=== PATIENT | male | born 1935 | race Caucasian/White ===

== ENCOUNTER 2018-04-03 09:07 | Inpatient (IN) | payer MEDICARE, BC ==
[2018-04-03] MEDS ORDERED: SODIUM CHLORIDE 0.9% 1,000 ML IV STA (09:53)
[2018-04-03] MEDS ORDERED: SODIUM CHLORIDE 0.9% 500 ML IV STA (09:53)
--- NOTE | 2018-04-03 09:57 | ED ---
General Adult HPI - General Chief complaint: Dizziness Stated complaint: Dizziness Time Seen by Provider: 04/03/18 09:26 Source: patient, RN notes reviewed Mode of arrival: wheelchair Limitations: no limitations - History of Present Illness Initial comments: Patient is a pleasant 82-year-old male presenting to the emergency department with lightheadedness. This morning patient had an episode with lightheadedness and dizziness and near syncopal sensation. Patient also had some mild sharp chest discomfort that did not radiate. Symptoms lasted around a minute and a half and near resolved. Patient only has minimal lightheadedness at this time. No history of similar symptoms previously. No confusion. No weakness. No speech problems. - Related Data Home Medications Medication Instructions Recorded Confirmed Aspirin [Children's Aspirin] 81 mg PO DAILY 04/03/18 04/03/18 Valsartan/Hydrochlorothiazide 1 tab PO DAILY 04/03/18 04/03/18 [Valsartan-Hctz 80-12.5 mg Tab] Allergies Allergy/AdvReac Type Severity Reaction Status Date / Time No Known Allergies Allergy Verified 04/03/18 09:35 Review of Systems ROS Statement: Those systems with pertinent positive or pertinent negative responses have been documented in the HPI. ROS Other: All systems not noted in ROS Statement are negative. Constitutional: Denies: fever Eyes: Denies: eye pain ENT: Denies: ear pain Respiratory: Denies: cough, dyspnea Cardiovascular: Reports: chest pain (Resolved) Endocrine: Denies: fatigue Gastrointestinal: Denies: abdominal pain Genitourinary: Denies: dysuria Musculoskeletal: Denies: back pain Skin: Denies: rash Neurological: Denies: headache Past Medical History Past Medical History: No Reported History History of Any Multi-Drug Resistant Organisms: None Reported Additional Past Surgical History / Comment(s): cyst on tailbone removed at age 20 Past Psychological History: No Psychological Hx Reported Smoking Status: Former smoker Past Alcohol Use History: None Reported Past Drug Use History: None Reported General Exam Limitations: no limitations General appearance: alert, in no apparent distress Head exam: Present: atraumatic Eye exam: Present: normal appearance, PERRL, EOMI. Absent: nystagmus ENT exam: Present: normal oropharynx Neck exam: Present: normal inspection Respiratory exam: Present: normal lung sounds bilaterally. Absent: chest wall tenderness Cardiovascular Exam: Present: regular rate, normal rhythm, normal heart sounds Expanded Peripheral pulses: 2+: Radial (R), Radial (L), Dorsalis Pedis (R), Dorsalis Pedis (L) GI/Abdominal exam: Present: soft. Absent: tenderness Extremities exam: Present: normal inspection. Absent: pedal edema, calf tenderness Neurological exam: Present: alert, oriented X3, CN II-XII intact. Absent: motor sensory deficit Expanded Neurological exam: Present: protecting the airway Patient oriented to: Present: person, place, time Speech: Present: fluid speech Cranial nerves: EOM's Intact: Normal, Facial Sensation: Normal Cerebellar function: Finger to Nose: Normal Sensory exam: Upper Extremity Light Touch: Normal, Lower Extremity Light Touch: Normal Motor strength exam: RUE: 5, LUE: 5, RLE: 5, LLE: 5 Eye Response: (4) open spontaneously Motor Response: (6) obeys commands Verbal Response: (5) oriented Psychiatric exam: Present: normal affect, normal mood Skin exam: Present: normal color Course Vital Signs 04/03/18 09:13 Temperature 98.4 F Pulse Rate 91 Respiratory 18 Rate Blood Pressure 164/97 O2 Sat by Pulse 99 Oximetry EKG Findings - EKG Comments: EKG Findings:: Normal sinus rhythm 92. SD 168. QRS 88. QT 384. QTC 474. Normal axis. Normal QRS. Nonspecific T waves. Medical Decision Making - Medical Decision Making Patient reevaluated and resting comfortably in bed. Patient and family updated on results and plan. Case was discussed in detail with Dr. Gleason, covering for Dr. Cuevas, who will admit. - Lab Data Result diagrams: 04/03/18 10:00 04/03/18 10:00 Lab Results 04/03/18 04/03/18 04/03/18 Range/Units 10:00 10:00 10:00 WBC 8.4 (3.8-10.6) k/uL RBC 4.77 (4.30-5.90) m/uL Hgb 13.8 (13.0-17.5) gm/dL Hct 41.9 (39.0-53.0) % MCV 87.8 (80.0-100.0) fL MCH 28.8 (25.0-35.0) pg MCHC 32.8 (31.0-37.0) g/dL RDW 13.3 (11.5-15.5) % Plt Count 314 (150-450) k/uL Neutrophils % 78 % Lymphocytes % 12 % Monocytes % 5 % Eosinophils % 2 % Basophils % 0 % Neutrophils # 6.6 (1.3-7.7) k/uL Lymphocytes # 1.0 (1.0-4.8) k/uL Monocytes # 0.5 (0-1.0) k/uL Eosinophils # 0.2 (0-0.7) k/uL Basophils # 0.0 (0-0.2) k/uL PT (9.0-12.0) sec INR (<1.2) APTT (22.0-30.0) sec D-Dimer (<0.60) mg/L FEU Sodium 133 L (137-145) mmol/L Potassium 4.4 (3.5-5.1) mmol/L Chloride 98 (98-107) mmol/L Carbon Dioxide 27 (22-30) mmol/L Anion Gap 8 mmol/L BUN 18 (9-20) mg/dL Creatinine 0.85 (0.66-1.25) mg/dL Est GFR (CKD-EPI)AfAm >90 (>60 ml/min/1.73 sqM) Est GFR (CKD-EPI)NonAf 81 (>60 ml/min/1.73 sqM) Glucose 107 H (74-99) mg/dL Calcium 9.0 (8.4-10.2) mg/dL Magnesium 1.9 (1.6-2.3) mg/dL Total Bilirubin 0.3 (0.2-1.3) mg/dL AST 36 (17-59) U/L ALT 32 (21-72) U/L Alkaline Phosphatase 71 (38-126) U/L Total Creatine Kinase 76 (55-170) U/L CK-MB (CK-2) 2.7 H* (0.0-2.4) ng/mL CK-MB (CK-2) Rel Index 3.6 Troponin I 0.032 (0.000-0.034) ng/mL Total Protein 6.4 (6.3-8.2) g/dL Albumin 4.0 (3.5-5.0) g/dL 07/26/18 Range/Units 10:00 WBC (3.8-10.6) k/uL RBC (4.30-5.90) m/uL Hgb (13.0-17.5) gm/dL Hct (39.0-53.0) % MCV (80.0-100.0) fL MCH (25.0-35.0) pg MCHC (31.0-37.0) g/dL RDW (11.5-15.5) % Plt Count (150-450) k/uL Neutrophils % % Lymphocytes % % Monocytes % % Eosinophils % % Basophils % % Neutrophils # (1.3-7.7) k/uL Lymphocytes # (1.0-4.8) k/uL Monocytes # (0-1.0) k/uL Eosinophils # (0-0.7) k/uL Basophils # (0-0.2) k/uL PT 9.7 (9.0-12.0) sec INR 1.0 (<1.2) APTT 23.1 (22.0-30.0) sec D-Dimer 0.46 (<0.60) mg/L FEU Sodium (137-145) mmol/L Potassium (3.5-5.1) mmol/L Chloride (98-107) mmol/L Carbon Dioxide (22-30) mmol/L Anion Gap mmol/L BUN (9-20) mg/dL Creatinine (0.66-1.25) mg/dL Est GFR (CKD-EPI)AfAm (>60 ml/min/1.73 sqM) Est GFR (CKD-EPI)NonAf (>60 ml/min/1.73 sqM) Glucose (74-99) mg/dL Calcium (8.4-10.2) mg/dL Magnesium (1.6-2.3) mg/dL Total Bilirubin (0.2-1.3) mg/dL AST (17-59) U/L ALT (21-72) U/L Alkaline Phosphatase (38-126) U/L Total Creatine Kinase (55-170) U/L CK-MB (CK-2) (0.0-2.4) ng/mL CK-MB (CK-2) Rel Index Troponin I (0.000-0.034) ng/mL Total Protein (6.3-8.2) g/dL Albumin (3.5-5.0) g/dL - Radiology Data Radiology results: report reviewed (Computed tomography scan of the brain shows no acute process.), image reviewed (Two-view chest x-ray shows no acute process. ) Disposition Clinical Impression: Chest pain, Near syncope Disposition: ADMITTED IP TO THIS HOSP Is patient prescribed a controlled substance at d/c from ED?: No Referrals: Joseph Cuevas MD [Primary Care Provider] - 1-2 days Decision Time: 11:29
[2018-04-03 10:18] LABS: Basophils % (A) 0 %; Eosinophils # (A) 0.2 k/uL (0-0.7); Eosinophils % (A) 2 %; HCT 41.9 % (39.0-53.0); HGB 13.8 gm/dL (13.0-17.5); Lymphocytes % (A) 12 %; MCH 28.8 pg (25.0-35.0); MCHC 32.8 g/dL (31.0-37.0); MCV 87.8 fL (80.0-100.0); Mean Platelet Volume 6.2; Monocytes # (A) 0.5 k/uL (0-1.0); Monocytes % (A) 5 %; Neutrophils # (A) 6.6 k/uL (1.3-7.7); Neutrophils % (A) 78 %; Platelet Count 314 k/uL (150-450); RBC 4.77 m/uL (4.30-5.90); RDW 13.3 % (11.5-15.5); WBC 8.4 k/uL (3.8-10.6)
[2018-04-03 10:30] LABS: ALT 32 U/L (21-72); AST 36 U/L (17-59); Alkaline Phosphatase 71 U/L (38-126); Anion Gap 8 mmol/L; Blood Urea Nitrogen 18 mg/dL (9-20); Carbon Dioxide 27 mmol/L (22-30); Chloride 98 mmol/L (98-107); Glucose 107 mg/dL (74-99); Magnesium 1.9 mg/dL (1.6-2.3); Potassium 4.4 mmol/L (3.5-5.1); Sodium 133 mmol/L (137-145); Total Bilirubin 0.3 mg/dL (0.2-1.3); Total Protein 6.4 g/dL (6.3-8.2)
[2018-04-03 10:33] LABS: D-Dimer 0.46 mg/L FEU (<0.60); Partial Thromboplastin Time 23.1 sec (22.0-30.0); Prothrombin Time 9.7 sec (9.0-12.0)
--- NOTE | 2018-04-03 10:38 | CT ---
EXAMINATION TYPE: CT brain wo con DATE OF EXAM: 04/03/2018 COMPARISON: None HISTORY: lightheaded and near syncope CT DLP: 746.4 mGycm Automated exposure control for dose reduction was used. TECHNIQUE: CT scan of the head is performed without contrast. FINDINGS: There is no acute intracranial hemorrhage or midline shift identified. There is diffuse v entricular and sulcal prominence consistent with diffuse age-related cerebral atrophy. There a few p atchy areas of low-attenuation in the periventricular white matter most commonly related to chronic s mall vessel ischemic change. The globes are intact and the visualized sinuses are clear. 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 Atherosclerosis is seen in the intracranial vasculature . No suspicious extra-axial fluid collection. IMPRESSION: No acute intracranial process. Age-related cerebral atrophy and mild nonspecific white m atter change, likely on the basis of chronic microangiopathy..
--- NOTE | 2018-04-03 10:40 | XR ---
EXAMINATION TYPE: XR chest 2V DATE OF EXAM: 04/03/2018 COMPARISON: NONE HISTORY: Shortness of breath TECHNIQUE: Frontal and lateral views of the chest are obtained. FINDINGS: Scattered senescent parenchymal changes noted. Hyperinflation compatible with COPD. No evidence for infiltrate. No evidence for atelectasis. Heart size is enlarged. Mediastinal structures are stable and grossly unremarkable. No evidence for hilar prominence. Degenerative changes dorsal spine. IMPRESSION: 1. No evidence for acute pulmonary disease.
[2018-04-03 10:56] LABS: Troponin I 0.032 ng/mL (0.000-0.034)
[2018-04-03 11:18] LABS: Creatine Kinase MB 2.7 ng/mL (0.0-2.4)
[2018-04-03] MEDS ORDERED: NITROGLYCERIN SL TABS 0.4 MG TAB SUBLINGUAL PRN (11:30)
[2018-04-03] MEDS ORDERED: ASPIRIN 81 MG PO STA (11:30)
[2018-04-03 13:04] VITALS: BMI 31.8
--- NOTE | 2018-04-03 13:15 | P.CRDCN ---
History of Present Illness History of present illness: Mr. Vo is a pleasant 82-year-old male past medical history significant for former tobacco use. He quit 30 years ago. He denies history of coronary artery disease, hypertension, dylipidemia or diabetes mellitus. He states his father and brother both suffered from premature coronary artery disease however he has never had any issues. We have been asked to see him in consultation for chest pain and dizziness. He states he was sitting up in the chair this morning when he became acutely lightheaded. Initially this was his only symptom then after a few minutes he felt a sharp pain across his chest that went from shoulder to shoulder, very brief. He denies radiation of the pain down the arms, into the neck, jaw or back. He denies associated shortness of breath, nausea, vomiting, diaphoresis or palpitations. His symptoms of chest pain subsided immediately and haven not returned. The light headedness lasted for about 3 hours and seemed to subside slowly on its own. Blood pressure on arrival 160's systolic and he states it typically runs 112-118. EKG reveals sinus mechanism with mild less than [address] depression laterally only noted in lead 1. Nonspecific T-wave abnormality noted in the inferior leads. Prolonged QTC 474 ms. There is no old EKG for comparison. Chest x-ray negative for acute cardiopulmonary process. CT brain negative for an acute process. Laboratory data reviewed, hemoglobin 13.8, platelets 314, d-dimer 0.46, sodium 133, potassium 4.4, magnesium 1.9, creatinine 0.85, troponin negative x1 with elevated CKMB 2.7. He takes no daily medications. Review of Systems At the time of my exam: CONSTITUTIONAL: Denies fever. Denies chills. EYES: Denies blurred vision. Denies vision changes. Denies eye pain. EARS, NOSE, MOUTH & THROAT: Denies headache. Denies sore throat. Denies ear pain. CARDIOVASCULAR: Denies chest pain. Denies shortness of breath. Denies orthopnea. Denies PND. Denies palpitations. RESPIRATORY: Denies cough. GASTROINTESTINAL: Denies abdominal pain. Denies diarrhea. Denies constipation. Denies nausea. Denies vomiting. MUSCULOSKELETAL: Denies myalgias. INTEGUMENTARY: Denies pruitis. Denies rash. NEUROLOGIC: Denies numbness. Denies tingling. Denies weakness. Complains of intermittent dizziness ongoing. PSYCHIATRIC: Denies anxiety. Denies depression. ENDOCRINE: Denies fatigue. Denies weight change. Denies polydipsia. Denies polyurina. GENITOURINARY: Denies burning, hematuria or urgency with micturation. HEMATOLOGIC: Denies history of anemia. Denies bleeding. Past Medical History Past Medical History: No Reported History History of Any Multi-Drug Resistant Organisms: None Reported Additional Past Surgical History / Comment(s): cyst on tailbone removed at age 20 Past Psychological History: No Psychological Hx Reported Smoking Status: Former smoker Past Alcohol Use History: None Reported Past Drug Use History: None Reported Medications and Allergies Home Medications Medication Instructions Recorded Confirmed Type Aspirin [Children's Aspirin] 81 mg PO DAILY 04/03/18 04/03/18 History Valsartan/Hydrochlorothiazide 1 tab PO DAILY 04/03/18 04/03/18 History [Valsartan-Hctz 80-12.5 mg Tab] Allergies Allergy/AdvReac Type Severity Reaction Status Date / Time No Known Allergies Allergy Verified 04/03/18 09:35 Physical Exam Vitals: Vital Signs Temp Pulse Resp BP Pulse Ox 04/03/18 12:25 98.0 F 75 18 156/86 99 04/03/18 11:00 98.0 F 88 18 160/89 99 04/03/18 09:13 98.4 F 91 18 164/97 99 Intake and Output 04/02/18 04/03/18 04/03/18 22:59 06:59 14:59 Other: Weight 95.254 kg Blood pressure 156/86 heart rate 75 afebrile maintaining oxygen saturation on room air GENERAL: This is a 82-year-old male in no apparent distress at the time of my examination. HEENT: Head is atraumatic, normocephalic. Pupils are equal, round. Sclerae anicteric. Conjunctivae are clear. Mucous membranes of the mouth are moist. Neck is supple. There is no jugular venous distention. No carotid bruit is heard. LUNGS: Clear to auscultation no wheezes, rales or rhonchi. No chest wall tenderness is noted on palpation or with deep breathing. HEART: Regular rate and rhythm without murmurs, rubs or gallops. S1 and S2 heard. ABDOMEN: Soft, nontender. Bowel sounds are heard. No organomegaly noted. EXTREMITIES: No evidence of peripheral edema and no calf tenderness noted. VASCULAR: Radial and dorsalis pedis pulses palpated, no evidence of clubbing. NEUROLOGIC: Patient is awake, alert and oriented x3. Results 04/03/18 10:00 04/03/18 10:00 Cardiac Enzymes 04/03/18 04/03/18 Range/Units 10:00 10:00 AST 36 (17-59) U/L CK-MB (CK-2) 2.7 H* (0.0-2.4) ng/mL Troponin I 0.032 (0.000-0.034) ng/mL Coagulation 04/03/18 Range/Units 10:00 PT 9.7 (9.0-12.0) sec APTT 23.1 (22.0-30.0) sec CBC 04/03/18 Range/Units 10:00 WBC 8.4 (3.8-10.6) k/uL RBC 4.77 (4.30-5.90) m/uL Hgb 13.8 (13.0-17.5) gm/dL Hct 41.9 (39.0-53.0) % Plt Count 314 (150-450) k/uL Comprehensive Metabolic Panel 04/03/18 Range/Units 10:00 Sodium 133 L (137-145) mmol/L Potassium 4.4 (3.5-5.1) mmol/L Chloride 98 (98-107) mmol/L Carbon Dioxide 27 (22-30) mmol/L BUN 18 (9-20) mg/dL Creatinine 0.85 (0.66-1.25) mg/dL Glucose 107 H (74-99) mg/dL Calcium 9.0 (8.4-10.2) mg/dL AST 36 (17-59) U/L ALT 32 (21-72) U/L Alkaline Phosphatase 71 (38-126) U/L Total Protein 6.4 (6.3-8.2) g/dL Albumin 4.0 (3.5-5.0) g/dL Current Medications Generic Name Dose Route Start Last Admin Trade Name Freq PRN Reason Stop Dose Admin Aspirin 325 mg 04/04/18 09:00 Aspirin PO DAILY FABIANA Sodium Chloride 1,000 mls @ 100 mls/hr 04/03/18 09:53 04/03/18 10:04 Saline 0.9% IV 04/03/18 19:52 100 mls/hr .Q10H STA Administration Nitroglycerin 1 inch 04/03/18 12:00 Nitro-Bid Oint TOPICAL Q6HR FABIANA Nitroglycerin 0.4 mg 04/03/18 11:30 Nitrostat SUBLINGUAL Q5M PRN Chest Pain Intake and Output 04/02/18 04/03/18 04/03/18 22:59 06:59 14:59 Other: Weight 95.254 kg Patient Weight 04/04/18 06:59 Weight 95.254 kg 04/03/18 10:00 04/03/18 10:00 Assessment and Plan Assessment: ASSESSMENT Precordial chest pain at rest with associated dizziness. Dizziness, unknown etiology Hypertension Elevated CK-MB, denies recent trauma or increased exertional activity PLAN Obtain 2D echocardiogram and doppler study to assess cardiac structure and function. Obtain bilateral carotid duplex. Check orthostatic vital signs, if negative will add lisinopril and norvasc for blood pressure. Continue to obtain serial cardiac enzymes and EKG. Obtain lipid panel. NPO after midnight for possible stress testing vs cardiac catheterization if cardiac enzymes are positive. Thank you kindly for this consultation, we will continue to follow. The above impression and plan of care have been discussed and directed by the signing physician. Adrianne Scott, nurse practitioner, acting as scribe for signing physician.
--- NOTE | 2018-04-03 15:10 | US ---
EXAMINATION TYPE: US carotid duplex BILAT DATE OF EXAM: 04/03/2018 COMPARISON: NONE CLINICAL HISTORY: pre-syncope. Dizziness, chest pain EXAM MEASUREMENTS: RIGHT: Peak Systolic Velocity (PSV) cm/sec ----- Right CCA: 70.4 ----- Right ICA: 66.9 ----- Right ECA: 77.3 ICA/CCA ratio: 1.0 RIGHT: End Diastole cm/sec ----- Right CCA: 21.0 ----- Right ICA: 15.1 ----- Right ECA: 12.0 LEFT: Peak Systolic Velocity (PSV) cm/sec ----- Left CCA: 58.5 ----- Left ICA: 59.5 ----- Left ECA: 64.6 ICA/CCA ratio: 1.0 LEFT: End Diastole cm/sec ----- Left CCA: 14.6 ----- Left ICA: 21.0 ----- Left ECA: 15.9 VERTEBRALS (direction of flow): Right Vertebral: Antegrade Left Vertebral: Antegrade Rhythm: Arrhythmia IMPRESSION: Bilateral intimal thickening, plaque bilateral bulb and proximal ICA, no elevated velocities, no sign ificant stenosis. Criteria for Assigning % of Stenosis / Diameter reduction (Estimation based on the indirect measurements of the internal carotid artery velocities (ICA PSV). 1. Normal (no stenosis)=ICA PSV < 125 cm/s: ratio < 2.0: ICA EDV<40 cm/s. 2. Less than 50% stenosis=ICA PSV < 125 cm/s: ratio < 2.0: ICA EDV<40 cm/s. 3. 50 to 69% stenosis=ICA PSV of 125 to 230 cm/s: ration 2.0 ? 4.0: ICA EDV 40-100 cm/s. 4. Greater than 70% stenosis to near occlusion= ICA PSV > 230 cm/s: ratio > 4.0: ICA EDV > 100 cm/s. 5. Near occlusion= ICA PSV velocities may be low or undetectable: variable ratio and ICA EDV. 6. Total occlusion=unable to detect flow.
[2018-04-03] MEDS ORDERED: hydrALAZINE HCL 20 MG/ML 1 ML VIAL IVP PRN (16:12)
[2018-04-03] MEDS ORDERED: ALPRAZolam 0.25 MG TAB PO PRN (16:12)
[2018-04-03] MEDS ORDERED: HYDROcodone/APAP 5-325MG 1 EACH TAB PO PRN (16:12)
[2018-04-03] MEDS ORDERED: ACETAMINOPHEN TAB 500 MG TAB PO PRN (16:12)
[2018-04-03] MEDS ORDERED: VALSARTAN 80 MG TAB PO SCH (16:15)
[2018-04-03] MEDS ORDERED: VALSARTAN 160 MG TAB PO SCH (16:21)
[2018-04-03] MEDS: NITROGLYCERIN OINT 1 INCH/GM PACKET TOPICAL SCH ×3 (17:08→23:30)
[2018-04-03 17:19] LABS: Creatine Kinase MB 2.4 ng/mL (0.0-2.4)
[2018-04-03] MEDS: LISINOPRIL 10 MG TAB PO SCH (17:44)
[2018-04-03] MEDS: amLODIPine 5 MG TAB PO SCH (17:44)
[2018-04-03] MEDS: HYDROCHLOROTHIAZIDE 12.5 MG CAP PO SCH (17:44)
[2018-04-03 17:58] LABS: Troponin I 0.048 ng/mL (0.000-0.034)
[2018-04-03] MEDS ORDERED: ATORVASTATIN 40 MG TAB PO SCH (21:00)
[2018-04-03] MEDS ORDERED: HEPARIN SOD,PORK IN 0.45% NACL 25,000 UNIT in 0.45% NACL 1 500ML.BAG IV SCH (21:15)
[2018-04-03] MEDS: METOPROLOL TARTRATE 50 MG TAB PO SCH (21:32)
--- NOTE | 2018-04-03 21:48 | HP ---
HISTORY AND PHYSICAL I am covering for Dr. Cuevas. CHIEF COMPLAINT: Dizziness and chest pain. HISTORY OF PRESENT ILLNESS: This 82-year-old gentleman with a past medical history of no significant medical issues being followed by Dr. Dr. Cuevas in the outpatient setting apparently sitting after breakfast in a chair. The patient felt dizzy. Patient almost blacked out, lightheaded. The patient had near syncope. The patient also had sharp chest pains bilaterally. Patient came to [facility] and admitted for further evaluation and treatment. Cardiology evaluation in progress and EKG showed nonspecific ST-T changes. Troponins have been trending upwards up to 0.048 at this time. The patient admitted to the hospital for further evaluation and treatment. There is no history of fever, rigors or chills. No history of headache, loss of consciousness, seizures. PAST MEDICAL HISTORY: Past medical history of hypertension. MEDICATIONS: Prior to admission are: 1. Valsartan. 2. Hydrochlorothiazide 1 tab p.o. daily. 3. Aspirin 81 mg p.o. daily. ALLERGIES: None. FAMILY HISTORY: No history of heart disease or strokes in the family. SOCIAL HISTORY: Previous history of smoking. No history of current smoking and no alcohol intake. REVIEW OF SYSTEMS: ENT: As mentioned earlier. Cardiovascular as mentioned earlier. Respiratory: No cough or hemoptysis. GI: No nausea and vomiting. : No dysuria or hematuria. Nervous system: No numbness or weakness. Allergy/Immunology: No asthma or hayfever. Musculoskeletal as mentioned earlier. Hematology/Oncology: No history of anemia. Endocrine: No history of diabetes or hypothyroidism. CONSTITUTIONAL: As mentioned earlier. Dermatology: Negative. Rheumatology: Negative. Psychiatry: negative. PHYSICAL EXAMINATION: Alert, oriented x3, pulse 83, blood pressure 140/59, respirations 20, temperature is 98.1, pulse ox is 96% on room air. HEENT: Conjunctivae normal. Oral mucosa moist. Neck is no jugular venous distention. No carotid bruit. No lymph node enlargement. Cardiovascular system: S1, S2 is normal. No murmur noted. No S3. No S4. Respiratory: Breath sounds diminished at the bases. No focal motor or sensory deficits. Lymphatics: No lymph nodes palpable in the neck, axillae or groin. SKIN: No ulcer, rash, bleeding. LABS: CBC within normal limits. Sodium 133. Troponin noted. ASSESSMENT: 1. Chest pain possible unstable angina rule out acute non ST-segment elevation myocardial infarction with troponin 0.048. 2. Presyncope for evaluation, rule out cardiac arrhythmia. 3. Hyponatremia. 4. Remote history of nicotine dependence. RECOMMENDATIONS AND DISCUSSION: This 82-year-old woman who presented with multiple complex medical issues. We will monitor the patient closely, continue the current meds, management and symptomatic treatment. Otherwise, cardiology consultation. The patient has been recommended stress test. If the troponins are positive, the patient will require a cardiac cath. Otherwise, will add beta blockers to current regimen, antiplatelet agents and also check lipid profiles and Lipitor as well. The overall prognosis is guarded because of multiple complex medical issues and further recommendations to follow. MMODL / IJN: [id number] /
[2018-04-03 22:57] VITALS: RESP 18
[2018-04-03 23:08] LABS: Creatine Kinase MB 2.8 ng/mL (0.0-2.4); Troponin I 0.059 ng/mL (0.000-0.034)
[2018-04-03] MEDS: MELATONIN 3 MG TABLET PO SCH (23:29)
[2018-04-04 03:10] LABS: Basophils # (A) 0.1 k/uL (0-0.2); Basophils % (A) 0 %; Eosinophils # (A) 0.5 k/uL (0-0.7); Eosinophils % (A) 5 %; HGB 13.9 gm/dL (13.0-17.5); Lymphocytes # (A) 1.7 k/uL (1.0-4.8); Lymphocytes % (A) 16 %; MCH 29.1 pg (25.0-35.0); MCHC 32.3 g/dL (31.0-37.0); MCV 90.3 fL (80.0-100.0); Mean Platelet Volume 6.3; Monocytes # (A) 0.5 k/uL (0-1.0); Monocytes % (A) 5 %; Neutrophils # (A) 7.8 k/uL (1.3-7.7); Neutrophils % (A) 73 %; Platelet Count 322 k/uL (150-450); RBC 4.76 m/uL (4.30-5.90); RDW 13.5 % (11.5-15.5); WBC 10.7 k/uL (3.8-10.6)
[2018-04-04 03:28] LABS: Anion Gap 5 mmol/L; Blood Urea Nitrogen 17 mg/dL (9-20); Calcium 8.9 mg/dL (8.4-10.2); Carbon Dioxide 26 mmol/L (22-30); Chloride 100 mmol/L (98-107); Cholesterol 181 mg/dL (<200); Glucose 102 mg/dL (74-99); HDL Cholesterol 58 mg/dL (40-60); LDL Cholesterol,Calculated 106 mg/dL (0-99); Sodium 131 mmol/L (137-145); Triglycerides 87 mg/dL (<150)
[2018-04-04] MEDS: NITROGLYCERIN OINT 1 INCH/GM PACKET TOPICAL SCH (06:39)
[2018-04-04] MEDS: PANTOPRAZOLE 40 MG TABLET PO SCH (06:40)
[2018-04-04] MEDS ORDERED: MIDAZOLAM 2 MG/2 ML VIAL IVP ONE (08:33)
[2018-04-04] MEDS ORDERED: NITROGLYCERIN SL TABS 0.4 MG TAB SUBLINGUAL PRN (08:37)
[2018-04-04] MEDS ORDERED: ATORVASTATIN 80 MG TAB PO STA (08:37)
[2018-04-04] MEDS ORDERED: SODIUM CHLORIDE 0.9% 1,000 ML in EMPTY BAG 1 BAG IV ONE (08:37)
[2018-04-04] MEDS ORDERED: ASPIRIN 325 MG TAB PO STA (08:37)
[2018-04-04] MEDS: amLODIPine 5 MG TAB PO SCH (08:56)
[2018-04-04] MEDS: METOPROLOL TARTRATE 50 MG TAB PO SCH (08:57)
[2018-04-04] MEDS: HYDROCHLOROTHIAZIDE 12.5 MG CAP PO SCH (08:57)
[2018-04-04] MEDS: LISINOPRIL 10 MG TAB PO SCH (08:57)
[2018-04-04] MEDS ORDERED: ASPIRIN 81 MG PO SCH (09:00)
[2018-04-04] MEDS ORDERED: ASPIRIN 325 MG TAB PO SCH (09:00)
[2018-04-04] MEDS ORDERED: LIDOCAINE 1% INJ 10MG/ML (20 ML MDV) ONE (09:23)
[2018-04-04] MEDS ORDERED: MIDAZOLAM 2 MG/2 ML VIAL ONE (09:28)
[2018-04-04] MEDS ORDERED: diphenhydrAMINE 50 MG/ML 1 ML VIAL ONE (09:29)
[2018-04-04] MEDS ORDERED: IV FLUID CONTINUATION 750 ML IV ONE (09:30)
[2018-04-04] MEDS ORDERED: diphenhydrAMINE 50 MG/ML 1 ML VIAL IVP ONE (09:33)
[2018-04-04] MEDS ORDERED: LIDOCAINE 2% INJ 20 MG/ML SQ ONE ×2 (09:37)
[2018-04-04] MEDS ORDERED: RX INFO: IV CONTRAST WAS GIVEN 1 EACH MISC MISCELLANE PRN (10:00)
[2018-04-04] MEDS ORDERED: IOPAMIDOL-370 125ML BTL INJ ONE (10:01)
--- NOTE | 2018-04-04 10:04 | CC ---
CARDIAC CATHETERIZATION REPORT INDICATION: Non ST-segment elevation SD. PROCEDURE NOTE: After obtaining informed consent, left heart catheterization, coronary angiogram are performed via the right femoral artery using standard Samreen catheters. Patient tolerated the procedure well without any obvious immediate complications. Patient received moderate conscious sedation. Total sedation time was 15 minutes. FINDINGS: 1. HEMODYNAMICS: Left ventricular end-diastolic pressure is 8 to 12 mm. There is no significant gradient across the aortic valve. 2. LEFT VENTRICULOGRAM: Left ventriculogram is not performed. 3. ANGIOGRAPHIC DATA: 4. LEFT MAIN CORONARY ARTERY: Left main coronary artery appears calcified but is free of significant stenosis. It divides into left anterior descending coronary artery and circumflex coronary artery. Circumflex coronary artery shows mild nonobstructive coronary artery disease, as does the LAD. Right coronary artery is a large dominant vessel and is free of significant stenosis. Patient had a femoral angiogram and Angio-Seal will be deployed for hemostasis. CONCLUSION: Patient's chest discomfort and [id number] elevation myocardial infarction could be due to plaque rupture. Will treat him with aspirin, lipid lowering agents and the risk factor modification. MMODL / IJN: [id number] /
--- NOTE | 2018-04-04 10:34 | ECHOF ---
Referral Reason:syncope MEASUREMENTS -------- HEIGHT: 172.7 cm WEIGHT: 95.3 kg BP: IVSd: 2.0 cm (0.6 - 1.1) LVIDd: 4.4 cm (3.9 - 5.3) LVPWd: 1.7 cm (0.6 - 1.1) IVSs: 2.1 cm LVIDs: 3.8 cm LVPWs: 2.0 cm LA Diam: 5.1 cm (2.7 - 3.8) LAESV Index (A-L): 49.07 ml/m Ao Diam: 3.1 cm (2.0 - 3.7) AV Cusp: 1.8 cm (1.5 - 2.6) LA Diam: 4.2 cm (2.7 - 3.8) MV EXCURSION: 20.305 mm (> 18.000) MV EF SLOPE: 85 mm/s (70 - 150) EPSS: 0.8 cm MV E Rusty: 0.80 m/s MV DecT: 96 ms MV A Rusty: 0.31 m/s MV E/A Ratio: 2.59 RAP: 5.00 mmHg RVSP: 20.10 mmHg FINDINGS -------- Sinus rhythm. This was a technically adequate study. The left ventricular size is normal. There is severe concentric left ventricular hypertrophy. Ove rall left ventricular systolic function is low-normal with, an EF between 50 - 55 %. The right ventricle is normal in size. The left atrium is mildly dilated. LA is severely dilated >40 ml/m2 The right atrial size is normal. There is mild aortic valve sclerosis. There is no evidence of aortic regurgitation. Mild mitral annular calcification present. Mild mitral regurgitation is present. Mild tricuspid regurgitation present. There is no evidence of pulmonary hypertension. The right v entricular systolic pressure, as measured by Doppler, is 20.10mmHg. There is no pulmonic regurgitation present. The aortic root size is normal. There is no pericardial effusion. CONCLUSIONS -------- 1. The left ventricular size is normal. 2. There is severe concentric left ventricular hypertrophy. 3. Overall left ventricular systolic function is low-normal with, an EF between 50 - 55 %. 4. The right ventricle is normal in size. 5. The left atrium is mildly dilated. 6. LA is severely dilated >40 ml/m2 7. There is mild aortic valve sclerosis. 8. Mild mitral annular calcification present. 9. Mild mitral regurgitation is present. 10. Mild tricuspid regurgitation present. 11. There is no evidence of pulmonary hypertension. 12. The right ventricular systolic pressure, as measured by Doppler, is 20.10mmHg. 13. There is no pulmonic regurgitation present. 14. The aortic root size is normal. 15. There is no pericardial effusion. BUDGET CLERK: Lavonne Galaviz RDCS
[2018-04-04] MEDS: ISOSORBIDE MONONITRATE ER 30 MG TAB.ER.24H PO SCH (10:53)
[2018-04-04 12:20] LABS: Glucose,Whole Blood 121 mg/dL (75-99)
--- NOTE | 2018-04-04 16:13 | PN ---
PROGRESS NOTE DATE OF SERVICE: 04/04/2018 I am covering for Dr. Cuevas. This 82-year-old gentleman admitted with dizziness and chest pain, had possible acute non-ST elevation myocardial infarction. The patient had a cardiac catheterization by Dr. Willis, which showed some calcification, free of significant stenosis. The plaque rupture is considered. No chest pain. No palpitations. No fever. EXAM: Alert and oriented x3. Pulse is 53, blood pressure 111/73, respiration normal, temperature normal, pulse ox 94% on room air. HEENT: Conjunctivae normal. NECK: No jugular venous distention. CARDIOVASCULAR: S1, S2 RESPIRATORY: Breath sounds diminished in the bases. No rhonchi, no crackles. ABDOMEN: Soft, nontender. LEGS: No edema, no swelling. NERVOUS SYSTEM: No focal deficits. LAB STUDIES: WBC 11.1, hemoglobin 13.9. Troponin is noted. ASSESSMENT: 1. Chest pain possible unstable angina with acute non ST-segment elevation myocardial infarction, troponin 0.04, status post cardiac catheterization, no significant stenosis. 2. Presyncope for evaluation, rule out cardiac arrhythmia. 3. Hyponatremia. 4. Remote history of nicotine dependence. RECOMMENDATIONS AND DISCUSSION: I recommend to continue current management and continue with antiplatelet agents. Monitor. Hold the beta julian because of bradycardia. Otherwise continue the rest of medications. Guarded prognosis because of multiple complex medical issues. Further recommendations to follow. MMODL / IJN: [id number] /
[2018-04-04 17:11] LABS: Glucose,Whole Blood 132 mg/dL (75-99)
[2018-04-04 21:04] LABS: Glucose,Whole Blood 113 mg/dL (75-99)
[2018-04-04] MEDS: MELATONIN 3 MG TABLET PO SCH (21:36)
[2018-04-05] MEDS: PANTOPRAZOLE 40 MG TABLET PO SCH (06:17)
[2018-04-05] MEDS ORDERED: ATORVASTATIN 10 MG TAB PO SCH (09:00)
[2018-04-05] MEDS ORDERED: ASPIRIN 81 MG PO SCH (09:00)
[2018-04-05 11:12] VITALS: TEMP 97
--- NOTE | 2018-04-05 12:59 | PN ---
PROGRESS NOTE Mr. Vo is an 82-year-old male known history of hypertension, hyperlipidemia, who underwent cardiac catheterization by Dr. Willis yesterday, was found to have no evidence of obstructive disease. He is doing well this morning. He denying any chest pain. No dizziness. No palpitation. He continues to be on aspirin once a day, amlodipine 5 mg daily, Lipitor 10 mg daily, lisinopril 10 mg daily, isosorbide mononitrate 30 mg daily. PHYSICAL EXAMINATION: Blood pressure 128/80 with a heart in the 70s. LUNGS: Clear. HEART: Regular rate and rhythm. S1, S2. No S3. No rub. ABDOMEN: Soft, nontender. EXTREMITIES: No edema. Right groin hematoma. IMPRESSION: 1. Chest discomfort with no evidence of significant obstructive disease. 2. Hypertension. 3. Hyperlipidemia. RECOMMENDATION: Patient is stable from the cardiac standpoint to be discharged home today and followed as an outpatient. MMODL / IJN: [id number] /
--- NOTE | 2018-04-05 13:50 | DS ---
DISCHARGE SUMMARY DATE OF SERVICE: 04/05/2018 FINAL DIAGNOSES: 1. Chest pain possible unstable angina or acute non ST-segment elevation myocardial infarction with troponin 0.04 status post cardiac catheterization with no significant stenosis. 2. Presyncope, improved, possibly vasovagal. 3. Hyponatremia. 4. Remote nicotine dependence. DISCHARGE DISPOSITION: The patient will be discharged in stable condition with guarded prognosis. HISTORY OF PRESENT ILLNESS: This 82-year-old gentleman with a past history of multiple medical problems being followed by Dr. Cuevas in the outpatient setting was admitted with chest pain. The patient underwent a cardiac catheterization that showed no significant disease. Medical treatment was recommended. Patient improved significantly and the patient also had a carotid Doppler as a part of the neurology workup which showed bilateral thickening and no any acute stenosis. Otherwise, a 2D echo showed ejection fraction about 50-55%. LA was severely dilated. No other significant valvular abnormalities. The patient improved significantly. Patient will be discharged in stable condition with guarded prognosis. On exam, vitals are stable. CARDIOVASCULAR: S1, S2. ABDOMEN: Soft. NERVOUS SYSTEM: No focal deficits. DISCHARGE ADVICE: 1. Diet is cardiac. 2. Activities limited until followup. 3. Follow with Dr. Cuevas in 2-3 days. 4. Follow with the allergist immunologist. MEDICATIONS: 1. Ecotrin 81 mg p.o. daily. 2. Norvasc 5 mg p.o. daily. 3. Lipitor 20 mg q.h.s. 4. HydroDIURIL 12.5 mg p.o. daily. 5. Imdur ER 30 mg p.o. daily. 6. Zestril 10 mg b.i.d. 7. Nitrostat 0.4 mg p.r.n. Please note that the patient is started on high-dose statin. MMODL / IJN: [id number] / MTDD
[2018-04-05] MEDS: HYDROCHLOROTHIAZIDE 12.5 MG CAP PO SCH (14:32)
[2018-04-05] MEDS: amLODIPine 5 MG TAB PO SCH (14:32)
[2018-04-05] MEDS: LISINOPRIL 10 MG TAB PO SCH (14:33)
[2018-04-05] MEDS: ISOSORBIDE MONONITRATE ER 30 MG TAB.ER.24H PO SCH (14:33)
[2018-04-05 15:01] VITALS: BP 137/90; PULSE 77
== END 2018-04-05 15:23 | disposition home or self-care (01) | DRG 281 ==
LOC: EC 09:07 → 3OBS 11:30 → 6SEL 19:07 → OBSVTOIN 04-04 11:45
PROVIDERS: ADMIT Internal Medicine; ATTEND Internal Medicine
PROC: B2111ZZ Fluoroscopy of Multiple Coronary Arteries using Low Osmolar Contrast (ICD-10-PCS; 2018-04-04)
PROC: 4A023N7 Measurement of Cardiac Sampling and Pressure, Left Heart, Percutaneous Approach (ICD-10-PCS; principal; 2018-04-04 09:15)
DX: I21.4 Non-ST elevation (NSTEMI) myocardial infarction (principal); I25.110 Atherosclerotic heart disease of native coronary artery with unstable angina pectoris; I25.84 Coronary atherosclerosis due to calcified coronary lesion; E87.1 Hypo-osmolality and hyponatremia; R55 Syncope and collapse; I10 Essential (primary) hypertension; E78.5 Hyperlipidemia, unspecified; R42 Dizziness and giddiness; Z87.891 Personal history of nicotine dependence; Z82.49 Family history of ischemic heart disease and other diseases of the circulatory system; Z79.82 Long term (current) use of aspirin; Z79.899 Other long term (current) drug therapy
CPT/HCPCS: 36415; 70450; 71046; 80048; 80053; 80061; 82550; 82553; 83735; 84484; 85025; 85379; 85610; 85730; 93005; 93306; 93458; 93880; 96360; 96361; 99285

== ENCOUNTER 2018-12-27 22:53 | Inpatient (IN) | payer MEDICARE, BC ==
--- NOTE | 2018-12-27 23:52 | ED ---
Headache HPI - General Chief Complaint: Headache Stated Complaint: Leg pain, shortness of breath Time Seen by Provider: 12/27/18 23:50 Mode of arrival: ambulatory Limitations: no limitations - History of Present Illness Initial Comments: Addy is a pleasant 83-year-old male presents the emergency department today for evaluation of pulsating headache Patient reports that for the past few days he's been experiencing a heat like pain in his bilateral lower extremities. Patient is able to get up and walk a couple of miles at the mall every morning but reports that he feels like his legs are hot with any activity. Patient also reports that this evening he laid down to go to bed and felt as though his head was pulsating. Patient reports he feels okay is always sitting up and not moving but when he lays down he feels pulsating throughout his head any sever expressing pain like this in the past. Patient does report some exertional dyspnea with activities including dressing which is aggressively worsening for him. He denies any chest pain. He does report feeling like his heart is racing upon arrival to the emergency department but states that he wasn't feeling that this morning with his walk. - Related Data Home Medications Medication Instructions Recorded Confirmed Aspirin [Children's Aspirin] 81 mg PO DAILY 04/03/18 12/27/18 Previous Rx's Medication Instructions Recorded Hydrochlorothiazide [Hydrodiuril] 12.5 mg PO DAILY #30 cap 04/04/18 Isosorbide Mononitrate ER [Imdur] 30 mg PO DAILY #30 tab.er.24h 04/04/18 Lisinopril [Zestril] 10 mg PO DAILY #30 tab 04/04/18 Nitroglycerin Sl Tabs [Nitrostat] 0.4 mg SUBLINGUAL Q5M PRN #1 bottle 04/04/18 amLODIPine [Norvasc] 5 mg PO DAILY #30 tab 04/04/18 Atorvastatin Calcium [Lipitor] 20 mg PO HS #30 tab 04/05/18 Allergies Allergy/AdvReac Type Severity Reaction Status Date / Time No Known Allergies Allergy Verified 04/03/18 09:35 Review of Systems ROS Statement: Those systems with pertinent positive or pertinent negative responses have been documented in the HPI. ROS Other: All systems not noted in ROS Statement are negative. Past Medical History Past Medical History: No Reported History History of Any Multi-Drug Resistant Organisms: None Reported Additional Past Surgical History / Comment(s): cyst on tailbone removed at age 20 Past Psychological History: No Psychological Hx Reported Smoking Status: Former smoker Past Alcohol Use History: None Reported Past Drug Use History: None Reported General Exam - General Exam Comments Initial Comments: Physical Exam GENERAL: Patient is well-developed and well-nourished. Patient is nontoxic and well- hydrated and is in no distress. HENT: Normocephalic, Atraumatic. EYES: PERRL, EOMI PULMONARY: Unlabored respirations. No audible rales rhonchi or wheezing was noted. CARDIOVASCULAR: Irregularly irregular ABDOMEN: Soft and nontender with normal bowel sounds. SKIN: Skin is clear with no lesions or rashes and otherwise unremarkable. : Deferred NEUROLOGIC: Patient is alert and oriented x3. Moving all extremities spontaneously MUSCULOSKELETAL: Normal extremities with adequate strength and full range of motion. No lower extremity swelling or edema. No calf tenderness. PSYCHIATRIC: Normal psychiatric evaluation. Limitations: no limitations Limitations: no limitations Course Vital Signs 12/27/18 12/28/18 12/28/18 23:11 00:13 02:25 Temperature 97.6 F Pulse Rate 129 H 128 H 85 Pulse Rate [ Bonsai Tender ] Respiratory 20 18 18 Rate Blood Pressure 138/101 147/94 135/82 Blood Pressure [Left Arm] O2 Sat by Pulse 98 98 99 Oximetry 12/28/18 03:13 Temperature 97.7 F Pulse Rate Pulse Rate [ 103 H Bonsai Tender ] Respiratory 14 Rate Blood Pressure Blood Pressure 148/103 [Left Arm] O2 Sat by Pulse 97 Oximetry Medical Decision Making - Medical Decision Making Patient was seen and evaluated history is obtained from the patient and at bedside [id number] gentleman with no significant past medical history presenting with pounding in his head and a few days of burning lower extremity discomfort On arrival noted the patient is tachycardic and on EKGs noted to have atrial flutter Full workup was obtained including troponin, TSH and a CT of the head Troponin was mildly elevated at 0.05, I suspect this is a type II in STEMI secondary to supply demand due to profound tachycardia. Patient is asymptomatic not having any chest pain. Patient will be admitted for serial troponins. Labs were unremarkable however given that the patient is on new onset atrial flu tter we will plan to admit him for further evaluation by cardiology. - Lab Data Result diagrams: 12/28/18 00:11 12/28/18 00:11 Lab Results 12/28/18 12/28/18 12/28/18 Range/Units 00:11 00:11 00:11 WBC 10.0 (3.8-10.6) k/uL RBC 4.51 (4.30-5.90) m/uL Hgb 12.9 L (13.0-17.5) gm/dL Hct 39.7 (39.0-53.0) % MCV 87.9 (80.0-100.0) fL MCH 28.5 (25.0-35.0) pg MCHC 32.5 (31.0-37.0) g/dL RDW 14.7 (11.5-15.5) % Plt Count 257 (150-450) k/uL Neutrophils % 77 % Lymphocytes % 11 % Monocytes % 6 % Eosinophils % 4 % Basophils % 1 % Neutrophils # 7.6 (1.3-7.7) k/uL Lymphocytes # 1.1 (1.0-4.8) k/uL Monocytes # 0.6 (0-1.0) k/uL Eosinophils # 0.4 (0-0.7) k/uL Basophils # 0.1 (0-0.2) k/uL PT (9.0-12.0) sec INR (<1.2) APTT (22.0-30.0) sec Sodium 134 L (137-145) mmol/L Potassium 4.4 (3.5-5.1) mmol/L Chloride 104 (98-107) mmol/L Carbon Dioxide 22 (22-30) mmol/L Anion Gap 8 mmol/L BUN 20 (9-20) mg/dL Creatinine 0.81 (0.66-1.25) mg/dL Est GFR (CKD-EPI)AfAm >90 (>60 ml/min/1.73 sqM) Est GFR (CKD-EPI)NonAf 82 (>60 ml/min/1.73 sqM) Glucose 105 H (74-99) mg/dL Calcium 9.3 (8.4-10.2) mg/dL Total Bilirubin 0.7 (0.2-1.3) mg/dL AST 46 (17-59) U/L ALT 53 (21-72) U/L Alkaline Phosphatase 100 (38-126) U/L Creatine Kinase 89 (55-170) U/L Troponin I 0.057 H* (0.000-0.034) ng/mL Total Protein 6.7 (6.3-8.2) g/dL Albumin 4.0 (3.5-5.0) g/dL TSH 5.940 H (0.465-4.680) mIU/L Free T4 1.19 (0.78-2.19) ng/dL 12/28/18 Range/Units 00:11 WBC (3.8-10.6) k/uL RBC (4.30-5.90) m/uL Hgb (13.0-17.5) gm/dL Hct (39.0-53.0) % MCV (80.0-100.0) fL MCH (25.0-35.0) pg MCHC (31.0-37.0) g/dL RDW (11.5-15.5) % Plt Count (150-450) k/uL Neutrophils % % Lymphocytes % % Monocytes % % Eosinophils % % Basophils % % Neutrophils # (1.3-7.7) k/uL Lymphocytes # (1.0-4.8) k/uL Monocytes # (0-1.0) k/uL Eosinophils # (0-0.7) k/uL Basophils # (0-0.2) k/uL PT 10.4 (9.0-12.0) sec INR 1.0 (<1.2) APTT 23.4 (22.0-30.0) sec Sodium (137-145) mmol/L Potassium (3.5-5.1) mmol/L Chloride (98-107) mmol/L Carbon Dioxide (22-30) mmol/L Anion Gap mmol/L BUN (9-20) mg/dL Creatinine (0.66-1.25) mg/dL Est GFR (CKD-EPI)AfAm (>60 ml/min/1.73 sqM) Est GFR (CKD-EPI)NonAf (>60 ml/min/1.73 sqM) Glucose (74-99) mg/dL Calcium (8.4-10.2) mg/dL Total Bilirubin (0.2-1.3) mg/dL AST (17-59) U/L ALT (21-72) U/L Alkaline Phosphatase (38-126) U/L Creatine Kinase (55-170) U/L Troponin I (0.000-0.034) ng/mL Total Protein (6.3-8.2) g/dL Albumin (3.5-5.0) g/dL TSH (0.465-4.680) mIU/L Free T4 (0.78-2.19) ng/dL - EKG Data -: EKG Interpreted by Me EKG Comments: EKG obtained at 12:03 AM, rate is 128 rhythm appears to be atrial flutter with a 2-1 conduction, there is a normal axis there are normal intervals, QRS 88, QT 356 QTC 519 there are no acute ST elevations or depressions no evidence of acute ischemia or infarction. Critical Care Time Critical Care Time: Yes Total Critical Care Time: 30 Disposition Clinical Impression: Atrial flutter with rapid ventricular response, Headache, Lower extremity pain, Elevated troponin Disposition: ADMITTED IP TO THIS HOSP Condition: Stable Is patient prescribed a controlled substance at d/c from ED?: No
[2018-12-27] MEDS ORDERED: SODIUM CHLORIDE 0.9% 1,000 ML IV ONE (23:53)
[2018-12-28 00:24] LABS: Basophils # (A) 0.1 k/uL (0-0.2); Basophils % (A) 1 %; Eosinophils # (A) 0.4 k/uL (0-0.7); Eosinophils % (A) 4 %; HCT 39.7 % (39.0-53.0); HGB 12.9 gm/dL (13.0-17.5); Lymphocytes # (A) 1.1 k/uL (1.0-4.8); Lymphocytes % (A) 11 %; MCH 28.5 pg (25.0-35.0); MCHC 32.5 g/dL (31.0-37.0); MCV 87.9 fL (80.0-100.0); Mean Platelet Volume 6.7; Monocytes # (A) 0.6 k/uL (0-1.0); Monocytes % (A) 6 %; Neutrophils # (A) 7.6 k/uL (1.3-7.7); Neutrophils % (A) 77 %; Platelet Count 257 k/uL (150-450); RBC 4.51 m/uL (4.30-5.90); RDW 14.7 % (11.5-15.5)
[2018-12-28 00:34] LABS: ALT 53 U/L (21-72); AST 46 U/L (17-59); Alkaline Phosphatase 100 U/L (38-126); Anion Gap 8 mmol/L; Blood Urea Nitrogen 20 mg/dL (9-20); Calcium 9.3 mg/dL (8.4-10.2); Carbon Dioxide 22 mmol/L (22-30); Chloride 104 mmol/L (98-107); Creatine Kinase 89 U/L (55-170); Glucose 105 mg/dL (74-99); Potassium 4.4 mmol/L (3.5-5.1); Sodium 134 mmol/L (137-145); Total Bilirubin 0.7 mg/dL (0.2-1.3); Total Protein 6.7 g/dL (6.3-8.2)
[2018-12-28 00:43] LABS: Partial Thromboplastin Time 23.4 sec (22.0-30.0); Prothrombin Time 10.4 sec (9.0-12.0)
--- NOTE | 2018-12-28 01:00 | CT ---
EXAM: CT Head Without Intravenous Contrast CLINICAL HISTORY: Headache TECHNIQUE: Axial computed tomography images of the head/brain without intravenous contrast. CTDI is 0.085, 0.085, 49.1 mGy and DLP is 1040.4 mGy-cm. This CT exam was performed using one or more of the following dose reduction techniques: automated exposure control, adjustment of the mA and/or kV according to patient size, and/or use of iterative reconstruction technique. COMPARISON: CT head dated 04/03/2018 FINDINGS: Brain: No acute infarct, hemorrhage, mass or edema. Small vessel ischemic disease and senescent changes. Ventricles: Unremarkable. No ventriculomegaly. Bones/joints: Unremarkable. No acute fracture. Soft tissues: Unremarkable. Sinuses: Unremarkable as visualized. No acute sinusitis. Mastoid air cells: Unremarkable as visualized. No mastoid effusion. IMPRESSION: No acute findings.
[2018-12-28] MEDS ORDERED: HEPARIN SODIUM,PORCINE 5,000 UNIT/ML 1 ML VIAL IV PRN (01:30)
[2018-12-28] MEDS ORDERED: HEPARIN SODIUM,PORCINE 5,000 UNIT/ML 1 ML VIAL IV ONE (01:30)
[2018-12-28] MEDS ORDERED: DILTIAZEM DRIP BOLUS FROM BAG 1 MG SOLN IV ONE (01:30)
[2018-12-28] MEDS ORDERED: DILTIAZEM 125 MG in SODIUM CHLORIDE 0.9% 100 ML IV SCH (01:30)
[2018-12-28] MEDS ORDERED: HEPARIN SOD,PORK IN 0.45% NACL 25,000 UNIT in 0.45% NACL 1 250ML.BAG IV SCH (01:30)
[2018-12-28] MEDS ORDERED: NALOXONE 0.4 MG/ML 1 ML VIAL IV PRN (01:31)
[2018-12-28 02:47] LABS: T4, Free (Free Thyroxine) 1.19 ng/dL (0.78-2.19)
[2018-12-28 03:14] LABS: Glucose,Whole Blood 108 mg/dL (75-99)
[2018-12-28 07:27] LABS: Basophils # (A) 0.1 k/uL (0-0.2); Basophils % (A) 1 %; Eosinophils # (A) 0.3 k/uL (0-0.7); Eosinophils % (A) 3 %; HGB 12.8 gm/dL (13.0-17.5); Lymphocytes % (A) 12 %; MCH 28.7 pg (25.0-35.0); MCHC 32.7 g/dL (31.0-37.0); MCV 87.7 fL (80.0-100.0); Mean Platelet Volume 6.9; Monocytes # (A) 0.5 k/uL (0-1.0); Monocytes % (A) 6 %; Neutrophils # (A) 6.6 k/uL (1.3-7.7); Neutrophils % (A) 77 %; Platelet Count 257 k/uL (150-450); RBC 4.45 m/uL (4.30-5.90); RDW 15.1 % (11.5-15.5); WBC 8.6 k/uL (3.8-10.6)
[2018-12-28 10:12] LABS: Appearance,Urine Clear (Clear); Bilirubin,Urine Negative (Negative); Blood,Urine Negative (Negative); Color,Urine Yellow; Glucose,Urine (UA) Negative (Negative); Ketones,Urine Negative (Negative); Leukocyte Esterase,Urine Negative (Negative); Nitrite,Urine Negative (Negative); Protein,Urine Negative (Negative); Specific Gravity,Urine 1.018 (1.001-1.035); Urobilinogen,Urine <2.0 mg/dL (<2.0)
[2018-12-28] MEDS ORDERED: METOPROLOL SUCCINATE (ER) 25 MG TAB.ER.24H PO SCH (11:15)
--- NOTE | 2018-12-28 13:26 | CONS ---
RONALD Daly is an 83-year-old gentleman who is admitted to hospital with sustained palpitations, was found to be in atrial flutter with poorly controlled ventricular rate. Heart rate is better controlled on intravenous Cardizem. The patient is also on IV heparin. I am going to stop the Cardizem, put him on Toprol-XL and start him on Xarelto 20 mg daily. The patient had a recent cardiac catheterization that did not reveal significant obstructive CAD. The plan at this stage is to do a JUSTIN cardioversion on him tomorrow if he does not convert on his own. PAST MEDICAL HISTORY: Significant for hypertension. MEDICATIONS: At home include Zestril, Lipitor, aspirin. ALLERGIES: There are no known drug allergies. FAMILY HISTORY: Negative for premature coronary artery disease. SOCIAL HISTORY: Negative for smoking, EtOH abuse or drug abuse. REVIEW OF SYSTEMS: HEENT is unremarkable. Cardiac: As described above. Respiratory: As described above. GI: Negative. GENITOURINARY: Negative. Negative. SKIN: Negative. MUSCULOSKELETAL: Negative. DERM: Negative. CONSTITUTIONAL: Negative. ONCOLOGICAL: Negative. The rest of the system review is not relevant. EXAM: Patient is comfortable at rest. Heart rate is 64 beats a minute, blood pressure is 120/80, respiratory rate is 18, O2 sat is 96% on room air. There is no jugular venous distention. Carotid upstroke is normal. There is no bruit. Chest exam reveals good air entry bilaterally. Heart exam reveals first and second heart sounds. No gallop. No murmur. No rub. Abdomen is soft, nontender. Exam of extremities did not reveal edema. Peripheral pulses are felt. EKG shows atrial flutter. Hemoglobin is 12.8. Tropes are mildly elevated. TSH is 5.9, but the T4 is normal. ASSESSMENT: Typical atrial flutter with poorly controlled ventricular rate, new onset. We will anticoagulate him, perform a JUSTIN cardioversion tomorrow. MMODL / IJN: [id number] /
[2018-12-28 13:51] LABS: Glucose,Whole Blood 140 mg/dL (75-99)
[2018-12-28] MEDS ORDERED: NITROGLYCERIN SL TABS 0.4 MG TAB SUBLINGUAL PRN (14:19)
--- NOTE | 2018-12-28 14:20 | P.HPIM ---
History of Present Illness H&P Date: 12/28/18 Chief Complaint: shortness of breath 83-year-old male presents the emergency department today for evaluation of pulsating headache Patient reports that for the past few days he's been experiencing a heat like pain in his bilateral lower extremities. Patient is able to get up and walk a couple of miles at the mall every morning but reports that he feels like his legs are hot with any activity. Patient also reports that this evening he laid down to go to bed and felt as though his head was pulsating. Patient reports he feels okay is always sitting up and not moving but when he lays down he feels pulsating throughout his head any sever expressing pain like this in the past. Patient does report some exertional dyspnea with activities including dressing which is aggressively worsening for him. He denies any chest pain. He does report feeling like his heart is racing upon arrival to the emergency department but states that he wasn't feeling that this morning with his walk. workup in ED with EKG showed atrial flutter; lab work with troponin was mildly elevated at 0.05; TSH was found to be elevated at 5.9 with a normal free T4 of 1.19 Review of Systems Constitutional: Denies chills, Denies fever Eyes: denies blurred vision, denies loss of vision Cardiovascular: Reports palpitations, Reports shortness of breath, Denies chest pain Respiratory: Denies cough with sputum Gastrointestinal: Denies abdominal pain, Denies nausea, Denies vomiting Musculoskeletal: Reports myalgias Neurological: Denies confusion, Denies weakness Psychiatric: Denies anxiety, Denies depression Endocrine: Denies cold intolerance, Denies heat intolerance Hematologic/Lymphatic: Denies lymphadenopathy Past Medical History Past Medical History: No Reported History Additional Past Medical History / Comment(s): Pt reports taking medications for his blood pressure, states "I also had a heart cath, I take something for my cholestrol and I take a baby aspirin every day." History of Any Multi-Drug Resistant Organisms: None Reported Past Surgical History: Heart Catheterization Additional Past Surgical History / Comment(s): cyst on tailbone removed at age 20 Past Psychological History: No Psychological Hx Reported Smoking Status: Former smoker Past Alcohol Use History: None Reported Past Drug Use History: None Reported Medications and Allergies Home Medications Medication Instructions Recorded Confirmed Type Aspirin [Children's Aspirin] 81 mg PO DAILY 04/03/18 12/27/18 History Lisinopril [Zestril] 10 mg PO DAILY #30 tab 04/04/18 12/28/18 Rx Nitroglycerin Sl Tabs [Nitrostat] 0.4 mg SUBLINGUAL Q5M PRN #1 bottle 04/04/18 12/28/18 Rx Atorvastatin Calcium [Lipitor] 20 mg PO HS #30 tab 04/05/18 12/28/18 Rx Allergies Allergy/AdvReac Type Severity Reaction Status Date / Time No Known Allergies Allergy Verified 12/28/18 10:13 Physical Exam Vitals: Vital Signs Temp Pulse Pulse Resp BP BP Pulse Ox 12/28/18 07:00 65 12 120/81 92 L 12/28/18 06:50 64 12 96 12/28/18 06:40 64 18 94 L 12/28/18 06:30 85 13 94 L 12/28/18 06:20 75 18 93 L 12/28/18 06:10 80 14 97 12/28/18 06:00 84 13 140/77 93 L 12/28/18 05:50 78 15 140/77 96 12/28/18 05:40 70 19 140/77 96 12/28/18 05:30 86 13 140/77 97 12/28/18 05:20 86 20 140/77 96 12/28/18 05:10 91 11 L 140/77 96 12/28/18 05:00 88 22 122/77 98 12/28/18 04:50 65 14 97 12/28/18 04:40 64 18 98 12/28/18 04:30 93 15 96 12/28/18 04:20 93 22 97 12/28/18 04:10 112 H 16 91 L 12/28/18 04:00 85 16 136/88 98 12/28/18 03:50 93 12 134/88 97 12/28/18 03:40 112 H 12 94 L 12/28/18 03:30 93 16 96 12/28/18 03:20 103 H 16 136/100 96 12/28/18 03:16 103 H 12 98 12/28/18 03:15 103 H 12 12/28/18 03:13 97.7 F 103 H 14 148/103 97 12/28/18 02:25 85 18 135/82 99 12/28/18 00:13 128 H 18 147/94 98 12/27/18 23:11 97.6 F 129 H 20 138/101 98 Intake and Output 12/27/18 12/28/18 12/28/18 22:59 06:59 14:59 Intake Total 80 292.667 Balance 80 292.667 Intake: IV 80 20 0.9 80 20 Intake, IV Titration 72.667 Amount Heparin Sod,Pork in 0.45% 72.667 NaCl 25,000 unit In 0.45 % NaCl 1 250ml.bag @ 10 mls/hr IV .Q24H [facility] Rx#: [id number] Oral 200 Other: Voiding Method Toilet # Voids 0 0 Weight 91.172 kg - Constitutional General appearance: Present: average body habitus, cooperative, no acute distre ss - EENT Eyes: Present: anicteric sclerae, EOMI, PERRLA, normal appearance ENT: Present: hearing grossly normal, normal oropharynx Ears: bilateral: normal - Neck Neck: Present: normal ROM. Absent: lymphadenopathy, rigidity, thyromegaly Carotids: negative: bruit present Thyroid: bilateral: normal size, negative: enlarged, nodule - Respiratory Respiratory: bilateral: CTA, negative: rales, rhonchi, wheezing - Cardiovascular Rhythm: regular Heart sounds: normal: S1, S2 Abnormal Heart Sounds: Absent: systolic murmur, diastolic murmur - Gastrointestinal General gastrointestinal: Present: normal bowel sounds, soft. Absent: distended, organomegaly, tenderness - Genitourinary Genitourinary Comment(s): deferred - Integumentary Integumentary: Present: normal turgor. Absent: jaundiced, rash, ulcer - Neurologic Neurologic: Present: CNII-XII intact. Absent: focal deficits - Musculoskeletal Musculoskeletal: Present: gait normal, strength equal bilaterally - Psychiatric Psychiatric: Present: A&O x's 3, appropriate affect, intact judgment & insight Results CBC & Chem 7: 12/28/18 07:03 12/28/18 00:11 Labs: Abnormal Lab Results - Last 24 Hours (Table) 12/28/18 12/28/18 12/28/18 Range/Units 00:11 00:11 00:11 Hgb 12.9 L (13.0-17.5) gm/dL APTT (22.0-30.0) sec Sodium 134 L (137-145) mmol/L Glucose 105 H (74-99) mg/dL POC Glucose (mg/dL) (75-99) mg/dL Troponin I 0.057 H* (0.000-0.034) ng/mL TSH 5.940 H (0.465-4.680) mIU/L 12/28/18 12/28/18 12/28/18 Range/Units 03:12 07:03 07:03 Hgb 12.8 L (13.0-17.5) gm/dL APTT 34.0 H (22.0-30.0) sec Sodium (137-145) mmol/L Glucose (74-99) mg/dL POC Glucose (mg/dL) 108 H (75-99) mg/dL Troponin I (0.000-0.034) ng/mL TSH (0.465-4.680) mIU/L 12/28/18 Range/Units 07:03 Hgb (13.0-17.5) gm/dL APTT (22.0-30.0) sec Sodium (137-145) mmol/L Glucose (74-99) mg/dL POC Glucose (mg/dL) (75-99) mg/dL Troponin I 0.066 H* (0.000-0.034) ng/mL TSH (0.465-4.680) mIU/L Thrombosis Risk Factor Assmnt - Choose All That Apply Any of the Below Risk Factors Present?: No Each Risk Factor Represents 3 Points: Age 75 years or older Thrombosis Risk Factor Assessment Total Risk Factor Score: 3 Thrombosis Risk Factor Assessment Level: Moderate Risk Assessment and Plan Assessment: 1. Atrial flutter with RVR - patient is started on IV Cardizem drip and heparin and is admitted to ICU for close monitoring - We will monitor EKG and trend troponin; 2-D echocardiogram - Consult cardiology for further recommendations 2. Elevated troponin; Possibly demand ischemia secondary to 1 3. Headache; resolved 4. Hypertension; patient is started on metoprolol 25 mg daily - We will monitor blood pressure closely and escalate antihypertensive therapy if blood pressure remains elevated 5. Hyperlipidemia; Restart home statin therapy and escalate according to eval uation 6. Coronary artery disease; Restart patient on aspirin and beta blockers; further recommendations per cardiology service 7. DVT prophylaxis; Systemic anticoagulation with IV heparin CODE STATUS; full code Time with Patient: Greater than 30
[2018-12-28] MEDS: RIVAROXABAN 20 MG TAB PO SCH (16:59)
[2018-12-28] MEDS: ATORVASTATIN 20 MG TAB PO SCH (20:07)
[2018-12-29] MEDS ORDERED: DILTIAZEM ORAL 30 MG TAB PO SCH (00:48)
[2018-12-29] MEDS: DILTIAZEM ORAL 30 MG TAB PO SCH ×2 (01:07→08:51)
[2018-12-29 05:07] LABS: Basophils # (A) 0.1 k/uL (0-0.2); Basophils % (A) 0 %; Eosinophils # (A) 0.1 k/uL (0-0.7); Eosinophils % (A) 1 %; HCT 41.8 % (39.0-53.0); HGB 13.7 gm/dL (13.0-17.5); Lymphocytes # (A) 1.1 k/uL (1.0-4.8); Lymphocytes % (A) 8 %; MCH 28.6 pg (25.0-35.0); MCHC 32.7 g/dL (31.0-37.0); MCV 87.4 fL (80.0-100.0); Mean Platelet Volume 7.8; Monocytes # (A) 0.8 k/uL (0-1.0); Monocytes % (A) 6 %; Neutrophils # (A) 10.9 k/uL (1.3-7.7); Neutrophils % (A) 83 %; Platelet Count 281 k/uL (150-450); RBC 4.78 m/uL (4.30-5.90); RDW 15.4 % (11.5-15.5); WBC 13.1 k/uL (3.8-10.6)
[2018-12-29 05:15] LABS: Anion Gap 11 mmol/L; Blood Urea Nitrogen 21 mg/dL (9-20); Calcium 9.1 mg/dL (8.4-10.2); Carbon Dioxide 17 mmol/L (22-30); Chloride 104 mmol/L (98-107); Glucose 109 mg/dL (74-99); Sodium 132 mmol/L (137-145)
[2018-12-29] MEDS: SODIUM CHLORIDE 0.9% 1,000 ML IV SCH (08:27)
[2018-12-29] MEDS: LISINOPRIL 10 MG TAB PO SCH (08:51)
[2018-12-29] MEDS ORDERED: SODIUM CHLORIDE 0.9% 1,000 ML IV ONE ×2 (10:30)
[2018-12-29] MEDS ORDERED: PROPOFOL 10 MG/ML 20 ML VIAL IV ONE (10:45)
[2018-12-29] MEDS ORDERED: ePHEDrine SULFATE/0.9% NACL/PF 50 MG/5 ML SYRINGE IV ONE (10:45)
[2018-12-29] MEDS ORDERED: BENZOCAINE SPRAY 1 CAN MUCOUS MEM ONE (11:00)
--- NOTE | 2018-12-29 11:49 | ECHOT ---
TRANSESOPHAGEAL ECHOCARDIOGRAM INDICATION: To rule out intracardiac thrombus prior to cardioversion. PROCEDURE NOTE: After obtaining informed consent, transesophageal echocardiogram was performed in left lateral position using an Omniplane probe. Local and IV sedation were obtained by the lath hand. The patient tolerated the procedure well without any obvious immediate complications. FINDINGS: 1. There is no intracardiac thrombus within the left atrial appendage, left atrium, right atrium, right ventricle or left ventricle. 2. Left ventricle has normal size and systolic function. 3. Mitral valve is anatomically normal. There is mild to moderate mitral regurgitation noted. 4. Tricuspid valve shows mild tricuspid regurgitation. 5. Aortic valve is free of stenosis or regurgitation. 6. Interatrial septum: There is no evidence of [id number] shunt by color-flow Doppler or [id number] shunt by agitated saline contrast study. PLAN: Patient will undergo cardioversion. MMODL / MALIKN: [id number] /
--- NOTE | 2018-12-29 11:52 | CE ---
CARDIAC ELECTROPHYSIOLOGY REPORT CARDIOVERSION NOTE INDICATION: Atrial fibrillation flutter. PROCEDURE: After making sure that the patient has received the anticoagulation with Xarelto and ruling out an intracardiac thrombus with the transesophageal echo, the patient underwent cardioversion using 300 joules of synchronized DC current. He converted to sinus rhythm following a single shock. Will obtain an EKG and patient will need to be on Xarelto. CHEMA / JIM: [id number] /
[2018-12-29] MEDS ORDERED: FUROSEMIDE 10 MG/ML 4 ML VIAL IV STA (14:34)
[2018-12-29] MEDS ORDERED: FUROSEMIDE 10 MG/ML 4 ML VIAL ONE (14:35)
[2018-12-29 17:40] LABS: Glucose,Whole Blood 107 mg/dL (75-99)
[2018-12-29] MEDS: RIVAROXABAN 20 MG TAB PO SCH (18:10)
--- NOTE | 2018-12-29 19:24 | P.PN ---
Subjective [place], from record 83-year-old male presents the emergency department today for evaluation of pulsating headache Patient reports that for the past few days he's been experiencing a heat like pain in his bilateral lower extremities. Patient is able to get up and walk a couple [place] miles at the mall [place] morning but reports that he feels like his le gs are hot with any activity. Patient also reports that this evening he laid down to go to bed and felt as though his head was pulsating. Patient reports he feels okay is always sitting up and not moving but when he lays down he feels pulsating throughout his head any sever expressing pain like this in the past. Patient does report some exertional dyspnea with activities including dressing which is aggressively worsening for him. He denies any chest pain. He does report feeling like his heart is racing upon arrival to the emergency department but states that he wasn't feeling that this morning with his walk. workup in ED with EKG showed atrial flutter; lab work with troponin was mildly elevated at 0.05 subjective 12/29/2018 pt presents with a flutter, he had successful cardioversion by cardiology team this morning pt is lying in bed ,in the icu, he denies chest pain ,no dyspnea ,no change in urine or bowel habits, no fever. Objective - Vital Signs Vital signs: Vital Signs Temp 98 F 12/29/18 16:00 Pulse 86 12/29/18 18:00 Resp 24 12/29/18 18:00 BP 117/87 12/29/18 18:00 Pulse Ox 97 12/29/18 16:00 Intake & Output 12/29/18 12/29/18 12/30/18 06:59 18:59 06:59 Intake Total 1450 Output Total 400 Balance -400 1450 Weight 102 kg Intake: IV 1400 0.9 1000 Oral 50 Output: Urine 400 Other: Voiding Method Urinal Toilet # Voids 1 1 # Bowel Movements 1 - Exam GENERAL: The patient is alert and oriented x3, not in any acute distress. Well developed, well nourished. HEENT: Pupils are round and equally reacting to light. EOMI. No scleral icterus. No conjunctival pallor. Normocephalic, atraumatic. No pharyngeal erythema. No thyromegaly. CARDIOVASCULAR: S1 and S2 present. No murmurs, rubs, or gallops. PULMONARY: Chest is clear to auscultation, no wheezing or crackles. ABDOMEN: Soft, nontender, nondistended, normoactive bowel sounds. No palpable organomegaly. MUSCULOSKELETAL: No joint swelling or deformity. EXTREMITIES: No cyanosis, clubbing, or pedal edema. NEUROLOGICAL: Gross neurological examination did not reveal any focal deficits. SKIN: No rashes. - Labs CBC & Chem 7: 12/29/18 04:19 12/29/18 04:19 Labs: Abnormal Lab Results - Last 24 Hours (Table) 12/29/18 12/29/18 12/29/18 Range/Units 04:19 04: 17:14 WBC 13.1 H (3.8-10.6) k/uL Neutrophils # 10.9 H (1.3-7.7) k/uL Sodium 132 L (137-145) mmol/L Carbon Dioxide 17 L (22-30) mmol/L BUN 21 H (9-20) mg/dL Glucose 109 H (74-99) mg/dL POC Glucose (mg/dL) 107 H (75-99) mg/dL Assessment and Plan Assessment: atrial flutter ,s/p cardioversion and JUSTIN Hypertension hyperlipidemia h/o coronary artery disease , has recent negative cardiac cath as per cardiology team Plan: this is a pleasant 83 yo M who presents with atrial flutter, s/p cardioversion by cardiology team . pt continue on xarelto and statin , cardiology team are following the pt Continue with the same treatment , continue with symptomatic treatment , resume home medication , monitor lytes and vitals, . GI and DVT prophylaxis , further recommendation based upon pt clinical course and progress DVT prophylaxis xarelto GI prophylaxis no need
[2018-12-29] MEDS: ATORVASTATIN 20 MG TAB PO SCH (20:25)
[2018-12-30 04:38] LABS: Basophils % (A) 0 %; Eosinophils # (A) 0.2 k/uL (0-0.7); Eosinophils % (A) 2 %; HCT 33.9 % (39.0-53.0); HGB 11.5 gm/dL (13.0-17.5); Lymphocytes # (A) 0.9 k/uL (1.0-4.8); Lymphocytes % (A) 10 %; MCH 29.8 pg (25.0-35.0); MCV 87.4 fL (80.0-100.0); Monocytes # (A) 0.6 k/uL (0-1.0); Monocytes % (A) 6 %; Neutrophils # (A) 7.3 k/uL (1.3-7.7); Neutrophils % (A) 80 %; Platelet Count 209 k/uL (150-450); RBC 3.87 m/uL (4.30-5.90); RDW 14.8 % (11.5-15.5); WBC 9.1 k/uL (3.8-10.6)
[2018-12-30] MEDS: SODIUM CHLORIDE 0.9% 1,000 ML IV SCH (08:01)
[2018-12-30 08:55] VITALS: BP 134/91; PULSE 77; RESP 16; TEMP 97.6
[2018-12-30] MEDS: LISINOPRIL 10 MG TAB PO SCH (09:03)
--- NOTE | 2018-12-30 11:28 | P.DS ---
Providers Date of admission: 12/28/18 01:32 Attending physician: Stefan Valdez Consults: 12/28/18 01:33 Consult Physician Urgent Consulting Provider: [facility] Consult Reason/Comments: new atrial flutter Do you want consulting provider notified?: Yes, Notify in am Primary care physician: Joseph Cuevas [facility] Course: this is a pleasant 83-year-old male who presents to the emergency department with palpitation, and other nonspecific symptoms. Patient was found to be in atrial flutter with poorly controlled ventricular rate. Patient was started on intravenous Cardizem. [facility] Worker evaluated the patient and start him on Toprol-XL the state of Cardizem as well as xarelto. Patient also underwent JUSTIN and cardioversion. His rhythm went back to normal sinus rhythm. And patient is recommended to continue on xarelto. However his heart rate is controlled without the need of any further calcium channel julian or beta julian anymore. Patient to continue on lisinopril, Lipitor as per cardiology recommendation. Patient today was chest pain-free, no palpitation. No dyspnea. No other symptoms, lack no change in urine or bowel habits, no abdominal pain, no nausea or vomiting. Patient himself feels he can go home. Cardiology team after the patient for discharge Problems and management plan was discussed with the patient and he verbalized understanding and acceptance Patient was found stable and can discharge home however he needs follow-up as an outpatient. pt agrees with cardiology appointment and states he will follow up Gen: patient is a AAOx3, no distress CVS: S1-S2, RRR, no murmur Lungs: B/L CTA, no wheezing Abdomen: soft, no distention, no tenderness, positive bowel sounds Extremity: no leg edema or induration Time spent more than 35 minutes Patient Condition at Discharge: Stable Plan - Discharge Summary Discharge Rx Participant: No New Discharge Prescriptions: New Rivaroxaban [Xarelto] 20 mg PO W/SUPPER #30 tab Continue Lisinopril [Zestril] 10 mg PO DAILY #30 tab Nitroglycerin Sl Tabs [Nitrostat] 0.4 mg SUBLINGUAL Q5M PRN #1 bottle PRN Reason: Chest Pain Atorvastatin Calcium [Lipitor] 20 mg PO HS #30 tab Discontinued Aspirin [Children's Aspirin] 81 mg PO DAILY Discharge Medication List Lisinopril [Zestril] 10 mg PO DAILY #30 tab 04/04/18 [Rx] Nitroglycerin Sl Tabs [Nitrostat] 0.4 mg SUBLINGUAL Q5M PRN #1 bottle 04/04/18 [Rx] Atorvastatin Calcium [Lipitor] 20 mg PO HS #30 tab 04/05/18 [Rx] Rivaroxaban [Xarelto] 20 mg PO W/SUPPER #30 tab 12/30/18 [Rx] Follow up Appointment(s)/Referral(s): Joseph Cuevas MD [Primary Care Provider] - 1-2 days Randolph Willis MD [STAFF PHYSICIAN] - 01/14/19 12:45 pm Patient Instructions/Handouts: Atrial Flutter (GEN), A-fib (Atrial Fibrillation) (GEN), Cardioversion (GEN)
--- NOTE | 2018-12-30 11:42 | PN ---
PROGRESS NOTE The patient is admitted to hospital with atrial flutter, underwent cardioversion. This morning he is doing well and remains in sinus rhythm. He is on Lipitor, Zestril, Xarelto. On exam, comfortable at rest. Vital signs are stable. There is no jugular venous distention. Chest exam reveals good air entry bilaterally. Heart exam reveals first and second heart sounds. No gallop. Has a systolic murmur at the left lower sternal border. Abdomen is soft. Examination of extremities did not reveal any edema. Peripheral pulses are felt. ASSESSMENT: Paroxysmal atrial flutter, currently in sinus rhythm, status post cardioversion. He will be discharged home on Xarelto. MMODL / IJN: [id number] /
== END 2018-12-30 12:21 | disposition home or self-care (01) | DRG 309 ==
LOC: EC 22:53 → 2SICU 12-28 01:32
PROVIDERS: ADMIT Hospitalist; ATTEND Hospitalist
PROC: 5A2204Z Restoration of Cardiac Rhythm, Single (ICD-10-PCS; 2018-12-29)
PROC: B24BZZ4 Ultrasonography of Heart with Aorta, Transesophageal (ICD-10-PCS; principal; 2018-12-29 10:00)
DX: I48.3 Typical atrial flutter (principal); I24.8 Other forms of acute ischemic heart disease; E78.5 Hyperlipidemia, unspecified; I10 Essential (primary) hypertension; I25.10 Atherosclerotic heart disease of native coronary artery without angina pectoris; Z79.82 Long term (current) use of aspirin; Z79.899 Other long term (current) drug therapy; Z87.891 Personal history of nicotine dependence
CPT/HCPCS: 36415; 70450; 80048; 80053; 81003; 82550; 84439; 84443; 84484; 85025; 85610; 85730; 92960; 93005; 93312; 93320; 93325; 96361; 96365; 96376; 99291

== ENCOUNTER 2019-01-01 23:55 | Observation (INO) | payer MEDICARE, BC ==
[2019-01-02 00:44] LABS: Basophils % (A) 0 %; Eosinophils # (A) 0.4 k/uL (0-0.7); Eosinophils % (A) 4 %; Lymphocytes # (A) 1.3 k/uL (1.0-4.8); Lymphocytes % (A) 13 %; MCH 29.5 pg (25.0-35.0); MCHC 33.3 g/dL (31.0-37.0); MCV 88.6 fL (80.0-100.0); Mean Platelet Volume 6.6; Monocytes # (A) 0.5 k/uL (0-1.0); Monocytes % (A) 5 %; Neutrophils # (A) 7.5 k/uL (1.3-7.7); Neutrophils % (A) 76 %; Platelet Count 269 k/uL (150-450); RDW 14.7 % (11.5-15.5); WBC 9.9 k/uL (3.8-10.6)
[2019-01-02 00:52] LABS: ALT 55 U/L (21-72); AST 47 U/L (17-59); Albumin 3.7 g/dL (3.5-5.0); Alkaline Phosphatase 110 U/L (38-126); Anion Gap 12 mmol/L; Blood Urea Nitrogen 19 mg/dL (9-20); Carbon Dioxide 20 mmol/L (22-30); Chloride 103 mmol/L (98-107); Glucose 106 mg/dL (74-99); Potassium 4.4 mmol/L (3.5-5.1); Sodium 135 mmol/L (137-145); Total Bilirubin 0.8 mg/dL (0.2-1.3); Total Protein 6.5 g/dL (6.3-8.2)
[2019-01-02 00:58] LABS: INR 1.2 (<1.2); Prothrombin Time 12.7 sec (9.0-12.0)
--- NOTE | 2019-01-02 01:09 | XR ---
EXAM: XR Chest, 1 View CLINICAL HISTORY: ITS.REASON XR Reason: dyspnea TECHNIQUE: Frontal view of the chest. COMPARISON: Chest radiograph on 04/03/2018 FINDINGS: Hardware: None. Lungs/pleura: Bibasilar opacities may represent atelectasis versus pneumonia. Possible pulmonary vasculature congestion. No pleural effusion or pneumothorax. Heart/mediastinum: Increased prominence of the cardiomediastinal silhouette. Soft tissues: Unremarkable. Bones: No acute fracture. Degenerative changes of the acromioclavicular joints and spine. Upper abdomen: Normal. IMPRESSION: 1. Increased prominence of the cardiomediastinal silhouette. Probable pulmonary vasculature congestion. 2. Bibasilar opacities may represent atelectasis versus pneumonia.
--- NOTE | 2019-01-02 01:17 | ED ---
SOB HPI - General Chief Complaint: Shortness of Breath Stated Complaint: Difficulty Breathing Time Seen by Provider: 01/02/19 00:15 Source: patient Mode of arrival: wheelchair Limitations: no limitations - History of Present Illness MD Complaint: shortness of breath -: hour(s) Consistency: now resolved Improves With: oxygen, upright position Worsens With: lying flat Associated Symptoms: denies other symptoms - Related Data Previous Rx's Medication Instructions Recorded Lisinopril [Zestril] 10 mg PO DAILY #30 tab 04/04/18 Nitroglycerin Sl Tabs [Nitrostat] 0.4 mg SUBLINGUAL Q5M PRN #1 bottle 04/04/18 Atorvastatin Calcium [Lipitor] 20 mg PO HS #30 tab 04/05/18 Rivaroxaban [Xarelto] 20 mg PO W/SUPPER #30 tab 12/30/18 Allergies Allergy/AdvReac Type Severity Reaction Status Date / Time isosorbide [From Imdur] Allergy Unknown Verified 01/02/19 00:01 latex Allergy Rash/Hives Verified 01/02/19 00:01 metoprolol [From Toprol XL] AdvReac Confusion Verified 01/02/19 00:01 Review of Systems ROS Statement: Those systems with pertinent positive or pertinent negative responses have been documented in the HPI. ROS Other: All systems not noted in ROS Statement are negative. Constitutional: Denies: fever, chills Respiratory: Reports: dyspnea. Denies: cough, wheezes Cardiovascular: Reports: orthopnea. Denies: chest pain, palpitations, edema, syncope Gastrointestinal: Denies: abdominal pain, nausea, vomiting, melena, hematochezia Genitourinary: Denies: dysuria, hematuria Musculoskeletal: Denies: back pain Skin: Denies: rash Neurological: Denies: headache, weakness, numbness Past Medical History Past Medical History: No Reported History Additional Past Medical History / Comment(s): Pt reports taking medications for his blood pressure, states "I also had a heart cath, I take something for my c holestrol and I take a baby aspirin every day." History of Any Multi-Drug Resistant Organisms: None Reported Past Surgical History: Heart Catheterization Additional Past Surgical History / Comment(s): cyst on tailbone removed at age 20 Past Psychological History: No Psychological Hx Reported Smoking Status: Former smoker Past Alcohol Use History: None Reported Past Drug Use History: None Reported General Exam Limitations: no limitations General appearance: alert, in no apparent distress Head exam: Present: atraumatic, normocephalic Eye exam: Present: normal appearance. Absent: scleral icterus, conjunctival injection ENT exam: Present: normal oropharynx Neck exam: Present: normal inspection Respiratory exam: Present: normal lung sounds bilaterally. Absent: respiratory distress, wheezes, rales, rhonchi, stridor Cardiovascular Exam: Present: regular rate, normal rhythm, normal heart sounds. Absent: systolic murmur, diastolic murmur, rubs, gallop GI/Abdominal exam: Present: soft. Absent: distended, tenderness, guarding, rebound, mass Extremities exam: Present: normal inspection, normal capillary refill. Absent: pedal edema, calf tenderness Back exam: Present: normal inspection Neurological exam: Present: alert Skin exam: Present: warm, dry, intact, normal color. Absent: rash Course Vital Signs 01/01/19 01/02/19 01/02/19 23:56 00:30 01:00 Temperature 97.8 F Pulse Rate 111 H 92 90 Respiratory 18 20 20 Rate Blood Pressure 160/92 152/100 154/101 O2 Sat by Pulse 98 98 98 Oximetry 01/02/19 01/02/19 01/02/19 01:30 02:00 02:30 Temperature Pulse Rate 92 90 89 Respiratory 19 22 16 Rate Blood Pressure 133/85 137/93 140/95 O2 Sat by Pulse 98 96 98 Oximetry Medical Decision Making - Lab Data Result diagrams: 01/02/19 00:30 01/02/19 00:30 Lab Results 01/02/19 01/02/19 01/02/19 Range/Units 00:30 00:30 00:30 WBC 9.9 (3.8-10.6) k/uL RBC 4.40 (4.30-5.90) m/uL Hgb 13.0 (13.0-17.5) gm/dL Hct 39.0 (39.0-53.0) % MCV 88.6 (80.0-100.0) fL MCH 29.5 (25.0-35.0) pg MCHC 33.3 (31.0-37.0) g/dL RDW 14.7 (11.5-15.5) % Plt Count 269 (150-450) k/uL Neutrophils % 76 % Lymphocytes % 13 % Monocytes % 5 % Eosinophils % 4 % Basophils % 0 % Neutrophils # 7.5 (1.3-7.7) k/uL Lymphocytes # 1.3 (1.0-4.8) k/uL Monocytes # 0.5 (0-1.0) k/uL Eosinophils # 0.4 (0-0.7) k/uL Basophils # 0.0 (0-0.2) k/uL PT (9.0-12.0) sec INR (<1.2) APTT (22.0-30.0) sec Sodium 135 L (137-145) mmol/L Potassium 4.4 (3.5-5.1) mmol/L Chloride 103 (98-107) mmol/L Carbon Dioxide 20 L (22-30) mmol/L Anion Gap 12 mmol/L BUN 19 (9-20) mg/dL Creatinine 0.84 (0.66-1.25) mg/dL Est GFR (CKD-EPI)AfAm >90 (>60 ml/min/1.73 sqM) Est GFR (CKD-EPI)NonAf 81 (>60 ml/min/1.73 sqM) Glucose 106 H (74-99) mg/dL Calcium 9.0 (8.4-10.2) mg/dL Total Bilirubin 0.8 (0.2-1.3) mg/dL AST 47 (17-59) U/L ALT 55 (21-72) U/L Alkaline Phosphatase 110 (38-126) U/L Troponin I (0.000-0.034) ng/mL NT-Pro-B Natriuret Pep 3670 pg/mL Total Protein 6.5 (6.3-8.2) g/dL Albumin 3.7 (3.5-5.0) g/dL 01/02/19 01/02/19 Range/Units 00:30 00:30 WBC (3.8-10.6) k/uL RBC (4.30-5.90) m/uL Hgb (13.0-17.5) gm/dL Hct (39.0-53.0) % MCV (80.0-100.0) fL MCH (25.0-35.0) pg MCHC (31.0-37.0) g/dL RDW (11.5-15.5) % Plt Count (150-450) k/uL Neutrophils % % Lymphocytes % % Monocytes % % Eosinophils % % Basophils % % Neutrophils # (1.3-7.7) k/uL Lymphocytes # (1.0-4.8) k/uL Monocytes # (0-1.0) k/uL Eosinophils # (0-0.7) k/uL Basophils # (0-0.2) k/uL PT 12.7 H (9.0-12.0) sec INR 1.2 H (<1.2) APTT 31.0 H (22.0-30.0) sec Sodium (137-145) mmol/L Potassium (3.5-5.1) mmol/L Chloride (98-107) mmol/L Carbon Dioxide (22-30) mmol/L Anion Gap mmol/L BUN (9-20) mg/dL Creatinine (0.66-1.25) mg/dL Est GFR (CKD-EPI)AfAm (>60 ml/min/1.73 sqM) Est GFR (CKD-EPI)NonAf (>60 ml/min/1.73 sqM) Glucose (74-99) mg/dL Calcium (8.4-10.2) mg/dL Total Bilirubin (0.2-1.3) mg/dL AST (17-59) U/L ALT (21-72) U/L Alkaline Phosphatase (38-126) U/L Troponin I 0.060 H* (0.000-0.034) ng/mL NT-Pro-B Natriuret Pep pg/mL Total Protein (6.3-8.2) g/dL Albumin (3.5-5.0) g/dL Disposition Clinical Impression: Congestive heart failure Disposition: ADMITTED IP TO THIS HOSP Condition: Fair Is patient prescribed a controlled substance at d/c from ED?: No Referrals: Joseph Cuevas MD [Primary Care Provider] - 1-2 days
[2019-01-02] MEDS ORDERED: NITROGLYCERIN OINT 1 INCH/GM PACKET TOPICAL STA (02:48)
[2019-01-02] MEDS ORDERED: FUROSEMIDE 10 MG/ML 4 ML VIAL IV STA (02:48)
[2019-01-02] MEDS: FUROSEMIDE 10 MG/ML 4 ML VIAL IV SCH ×2 (04:44→17:33)
[2019-01-02] MEDS ORDERED: HEPARIN SODIUM,PORCINE 5,000 UNIT/ML 1 ML VIAL SQ SCH (09:00)
--- NOTE | 2019-01-02 09:25 | CT ---
EXAMINATION TYPE: CT angio chest DATE OF EXAM: 01/02/2019 COMPARISON: None HISTORY: SOB CT DLP: 480.2 mGycm CONTRAST: CT chest with contrast and 3D reconstruction with MIP imaging is performed with IV Contrast, patient injected with 100 mL of Isovue 370. Contrast-enhanced CT of the chest was performed through the course of the pulmonary arteries with brittnee g and mediastinal window settings submitted. 3D reconstruction with MIP imaging was also performed. PULMONARY ARTERIES: The pulmonary arteries and their major tributaries are patent. I do not see bharathi dence for sizable filling defect to suggest pulmonary embolic process. LUNGS: Bilateral pleural effusions right greater than left basilar atelectasis and/or infiltrates. MEDIASTINUM: Thoracic aorta is of normal caliber,however, evaluation is limited given timing of the contrast bolus. If there is concern for thoracic aortic pathology consider JUSTIN. Correlate clinicall y . There is evidence of moderate cardiomegaly. Moderate fixed hiatal hernia. No evidence for mediast inal mass. No mediastinal lymph nodes greater than 1cm. HILAR STRUCTURES: No evidence for mass. No hilar lymph nodes greater than 1 cm. UPPER ABDOMEN: No significant abnormality is seen. IMPRESSION: 1. No evidence for Pulmonary embolism at this time.
[2019-01-02] MEDS ORDERED: NITROGLYCERIN SL TABS 0.4 MG TAB SUBLINGUAL PRN (10:00)
[2019-01-02] MEDS: LISINOPRIL 10 MG TAB PO SCH (10:00)
--- NOTE | 2019-01-02 10:00 | P.HPIM ---
History of Present Illness Chief Complaint: Shortness of breath This very pleasant 83-year-old gentleman with a past medical history significant for A. fib on xarelto comes in with above-mentioned complaints. The patient says that he's been having shortness of breath starting day before yesterday. Walking small distances was causing him to be short of breath. He wanted to see how it was doing. As the day progressed the shortness of breath still stated. Last night he was very short of breath not able to breathe. He does came into the ER for further admission and management. Patient otherwise was not complaining of any chest pain, he does not complain of any racing heart, he was not complaining of any cough, no abdominal pain, no nausea and vomiting, or diarrhea constipation, no tingling numbness on in the extremities, no itch no rash. She recently had a cardioversion done for A. fib on 12/28/2018.patient had a heart cath done in March 2018 and was treated with medical management. ER course-temperature 97.5 pulse 97 respiration 18 blood pressure 132/90. Labwork showed WBC 9.9 hemoglobin 13.0 platelets 269 sodium 134 potassium 4.4 B- 1 19 creatinine 0.84 troponins were 0.060 and 0.063. Patient was admitted to the hospitalist service a further admission and management and cardiology consult. Review of Systems All systems: negative Past Medical History Past Medical History: Atrial Flutter, Hyperlipidemia, Hypertension Additional Past Medical History / Comment(s): patient denies heart failure diagnosis. current admitting diagnosis is chf exacerbation History of Any Multi-Drug Resistant Organisms: None Reported Past Surgical History: Heart Catheterization Additional Past Surgical History / Comment(s): cyst on tailbone removed at age [age], cardioversion 12/2018 Past Anesthesia/Blood Transfusion Reactions: No Reported Reaction Past Psychological History: No Psychological Hx Reported Smoking Status: Former smoker Past Alcohol Use History: None Reported Past Drug Use History: None Reported - Past Family History Mother Family Medical History: No Reported History Father Family Medical History: No Reported History Brother(s) Family Medical History: Myocardial Infarction ([place]), Prostate Disorder Additional Family Medical History / Comment(s): prostate cancer Sister(s) Family Medical History: Cancer Son(s) Family Medical History: No Reported History Medications and Allergies Home Medications Medication Instructions Recorded Confirmed Type Lisinopril [Zestril] 10 mg PO DAILY #30 tab 04/04/18 01/02/19 Rx Nitroglycerin Sl Tabs [Nitrostat] 0.4 mg SUBLINGUAL Q5M PRN #1 bottle 04/04/18 01/02/19 Rx Atorvastatin Calcium [Lipitor] 20 mg PO HS #30 tab 04/05/18 01/02/19 Rx Rivaroxaban [Xarelto] 20 mg PO W/SUPPER #30 tab 12/30/18 01/02/19 Rx Hydrochlorothiazide 12.5 mg PO DAILY 01/02/19 01/02/19 History Allergies Allergy/AdvReac Type Severity Reaction Status Date / Time isosorbide [From Imdur] Allergy Unknown Verified 01/02/19 07:33 latex Allergy Rash/Hives Verified 01/02/19 07:33 metoprolol [From Toprol XL] AdvReac Confusion Verified 01/02/19 07:33 Physical Exam Vitals: Vital Signs Temp Pulse Pulse Resp BP BP Pulse Ox 01/02/19 07:00 97.5 F L 97 18 132/90 97 01/02/19 05:42 18 01/02/19 05:23 97.6 F 97 18 135/90 96 01/02/19 04:43 90 18 130/86 95 01/02/19 02:30 89 16 140/95 98 01/02/19 02:00 90 22 137/93 96 01/02/19 01:30 92 19 133/85 98 01/02/19 01:00 90 20 154/101 98 01/02/19 00:30 92 20 152/100 98 01/01/19 23:56 97.8 F 111 H 18 160/92 98 Intake and Output 01/01/19 01/02/19 01/02/19 22:59 06:59 14:59 Intake Total 0 Output Total 2450 Balance -2450 Intake: Oral 0 Output: Urine 2450 Other: Voiding Method Toilet Toilet Urinal Urinal Weight 99 kg On exam, alert and oriented x3. HEENT: Conjunctivae normal. eyes normal. NECK: No JVD. No thyroid enlargement. No LNs CARDIOVASCULAR: S1, S2 muffled. No murmur RESPIRATION: Breath sounds diminished in the bases. No rhonchi or crackles. No bronchial breathing. ABDOMEN: Soft, nontender . No guarding. no masses palpable. No ascites, No hepatosplenomegaly.Bowel sounds heard. LEGS: No edema. no swelling NERVOUS SYSTEM: Cranial N 2-12 grossly normal. Moves all 4 limbs. No focal def icits. No sensory deficit. No signs of cerebellar dysfucntion. Skin: no ulcer no rash. Results CBC & Chem 7: 01/02/19 00:30 01/02/19 00:30 Labs: Abnormal Lab Results - Last 24 Hours (Table) 01/02/19 01/02/19 01/02/19 Range/Units 00:30 00:30 00:30 PT 12.7 H (9.0-12.0) sec INR 1.2 H (<1.2) APTT 31.0 H (22.0-30.0) sec Sodium 135 L (137-145) mmol/L Carbon Dioxide 20 L (22-30) mmol/L Glucose 106 H (74-99) mg/dL Troponin I 0.060 H* (0.000-0.034) ng/mL 01/02/19 Range/Units 08:23 PT (9.0-12.0) sec INR (<1.2) APTT (22.0-30.0) sec Sodium (137-145) mmol/L Carbon Dioxide (22-30) mmol/L Glucose (74-99) mg/dL Troponin I 0.063 H* (0.000-0.034) ng/mL Thrombosis Risk Factor Assmnt - Choose All That Apply Any of the Below Risk Factors Present?: Yes Each Factor Represents 1 point: Heart failure (<1month), Obesity (BMI >25) Other Risk Factors: Yes Each Risk Factor Represents 3 Points: Age 75 years or older Other congenital or acquired thrombophilia - If yes, enter type in comment: No Thrombosis Risk Factor Assessment Total Risk Factor Score: 5 Thrombosis Risk Factor Assessment Level: High Risk Assessment and Plan Assessment: - Shortness of breath probably due to mild CHF exacerbation - A. fib on anticoagulation. Recent cardioversion - Hypertension - Hyperlipidemia - History of CAD Plan - Patient is admitted to observation under telemetry - Patient was started on Lasix. We'll continue Lasix for now - Cardiology on board. Order for a CTA of the chest which showed no PE. We'll wait for cardiology's further recommendations - We'll resume home medications - DVT and GI prophylaxis - We'll order for lab work in the morning - Patient is in observation - Patient is full code Time with Patient: Greater than 30
--- NOTE | 2019-01-02 10:50 | P.CRDCN ---
History of Present Illness History of present illness: This is a pleasant 83-year-old male past medical history significant for atrial flutter status post cardioversion on December 29, hypertension, dyslipidemia and former nicotine dependence. He sees Dr. Willis in the office. We have been asked to see him in consultation secondary to shortness of breath. He states he went to his primary care physician office yesterday morning for fo llow-up after his cardioversion. He states at that time he was feeling mildly short of breath which he has never experienced in the past. He was started on oral Lasix and asked to follow-up. Later that afternoon he attempted to go for a walk around his neighborhood which she does frequently and was unable to tolerate even a small walk without becoming very short of breath he had to turn back after approximately one block. Upon arrival to the emergency department he was given a dose of IV Lasix which did slightly improve his shortness of breath. He is seen and examined resting comfortably laying almost completely flat in bed in no acute distress. He states that shortness of breath is related to exertion and is not at rest. He denies associated chest discomfort, palpitations, nausea, vomiting or diaphoresis. He also describes a burning warm sensation in both of his lower extremities. He states it feels like he is sweating but when he looks there is no sweat, redness or warmth to touch. EKG reveals sinus mechanism with frequent PACs noted and nonspecific ST-T wave abnormalities. No acute findings and no evidence of atrial fibrillation. Telemetry tracings reveal sinus mechanism with PACs. Chest x-ray on admission reveals vascular pulmonary congestion versus possible pneumonia. Laboratory data reviewed, WBC 9.9, hemoglobin 13, late limits to 69, sodium 135, potassium 4.4, creatinine 0.84, troponin 0.06 and 0.063, NT proBNP 3670. Current home cardiac medications include atorvastatin 20 mg daily, hydrochlorothiazide 12.5 mg daily, lisinopril 10 mg daily and Xarelto 20 mg daily. Recent echocardiogram obtained March 2018 reveals preserved left ventricular systolic function with ejection fraction 50-55%, mild MR and mild TR noted. He underwent transesophageal echocardiogram prior to JUSTIN on December 29 revealing normal LV size and function, mild to moderate mitral regurgitation and mild tricuspid regurgitation. He underwent cardiac catheterization in March 2018 in the setting of what was believed to be non-ST elevated myocardial infarction secondary to chest discom fort and troponin abnormality. Cardiac catheterization revealed normal coronary arteries with no evidence of obstructive disease. At that time his symptoms and troponin elevation was thought to be related to possible plaque rupture. At the time of my exam: CONSTITUTIONAL: Denies fever. Denies chills. EYES: Denies blurred vision. Denies vision changes. Denies eye pain. EARS, NOSE, MOUTH & THROAT: Denies headache. Denies sore throat. Denies ear pain. CARDIOVASCULAR: Denies chest pain. Complains of shortness of breath. Denies orthopnea. Denies PND. Denies palpitations. RESPIRATORY: Denies cough. GASTROINTESTINAL: Denies abdominal pain. Denies diarrhea. Denies constipation. Denies nausea. Denies vomiting. MUSCULOSKELETAL: Denies myalgias. INTEGUMENTARY: Denies pruitis. Denies rash. NEUROLOGIC: Denies numbness. Denies tingling. Denies weakness. PSYCHIATRIC: Denies anxiety. Denies depression. ENDOCRINE: Denies fatigue. Denies weight change. Denies polydipsia. Denies polyurina. GENITOURINARY: Denies burning, hematuria or urgency with micturation. HEMATOLOGIC: Denies history of anemia. Denies bleeding. Blood pressure 132/90 heart rate 97 afebrile maintaining oxygen saturation on room air GENERAL: This is a 83-year-old male in no apparent distress at the time of my examination. HEENT: Head is atraumatic, normocephalic. Pupils are equal, round. Sclerae anicteric. Conjunctivae are clear. Mucous membranes of the mouth are moist. Neck is supple. There is no jugular venous distention. No carotid bruit is heard. LUNGS: Bibasilar rales, no wheezes or rhonchi. No chest wall tenderness is noted on palpation or with deep breathing. HEART: Irregular rate and rhythm with systolic ejection murmur at the left sternal border, no rubs or gallops. S1 and S2 heard. ABDOMEN: Soft, nontender. Bowel sounds are heard. No organomegaly noted. EXTREMITIES: Trace peripheral edema. No calf tenderness noted. VASCULAR: Radial and dorsalis pedis pulses palpated, no evidence of clubbing. NEUROLOGIC: Patient is awake, alert and oriented x3. ASSESSMENT Acute diastolic heart failure, no prior history. Mild abnormality in the troponin, appears chronic with no active symptoms of angina at this time. May be related to recent cardioversion. History of paroxysmal atrial flutter status post cardioversion on long-term anticoagulation Hypertension Dyslipidemia PLAN Obtain CT angio of the chest to rule out PE and further assess the lungs. Repeat echocardiogram to assess cardiac structure and function. Continue diuresis with IV Lasix. Document accurate intake and output along with daily weights. Follow-up electrolytes and kidney function daily. Further recommendations to follow based upon clinical course. Thank you kindly for this consultation. Nurse Practitioner note has been reviewed, I agree with a documented findings and plan of care. Patient was seen and examined. Past Medical History Past Medical History: Atrial Flutter, Hyperlipidemia, Hypertension Additional Past Medical History / Comment(s): patient denies heart failure diagnosis. current admitting diagnosis is chf exacerbation History of Any Multi-Drug Resistant Organisms: None Reported Past Surgical History: Heart Catheterization Additional Past Surgical History / Comment(s): cyst on tailbone removed at age 20, cardioversion 12/2018 Past Anesthesia/Blood Transfusion Reactions: No Reported Reaction Past Psychological History: No Psychological Hx Reported Smoking Status: Former smoker Past Alcohol Use History: None Reported Past Drug Use History: None Reported - Past Family History Mother Family Medical History: No Reported History Father Family Medical History: No Reported History Brother(s) Family Medical History: Myocardial Infarction (LA), Prostate Disorder Additional Family Medical History / Comment(s): prostate cancer Sister(s) Family Medical History: Cancer Son(s) Family Medical History: No Reported History Medications and Allergies Home Medications Medication Instructions Recorded Confirmed Type Lisinopril [Zestril] 10 mg PO DAILY #30 tab 04/04/18 01/02/19 Rx Nitroglycerin Sl Tabs [Nitrostat] 0.4 mg SUBLINGUAL Q5M PRN #1 bottle 04/04/18 01/02/19 Rx Atorvastatin Calcium [Lipitor] 20 mg PO HS #30 tab 04/05/18 01/02/19 Rx Rivaroxaban [Xarelto] 20 mg PO W/SUPPER #30 tab 12/30/18 01/02/19 Rx Hydrochlorothiazide 12.5 mg PO DAILY 01/02/19 01/02/19 History Allergies Allergy/AdvReac Type Severity Reaction Status Date / Time isosorbide [From Imdur] Allergy Unknown Verified 01/02/19 07:33 latex Allergy Rash/Hives Verified 01/02/19 07:33 metoprolol [From Toprol XL] AdvReac Confusion Verified 01/02/19 07:33 Physical Exam Vitals: Vital Signs Temp Pulse Pulse Resp BP BP Pulse Ox 01/02/19 07:00 97.5 F L 97 18 132/90 97 01/02/19 05:42 18 01/02/19 05:23 97.6 F 97 18 135/90 96 01/02/19 04:43 90 18 130/86 95 01/02/19 02:30 89 16 140/95 98 01/02/19 02:00 90 22 137/93 96 01/02/19 01:30 92 19 133/85 98 01/02/19 01:00 90 20 154/101 98 01/02/19 00:30 92 20 152/100 98 01/01/19 23:56 97.8 F 111 H 18 160/92 98 Intake and Output 01/01/19 01/02/19 01/02/19 22:59 06:59 14:59 Intake Total 0 120 Output Total 2450 Balance -2450 120 Intake: Oral 0 120 Output: Urine 2450 Other: Voiding Method Toilet Toilet Urinal Urinal Weight 99 kg Results 01/02/19 00:30 01/02/19 00:30 Cardiac Enzymes 01/02/19 01/02/19 01/02/19 Range/Units 00:30 00:30 08:23 AST 47 (17-59) U/L Troponin I 0.060 H* 0.063 H* (0.000-0.034) ng/mL Coagulation 01/02/19 Range/Units 00:30 PT 12.7 H (9.0-12.0) sec APTT 31.0 H (22.0-30.0) sec CBC 01/02/19 Range/Units 00:30 WBC 9.9 (3.8-10.6) k/uL RBC 4.40 (4.30-5.90) m/uL Hgb 13.0 (13.0-17.5) gm/dL Hct 39.0 (39.0-53.0) % Plt Count 269 (150-450) k/uL Comprehensive Metabolic Panel 01/02/19 Range/Units 00:30 Sodium 135 L (137-145) mmol/L Potassium 4.4 (3.5-5.1) mmol/L Chloride 103 (98-107) mmol/L Carbon Dioxide 20 L (22-30) mmol/L BUN 19 (9-20) mg/dL Creatinine 0.84 (0.66-1.25) mg/dL Glucose 106 H (74-99) mg/dL Calcium 9.0 (8.4-10.2) mg/dL AST 47 (17-59) U/L ALT 55 (21-72) U/L Alkaline Phosphatase 110 (38-126) U/L Total Protein 6.5 (6.3-8.2) g/dL Albumin 3.7 (3.5-5.0) g/dL Current Medications Generic Name Dose Route Start Last Admin Trade Name Freq PRN Reason Stop Dose Admin Atorvastatin Calcium 20 mg 01/02/19 21:00 Lipitor PO HS FABIANA Furosemide 40 mg 01/02/19 04:30 01/02/19 04:44 Lasix IV Not Given Q12H [facility] Heparin Sodium (Porcine) 5,000 unit 01/02/19 09:00 01/02/19 10:00 Heparin SQ 01/02/19 17:30 5,000 unit Q12HR FABIANA Administration Lisinopril 10 mg 01/02/19 09:00 01/02/19 10:00 Zestril PO 10 mg DAILY [facility] Administration Nitroglycerin 0.4 mg 01/02/19 10:00 Nitrostat SUBLINGUAL Q5M PRN Chest Pain Rivaroxaban 20 mg 01/02/19 17:30 Xarelto PO W/SUPPER [facility] Sodium Chloride 10 ml 01/02/19 09:00 01/02/19 10:00 Saline Flush IV 10 ml BID FABIANA Administration Intake and Output 01/01/19 01/02/19 01/02/19 22:59 06:59 14:59 Intake Total 0 120 Output Total 2450 Balance -2450 120 Intake: Oral 0 120 Output: Urine 2450 Other: Voiding Method Toilet Toilet Urinal Urinal Weight 99 kg 01/02/19 00:30 01/02/19 00:30
--- NOTE | 2019-01-02 12:14 | ECHOF ---
Referral Reason:sob MEASUREMENTS -------- HEIGHT: 172.7 cm WEIGHT: 98.9 kg BP: RVIDd: 3.0 cm (< 3.3) IVSd: 1.9 cm (0.6 - 1.1) LVIDd: 5.3 cm (3.9 - 5.3) LVPWd: 2.1 cm (0.6 - 1.1) IVSs: 2.2 cm LVIDs: 4.5 cm LVPWs: 1.9 cm LA Diam: 4.8 cm (2.7 - 3.8) LAESV Index (A-L): 75.85 ml/m Ao Diam: 3.3 cm (2.0 - 3.7) AV Cusp: 2.2 cm (1.5 - 2.6) MV E Rusty: 0.80 m/s MV DecT: 154 ms MV A Rusty: 0.31 m/s MV E/A Ratio: 2.59 RAP: 5.00 mmHg RVSP: 41.43 mmHg FINDINGS -------- Sinus rhythm. This was a technically adequate study. The left ventricular size is normal. There is severe concentric left ventricular hypertrophy. Ove rall left ventricular systolic function is low-normal with, an EF between 50 - 55 %. The right ventricle is normal in size. The left atrium is markedly dilated. LA is severely dilated >40 ml/m2 The right atrium is moderately enlarged. There is mild aortic valve sclerosis. There is no evidence of aortic regurgitation. Mild mitral annular calcification present. Mild mitral regurgitation is present. Mild tricuspid regurgitation present. There is mild pulmonary hypertension. The right ventricular systolic pressure, as measured by Doppler, is 41.43mmHg. Trace/mild (physiologic) pulmonic regurgitation. The aortic root size is normal. Normal inferior vena cava with normal inspiratory collapse consistent with estimated right atrial pre ssure of 5 mmHg. Echo free space represents a pericardial fat pad. CONCLUSIONS -------- 1. The left ventricular size is normal. 2. Overall left ventricular systolic function is low-normal with, an EF between 50 - 55 %. 3. The right ventricle is normal in size. 4. The left atrium is markedly dilated. 5. LA is severely dilated >40 ml/m2 6. The right atrium is moderately enlarged. 7. Interatrial Septum not well visulized. 8. There is mild aortic valve sclerosis. 9. Mild mitral annular calcification present. 10. Mild mitral regurgitation is present. 11. Mild tricuspid regurgitation present. 12. There is mild pulmonary hypertension. 13. The right ventricular systolic pressure, as measured by Doppler, is 41.43mmHg. 14. Trace/mild (physiologic) pulmonic regurgitation. 15. The aortic root size is normal. 16. Normal inferior vena cava with normal inspiratory collapse consistent with estimated right atrial pressure of 5 mmHg. 17. Echo free space represents a pericardial fat pad. MANAGER CONFIGURATION: Lavonne Galaviz RDCS
[2019-01-02 15:25] VITALS: BMI 33.2
[2019-01-02] MEDS: RIVAROXABAN 20 MG TAB PO SCH (17:33)
[2019-01-02] MEDS: ATORVASTATIN 20 MG TAB PO SCH (21:04)
[2019-01-02] MEDS: SENNOSIDES 8.6 MG TAB PO SCH (21:04)
[2019-01-03] MEDS ORDERED: ASPIRIN 325 MG TAB PO SCH (04:29)
[2019-01-03] MEDS: FUROSEMIDE 10 MG/ML 4 ML VIAL IV SCH (05:36)
[2019-01-03 06:16] LABS: HCT 46.6 % (39.0-53.0); HGB 15.3 gm/dL (13.0-17.5); MCH 28.7 pg (25.0-35.0); MCHC 32.9 g/dL (31.0-37.0); MCV 87.4 fL (80.0-100.0); Mean Platelet Volume 6.6; Platelet Count 391 k/uL (150-450); RBC 5.33 m/uL (4.30-5.90); RDW 15.7 % (11.5-15.5); WBC 9.6 k/uL (3.8-10.6)
[2019-01-03 06:27] LABS: Calcium 9.7 mg/dL (8.4-10.2); Potassium 4.1 mmol/L (3.5-5.1)
--- NOTE | 2019-01-03 08:31 | PN ---
PROGRESS NOTE Mr. Vo is an 83-year-old male who has been followed by Dr. Willis, has no evidence of obstructive disease, who recently underwent cardioversion for atrial flutter, was admitted yesterday with symptoms of progressive dyspnea and signs of heart failure. He had a repeat echocardiogram revealed a preserved systolic function. He is back in atrial fibrillation at this time. He is not aware of the arrhythmia. He denies any chest pain. His breathing has been stable and better. He has been ambulating without difficulty. He denies any dizziness or palpitation. He continues to be on Lasix 40 mg IV q.12 hours, lisinopril 10 mg daily, Xarelto 20 mg daily and Lipitor 20 mg daily. PHYSICAL EXAMINATION: Blood pressure 116/80 with a heart rate in the 120s. LUNGS: Clear. HEART: Irregularly irregular, S1, S2. No S3. No rub. ABDOMEN: Soft nontender. EXTREMITIES: No edema. LAB DATA: Revealed BUN and creatinine 21 and 1.02, potassium 4.1. Troponin 0.06 and 0.063. IMPRESSION: 1. Symptoms of heart failure following cardioversion could be related to stunt myocardium. His repeat echocardiogram revealed preserved systolic function. 2. Recurrent atrial fibrillation, status post recent cardioversion. 3. History of hypertension. 4. Mild elevation of troponin presented with an acute coronary syndrome. 5. Hyperlipidemia. RECOMMENDATION: From the cardiac standpoint, I will switch him to oral diuretics. I will start him on a beta julian to control ventricular response, increase his level activity. The patient may be a candidate for the addition of an antiarrhythmic or ablation depending on his symptoms with the atrial fibrillation. MMODL / IJN: [id number] / MTDD
[2019-01-03] MEDS: METOPROLOL TARTRATE 50 MG TAB PO SCH ×2 (08:54→19:40)
[2019-01-03] MEDS: SENNOSIDES 8.6 MG TAB PO SCH ×2 (08:54→19:41)
[2019-01-03] MEDS: POLYETHYLENE GLYCOL 3350 17 GM POWD.PACK PO SCH (08:54)
[2019-01-03] MEDS: LISINOPRIL 10 MG TAB PO SCH (08:54)
--- NOTE | 2019-01-03 16:55 | P.PN ---
Subjective Patient had a recent cardioversion came in with comments of shortness of breath normal systolic function patient was considered secondary to recent c ardioversion and stunned myocardium related heart failure and pulmonary edema. Patient's significant improved patient was switched to oral Lasix and the patient's heart rate medications were changed clinically doing well cardiology is recommending monitoring one more night. Patient has minimal crackles in bilateral lower lung bases predominantly in the left lower lung bases because of will obtain x-ray patient most probably has atelectasis. Constitutional: Denied any fatigue denied any fever. Cardio vascular: denied any chest pain, palpitations Gastrointestinal denied any nausea vomiting Pulmonary: Denied any shortness of breath cough Neurologic denied any new focal deficits All inpatient medications were reviewed and appropriate changes in these medications as dictated in the interval history and assessment and plan. Objective - Vital Signs Vital signs: Vital Signs Temp 97.5 F L 01/03/19 16:00 Pulse 71 01/03/19 16:00 Resp 16 01/03/19 16:00 BP 103/64 01/03/19 16:00 Pulse Ox 99 01/03/19 16:00 Intake & Output 01/02/19 01/03/19 01/03/19 18:59 06:59 18:59 Intake Total 678 300 Output Total 650 2900 625 Balance 28 -2600 -625 Weight 99 kg 95.5 kg Intake: Oral 678 300 Output: Urine 650 2900 625 Other: Voiding Method Toilet Toilet Urinal Urinal # Voids 650 - Exam PHYSICAL EXAMINATION: GENERAL: The patient is alert and oriented x3, not in any acute distress. Well developed, well nourished. HEENT: Pupils are round and equally reacting to light. EOMI. No scleral icterus. No conjunctival pallor. Normocephalic, atraumatic. No pharyngeal erythema. No thyromegaly. CARDIOVASCULAR: S1 and S2 present. No murmurs, rubs, or gallops. PULMONARY: Crackles as mentioned above ABDOMEN: Soft, nontender, nondistended, normoactive bowel sounds. No palpable organomegaly. MUSCULOSKELETAL: No joint swelling or deformity. EXTREMITIES: No cyanosis, clubbing, or pedal edema. NEUROLOGICAL: Gross neurological examination did not reveal any focal deficits. SKIN: No rashes. - Labs CBC & Chem 7: 01/03/19 06:00 01/03/19 06:00 Labs: Abnormal Lab Results - Last 24 Hours (Table) 01/03/19 01/03/19 Range/Units 06:00 06:00 RDW 15.7 H (11.5-15.5) % Sodium 135 L (137-145) mmol/L Chloride 94 L (98-107) mmol/L BUN 21 H (9-20) mg/dL Glucose 104 H (74-99) mg/dL Assessment and Plan Plan: Shortness of breath secondary to heart failure consulted as diastolic dysf unction with acute exacerbation, presently euvolemic. Next and-atrial fibrillation on anticoagulation can you with anticoagulation continue present rate control medications next and hypertension -hyperlipidemia -History of coronary artery disease. - possible atelectasis incentive spirometry repeat chest x-ray today
--- NOTE | 2019-01-03 17:10 | XR ---
EXAMINATION TYPE: XR chest 1V DATE OF EXAM: 01/03/2019 COMPARISON: 01/02/2019 yesterday HISTORY: Chest pain TECHNIQUE: Single frontal view of the chest is obtained. FINDINGS: Heart is moderately enlarged. There is no heart failure. There is slight blunting of right costophrenic angle. There are chest leads. There is hiatal hernia. IMPRESSION: Moderate cardiomegaly. There is clearing of the pulmonary congestion compared to last ex am. There is probably very small right pleural effusion.
[2019-01-03] MEDS ORDERED: FUROSEMIDE 20 MG TAB PO SCH (18:00)
[2019-01-03] MEDS: RIVAROXABAN 20 MG TAB PO SCH (18:35)
[2019-01-03] MEDS: ATORVASTATIN 20 MG TAB PO SCH (19:40)
[2019-01-04 06:51] LABS: Calcium 9.2 mg/dL (8.4-10.2); Potassium 4.4 mmol/L (3.5-5.1)
--- NOTE | 2019-01-04 07:49 | PN ---
PROGRESS NOTE Mr. Vo is an 83-year-old male who presented with symptoms of dyspnea and evidence of congestive heart failure. He is status post recent cardioversion, but he is back in atrial fibrillation. He is doing well this morning, ambulating without difficulty. Denying any chest pain. Denies any dizziness or palpitation. Denies any nausea. Ambulating without any difficulty. He continues to be on metoprolol tartrate 50 mg twice a day, lisinopril 10 mg daily, Lasix 20 mg twice a day, Lipitor 20 mg daily, and Xarelto 20 mg daily. PHYSICAL EXAMINATION: Blood pressure 113/60 with a heart rate in 70s. LUNGS: Clear. HEART: Irregular regular S1, S2. No S3. No rub. ABDOMEN: Soft nontender. EXTREMITIES: No edema. LAB DATA: BUN creatinine 27 and 0.93, potassium 4.4. IMPRESSION: 1. Episode of congestive heart failure, improved with preserved systolic function. 2. Hypertension. 3. Atrial fibrillation, recurrent. RECOMMENDATION: Patient should be able to be discharged home today. I will cut down the dose of Lasix to 20 mg once a day. He will follow up with Dr. Willis next week and depending on his progress, further recommendation will be made. MMODL / IJN: [id number] /
[2019-01-04] MEDS: LISINOPRIL 10 MG TAB PO SCH (08:11)
[2019-01-04] MEDS: POLYETHYLENE GLYCOL 3350 17 GM POWD.PACK PO SCH (08:12)
[2019-01-04] MEDS: METOPROLOL TARTRATE 50 MG TAB PO SCH (08:12)
[2019-01-04] MEDS: SENNOSIDES 8.6 MG TAB PO SCH (08:12)
[2019-01-04] MEDS ORDERED: FUROSEMIDE 20 MG TAB PO SCH (09:00)
[2019-01-04 09:31] VITALS: RESP 16; TEMP 97.5
[2019-01-04 12:05] VITALS: BP 89/68; PULSE 57
--- NOTE | 2019-01-04 14:07 | P.DS ---
Providers Date of admission: 01/02/19 04:30 Attending physician: Stefan Valdez Consults: 01/02/19 05:08 Consult Physician Routine Consulting Provider: Olimpia Garcia Consult Reason/Comments: heart failure Do you want consulting provider notified?: Yes, Notify in am Primary care physician: Joseph Cuevas [facility] Course: Patient had a recent cardioversion came in with comments of shortness of breath normal systolic function patient was considered secondary to recent cardioversion and stunned myocardium related heart failure and pulmonary edema. Patient's significant improved patient was switched to oral Lasix and the patient's heart rate medications were changed clinically doing well cardiology is recommending monitoring one more night. Patient has minimal crackles in bilateral lower lung bases predominantly in the left lower lung bases because of will obtain x-ray patient most probably has atelectasis. 01/04/2019 Patient bit hypotensive serum sodium is 130 Lasix dose was decreased and switch ed to oral 20 mg daily had a good thiazide will be completely discontinued upon discharge and the dose of lisinopril will be cut down to 5 mg, with these changes I'm expecting his serum sodium to get better and hypotension resolved and a basic metabolic profile will be ordered for an outpatient to be tested in 3 days and Pap results to be faxed to PCPs office patient is cleared by cardiology patient will be discharged in stable medical condition to home. PHYSICAL EXAMINATION: GENERAL: The patient is alert and oriented x3, not in any acute distress. Well developed, well nourished. HEENT: Pupils are round and equally reacting to light. EOMI. No scleral icterus. No conjunctival pallor. Normocephalic, atraumatic. No pharyngeal erythema. No thyromegaly. CARDIOVASCULAR: S1 and S2 present. No murmurs, rubs, or gallops. PULMONARY: Chest is clear to auscultation, no wheezing or crackles. ABDOMEN: Soft, nontender, nondistended, normoactive bowel sounds. No palpable organomegaly. MUSCULOSKELETAL: No joint swelling or deformity. EXTREMITIES: No cyanosis, clubbing, or pedal edema. NEUROLOGICAL: Gross neurological examination did not reveal any focal deficits. SKIN: No rashes. Assessment and Plan Plan: Shortness of breath secondary to heart failure secondary to diastolic dysfunction with acute exacerbation, presently euvolemic. -atrial fibrillation on anticoagulation can you with anticoagulation continue present rate control medications hypertension -hyperlipidemia -History of coronary artery disease. - Patient Condition at Discharge: Fair Plan - Discharge Summary Discharge Rx Participant: No New Discharge Prescriptions: New Furosemide [Lasix] 20 mg PO DAILY #30 tab Metoprolol Tartrate [Lopressor] 50 mg PO BID #60 tab Continue Nitroglycerin Sl Tabs [Nitrostat] 0.4 mg SUBLINGUAL Q5M PRN #1 bottle PRN Reason: Chest Pain Atorvastatin Calcium [Lipitor] 20 mg PO HS #30 tab Rivaroxaban [Xarelto] 20 mg PO W/SUPPER #30 tab Changed Lisinopril [Zestril] 5 mg PO DAILY #30 tab Discontinued Hydrochlorothiazide 12.5 mg PO DAILY Discharge Medication List Nitroglycerin Sl Tabs [Nitrostat] 0.4 mg SUBLINGUAL Q5M PRN #1 bottle 04/04/18 [Rx] Atorvastatin Calcium [Lipitor] 20 mg PO HS #30 tab 04/05/18 [Rx] Rivaroxaban [Xarelto] 20 mg PO W/SUPPER #30 tab 12/30/18 [Rx] Furosemide [Lasix] 20 mg PO DAILY #30 tab 01/04/19 [Rx] Lisinopril [Zestril] 5 mg PO DAILY #30 tab 01/04/19 [Rx] Metoprolol Tartrate [Lopressor] 50 mg PO BID #60 tab 01/04/19 [Rx] Follow up Appointment(s)/Referral(s): Joseph Cuevas MD [Primary Care Provider] - 3 Days Randolph Willis MD [STAFF PHYSICIAN] - 01/14/19 12:45 pm Ambulatory/Diagnostic Orders: Basic Metabolic Panel [LAB.AMB] Time Frame: 3 Days, Location: None Selected Patient Instructions/Handouts: Heart Failure (DC) Discharge Disposition: HOME SELF-CARE
== END 2019-01-04 14:11 | disposition home or self-care (01) ==
LOC: EC 23:55 → 1SOBS 01-02 04:30
PROVIDERS: ADMIT Hospitalist; ATTEND Hospitalist
DX: I11.0 Hypertensive heart disease with heart failure (principal); I50.33 Acute on chronic diastolic (congestive) heart failure; E78.5 Hyperlipidemia, unspecified; I25.10 Atherosclerotic heart disease of native coronary artery without angina pectoris; I48.91 Unspecified atrial fibrillation; I08.1 Rheumatic disorders of both mitral and tricuspid valves; Z79.01 Long term (current) use of anticoagulants; Z79.82 Long term (current) use of aspirin; Z79.899 Other long term (current) drug therapy; Z87.891 Personal history of nicotine dependence; Z88.8 Allergy status to other drugs, medicaments and biological substances; Z91.040 Latex allergy status
CPT/HCPCS: 96372; 96376 ×2; 96374; 99285; 36415; 93005; 93306; 83880; 80053; 80048 ×2; 84484; 85025; 85027; 85610; 85730; 71045 ×2; 71275; G0378 ×3; J1644; J1940 ×2; Q9967

== ENCOUNTER → 2019-01-06 | Outpatient (CLI) | payer MEDICARE, BC ==
[2019-01-07 01:33] LABS: Anion Gap 14.5 mmol/L (4.00-12.00); Calcium 9.1 mg/dL (8.7-10.3); Carbon Dioxide 21.5 mmol/L (21.6-31.8); Potassium 5.2 mmol/L (3.5-5.5)
== END ==
LOC: LABWHC1 15:10
PROVIDERS: ATTEND Internal Medicine
DX: Z51.81 Encounter for therapeutic drug level monitoring (principal); Z79.899 Other long term (current) drug therapy
CPT/HCPCS: 36415; 80048

== ENCOUNTER → 2019-01-12 | Outpatient (CLI) | payer MEDICARE, BC ==
--- NOTE | 2019-01-13 11:50 | XR ---
EXAMINATION TYPE: XR lumbosacral spine min 4V DATE OF EXAM: 01/12/2019 COMPARISON: None HISTORY: M 79.669 low back and leg pain TECHNIQUE: Lumbar spine is examined in 5 views FINDINGS: There is degenerative disc changes present L2-L3. Facet degenerative changes present throug hout the lumbar spine. No spondylolytic defects are evident. There 5 lumbar-type vertebral bodies. Pe dicles are intact. Scoliosis is present in the frontal projection. IMPRESSION: 1. Scoliosis. 2. Degenerative disc changes L2-L3
== END | disposition home or self-care (01) ==
LOC: RADXRMAIN 16:17
PROVIDERS: ATTEND Family Medicine
DX: M47.816 Spondylosis without myelopathy or radiculopathy, lumbar region (principal); M41.86 Other forms of scoliosis, lumbar region; M79.669 Pain in unspecified lower leg
CPT/HCPCS: 72110

== ENCOUNTER → 2019-09-10 | Outpatient (CLI) | payer MEDICARE, BC ==
--- NOTE | 2019-09-10 10:53 | XR ---
EXAMINATION TYPE: XR chest 2V DATE OF EXAM: 09/10/2019 COMPARISON: 01/03/[address] 01/02/2019 HISTORY: 84-year-old male shortness of breath TECHNIQUE: Frontal and lateral views FINDINGS: Heart remains moderately enlarged. Elongation/ectasia of the thoracic aorta is unchanged. Peribronchi al cuffing and mild interstitial densities. No leyla consolidation or pleural effusion. Moderate to l arge hiatal hernia was better seen on the patient's prior exam. IMPRESSION: 1. Moderate cardiomegaly. 2. Interstitial prominence. Findings could reflect bronchitis or asthma or mild pulmonary vascular co ngestion. Clinically correlate. 3. Moderate to large hiatal hernia better seen previously.
== END | disposition home or self-care (01) ==
LOC: RADXRMAIN 10:22
PROVIDERS: ATTEND Family Medicine
DX: I51.7 Cardiomegaly (principal)
CPT/HCPCS: 71046

== ENCOUNTER 2019-09-11 10:35 | Observation (INO) | payer MEDICARE, BC ==
[2019-09-11] MEDS ORDERED: IPRATROPIUM-ALBUTEROL 3 ML NEB INHALATION STA (11:42)
--- NOTE | 2019-09-11 11:46 | ED ---
General Adult HPI - General Chief complaint: Recheck/Abnormal Lab/Rx Stated complaint: chest congestion/weakness Time Seen by Provider: 09/11/19 11:12 Source: patient, family, RN notes reviewed Mode of arrival: ambulatory Limitations: no limitations - History of Present Illness Initial comments: Patient is a pleasant 84-year-old male presenting to the emergency Department with cough and respiratory symptoms. Onset of symptoms was a few days ago. Pat ient does have cough with rare clear sputum. Patient does have some nasal congestion. Patient does feel slightly fatigued. No chest pain. No leg pain or leg swelling. No history of similar symptoms previously. Patient did have recent blood work and chest x-ray. Patient was called and advised to follow-up at the hospital for repeat chest x-ray. - Related Data Home Medications Medication Instructions Recorded Confirmed Apixaban [Eliquis] 2.5 mg PO BID 09/11/19 09/11/19 Azithromycin [Zithromax Z-pack] See Taper PO DAILY 09/11/19 09/11/19 Metoprolol Tartrate [Lopressor] 50 mg PO DAILY 09/11/19 09/11/19 Previous Rx's Medication Instructions Recorded Nitroglycerin Sl Tabs [Nitrostat] 0.4 mg SUBLINGUAL Q5M PRN #1 bottle 04/04/18 Furosemide [Lasix] 20 mg PO DAILY #30 tab 01/04/19 Allergies Allergy/AdvReac Type Severity Reaction Status Date / Time isosorbide [From Imdur] Allergy Unknown Verified 09/11/19 14:24 latex Allergy Rash/Hives Verified 09/11/19 14:24 metoprolol [From Toprol XL] AdvReac Confusion Verified 09/11/19 14:24 Review of Systems ROS Statement: Those systems with pertinent positive or pertinent negative responses have been documented in the HPI. ROS Other: All systems not noted in ROS Statement are negative. Constitutional: Denies: fever Eyes: Denies: eye pain ENT: Reports: congestion. Denies: ear pain Respiratory: Reports: cough, dyspnea (Patient may feel slightly short of breath) Cardiovascular: Denies: chest pain Endocrine: Denies: fatigue Gastrointestinal: Denies: abdominal pain Genitourinary: Denies: dysuria Musculoskeletal: Denies: back pain Skin: Denies: rash Neurological: Denies: weakness Past Medical History Past Medical History: Atrial Flutter, Hyperlipidemia, Hypertension Additional Past Medical History / Comment(s): patient denies heart failure diagnosis. current admitting diagnosis is chf exacerbation History of Any Multi-Drug Resistant Organisms: None Reported Past Surgical History: Heart Catheterization Additional Past Surgical History / Comment(s): cyst on tailbone removed at age 20, cardioversion 12/2018 Past Anesthesia/Blood Transfusion Reactions: No Reported Reaction Past Psychological History: No Psychological Hx Reported Smoking Status: Former smoker Past Alcohol Use History: None Reported Past Drug Use History: None Reported - Past Family History Mother Family Medical History: No Reported History Father Family Medical History: No Reported History Brother(s) Family Medical History: Myocardial Infarction ([place]), Prostate Disorder Additional Family Medical History / Comment(s): prostate cancer Sister(s) Family Medical History: Cancer Son(s) Family Medical History: No Reported History General Exam Limitations: no limitations General appearance: alert Head exam: Present: normocephalic Eye exam: Present: normal appearance, PERRL ENT exam: Present: normal oropharynx Neck exam: Present: normal inspection Respiratory exam: Present: wheezes (Mild expiratory wheeze) Cardiovascular Exam: Present: regular rate, normal rhythm, normal heart sounds GI/Abdominal exam: Present: soft. Absent: tenderness Extremities exam: Present: normal inspection. Absent: pedal edema, calf tenderness Neurological exam: Present: alert Psychiatric exam: Present: normal affect, normal mood Skin exam: Present: normal color Course Vital Signs 09/11/19 09/11/19 09/11/19 11:01 12:37 12:44 Temperature 97.3 F L Pulse Rate 70 74 74 Respiratory 18 Rate Blood Pressure 134/89 O2 Sat by Pulse 99 Oximetry 09/11/19 13:27 Temperature 97.8 F Pulse Rate 68 Respiratory Rate Blood Pressure 130/65 O2 Sat by Pulse Oximetry EKG Findings - EKG Comments: EKG Findings:: Sinus rhythm at 71 with sinus arrhythmia. [place] 170. QRS 90. QT 458. QTC 497. Normal axis. Q wave in leads V1 and V2. No acute ST change. Medical Decision Making - Medical Decision Making Patient reevaluated and updated. Dr. Cuevas paged for admission. Patient states onset of upper respiration symptoms was 3-4 days ago Case was discussed with Dr. Cuevas. - Lab Data Result diagrams: 09/11/19 12:00 09/11/19 12:00 Lab Results 09/11/19 09/11/19 09/11/19 Range/Units 12:00 12:00 12:00 WBC 6.0 (3.8-10.6) k/uL RBC 4.69 (4.30-5.90) m/uL Hgb 13.8 (13.0-17.5) gm/dL Hct 41.5 (39.0-53.0) % MCV 88.5 (80.0-100.0) fL MCH 29.5 (25.0-35.0) pg MCHC 33.3 (31.0-37.0) g/dL RDW 12.7 (11.5-15.5) % Plt Count 209 (150-450) k/uL Neutrophils % 71 % Lymphocytes % 16 % Monocytes % 6 % Eosinophils % 3 % Basophils % 1 % Neutrophils # 4.3 (1.3-7.7) k/uL Lymphocytes # 1.0 (1.0-4.8) k/uL Monocytes # 0.4 (0-1.0) k/uL Eosinophils # 0.2 (0-0.7) k/uL Basophils # 0.0 (0-0.2) k/uL PT 10.3 (9.0-12.0) sec INR 1.0 (<1.2) APTT 25.4 (22.0-30.0) sec Sodium 135 L (137-145) mmol/L Potassium 4.1 (3.5-5.1) mmol/L Chloride 102 (98-107) mmol/L Carbon Dioxide 23 (22-30) mmol/L Anion Gap 10 mmol/L BUN 21 H (9-20) mg/dL Creatinine 0.90 (0.66-1.25) mg/dL Est GFR (CKD-EPI)AfAm >90 (>60 ml/min/1.73 sqM) Est GFR (CKD-EPI)NonAf 78 (>60 ml/min/1.73 sqM) Glucose 109 H (74-99) mg/dL Calcium 8.8 (8.4-10.2) mg/dL Total Bilirubin 0.7 (0.2-1.3) mg/dL AST 49 (17-59) U/L ALT 28 (4-49) U/L Alkaline Phosphatase 75 (38-126) U/L Troponin I (0.000-0.034) ng/mL NT-Pro-B Natriuret Pep pg/mL Total Protein 6.6 (6.3-8.2) g/dL Albumin 3.5 (3.5-5.0) g/dL Influenza Type A RNA (Not Detectd) Influenza Type B (PCR) (Not Detectd) 09/11/19 09/11/19 09/11/19 Range/Units 12:00 12:00 12:00 WBC (3.8-10.6) k/uL RBC (4.30-5.90) m/uL Hgb (13.0-17.5) gm/dL Hct (39.0-53.0) % MCV (80.0-100.0) fL MCH (25.0-35.0) pg MCHC (31.0-37.0) g/dL RDW (11.5-15.5) % Plt Count (150-450) k/uL Neutrophils % % Lymphocytes % % Monocytes % % Eosinophils % % Basophils % % Neutrophils # (1.3-7.7) k/uL Lymphocytes # (1.0-4.8) k/uL Monocytes # (0-1.0) k/uL Eosinophils # (0-0.7) k/uL Basophils # (0-0.2) k/uL PT (9.0-12.0) sec INR (<1.2) APTT (22.0-30.0) sec Sodium (137-145) mmol/L Potassium (3.5-5.1) mmol/L Chloride (98-107) mmol/L Carbon Dioxide (22-30) mmol/L Anion Gap mmol/L BUN (9-20) mg/dL Creatinine (0.66-1.25) mg/dL Est GFR (CKD-EPI)AfAm (>60 ml/min/1.73 sqM) Est GFR (CKD-EPI)NonAf (>60 ml/min/1.73 sqM) Glucose (74-99) mg/dL Calcium (8.4-10.2) mg/dL Total Bilirubin (0.2-1.3) mg/dL AST (17-59) U/L ALT (4-49) U/L Alkaline Phosphatase (38-126) U/L Troponin I 0.040 H* (0.000-0.034) ng/mL NT-Pro-B Natriuret Pep 4240 pg/mL Total Protein (6.3-8.2) g/dL Albumin (3.5-5.0) g/dL Influenza Type A RNA Detected H (Not Detectd) Influenza Type B (PCR) Not Detected (Not Detectd) - Radiology Data Radiology results: image reviewed (Chest x-ray shows cardiac megaly and interstitial prominence) Disposition Clinical Impression: Congestive heart failure, Influenza Disposition: ADMITTED IP TO THIS HOSP Is patient prescribed a controlled substance at d/c from ED?: No Decision Time: 14:07
--- NOTE | 2019-09-11 12:24 | XR ---
EXAMINATION TYPE: XR chest 2V DATE OF EXAM: 09/11/2019 COMPARISON: 09/10/2019 HISTORY: 84-year-old male shortness of breath, difficulty breathing TECHNIQUE: PA and lateral views FINDINGS: Heart moderately enlarged. Elongation/ectasia thoracic aorta. Mild to moderate interstitial prominenc e, slightly increased, without consolidation or pleural effusion. IMPRESSION: 1. Moderate cardiomegaly. 2. Slightly increased interstitial prominence. Findings could reflect bronchitis, asthma, or mild pul monary vascular congestion.
[2019-09-11 12:31] LABS: ALT 28 U/L (4-49); AST 49 U/L (17-59); African American GFR (CKD) >90 (>60 ml/min/1.73 sqM); Albumin 3.5 g/dL (3.5-5.0); Alkaline Phosphatase 75 U/L (38-126); Anion Gap 10 mmol/L; Blood Urea Nitrogen 21 mg/dL (9-20); Calcium 8.8 mg/dL (8.4-10.2); Carbon Dioxide 23 mmol/L (22-30); Chloride 102 mmol/L (98-107); Glucose 109 mg/dL (74-99); Non-African American GFR(CKD) 78 (>60 ml/min/1.73 sqM); Potassium 4.1 mmol/L (3.5-5.1); Sodium 135 mmol/L (137-145); Total Bilirubin 0.7 mg/dL (0.2-1.3); Total Protein 6.6 g/dL (6.3-8.2)
[2019-09-11 12:40] LABS: Partial Thromboplastin Time 25.4 sec (22.0-30.0); Prothrombin Time 10.3 sec (9.0-12.0)
[2019-09-11 12:47] LABS: Basophils % (A) 1 %; Eosinophils # (A) 0.2 k/uL (0-0.7); Eosinophils % (A) 3 %; HCT 41.5 % (39.0-53.0); HGB 13.8 gm/dL (13.0-17.5); Lymphocytes % (A) 16 %; MCH 29.5 pg (25.0-35.0); MCHC 33.3 g/dL (31.0-37.0); MCV 88.5 fL (80.0-100.0); Mean Platelet Volume 7.6; Monocytes # (A) 0.4 k/uL (0-1.0); Monocytes % (A) 6 %; Neutrophils # (A) 4.3 k/uL (1.3-7.7); Neutrophils % (A) 71 %; Platelet Count 209 k/uL (150-450); RBC 4.69 m/uL (4.30-5.90); RDW 12.7 % (11.5-15.5)
[2019-09-11] MEDS ORDERED: ASPIRIN 325 MG TAB PO STA (14:13)
[2019-09-11] MEDS: FUROSEMIDE 10 MG/ML 4 ML VIAL IV SCH ×2 (14:49→23:50)
[2019-09-11] MEDS ORDERED: NITROGLYCERIN SL TABS 0.4 MG TAB SUBLINGUAL PRN (18:42)
[2019-09-11] MEDS ORDERED: ZOLPIDEM 5 MG TAB PO PRN (19:47)
[2019-09-11] MEDS: APIXABAN 2.5 MG TABLET PO SCH (21:25)
[2019-09-11] MEDS: OSELTAMIVIR 75 MG CAP PO SCH (23:50)
[2019-09-12] MEDS: FUROSEMIDE 10 MG/ML 4 ML VIAL IV SCH (07:13)
[2019-09-12] MEDS: METOPROLOL TARTRATE 50 MG TAB PO SCH (08:09)
[2019-09-12] MEDS: AZITHROMYCIN 250 MG TAB PO SCH (08:10)
[2019-09-12] MEDS: OSELTAMIVIR 75 MG CAP PO SCH ×2 (08:10→21:39)
[2019-09-12] MEDS: APIXABAN 2.5 MG TABLET PO SCH ×2 (08:10→21:39)
[2019-09-12 11:13] VITALS: BMI 32.3
--- NOTE | 2019-09-12 14:00 | ECHOF ---
Referral Reason:chf MEASUREMENTS -------- HEIGHT: 172.7 cm WEIGHT: 96.2 kg BP: RVIDd: 3.1 cm (< 3.3) IVSd: 2.1 cm (0.6 - 1.1) LVIDd: 4.3 cm (3.9 - 5.3) LVPWd: 2.4 cm (0.6 - 1.1) IVSs: 2.7 cm LVIDs: 3.5 cm LVPWs: 3.1 cm LAESV Index (A-L): 67.51 ml/m Ao Diam: 2.9 cm (2.0 - 3.7) AV Cusp: 1.5 cm (1.5 - 2.6) MV EXCURSION: 12.973 mm (> 18.000) MV EF SLOPE: 117 mm/s (70 - 150) EPSS: 1.3 cm MV E Rusty: 0.64 m/s MV DecT: 362 ms MV A Rusty: 0.20 m/s MV E/A Ratio: 3.15 AR PHT: 743 ms RAP: 5.00 mmHg RVSP: 32.47 mmHg FINDINGS -------- Resting bradycardia (HR<60bpm). This was a technically good study. The left ventricular size is normal. There is severe concentric left ventricular hypertrophy. Ove rall left ventricular systolic function is low-normal with, an EF between 50 - 55 %. The right ventricle is normal in size. LA is severely dilated >40 ml/m2 The right atrial size is normal. Aortic valve is trileaflet and is mildly thickened. Trace amount of aortic regurgitation. The mitral valve is normal. Mild mitral regurgitation is present. The tricuspid valve appears structurally normal. Mild tricuspid regurgitation present. Right vent ricular systolic pressure is normal at < 35 mmHg. There is no pulmonic regurgitation present. The aortic root size is normal. Normal inferior vena cava with normal inspiratory collapse consistent with estimated right atrial pre ssure of 5 mmHg. There is no pericardial effusion. CONCLUSIONS -------- 1. Resting bradycardia (HR<60bpm). 2. This was a technically good study. 3. The left ventricular size is normal. 4. There is severe concentric left ventricular hypertrophy. 5. Overall left ventricular systolic function is low-normal with, an EF between 50 - 55 %. 6. The right ventricle is normal in size. 7. LA is severely dilated >40 ml/m2 8. The right atrial size is normal. 9. Aortic valve is trileaflet and is mildly thickened. 10. Trace amount of aortic regurgitation. 11. The mitral valve is normal. 12. Mild mitral regurgitation is present. 13. The tricuspid valve appears structurally normal. 14. Mild tricuspid regurgitation present. 15. Right ventricular systolic pressure is normal at < 35 mmHg. 16. There is no pulmonic regurgitation present. 17. The aortic root size is normal. 18. Normal inferior vena cava with normal inspiratory collapse consistent with estimated right atrial pressure of 5 mmHg. 19. There is no pericardial effusion. PALLIATIVE CARE NURSE PRACTITIONER: Carmelita Rothman RDCS
[2019-09-12] MEDS: ASPIRIN 325 MG TAB PO SCH (16:20)
[2019-09-12] MEDS: FUROSEMIDE 20 MG TAB PO SCH (16:20)
--- NOTE | 2019-09-12 18:00 | CONS ---
CONSULTATION CHIEF COMPLAINT: Elevated troponin and BNP. Addy is an 84-year-old gentleman with history of atrial flutter status post cardioversion, who presented to Dr. Cuevas, his primary care physician with flu-like illness that has been going on for the last 2 weeks. His predominant symptoms are in the form of cough with nasal congestion, feeling fatigued and tired. He tested positive for influenza A. A chest x-ray showed cardiomegaly. BNP is elevated. There is mild troponin elevation. Hence, he is admitted. He does not have shortness of breath and does not have leg edema. Does not have PND or orthopnea. EKG shows sinus rhythm with PACs. The BNP is elevated at 4240. Troponin is 0.04. Potassium is normal. Creatinine is normal. White cell count is 6. I believe the BNP and the troponin elevation are related to the acute viral illness. The patient is clinically not in overt heart failure. Chest x-ray did not reveal pulmonary congestion. He does not have leg edema. Shortness of breath was not even his primary presenting symptoms. Troponin elevation again is probably related to the viral illness. At the time of my evaluation, patient appears comfortable. I will obtain a 2D echo to assess his LV function. Stop the IV Lasix, put him on p.o. Lasix as he had been at home. PAST MEDICAL HISTORY: Significant for atrial flutter. MEDICATIONS: Medications at home include: Z-Matteo, Lasix 20 daily, Eliquis 2.5 b.i.d., Lopressor 50 mg daily. ALLERGIES: TO IMDUR, LATEX AND TOPROL-XL. FAMILY HISTORY: Negative for premature coronary artery disease. SOCIAL HISTORY: Negative for current smoking, EtOH abuse, or drug abuse. REVIEW OF SYSTEMS: HEENT is unremarkable. Cardiac as described above. Respiratory as described above. GI negative. GENITOURINARY negative. ALLERGY/IMMUNOLOGY: Negative. SKIN: Negative. MUSCULOSKELETAL: Significant for arthritis. PSYCHOSOCIAL negative. ENDOCRINE: Negative. DERM: Negative. ONCOLOGICAL negative. MAIL CENSOR negative. CONSTITUTIONAL significant for febrile illness secondary to flu influenza. Rest of the system review is not relevant. PHYSICAL EXAM: Heart rate is 87 beats per minute. Blood pressure is 120/76, respirations 18, O2 sat is 96% on room air. There is no jugular venous distention. Carotid upstroke is diminished. There is no bruit. Chest exam reveals good air entry bilaterally. Heart exam reveals first and second heart sounds. No gallop. Has a systolic murmur at the left lower sternal border. Abdomen is soft. Exam of extremities did not reveal any edema. MAIL CENSOR exam did not reveal focal neurological deficits. ASSESSMENT: 1. Influenza A. 2. History of atrial flutter. 3. Elevated D-dimer. 4. Elevated BNP. PLAN: Patient is stable cardiac-kimbrough. I will obtain a 2D echo. He is not in congestive heart failure and elevated troponin is of no clinical relevance. Could be related to the influenza. MMODL / IJN: [id number] /
--- NOTE | 2019-09-12 21:22 | P.HPIM ---
History of Present Illness H&P Date: 09/12/19 Chief Complaint: Abnormal chest x-ray Patient is a 84-year-old male with a known history of atrial flutter currently on anticoagulation with Eliquis, coronary artery disease, hypertension, hyperlipidemia who follows with Dr. Cuevas as an outpatient presents to ER with complaints of cough congestion for the past few days. Patient was seen by Dr. Cuevas in the clinic and had blood workup and chest x-ray. Patient was called and advised to follow-up in the hospital for repeat chest x-ray acute abnormality. Patient does have cough with clear to whitish sputum production. Does have nasal congestion and stuffiness. Otherwise no complaints of chest pain. No exertional short of breath. No leg swelling. No history of congestive heart failure in the past. EKG showed sinus rhythm with sinus arrhythmia Chest x-ray showed moderate cardiomegaly, slightly increased interstitial prominence. Findings could reflect bronchitis, asthma, or mild pulmonary congestion. Troponin level is 0.040) 0.055, BNP 4245 Influenza A+ Sodium 135 Review of Systems Constitutional: Patient denies any fever or chills . No generalized weakness or weight loss. Abdomen: Patient denied nausea vomiting and diarrhea and abdominal pain. Cardiovascular: Patient denies any chest pain or short of breath no palpitations. Respiratory: Cough congestion and shortness of breath Neurologic: Patient denied any numbness or tingling headache. Musculoskeletal: Patient denies any complaints of joint swelling or deformity. Skin: Negative Psychiatric: Negative Endocrine: No heat or cold intolerance. No recent weight gain. Genitourinary: No dysuria or hematuria. All other 14 point ROS negative except the above Past Medical History Past Medical History: Atrial Flutter, Hyperlipidemia, Hypertension Additional Past Medical History / Comment(s): Pt states, "I have not been diagnosed with heart failure." History of Any Multi-Drug Resistant Organisms: None Reported Past Surgical History: Heart Catheterization Additional Past Surgical History / Comment(s): cyst on tailbone removed at age 20, cardioversion 12/2018 Past Anesthesia/Blood Transfusion Reactions: No Reported Reaction Past Psychological History: No Psychological Hx Reported Smoking Status: Former smoker Past Alcohol Use History: None Reported Past Drug Use History: None Reported - Past Family History Mother Family Medical History: No Reported History Father Family Medical History: No Reported History Brother(s) Family Medical History: Myocardial Infarction ([place]), Prostate Disorder Additional Family Medical History / Comment(s): prostate cancer Sister(s) Family Medical History: Cancer Son(s) Family Medical History: No Reported History Medications and Allergies Home Medications Medication Instructions Recorded Confirmed Type Nitroglycerin Sl Tabs [Nitrostat] 0.4 mg SUBLINGUAL Q5M PRN #1 bottle 04/04/18 09/11/19 Rx Furosemide [Lasix] 20 mg PO DAILY #30 tab 01/04/19 09/11/19 Rx Apixaban [Eliquis] 2.5 mg PO BID 09/11/19 09/11/19 History Azithromycin [Zithromax Z-pack] See Taper PO DAILY 09/11/19 09/11/19 History Metoprolol Tartrate [Lopressor] 50 mg PO DAILY 09/11/19 09/11/19 History Allergies Allergy/AdvReac Type Severity Reaction Status Date / Time isosorbide [From Imdur] Allergy Unknown Verified 09/11/19 14:24 latex Allergy Rash/Hives Verified 09/11/19 14:24 metoprolol [From Toprol XL] AdvReac Confusion Verified 09/11/19 14:24 Physical Exam Vitals: Vital Signs Temp Pulse Pulse Resp BP BP Pulse Ox 09/12/19 08:05 97.4 F L 87 18 120/76 96 09/12/19 04:50 98.0 F 58 L 16 121/65 97 09/11/19 23:50 97.2 F L 82 18 113/74 97 09/11/19 20:00 97.7 F 85 18 133/96 98 09/11/19 17:45 98.0 F 75 18 133/75 97 09/11/19 16:00 97.9 F 92 16 121/77 95 09/11/19 14:56 77 18 133/92 97 09/11/19 13:27 97.8 F 68 130/65 09/11/19 12:44 74 09/11/19 12:37 74 Intake and Output 09/11/19 09/12/19 09/12/19 22:59 06:59 14:59 Intake Total 10 40 240 Output Total 2300 Balance -2290 40 240 Intake: IV 10 40 Invasive Line 1 10 40 Oral 240 Output: Urine 2300 Other: Voiding Method Toilet Toilet # Voids 3 5 Weight 101.36 kg 96.3 kg 96.3 kg PHYSICAL EXAMINATION: Patient is lying in the bed comfortably, no acute distress, awake alert and oriented.. HEENT: Normocephalic. Neck is supple. Pupils reactive. Nostrils clear. Oral cavity is moist. Ears reveal no drainage. Neck reveals no JVD, carotid bruits, or thyromegaly. CHEST EXAMINATION: Trachea is central. Symmetrical expansion. Minimal basilar crackles. Lung linn clear to auscultation and percussion. CARDIAC: Normal S1, S2 with no gallops. No murmurs ABDOMEN: Soft. Bowel sounds normal. No organomegaly. No abdominal bruits. Extremities: reveal no edema. No clubbing or cyanosis Neurologically awake, alert, oriented x3 with well-coordinated movements. No focal deficits noted Skin: No rash or skin lesions. Psychiatric: Coperative. Nonsuicidal Musculoskeletal: No joint swelling or deformity. Normal range of motion. Results CBC & Chem 7: 09/11/19 12:00 09/11/19 12:00 Labs: Abnormal Lab Results - Last 24 Hours (Table) 09/11/19 09/11/19 09/11/19 Range/Units 12:00 12:00 12:00 Sodium 135 L (137-145) mmol/L BUN 21 H (9-20) mg/dL Glucose 109 H (74-99) mg/dL Troponin I 0.040 H* (0.000-0.034) ng/mL Influenza Type A RNA Detected H (Not Detectd) Thrombosis Risk Factor Assmnt - DVT/VTE Prophylaxis DVT/VTE Prophylaxis: Pharmacologic Prophylaxis ordered - Choose All That Apply Each Risk Factor Represents 3 Points: Age 75 years or older Thrombosis Risk Factor Assessment Total Risk Factor Score: 3 Thrombosis Risk Factor Assessment Level: Moderate Risk Assessment and Plan Assessment: Acute influenza A infection Acute tracheobronchitis Slightly elevated troponin level likely due to demand mismatch. Possible acute CHF. Ejection fraction unknown. Patient does have vascular congestion and elevated BNP. Coronary artery disease Atrial flutter. With history of cardioversion in December 2018 Previous history of smoking Hypertension Hyperlipidemia Plan: Patient will be continued on Tamiflu and also on azithromycin. Cardiology was consulted due to elevated troponin level. 2-D echocardiogram was ordered. Continue with home medications including Lasix and metoprolol. Continue with supportive care. Further recommendations based on the clinical course. Time with Patient: Greater than 30
[2019-09-13 05:44] LABS: Basophils % (A) 1 %; Eosinophils # (A) 0.4 k/uL (0-0.7); Eosinophils % (A) 5 %; HCT 43.2 % (39.0-53.0); HGB 14.2 gm/dL (13.0-17.5); Lymphocytes # (A) 1.7 k/uL (1.0-4.8); Lymphocytes % (A) 22 %; MCHC 32.8 g/dL (31.0-37.0); MCV 88.3 fL (80.0-100.0); Mean Platelet Volume 7.5; Monocytes # (A) 0.6 k/uL (0-1.0); Monocytes % (A) 7 %; Neutrophils # (A) 4.8 k/uL (1.3-7.7); Neutrophils % (A) 62 %; Platelet Count 231 k/uL (150-450); RBC 4.89 m/uL (4.30-5.90); RDW 12.7 % (11.5-15.5); WBC 7.7 k/uL (3.8-10.6)
[2019-09-13 05:52] LABS: Calcium 8.9 mg/dL (8.4-10.2); Magnesium 1.9 mg/dL (1.6-2.3)
[2019-09-13 05:56] LABS: Potassium 4.3 mmol/L (3.5-5.1)
[2019-09-13 06:00] VITALS: RESP 18
[2019-09-13] MEDS: ASPIRIN 325 MG TAB PO SCH (09:43)
[2019-09-13] MEDS: FUROSEMIDE 20 MG TAB PO SCH (09:44)
[2019-09-13] MEDS: OSELTAMIVIR 75 MG CAP PO SCH (09:44)
[2019-09-13] MEDS: METOPROLOL TARTRATE 50 MG TAB PO SCH (09:44)
[2019-09-13] MEDS: APIXABAN 2.5 MG TABLET PO SCH (09:45)
[2019-09-13] MEDS: AZITHROMYCIN 250 MG TAB PO SCH (09:46)
--- NOTE | 2019-09-13 13:10 | P.PN ---
Subjective Progress Note Date: 09/13/19 This is an 84-year-old gentleman with history of atrial flutter and prior cardioversion who presented to his primary care doctor's office with flulike symptoms which have been going on for approximately 2 weeks. His chest x-ray showed cardiomegaly and his BNP was elevated, he also was noted to have some mild elevation in troponin. Patient did test positive for influenza A. He had been seen in consultation yesterday by Dr. Ryder. His echocardiogram with Doppler study revealed an ejection fraction of 50-55%. Let pressure 118/70 with a heart rate in the 60s, 97% on room air. Blood cell count 7.7, hemolytic lobe and 14.2, plate count 231. Sodium 135, potassium 4.3, BUN 25 and creatinine 1.0 Objective - Vital Signs Vital signs: Vital Signs Temp 97.3 F L 09/13/19 08:00 Pulse 62 09/13/19 08:00 Resp 18 09/13/19 08:00 BP 118/78 09/13/19 08:00 Pulse Ox 97 09/13/19 08:00 Intake & Output 09/12/19 09/13/19 09/13/19 18:59 06:59 18:59 Intake Total 1440 600 Balance 1440 600 Weight 96.3 kg 96.5 kg Intake: Oral 1440 600 Other: Voiding Method Toilet # Voids 2 2 2 - Exam PHYSICAL EXAMINATION: GENERAL: 84-year-old gentleman in no acute distress at the time of my examination HEENT: Head is atraumatic, normocephalic. Pupils equal, round. Sclera anicteric. Conjunctiva are clear. Mucous membranes of the mouth are moist. Neck is supple. There is no elevated jugular venous pressure. No carotid bruit is heard. HEART EXAMINATION: Heart S1, S2 systolic murmur is heard . No murmur or gallop heard. CHEST EXAMINATION: Lungs are clear to auscultation and precussion. No chest wall tenderness is noted on palpation or with deep breathing. ABDOMEN: Soft, nontender. Bowel sounds are heard. No organomegaly noted. EXTREMITIES: 2+ peripheral pulses with no evidence of peripheral edema and no calf tenderness noted. NEUROLOGIC patient is awake, alert and oriented 3 . . - Labs CBC & Chem 7: 09/13/19 05:31 09/13/19 05:31 Labs: Abnormal Lab Results - Last 24 Hours (Table) 09/13/19 Range/Units 05:31 Sodium 135 L (137-145) mmol/L BUN 25 H (9-20) mg/dL Assessment and Plan Plan: Assessment and plan #1 influenza A #2 history of typical atrial flutter #3 elevated BNP with no evidence of congestive cardiac failure Plan Echocardiogram with Doppler study revealed a normal left ventricular systolic function from cardiology's perspective, we'll follow this patient along with you now on an as-needed basis only, please don't hesitate to call if you have any questions. DNP note has been reviewed, I agree with a documented findings and plan of care. Patient was seen and examined.
[2019-09-13 14:34] VITALS: BP 128/87; PULSE 56; TEMP 97.4
--- NOTE | 2019-09-27 22:02 | P.DS ---
Providers Date of admission: 09/11/19 14:13 Expected date of discharge: 09/13/19 Attending physician: Joseph Cuevas Consults: 09/11/19 14:13 Consult Physician Routine Consulting Provider: Cameron Morin Consult Reason/Comments: chf Do you want consulting provider notified?: Yes Primary care physician: Joseph Cuevas Hospital Course: Discharge diagnosis Acute influenza A infection Acute tracheobronchitis Slightly elevated troponin level likely due to demand mismatch. Possible acute CHF. Ejection fraction unknown. Patient does have vascular congestion and elevated BNP. Coronary artery disease Atrial flutter. With history of cardioversion in December 2018 Previous history of smoking Hypertension Hyperlipidemia Hospital course Patient is a 84-year-old male with a known history of atrial flutter currently on anticoagulation with Eliquis, coronary artery disease, hypertension, hyperlipidemia who follows with Dr. Cuevas as an outpatient presents to ER with complaints of cough congestion for the past few days. Patient was seen by Dr. Cuevas in the clinic and had blood workup and chest x-ray. Patient was called and advised to follow-up in the hospital for repeat chest x-ray acute abnormality. Patient does have cough with clear to whitish sputum production. Does have nasal congestion and stuffiness. Otherwise no complaints of chest pain. No exertional short of breath. No leg swelling. No history of congestive heart failure in the past. EKG showed sinus rhythm with sinus arrhythmia Chest x-ray showed moderate cardiomegaly, slightly increased interstitial p rominence. Findings could reflect bronchitis, asthma, or mild pulmonary congestion. Troponin level is 0.040) 0.055, BNP 4245 Influenza A+ Sodium 135 09/13/2019 Patient denied any complaints of chest pain or shortness of breath. No nausea vomiting or abdominal pain. Patient was seen by cardiology. 2-D echocardiogram showed normal ejection fraction. Renal function is stable. Patient is being discharged home today. Continue with Tamiflu total tendinosis. Otherwise patient denied any nausea vomiting or abdominal pain. No headache or dizziness or lightheadedness. PHYSICAL EXAMINATION: Patient is lying in the bed comfortably, no acute distress, awake alert and oriented.. HEENT: Normocephalic. Neck is supple. Pupils reactive. Nostrils clear. Oral cavity is moist. Ears reveal no drainage. Neck reveals no JVD, carotid bruits, or thyromegaly. CHEST EXAMINATION: Trachea is central. Symmetrical expansion. Lung linn clear to auscultation and percussion. CARDIAC: Normal S1, S2 with no gallops. No murmurs ABDOMEN: Soft. Bowel sounds normal. No organomegaly. No abdominal bruits. Extremities: reveal no edema. No clubbing or cyanosis Neurologically awake, alert, oriented x3 with well-coordinated movements. No focal deficits noted Skin: No rash or skin lesions. Psychiatric: Coperative. Nonsuicidal Musculoskeletal: No joint swelling or deformity. Normal range of motion. Vital Signs Temp 97.3 F L 09/13/19 08:00 Pulse 62 09/13/19 08:00 Resp 18 09/13/19 08:00 BP 118/78 09/13/19 08:00 Pulse Ox 97 09/13/19 08:00 Intake & Output 09/12/19 09/13/19 09/13/19 18:59 06:59 18:59 Intake Total 1440 600 Balance 1440 600 Weight 96.3 kg 96.5 kg Intake: Oral 1440 600 Other: Voiding Method Toilet # Voids 2 2 2 Patient Condition at Discharge: Stable Plan - Discharge Summary Discharge Rx Participant: No New Discharge Prescriptions: New Oseltamivir [Tamiflu] 75 mg PO Q12HR 3 Days #6 cap Continue Nitroglycerin Sl Tabs [Nitrostat] 0.4 mg SUBLINGUAL Q5M PRN #1 bottle PRN Reason: Chest Pain Furosemide [Lasix] 20 mg PO DAILY #30 tab Apixaban [Eliquis] 2.5 mg PO BID Metoprolol Tartrate [Lopressor] 50 mg PO DAILY Azithromycin [Zithromax Z-pack] See Taper PO DAILY Discharge Medication List Nitroglycerin Sl Tabs [Nitrostat] 0.4 mg SUBLINGUAL Q5M PRN #1 bottle 04/04/18 [Rx] Furosemide [Lasix] 20 mg PO DAILY #30 tab 01/04/19 [Rx] Apixaban [Eliquis] 2.5 mg PO BID 09/11/19 [History] Azithromycin [Zithromax Z-pack] See Taper PO DAILY 09/11/19 [History] Metoprolol Tartrate [Lopressor] 50 mg PO DAILY 09/11/19 [History] Oseltamivir [Tamiflu] 75 mg PO Q12HR 3 Days #6 cap 09/13/19 [Rx] Follow up Appointment(s)/Referral(s): Joseph Cuevas MD [Primary Care Provider] - 1-2 days (Call Saturday for an appointment) Patient Instructions/Handouts: Heart Failure (DC), Influenza (DC) Discharge Disposition: HOME SELF-CARE
== END 2019-09-13 16:22 | disposition home or self-care (01) ==
LOC: EC 10:35 → 3SCARD 14:13
PROVIDERS: ADMIT Family Medicine; ATTEND Family Medicine
DX: J10.1 Influenza due to other identified influenza virus with other respiratory manifestations (principal); I48.92 Unspecified atrial flutter; I11.0 Hypertensive heart disease with heart failure; I50.9 Heart failure, unspecified; E78.5 Hyperlipidemia, unspecified; Z87.891 Personal history of nicotine dependence; I08.1 Rheumatic disorders of both mitral and tricuspid valves; I25.10 Atherosclerotic heart disease of native coronary artery without angina pectoris; R79.89 Other specified abnormal findings of blood chemistry; Z88.8 Allergy status to other drugs, medicaments and biological substances; Z91.040 Latex allergy status; Z79.01 Long term (current) use of anticoagulants; Z79.899 Other long term (current) drug therapy; Z80.42 Family history of malignant neoplasm of prostate; Z80.8 Family history of malignant neoplasm of other organs or systems; Z82.49 Family history of ischemic heart disease and other diseases of the circulatory system
CPT/HCPCS: 96376 ×2; 96374; 99285; 36415; 94640; 93005; 93306; 83880; 80053; 80048; 83735; 84484 ×2; 85025 ×2; 85610; 85730; 87502; 71046; G0378 ×3; J1940 ×2

== ENCOUNTER → 2021-02-07 | Outpatient (CLI) | payer MEDICARE, BC ==
[2021-02-07 16:59] LABS: HGB 14.6 g/dL (13.0-17.0); MCH 29.9 pg (27.0-32.0); MCHC 32.4 g/dL (32.0-37.0); MCV 92.2 fL (80.0-97.0); Mean Platelet Volume 10.9 fL (9.5-12.2); Platelet Count 249 X 10*3/uL (140-440); RBC 4.88 X 10*6/uL (4.40-5.60); RDW 14.4 % (11.5-14.5); WBC 7.95 X 10*3/uL (4.50-10.00)
[2021-02-07 17:07] LABS: African American GFR (CKD) 63.5 (60.0-200.0); Anion Gap 9.2 mmol/L (4.00-12.00); BUN/Creat Ratio 24.17 Ratio (12.00-20.00); Carbon Dioxide 25.8 mmol/L (21.6-31.8); Non-African American GFR(CKD) 54.8 (60.0-200.0); Potassium 4.8 mmol/L (3.5-5.5)
== END | disposition home or self-care (01) ==
LOC: LABWHC1 10:11
PROVIDERS: ATTEND Internal Medicine Cardiovascular Disease
DX: R06.02 Shortness of breath (principal)
CPT/HCPCS: 36415; 80048; 84443; 85027

== ENCOUNTER 2021-10-12 08:33 | Day surgery (SDC) | payer MEDICARE, BC ==
[2021-09-28 18:03] VITALS: BMI 31.8
[~2021-10-12 08:33] MED LIST: ALPRAZolam 0.25 MG TAB PO PRN; ALPRAZolam 0.5 MG TAB PO PRN; ASPIRIN 325 MG TAB PO STA; ATORVASTATIN 80 MG TAB PO STA; NITROGLYCERIN SL TABS 0.4 MG TAB SUBLINGUAL PRN; SODIUM CHLORIDE 0.9% 1,000 ML in EMPTY BAG 1 BAG IV SCH
[2021-10-12 09:18] VITALS: TEMP 97.6
[2021-10-12] MEDS ORDERED: fentaNYL (PF) 50 MCG/ML 2 ML AMP ONE (09:38)
[2021-10-12] MEDS ORDERED: LIDOCAINE 1% INJ 10MG/ML (20 ML MDV) ONE (09:38)
[2021-10-12] MEDS ORDERED: HEPARIN SODIUM 1,000 UN/ML (10ML VL) ONE (09:38)
[2021-10-12] MEDS ORDERED: VERAPAMIL 2.5 MG/ML 2 ML AMP ONE (09:38)
[2021-10-12 10:01] LABS: Basophils % (A) 1 %; Eosinophils # (A) 0.3 k/uL (0-0.7); Eosinophils % (A) 3 %; HCT 45.9 % (39.0-53.0); HGB 14.7 gm/dL (13.0-17.5); Lymphocytes # (A) 1.6 k/uL (1.0-4.8); Lymphocytes % (A) 20 %; MCH 30.4 pg (25.0-35.0); Mean Platelet Volume 7.8; Monocytes # (A) 0.4 k/uL (0-1.0); Monocytes % (A) 5 %; Neutrophils # (A) 5.5 k/uL (1.3-7.7); Neutrophils % (A) 69 %; Platelet Count 229 k/uL (150-450); RBC 4.83 m/uL (4.30-5.90); RDW 13.9 % (11.5-15.5); WBC 7.9 k/uL (3.8-10.6)
[2021-10-12] MEDS ORDERED: fentaNYL (PF) 50 MCG/ML 2 ML AMP IV ONE (10:08)
[2021-10-12] MEDS ORDERED: MIDAZOLAM 2 MG/2 ML VIAL IV ONE (10:08)
[2021-10-12] MEDS ORDERED: LIDOCAINE 1% INJ 10MG/ML (20 ML MDV) SQ ONE (10:09)
[2021-10-12] MEDS ORDERED: VERAPAMIL SYRINGE (5 MG/10 ML) INTRAARTER ONE (10:14)
[2021-10-12] MEDS ORDERED: HEPARIN SODIUM 1,000 UN/ML (10ML VL) IV ONE (10:20)
[2021-10-12] MEDS ORDERED: IOPAMIDOL-370 125ML BTL INJ ONE (10:31)
[2021-10-12] MEDS ORDERED: RX INFO: IV CONTRAST WAS GIVEN 1 EACH MISC MISCELLANE PRN (11:47)
--- NOTE | 2021-10-12 11:57 | P.CARDCATH ---
Date of Procedure: 10/12/21 Condition: stable Disposition: same day Description of Procedure: Indication: Cardiomyopathy with congestive heart failure Procedure note: After obtaining informed consent left heart catheterization and coronary angiogram were performed via the right radial artery using a size 3 and half Samreen catheters for the right and left coronaries and pigtail catheter to obtain pressures patient tolerated the procedure well without any observed it complications Patient received moderate conscious sedation total sedation time was 26 minutes Using a micropuncture needle right radial artery access was obtained uneventfully. In the fluoroscopic guidance catheters and wires were floated into the ascending aorta and catheters were exchanged there. Patient received 5 mg of Versed and 4000 units of intravenous heparin per protocol At the end of the procedure hemostasis was obtained by using a TR band Adequate hemostasis and oxygen saturation were confirmed Findings: #1 hemodynamics: Left ventricular end-diastolic pressure is 16 mm there is no significant gradient across aortic valve #2 left ventriculogram: Not performed #3 angiographic data: Left main coronary artery is a normal-size vessel and is free of stenosis divides into left anterior descending coronary artery and circumflex coronary artery LAD and its branches circumflex coronary artery and its branches are free of significant stenosis Right coronary artery is a large dominant vessel and is free of significant disease Conclusions: Normal coronary arteries 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
[2021-10-12] MEDS ORDERED: SODIUM CHLORIDE 0.9% 1,000 ML IV SCH (12:00)
[2021-10-12 13:19] VITALS: BP 109/62; PULSE 56; RESP 18
== END 2021-10-12 14:12 | disposition home or self-care (01) ==
LOC: CATHCVL 08:33
PROVIDERS: ATTEND Internal Medicine Cardiovascular Disease
DX: I42.9 Cardiomyopathy, unspecified (principal); Z20.822 Contact with and (suspected) exposure to COVID-19
CPT/HCPCS: 93458; 85025; 87635; C1894; J2250; J2001; J3010; J1644; Q9967

== ENCOUNTER 2022-02-14 10:47 | Observation (INO) | payer MEDICARE, BC ==
[2022-02-14 12:08] LABS: Basophils % (A) 0 %; Eosinophils # (A) 0.1 k/uL (0-0.7); Eosinophils % (A) 1 %; HGB 14.5 gm/dL (13.0-17.5); Lymphocytes # (A) 0.7 k/uL (1.0-4.8); Lymphocytes % (A) 8 %; MCH 31.3 pg (25.0-35.0); MCHC 32.3 g/dL (31.0-37.0); MCV 97.1 fL (80.0-100.0); Mean Platelet Volume 7.9; Monocytes # (A) 0.4 k/uL (0-1.0); Monocytes % (A) 5 %; Neutrophils # (A) 7.6 k/uL (1.3-7.7); Neutrophils % (A) 84 %; Platelet Count 221 k/uL (150-450); RBC 4.64 m/uL (4.30-5.90); RDW 14.7 % (11.5-15.5)
--- NOTE | 2022-02-14 12:10 | CT ---
EXAMINATION TYPE: CT brain josuha adan DATE OF EXAM: 02/14/2022 COMPARISON: 12/28/2018 HISTORY: Fall. Injury of Eliquis CT DLP: 1395.[address] of the brain was performed. The ventricles, basal cisterns and sulci overlying the cerebral convexities demonstrate mild enlargem ent. There is no evidence for intracranial hemorrhage or sulcal effacement. There is decreased attenuatio n about the periventricular white matter and deep white matter of both cerebral hemispheres, compatib le with chronic small vessel ischemia. No mass effects are seen. If symptoms persist consider MRI. Osseous calvarium is intact. IMPRESSION: 1. Age related atrophic and chronic small vessel ischemic change without acute intracranial process seen at this time. CT Cervical Spine: Unenhanced CT of the cervical spine was performed with bone and soft tissue window settings submitted . Coronal and sagittal reconstruction is obtained. There is normal alignment and prevertebral soft tissues. No evidence for acute cervical fracture . Scattered degenerative disc disease and spondylosis. Biapical scarring. IMPRESSION: 1. No evidence for acute fracture or subluxation of the cervical spine.
[2022-02-14 12:23] LABS: Albumin 3.9 g/dL (3.5-5.0); Calcium 8.7 mg/dL (8.4-10.2); Potassium 4.3 mmol/L (3.5-5.1); Total Bilirubin 1.4 mg/dL (0.2-1.3); Total Protein 6.9 g/dL (6.3-8.2)
--- NOTE | 2022-02-14 12:56 | ED ---
General Adult HPI - General Chief complaint: Dizziness Stated complaint: AFib Time Seen by Provider: 02/14/22 11:12 Source: patient, RN notes reviewed Mode of arrival: ambulatory Limitations: no limitations - History of Present Illness Initial comments: This a 86-year-old male presents emergency Department chief complaint of dizziness, multiple falls. Patient states every since been having severe bouts of dizziness. Patient states she was over cardiology for an echocardiogram and which she sent him over here for further evaluation. Patient states that he fell last week and which she had a right periorbital injury he states felt today and noted to have small posterior scalp laceration. He states tetanus is up-to-date. He denies any chest pain does feel that he has palpitations he does have a history of A. fib on [place]. Patient denies any neck pain no extremity injury at this time. - Related Data Home Medications Medication Instructions Recorded Confirmed Apixaban [Eliquis] 2.5 mg PO BID 09/11/19 02/14/22 Metoprolol Tartrate [Lopressor] 25 mg PO DAILY 09/11/19 02/14/22 Losartan Potassium [Cozaar] 25 mg PO DAILY 10/02/21 02/14/22 Nitroglycerin Sl Tabs [Nitrostat] 0.4 mg SUBLINGUAL Q5M PRN 02/14/22 02/14/22 Previous Rx's Medication Instructions Recorded Furosemide [Lasix] 20 mg PO DAILY #30 tab 01/04/19 Allergies Allergy/AdvReac Type Severity Reaction Status Date / Time isosorbide [From Imdur] Allergy Unknown Verified 02/14/22 12:46 latex Allergy Rash/Hives Verified 02/14/22 12:46 Review of Systems ROS Statement: Those systems with pertinent positive or pertinent negative responses have been documented in the HPI. ROS Other: All systems not noted in ROS Statement are negative. Past Medical History Past Medical History: Atrial Flutter, Hyperlipidemia, Hypertension Additional Past Medical History / Comment(s): Pt states, "I have not been diagnosed with heart failure." History of Any Multi-Drug Resistant Organisms: None Reported Past Surgical History: Heart Catheterization Additional Past Surgical History / Comment(s): cyst on tailbone removed at age 20, cardioversion 12/2018, COLONOSCOPY, BILAT CATARACTS REMOVED WITH LENS IMPLANTS Past Anesthesia/Blood Transfusion Reactions: No Reported Reaction Past Psychological History: No Psychological Hx Reported Smoking Status: Former smoker Past Alcohol Use History: None Reported Past Drug Use History: None Reported - Past Family History Mother Family Medical History: No Reported History Father Family Medical History: No Reported History Brother(s) Family Medical History: Cancer, Myocardial Infarction (DC), Prostate Disorder Additional Family Medical History / Comment(s): prostate cancer Sister(s) Family Medical History: Cancer Son(s) Family Medical History: No Reported History General Exam Limitations: no limitations General appearance: alert, in no apparent distress Head exam: Present: atraumatic, normocephalic, normal inspection Eye exam: Present: PERRL, EOMI, periorbital swelling (Right ecchymosis), periorbital tenderness. Absent: normal appearance, scleral icterus, conjunctival injection ENT exam: Present: normal exam, normal oropharynx, mucous membranes moist Neck exam: Present: normal inspection, full ROM. Absent: tenderness, meningismus, lymphadenopathy Respiratory exam: Present: normal lung sounds bilaterally. Absent: respiratory distress, wheezes, rales, rhonchi, stridor Cardiovascular Exam: Present: tachycardia, irregular rhythm, normal heart sounds. Absent: regular rate, normal rhythm, systolic murmur, diastolic murmur, rubs, gallop, clicks GI/Abdominal exam: Present: soft, normal bowel sounds. Absent: distended, tenderness, guarding, rebound, rigid Neurological exam: Present: alert Skin exam: Present: warm, dry, intact, normal color. Absent: rash Course Vital Signs 02/14/22 02/14/22 10:50 11:11 Temperature 97.5 F L Pulse Rate 106 H 88 Respiratory 20 18 Rate Blood Pressure 115/89 118/98 O2 Sat by Pulse 96 99 Oximetry Medical Decision Making - Medical Decision Making Patient presented for multiple falls, dizziness, atrial flutter. Patient CT of the brain, C-spine are negative patient has no intracranial hemorrhage. I did discuss case with Dr. Cuevas patient be admitted for evaluation of his atrial flutter - Lab Data Result diagrams: 02/14/22 11:24 02/14/22 11:24 Lab Results 02/14/22 02/14/22 02/14/22 Range/Units 11:24 11:24 11:24 WBC 9.0 (3.8-10.6) k/uL RBC 4.64 (4.30-5.90) m/uL Hgb 14.5 (13.0-17.5) gm/dL Hct 45.0 (39.0-53.0) % MCV 97.1 (80.0-100.0) fL MCH 31.3 (25.0-35.0) pg MCHC 32.3 (31.0-37.0) g/dL RDW 14.7 (11.5-15.5) % Plt Count 221 (150-450) k/uL MPV 7.9 Neutrophils % 84 % Lymphocytes % 8 % Monocytes % 5 % Eosinophils % 1 % Basophils % 0 % Neutrophils # 7.6 (1.3-7.7) k/uL Lymphocytes # 0.7 L (1.0-4.8) k/uL Monocytes # 0.4 (0-1.0) k/uL Eosinophils # 0.1 (0-0.7) k/uL Basophils # 0.0 (0-0.2) k/uL Sodium 133 L (137-145) mmol/L Potassium 4.3 (3.5-5.1) mmol/L Chloride 101 (98-107) mmol/L Carbon Dioxide 24 (22-30) mmol/L Anion Gap 8 mmol/L BUN 30 H (9-20) mg/dL Creatinine 1.15 (0.66-1.25) mg/dL Est GFR (CKD-EPI)AfAm 67 (>60 ml/min/1.73 sqM) Est GFR (CKD-EPI)NonAf 58 (>60 ml/min/1.73 sqM) Glucose 92 (74-99) mg/dL Plasma Lactic Acid Dorian 1.5 (0.7-2.0) mmol/L Calcium 8.7 (8.4-10.2) mg/dL Total Bilirubin 1.4 H (0.2-1.3) mg/dL AST 55 (17-59) U/L ALT 33 (4-49) U/L Alkaline Phosphatase 118 (38-126) U/L Troponin I (0.000-0.034) ng/mL Total Protein 6.9 (6.3-8.2) g/dL Albumin 3.9 (3.5-5.0) g/dL 06/08/22 Range/Units 11:24 WBC (3.8-10.6) k/uL RBC (4.30-5.90) m/uL Hgb (13.0-17.5) gm/dL Hct (39.0-53.0) % MCV (80.0-100.0) fL MCH (25.0-35.0) pg MCHC (31.0-37.0) g/dL RDW (11.5-15.5) % Plt Count (150-450) k/uL MPV Neutrophils % % Lymphocytes % % Monocytes % % Eosinophils % % Basophils % % Neutrophils # (1.3-7.7) k/uL Lymphocytes # (1.0-4.8) k/uL Monocytes # (0-1.0) k/uL Eosinophils # (0-0.7) k/uL Basophils # (0-0.2) k/uL Sodium (137-145) mmol/L Potassium (3.5-5.1) mmol/L Chloride (98-107) mmol/L Carbon Dioxide (22-30) mmol/L Anion Gap mmol/L BUN (9-20) mg/dL Creatinine (0.66-1.25) mg/dL Est GFR (CKD-EPI)AfAm (>60 ml/min/1.73 sqM) Est GFR (CKD-EPI)NonAf (>60 ml/min/1.73 sqM) Glucose (74-99) mg/dL Plasma Lactic Acid Dorian (0.7-2.0) mmol/L Calcium (8.4-10.2) mg/dL Total Bilirubin (0.2-1.3) mg/dL AST (17-59) U/L ALT (4-49) U/L Alkaline Phosphatase (38-126) U/L Troponin I 0.065 H* (0.000-0.034) ng/mL Total Protein (6.3-8.2) g/dL Albumin (3.5-5.0) g/dL Disposition Clinical Impression: Atrial flutter, Dizziness, Multiple falls Disposition: ADMITTED IP TO THIS [facility] Condition: Fair Referrals: Joseph Cuevas MD [Primary Care Provider] - 1-2 days Time of Disposition: 13:48
[2022-02-14] MEDS ORDERED: NALOXONE 0.4 MG/ML 1 ML VIAL IV PRN (13:49)
[2022-02-14] MEDS: APIXABAN 2.5 MG TABLET PO SCH (20:35)
--- NOTE | 2022-02-15 08:08 | P.HPIM ---
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 He was having dizziness and H fibrillation with rapid ventricular response. The patient is now admitted for this. No significant new onset chest pain since admission. No nausea or vomiting he's been fairly sedentary and not having significant chest pain dizziness and no diaphoresis is stated. No significant nausea, vomiting or diarrhea. Review of Systems Constitutional: Denies chills, Denies fever Eyes: denies blurred vision, denies pain Ears, nose, mouth and throat: Denies headache, Denies sore throat Cardiovascular: Reports as per HPI Respiratory: Denies cough Gastrointestinal: Denies abdominal pain, Denies diarrhea, Denies nausea, Denies vomiting Musculoskeletal: Denies myalgias Past Medical History Past Medical History: Atrial Flutter, Hyperlipidemia, Hypertension Additional Past Medical History / Comment(s): Pt states, "I have not been diagnosed with heart failure." History of Any Multi-Drug Resistant Organisms: None Reported Past Surgical History: Heart Catheterization Additional Past Surgical History / Comment(s): cyst on tailbone removed at age 20, cardioversion 12/2018, COLONOSCOPY, BILAT CATARACTS REMOVED WITH LENS IMPLANTS Past Anesthesia/Blood Transfusion Reactions: No Reported Reaction Past Psychological History: No Psychological Hx Reported Smoking Status: Former smoker Past Alcohol Use History: None Reported Additional Past Alcohol Use History / Comment(s): QUIT SMOKING 30 YEARS AGO Past Drug Use History: None Reported - Past Family History Mother Family Medical History: No Reported History Father Family Medical History: No Reported History Brother(s) Family Medical History: Cancer, Myocardial Infarction (DC), Prostate Disorder Additional Family Medical History / Comment(s): prostate cancer Sister(s) Family Medical History: Cancer Son(s) Family Medical History: No Reported History Medications and Allergies Home Medications Medication Instructions Recorded Confirmed Type Furosemide [Lasix] 20 mg PO DAILY #30 tab 01/04/19 02/14/22 Rx Apixaban [Eliquis] 2.5 mg PO BID 09/11/19 02/14/22 History Metoprolol Tartrate [Lopressor] 25 mg PO DAILY 09/11/19 02/14/22 History Losartan Potassium [Cozaar] 25 mg PO DAILY 10/02/21 02/14/22 History Nitroglycerin Sl Tabs [Nitrostat] 0.4 mg SUBLINGUAL Q5M PRN 02/14/22 02/14/22 History Allergies Allergy/AdvReac Type Severity Reaction Status Date / Time isosorbide [From Imdur] Allergy Unknown Verified 02/14/22 12:46 latex Allergy Rash/Hives Verified 02/14/22 12:46 Physical Exam Vitals: Vital Signs Temp Pulse Pulse Resp BP BP Pulse Ox 02/15/22 07:12 98.3 F 93 18 110/80 96 02/15/22 03:08 97.5 F L 76 17 108/69 95 02/14/22 19:44 97.6 F 108 H 16 107/75 99 02/14/22 16:54 98.0 F 107 H 18 128/92 98 02/14/22 16:05 105 H 20 132/107 100 02/14/22 11:11 88 18 118/98 99 02/14/22 10:50 97.5 F L 106 H 20 115/89 96 Intake and Output 02/14/22 02/15/22 02/15/22 22:59 06:59 14:59 Other: # Voids 0 1 Weight 100.244 kg - Constitutional General appearance: no acute distress - EENT Eyes: EOMI - Neck Neck: no lymphadenopathy - Respiratory Respiratory: bilateral: CTA - Cardiovascular Rhythm: irregularly irregular Heart sounds: normal: S1, S2 Abnormal Heart Sounds: no S3 Gallop - Gastrointestinal General gastrointestinal: no tenderness - Neurologic Neurologic: CNII-XII intact Results CBC & Chem 7: 02/14/22 11:24 02/14/22 11:24 Labs: Abnormal Lab Results - Last 24 Hours (Table) 02/14/22 02/14/22 02/14/22 Range/Units 11:24 11:24 11:24 Lymphocytes # 0.7 L (1.0-4.8) k/uL Sodium 133 L (137-145) mmol/L BUN 30 H (9-20) mg/dL Total Bilirubin 1.4 H (0.2-1.3) mg/dL Troponin I 0.065 H* (0.000-0.034) ng/mL Assessment and Plan (1) Dizziness Current Visit: Yes Status: Acute Code(s): R42 - DIZZINESS AND GIDDINESS SNOMED Code(s): 968537541 (2) Atrial flutter with rapid ventricular response Current Visit: No Status: Acute Code(s): I48.92 - UNSPECIFIED ATRIAL FLUTTER SNOMED Code(s): 2312394 (3) Near syncope Current Visit: No Status: Acute Code(s): R55 - SYNCOPE AND COLLAPSE SNOMED Code(s): 671627799 Plan: Medication adjustment. Reconcile home medications. Await echocardiogram and cardiology input. We'll continue to follow.
[2022-02-15] MEDS ORDERED: LOSARTAN 25 MG TAB PO SCH (09:00)
[2022-02-15] MEDS: AMIODARONE 200 MG TAB PO SCH ×2 (09:17→20:02)
[2022-02-15] MEDS: LOSARTAN 25 MG TAB PO SCH (09:17)
[2022-02-15] MEDS: METOPROLOL TARTRATE 25 MG TAB PO SCH (09:18)
[2022-02-15] MEDS: APIXABAN 2.5 MG TABLET PO SCH ×2 (09:18→20:02)
[2022-02-15] MEDS: FUROSEMIDE 20 MG TAB PO SCH (09:18)
[2022-02-15] MEDS ORDERED: SODIUM CHLORIDE 0.9% 1,000 ML IV SCH (09:30)
[2022-02-15] MEDS: SODIUM CHLORIDE 0.9% 1,000 ML IV SCH (10:26)
--- NOTE | 2022-02-15 10:59 | P.CRDCN ---
History of Present Illness History of present illness: HISTORY OF PRESENT ILLNESS: This is a 86-year-old male with a past medical history significant for nonischemic cardiomyopathy, congestive heart failure, hypertension, and atrial fibrillation/atrial flutter. Patient follows in the office with Dr. Willis. We have been asked to see the patient in consultation for atrial flutter. Patient examined at the bedside. Patient states yesterday he was at the cardiology office having an echocardiogram performed when he mentioned to the office staff that he has been feeling dizzy and lightheaded. He was referred to come to the emergency room for further evaluation. The patient states about a month ago he started feeling weak and dizzy. He states his blood pressures have been running on the lower side with a systolic in the 90s. He reports that Dr. Ryder lowered his Lasix to 20 mg daily recently secondary to his low blood pressures. He does report having 2 or 3 falls over the past month as well. He does not think he lost consciousness with these falls. The patient was noted to be in atrial flutter with heart rate of 104 on admission. The patient states he had a cardioversion about a year and a half ago and his symptoms right now feels similar to when he required a cardioversion in the past. * EKG reveals atrial flutter with no signs of acute ischemia * Laboratory data: W BC 9.0. Hemoglobin 14.5. Platelet count 221. Sodium 133. Potassium 4.3. BUN 30. Creatinine 1.15. Troponin 0.065. * Current home cardiac medications include Eliquis 2.50 times twice a day, Lasix 20 mg daily, losartan 25 mg daily, and metoprolol titrate 25 mg daily * Most recent echocardiogram obtained in March 2021 revealed ejection fraction 30%, severe LVH, mild aortic regurgitation, [id number] mitral regurgitation, moderate tricuspid regurgitation * Patient underwent Lexiscan stress test in September 2021 which was negative for ischemia * Cardiac catheterization history: unknown, but according to office records patient has had a previous cardiac catheterization which did not reveal significant obstructive CAD. REVIEW OF SYSTEMS: At the time of my exam: CONSTITUTIONAL: Denies fever or chills. HEENT: Denies blurred vision, vision changes, or eye pain. Denies hemoptysis CARDIOVASCULAR: Denies chest pain. Denies orthopnea. Denies PND. Denies palpitations RESPIRATORY: Denies shortness of breath. GASTROINTESTINAL: Denies abdominal pain. Denies nausea or vomiting. HEMATOLOGIC: Denies bleeding disorders. GENITOURINARY: Denies any blood in urine. SKIN: Denies pruitis. Denies rash. PHYSICAL EXAM: VITAL SIGNS: Reviewed. GENERAL: Well-developed in no acute distress. HEENT: Head is normocephalic. Pupils are equal, round. Sclerae anicteric. Mucous membranes of the mouth are moist. Neck supple. No JVD or thyromegaly LUNGS: Respirations even and unlabored. Lungs diminished to auscultation bilaterally. HEART: Irregular rate and rhythm. S1 and S2 heard. ABDOMEN: Soft. Nondistended. Nontender. EXTREMITIES: Normal range of motion. No clubbing or cyanosis. Peripheral pulses intact. Trace lower extremity edema NEUROLOGIC: Awake and alert. Oriented x 3. ASSESSMENT: Dizziness and weakness Paroxysmal atrial fibrillation/typical atrial flutter Nonischemic cardiomyopathy Chronic congestive heart failure with reduced ejection fraction Hypertension PLAN: Patient had echo completed in the office yesterday. Results are not available at this time. Obtain orthostatic blood pressures Resume home cardiac medications Decrease Losartan to 12.5mg daily secondary to soft blood pressures Patient was scheduled for cardioversion today. However the patient ate breakfast and this is unable to be performed today. Cardioversion unable to be performed tomorrow due to staffing issues with anesthesia Will begin oral amio 200mg BID If patient is feeling well tomorrow, will discharge him home and plan for outpatient cardioversion. Otherwise, patient may be monitored over the weekend and CV may be completed Saturday Further recommendations pending patient course Nurse practitioner note has been reviewed by physician. Signing provider agrees with the documented findings, assessment, and plan of care. Past Medical History Past Medical History: Atrial Flutter, Hyperlipidemia, Hypertension Additional Past Medical History / Comment(s): Pt states, "I have not been diagnosed with heart failure." History of Any Multi-Drug Resistant Organisms: None Reported Past Surgical History: Heart Catheterization Additional Past Surgical History / Comment(s): cyst on tailbone removed at age 20, cardioversion 12/2018, COLONOSCOPY, BILAT CATARACTS REMOVED WITH LENS IMPLANTS Past Anesthesia/Blood Transfusion Reactions: No Reported Reaction Past Psychological History: No Psychological Hx Reported Smoking Status: Former smoker Past Alcohol Use History: None Reported Additional Past Alcohol Use History / Comment(s): QUIT SMOKING 30 YEARS AGO Past Drug Use History: None Reported - Past Family History Mother Family Medical History: No Reported History Father Family Medical History: No Reported History Brother(s) Family Medical History: Cancer, Myocardial Infarction ([place]), Prostate Disorder Additional Family Medical History / Comment(s): prostate cancer Sister(s) Family Medical History: Cancer Son(s) Family Medical History: No Reported History Medications and Allergies Home Medications Medication Instructions Recorded Confirmed Type Furosemide [Lasix] 20 mg PO DAILY #30 tab 01/04/19 02/14/22 Rx Apixaban [Eliquis] 2.5 mg PO BID 09/11/19 02/14/22 History Metoprolol Tartrate [Lopressor] 25 mg PO DAILY 09/11/19 02/14/22 History Losartan Potassium [Cozaar] 25 mg PO DAILY 10/02/21 02/14/22 History Nitroglycerin Sl Tabs [Nitrostat] 0.4 mg SUBLINGUAL Q5M PRN 02/14/22 02/14/22 History Allergies Allergy/AdvReac Type Severity Reaction Status Date / Time isosorbide [From Imdur] Allergy Unknown Verified 02/14/22 12:46 latex Allergy Rash/Hives Verified 02/14/22 12:46 Physical Exam Vitals: Vital Signs Temp Pulse Pulse Resp BP BP Pulse Ox 02/15/22 07:12 98.3 F 93 18 110/80 96 02/15/22 03:08 97.5 F L 76 17 108/69 95 02/14/22 19:44 97.6 F 108 H 16 107/75 99 02/14/22 16:54 98.0 F 107 H 18 128/92 98 02/14/22 16:05 105 H 20 132/107 100 02/14/22 11:11 88 18 118/98 99 02/14/22 10:50 97.5 F L 106 H 20 115/89 96 Intake and Output 02/14/22 02/15/22 02/15/22 22:59 06:59 14:59 Other: # Voids 0 1 Weight 100.244 kg Results 02/14/22 11:24 02/14/22 11:24 Cardiac Enzymes 02/14/22 02/14/22 Range/Units 11:24 11:24 AST 55 (17-59) U/L Troponin I 0.065 H* (0.000-0.034) ng/mL CBC 02/14/22 Range/Units 11:24 WBC 9.0 (3.8-10.6) k/uL RBC 4.64 (4.30-5.90) m/uL Hgb 14.5 (13.0-17.5) gm/dL Hct 45.0 (39.0-53.0) % Plt Count 221 (150-450) k/uL Comprehensive Metabolic Panel 02/14/22 Range/Units 11:24 Sodium 133 L (137-145) mmol/L Potassium 4.3 (3.5-5.1) mmol/L Chloride 101 (98-107) mmol/L Carbon Dioxide 24 (22-30) mmol/L BUN 30 H (9-20) mg/dL Creatinine 1.15 (0.66-1.25) mg/dL Glucose 92 (74-99) mg/dL Calcium 8.7 (8.4-10.2) mg/dL AST 55 (17-59) U/L ALT 33 (4-49) U/L Alkaline Phosphatase 118 (38-126) U/L Total Protein 6.9 (6.3-8.2) g/dL Albumin 3.9 (3.5-5.0) g/dL Current Medications Generic Name Dose Route Start Last Admin Trade Name Freq PRN Reason Stop Dose Admin Apixaban 2.5 mg 02/14/22 21:00 02/14/22 20:35 Apixaban 2.5 Mg Tablet PO 2.5 mg BID [facility] Administration Protocol Furosemide 20 mg 02/15/22 09:00 Furosemide 20 Mg Tab PO DAILY [facility] Losartan Potassium 25 mg 02/15/22 09:00 Losartan 25 Mg Tab PO DAILY [facility] Metoprolol Tartrate 25 mg 02/15/22 09:00 Metoprolol Tartrate 25 Mg Tab PO DAILY [facility] Naloxone HCl 0.2 mg 02/14/22 13:49 Naloxone 0.4 Mg/Ml 1 Ml Vial IV Q2M PRN Opioid Reversal Intake and Output 02/14/22 02/15/22 02/15/22 22:59 06:59 14:59 Other: # Voids 0 1 Weight 100.244 kg 02/14/22 11:24 02/14/22 11:24
[2022-02-15 15:15] LABS: Appearance,Urine Clear (Clear); Bilirubin,Urine Negative (Negative); Blood,Urine Negative (Negative); Color,Urine Yellow; Glucose,Urine (UA) Negative (Negative); Ketones,Urine Negative (Negative); Leukocyte Esterase,Urine Negative (Negative); Nitrite,Urine Negative (Negative); PH, Urine 5.5 (5.0-8.0); Protein,Urine Trace (Negative); Specific Gravity,Urine 1.021 (1.001-1.035)
[2022-02-16] MEDS: SODIUM CHLORIDE 0.9% 1,000 ML IV SCH (05:29)
[2022-02-16] MEDS: METOPROLOL TARTRATE 25 MG TAB PO SCH (07:06)
[2022-02-16] MEDS: LOSARTAN 25 MG TAB PO SCH (07:06)
[2022-02-16] MEDS: AMIODARONE 200 MG TAB PO SCH (07:06)
[2022-02-16] MEDS: APIXABAN 2.5 MG TABLET PO SCH (07:06)
[2022-02-16] MEDS ORDERED: PROPOFOL 10 MG/ML 20 ML VIAL IV ONE (08:10)
[2022-02-16] MEDS ORDERED: LACTATED RINGERS 1,000 ML IV ONE (08:23)
[2022-02-16] MEDS ORDERED: SODIUM CHLORIDE 0.9% 1,000 ML IV SCH (09:15)
[2022-02-16] MEDS: FUROSEMIDE 20 MG TAB PO SCH (09:52)
--- NOTE | 2022-02-16 11:23 | PCN ---
PROCEDURE NOTE CARDIOVERSION NOTE: INDICATION: Addy is an 86-year-old gentleman with history of atrial fibrillation, who presented to hospital with recurrent episodes of near syncope and was evaluated by my associate, Dr. Morin and patient was advised cardioversion. I was asked to perform cardioversion this morning. The patient is adequately anticoagulated with Eliquis. I proceeded to perform a cardioversion directly without a transesophageal echo. He has severe LV systolic dysfunction based on recent echocardiogram. PROCEDURE NOTE: After obtaining informed consent, the patient was sedated by the para educator and I performed electrical cardioversion using 120 joules of synchronized DC current. The patient converted to sinus rhythm following a single shock and stayed in sinus rhythm. MMODL / IJN: [id number] /
[2022-02-16 14:03] VITALS: BP 95/61; PULSE 58; RESP 20; TEMP 97.4
--- NOTE | 2022-02-16 15:53 | P.DS ---
Providers Date of admission: 02/14/22 13:26 Expected date of discharge: 02/16/22 Attending physician: Joseph Cuevas Consults: 02/14/22 13:50 Consult Physician Urgent Consulting Provider: Cedric Florentino Consult Reason/Comments: Atrial flutter Do you want consulting provider notified?: Yes Primary care physician: Joseph Cuevas - Discharge Diagnosis(es) (1) Dizziness Current Visit: Yes Status: Acute (2) Atrial flutter with rapid ventricular response Current Visit: No Status: Acute (3) Near syncope Current Visit: No Status: Acute Hospital Course: This discharge summary a 86-year-old white male essentially admitted for atrial flutter and atrial fibrillation with rapid ventricular response he had dizziness and headache. We ended up doing cardioversion which the patient tolerated quite well. No dizziness or headache is noted. He is already on anticoagulation. No voiding difficulties. No further dizziness after the cardioversion. We will discharge once cleared by cardiology. Patient is follow-up with me in a window about 5-7 days. Patient Condition at Discharge: Fair Plan - Discharge Summary New Discharge Prescriptions: New Amiodarone [Cordarone] 200 mg PO BID #60 tab Metoprolol Tartrate [Lopressor] 25 mg PO DAILY #30 tab Continue Furosemide [Lasix] 20 mg PO DAILY #30 tab Apixaban [Eliquis] 2.5 mg PO BID Losartan Potassium [Cozaar] 25 mg PO DAILY Nitroglycerin Sl Tabs [Nitrostat] 0.4 mg SUBLINGUAL Q5M PRN PRN Reason: Chest Pain Discontinued Metoprolol Tartrate [Lopressor] 25 mg PO DAILY Discharge Medication List Furosemide [Lasix] 20 mg PO DAILY #30 tab 01/04/19 [Rx] Apixaban [Eliquis] 2.5 mg PO BID 09/11/19 [History] Losartan Potassium [Cozaar] 25 mg PO DAILY 10/02/21 [History] Nitroglycerin Sl Tabs [Nitrostat] 0.4 mg SUBLINGUAL Q5M PRN 02/14/22 [History] Amiodarone [Cordarone] 200 mg PO BID #60 tab 02/16/22 [Rx] Metoprolol Tartrate [Lopressor] 25 mg PO DAILY #30 tab 02/16/22 [Rx] Follow up Appointment(s)/Referral(s): Joseph Cuevas MD [Primary Care Provider] - 1 Week Discharge Disposition: HOME SELF-CARE
== END 2022-02-16 18:15 | disposition home or self-care (01) ==
LOC: EC 10:47 → 6NMEDSUR 13:26
PROVIDERS: ADMIT Family Medicine; ATTEND Family Medicine
DX: I48.3 Typical atrial flutter (principal); I11.0 Hypertensive heart disease with heart failure; I50.22 Chronic systolic (congestive) heart failure; I42.8 Other cardiomyopathies; S01.01XA Laceration without foreign body of scalp, initial encounter; I48.0 Paroxysmal atrial fibrillation; E78.5 Hyperlipidemia, unspecified; R29.6 Repeated falls; Y99.9 Unspecified external cause status; Z79.01 Long term (current) use of anticoagulants; Z79.899 Other long term (current) drug therapy; Z91.040 Latex allergy status; Z88.6 Allergy status to analgesic agent; Z96.1 Presence of intraocular lens; Z87.891 Personal history of nicotine dependence; Z98.41 Cataract extraction status, right eye; Z98.42 Cataract extraction status, left eye; Z80.42 Family history of malignant neoplasm of prostate; Z82.49 Family history of ischemic heart disease and other diseases of the circulatory system
CPT/HCPCS: 92960; 99285; 36415; 93005; 97162; 97166; 80053; 83605; 84484; 85025; 81003; 72125; 70450; G0378 ×3

== ENCOUNTER → 2022-02-26 | Outpatient (CLI) | payer MEDICARE, BC ==
[2022-02-26 10:53] LABS: African American GFR (CKD) 52.4 (60.0-200.0); Anion Gap 11.1 mmol/L (10.00-18.00); BUN/Creat Ratio 17.5 Ratio (12.00-20.00); Blood Urea Nitrogen 24.5 mg/dL (9.0-27.0); Calcium 9.2 mg/dL (8.7-10.3); Carbon Dioxide 27.9 mmol/L (20.0-27.5); Non-African American GFR(CKD) 45.2 (60.0-200.0); Potassium 3.6 mmol/L (3.5-5.5)
== END | disposition home or self-care (01) ==
LOC: LABWHC1 08:12
PROVIDERS: ATTEND Nurse Practitioner Family
DX: I50.23 Acute on chronic systolic (congestive) heart failure (principal)
CPT/HCPCS: 36415; 80048; 83880

== ENCOUNTER → 2022-03-19 | Outpatient (CLI) | payer MEDICARE, BC ==
[2022-03-19 10:51] LABS: African American GFR (CKD) 64.4 (60.0-200.0); Anion Gap 11.8 mmol/L (10.00-18.00); BUN/Creat Ratio 22.71 Ratio (12.00-20.00); Blood Urea Nitrogen 26.8 mg/dL (9.0-27.0); Calcium 9.3 mg/dL (8.7-10.3); Carbon Dioxide 29.5 mmol/L (20.0-27.5); Non-African American GFR(CKD) 55.5 (60.0-200.0); Potassium 4.1 mmol/L (3.5-5.5)
== END | disposition home or self-care (01) ==
LOC: LABWHC1 07:51
PROVIDERS: ATTEND Internal Medicine Interventional Cardiology
DX: I50.22 Chronic systolic (congestive) heart failure (principal)
CPT/HCPCS: 36415; 80048; 83880

== ENCOUNTER → 2022-04-19 | Outpatient (CLI) | payer MEDICARE, BC ==
[2022-04-19 11:01] LABS: African American GFR (CKD) 48.2 (60.0-200.0); Anion Gap 10.4 mmol/L (10.00-18.00); BUN/Creat Ratio 30.73 Ratio (12.00-20.00); Blood Urea Nitrogen 46.1 mg/dL (9.0-27.0); Calcium 9.2 mg/dL (8.7-10.3); Carbon Dioxide 33.6 mmol/L (20.0-27.5); Non-African American GFR(CKD) 41.6 (60.0-200.0); Potassium 3.4 mmol/L (3.5-5.5)
== END | disposition home or self-care (01) ==
LOC: LABWHC1 07:51
PROVIDERS: ATTEND Internal Medicine Cardiovascular Disease
DX: I50.22 Chronic systolic (congestive) heart failure (principal)
CPT/HCPCS: 36415; 80048; 84443; 84450; 84460

== ENCOUNTER → 2022-05-22 | Outpatient (CLI) | payer MEDICARE, BC ==
[2022-05-22 13:09] LABS: African American GFR (CKD) 52.4 (60.0-200.0); Anion Gap 10.4 mmol/L (10.00-18.00); BUN/Creat Ratio 27.5 Ratio (12.00-20.00); Blood Urea Nitrogen 38.5 mg/dL (9.0-27.0); Carbon Dioxide 32.6 mmol/L (20.0-27.5); Non-African American GFR(CKD) 45.2 (60.0-200.0); Potassium 3.1 mmol/L (3.5-5.5)
== END | disposition home or self-care (01) ==
LOC: LABWHC1 07:55
PROVIDERS: ATTEND Internal Medicine Interventional Cardiology
DX: I48.11 Longstanding persistent atrial fibrillation (principal); I50.22 Chronic systolic (congestive) heart failure
CPT/HCPCS: 36415; 80048; 84443; 84450; 84460

== ENCOUNTER → 2022-08-23 | Outpatient (CLI) | payer MEDICARE, BC ==
[2022-08-23 17:28] LABS: African American GFR (CKD) 47.4 (60.0-200.0); Anion Gap 11.9 mmol/L (10.00-18.00); BUN/Creat Ratio 27.28 Ratio (12.00-20.00); Blood Urea Nitrogen 41.2 mg/dL (9.0-27.0); Calcium 9.4 mg/dL (8.7-10.3); Non-African American GFR(CKD) 40.9 (60.0-200.0); Potassium 3.6 mmol/L (3.5-5.5)
== END | disposition home or self-care (01) ==
LOC: LABWHC1 08:13
PROVIDERS: ATTEND Internal Medicine Cardiovascular Disease
DX: I50.22 Chronic systolic (congestive) heart failure (principal)
CPT/HCPCS: 36415; 80048

== ENCOUNTER → 2022-09-05 | Outpatient (CLI) | payer MEDICARE, BC ==
[2022-09-05 15:06] LABS: African American GFR (CKD) 47.4 (60.0-200.0); Anion Gap 10.8 mmol/L (10.00-18.00); BUN/Creat Ratio 31.85 Ratio (12.00-20.00); Blood Urea Nitrogen 48.1 mg/dL (9.0-27.0); Calcium 9.4 mg/dL (8.7-10.3); Carbon Dioxide 30.5 mmol/L (20.0-27.5); Non-African American GFR(CKD) 40.9 (60.0-200.0); Potassium 3.3 mmol/L (3.5-5.5)
== END | disposition home or self-care (01) ==
LOC: LABWHC1 09:58
PROVIDERS: ATTEND Internal Medicine Cardiovascular Disease
DX: I50.22 Chronic systolic (congestive) heart failure (principal)
CPT/HCPCS: 36415; 80048; 84443

== ENCOUNTER 2023-01-11 04:33 | Inpatient (IN) | payer MEDICARE, BC ==
[2023-01-11 04:55] LABS: Basophils % (A) 0 %; Eosinophils # (A) 0.1 k/uL (0-0.7); Eosinophils % (A) 1 %; HCT 42.9 % (39.0-53.0); HGB 13.7 gm/dL (13.0-17.5); Lymphocytes # (A) 1.5 k/uL (1.0-4.8); Lymphocytes % (A) 13 %; MCH 29.9 pg (25.0-35.0); MCV 93.3 fL (80.0-100.0); Mean Platelet Volume 7.6; Monocytes # (A) 0.5 k/uL (0-1.0); Monocytes % (A) 4 %; Neutrophils # (A) 9.9 k/uL (1.3-7.7); Neutrophils % (A) 81 %; Platelet Count 236 k/uL (150-450); RDW 13.4 % (11.5-15.5); WBC 12.2 k/uL (3.8-10.6)
[2023-01-11 05:12] LABS: Partial Thromboplastin Time 22.1 sec (22.0-30.0); Prothrombin Time 10.8 sec (9.0-12.0)
[2023-01-11 05:15] LABS: Albumin 4.1 g/dL (3.5-5.0); Calcium 8.9 mg/dL (8.4-10.2); Magnesium 1.7 mg/dL (1.6-2.3); Potassium 3.4 mmol/L (3.5-5.1); Total Bilirubin 1.3 mg/dL (0.2-1.3); Total Protein 7.3 g/dL (6.3-8.2)
--- NOTE | 2023-01-11 05:32 | ED ---
General Adult HPI - General Chief complaint: Syncope Stated complaint: Syncope Time Seen by Provider: 01/11/23 04:40 Source: patient, EMS Mode of arrival: EMS - History of Present Illness Initial comments: Dictation was produced using [employer] dictation software. please excuse any grammatical, word or spelling errors. Chief Complaint: 87-year-old male presents emergency Department with syncope History of Present Illness: Is 87-year-old male he was seen here in the emergency department late last night. Patient seen and evaluated. Ultimately he ended up being discharged. Patient states that he was at home had dinner and all of a sudden had another syncopal event. Patient denies any head injury. Sitting when the event happened. Patient has no pain complaints. Since being in the emergency department states that he feels back to baseline. The ROS documented in this emergency department record has been reviewed and confirmed by me. Those systems with pertinent positive or negative responses have been documented in the HPI. All other systems are other negative and/or noncontributory. - Related Data Home Medications Medication Instructions Recorded Confirmed Apixaban [Eliquis] 2.5 mg PO BID 09/11/19 02/14/22 Losartan Potassium [Cozaar] 25 mg PO DAILY 10/02/21 02/14/22 Nitroglycerin Sl Tabs [Nitrostat] 0.4 mg SUBLINGUAL Q5M PRN 02/14/22 02/14/22 Previous Rx's Medication Instructions Recorded Furosemide [Lasix] 20 mg PO DAILY #30 tab 01/04/19 Amiodarone [Cordarone] 200 mg PO BID #60 tab 02/16/22 Metoprolol Tartrate [Lopressor] 25 mg PO DAILY #30 tab 02/16/22 Allergies Allergy/AdvReac Type Severity Reaction Status Date / Time isosorbide [From Imdur] Allergy Unknown Verified 02/14/22 12:46 latex Allergy Rash/Hives Verified 02/14/22 12:46 Review of Systems ROS Statement: Those systems with pertinent positive or pertinent negative responses have been documented in the HPI. ROS Other: All systems not noted in ROS Statement are negative. Past Medical History Past Medical History: Atrial Flutter, Hyperlipidemia, Hypertension Additional Past Medical History / Comment(s): Pt states, "I have not been diagnosed with heart failure." History of Any Multi-Drug Resistant Organisms: None Reported Past Surgical History: Heart Catheterization Additional Past Surgical History / Comment(s): cyst on tailbone removed at age 20, cardioversion 12/2018, COLONOSCOPY, BILAT CATARACTS REMOVED WITH LENS IMPLANTS Past Anesthesia/Blood Transfusion Reactions: No Reported Reaction Past Psychological History: No Psychological Hx Reported Smoking Status: Former smoker Past Alcohol Use History: None Reported Past Drug Use History: None Reported - Past Family History Mother Family Medical History: No Reported History Father Family Medical History: No Reported History Brother(s) Family Medical History: Cancer, Myocardial Infarction ([place]), Prostate Disorder Additional Family Medical History / Comment(s): prostate cancer Sister(s) Family Medical History: Cancer Son(s) Family Medical History: No Reported History General Exam - General Exam Comments Initial Comments: PHYSICAL EXAM: General Impression: Alert and oriented x3, not in acute distress HEENT: Normocephalic atraumatic, extra-ocular movements intact, pupils equal and reactive to light bilaterally, mucous membranes moist. Cardiovascular: Heart regular rate and rhythm Chest: Able to complete full sentences, no retractions, no tachypnea Abdomen: abdomen soft, non-tender, non-distended, no organomegaly Musculoskeletal: Pulses present and equal in all extremities, no peripheral edema Motor: no focal deficits noted Neurological: CN II-XII grossly intact, no focal motor or sensory deficits noted Skin: Intact with no visualized rashes Psych: Normal affect and mood Course Vital Signs 01/11/23 04:49 Pulse Rate 118 H Respiratory 17 Rate Blood Pressure 109/81 O2 Sat by Pulse 100 Oximetry EKG Findings - EKG Comments: EKG Findings:: My EKG interpretation: Ventricular rate 114, A. fib, QRS 121, QTc 449. no QTC prolongation, no ST or T-wave changes noted. EKG compared to 02/16/2022 showing no changes. Overall, this EKG is unremarkable Medical Decision Making - Medical Decision Making Was pt. sent in by a medical professional or institution (, PA, MOLDER SWEEP, urgent care, hospital, or long term...) When possible be specific @ -No Did you speak to anyone other than the patient for history (EMS, parent, family, police, friend...)? What history was obtained from this source @ -No Did you review nursing and triage notes (agree or disagree)? Why? @ -I reviewed and agree with nursing and triage notes Were old charts reviewed (outside hosp., previous admission, EMS record, old EKG, old radiological studies, urgent care reports/EKG's, long term records)? Report findings @ -Prior chart was reviewed. Patient had been admitted to the hospital in February 2022. Discharge summary states that she was admitted for atrial tachydysrhythmia syncopal episode. Differential Diagnosis (chest pain, altered mental status, abdominal pain women, abdominal pain men, vaginal bleeding, musculoskeletal, weakness, fever, dyspnea, syncope, headache, dizziness, GI bleed, back pain, seizure, CVA, palpatations, mental health)? @ -Differential Syncope: Valvular disease, hypertrophic cardiomyopathy, pulmonary embolism, tamponade, tachycardia, bradycardia, CT, hypovolemia, hemorrhage, dissection, anemia, intracranial hemorrhage, seizure, hypoglycemia, carbon monoxide poisoning, this is not meant to be an all-inclusive list. EKG interpreted by me (3pts min.). @ -As above X-rays interpreted by me (1pt min.). @ -No change in compared to film from yesterday CT interpreted by me (1pt min.). @ -None done U/S interpreted by me (1pt. min.). @ -None done What testing was considered but not performed or refused? (CT, X-rays, U/S, labs)? Why? @ -None What meds were considered but not given or refused? Why? @ -None Did you discuss the management of the patient with other professionals (professionals i.e. , PA, MOLDER SWEEP, lab, RT, psych nurse, social media developer, trial lawyer, teacher, employee service officer, pillowcase maker)? Give summary @ -No Was smoking cessation discussed for >3mins.? @ -No Was critical care preformed (if so, how long)? @ -No Were there social determinants of health that impacted care today? How? (Home lessness, low income, unemployed, alcoholism, drug addiction, transportation, low edu. Level, literacy, decrease access to med. care, long term, rehab)? @ -No Was there de-escalation of care discussed even if they declined (Discuss DNR or withdrawal of care, Hospice)? DNR status @ -No What co-morbidities impacted this encounter? (DM, HTN, Smoking, COPD, CAD, Cancer, CVA, ARF, Chemo, Hep., AIDS, mental health diagnosis, sleep apnea, morbid obesity)? @ -None Was patient admitted / discharged? Hospital course, mention meds given and route, prescriptions, significant lab abnormalities, going to OR and other pertinent info. @ -10-year-old male returns back to the emergency department after visit yesterday for recurrent syncope. Patient's history of syncope A. fib. Patient has stable vital signs. Slightly tachycardic and mild RVR. He is well- appearing at the bedside. Physical examination is benign. Patient has elevated troponin of 0.151. He has history of elevated troponin though not usually this elevated. Lactic acidosis 3.6. Patient reevaluated at the bedside at 6:10 AM states that he feels at baseline currently. Denies chest pain. Undiagnosed new problem with uncertain prognosis? @ -No Drug Therapy requiring intensive monitoring for toxicity (Heparin, Nitro, Insulin, Cardizem)? @ -No Were any procedures done? @ -No Diagnosis/symptom? Acute, or Chronic, or Acute on Chronic? Uncomplicated (without systemic symptoms) or Complicated (systemic symptoms)? @ -1. acute complicated syncope Side effects of treatment? @ -No Exacerbation, Progression, or Severe Exacerbation? @ -No Poses a threat to life or bodily function? How? (Chest pain, USA, CT, pneumonia, PE, COPD, DKA, ARF, appy, cholecystitis, CVA, Diverticulitis, Homicidal, Suicidal, threat to staff... and all critical care pts) @ -yes - Lab Data Result diagrams: 01/11/23 04:44 01/11/23 04:44 Lab Results 01/11/23 01/11/23 01/11/23 Range/Units 04:44 04:44 04:44 WBC 12.2 H (3.8-10.6) k/uL RBC 4.60 (4.30-5.90) m/uL Hgb 13.7 (13.0-17.5) gm/dL Hct 42.9 (39.0-53.0) % MCV 93.3 (80.0-100.0) fL MCH 29.9 (25.0-35.0) pg MCHC 32.0 (31.0-37.0) g/dL RDW 13.4 (11.5-15.5) % Plt Count 236 (150-450) k/uL MPV 7.6 Neutrophils % 81 % Lymphocytes % 13 % Monocytes % 4 % Eosinophils % 1 % Basophils % 0 % Neutrophils # 9.9 H (1.3-7.7) k/uL Lymphocytes # 1.5 (1.0-4.8) k/uL Monocytes # 0.5 (0-1.0) k/uL Eosinophils # 0.1 (0-0.7) k/uL Basophils # 0.0 (0-0.2) k/uL PT 10.8 (9.0-12.0) sec INR 1.0 (<1.2) APTT 22.1 (22.0-30.0) sec Sodium 133 L (137-145) mmol/L Potassium 3.4 L (3.5-5.1) mmol/L Chloride 92 L (98-107) mmol/L Carbon Dioxide 25 (22-30) mmol/L Anion Gap 16 mmol/L BUN 39 H (9-20) mg/dL Creatinine 1.24 (0.66-1.25) mg/dL Est GFR (CKD-EPI)AfAm 60 (>60 ml/min/1.73 sqM) Est GFR (CKD-EPI)NonAf 52 (>60 ml/min/1.73 sqM) Glucose 155 H (74-99) mg/dL Plasma Lactic Acid Dorian (0.7-2.0) mmol/L Calcium 8.9 (8.4-10.2) mg/dL Magnesium 1.7 (1.6-2.3) mg/dL Total Bilirubin 1.3 (0.2-1.3) mg/dL AST 53 (17-59) U/L ALT 28 (4-49) U/L Alkaline Phosphatase 113 (38-126) U/L Troponin I (0.000-0.034) ng/mL Total Protein 7.3 (6.3-8.2) g/dL Albumin 4.1 (3.5-5.0) g/dL 01/11/23 01/11/23 Range/Units 04:44 04:44 WBC (3.8-10.6) k/uL RBC (4.30-5.90) m/uL Hgb (13.0-17.5) gm/dL Hct (39.0-53.0) % MCV (80.0-100.0) fL MCH (25.0-35.0) pg MCHC (31.0-37.0) g/dL RDW (11.5-15.5) % Plt Count (150-450) k/uL MPV Neutrophils % % Lymphocytes % % Monocytes % % Eosinophils % % Basophils % % Neutrophils # (1.3-7.7) k/uL Lymphocytes # (1.0-4.8) k/uL Monocytes # (0-1.0) k/uL Eosinophils # (0-0.7) k/uL Basophils # (0-0.2) k/uL PT (9.0-12.0) sec INR (<1.2) APTT (22.0-30.0) sec Sodium (137-145) mmol/L Potassium (3.5-5.1) mmol/L Chloride (98-107) mmol/L Carbon Dioxide (22-30) mmol/L Anion Gap mmol/L BUN (9-20) mg/dL Creatinine (0.66-1.25) mg/dL Est GFR (CKD-EPI)AfAm (>60 ml/min/1.73 sqM) Est GFR (CKD-EPI)NonAf (>60 ml/min/1.73 sqM) Glucose (74-99) mg/dL Plasma Lactic Acid Dorian 3.6 H* (0.7-2.0) mmol/L Calcium (8.4-10.2) mg/dL Magnesium (1.6-2.3) mg/dL Total Bilirubin (0.2-1.3) mg/dL AST (17-59) U/L ALT (4-49) U/L Alkaline Phosphatase (38-126) U/L Troponin I 0.151 H* (0.000-0.034) ng/mL Total Protein (6.3-8.2) g/dL Albumin (3.5-5.0) g/dL Disposition Clinical Impression: Syncope, Lactic acidosis Disposition: ADMITTED IP TO THIS [facility] Condition: Fair Referrals: Joseph Cuevas MD [Primary Care Provider] - 1-2 days Decision Time: 06:10
[2023-01-11] MEDS ORDERED: ASPIRIN 81 MG PO STA (05:55)
[2023-01-11] MEDS ORDERED: SODIUM CHLORIDE 0.9% 1,000 ML IV STA (05:58)
[2023-01-11] MEDS ORDERED: NALOXONE 0.4 MG/ML 1 ML VIAL IV PRN (05:58)
--- NOTE | 2023-01-11 06:56 | XR ---
EXAMINATION TYPE: XR chest 1V portable DATE OF EXAM: 01/11/2023 4:57 AM COMPARISON: Chest radiographs from 01/10/2023 TECHNIQUE: XR chest 1V portable Portable AP radiograph of the chest. CLINICAL INDICATION:Male, 87 years old with history of syncope; FINDINGS: Limited examination due to patient rotation. Lungs/Pleura: There is no evidence of pleural effusion, focal consolidation, or pneumothorax. Pulmonary vascularity: Unremarkable. Heart/mediastinum: Cardiomediastinal silhouette is enlarged and stable. Moderate-sized hernia redemo nstrated. Musculoskeletal: No acute osseous pathology. IMPRESSION: 1. No acute cardiopulmonary disease/process. 2. Persistent moderate cardiomegaly. 3. Moderate sized hiatal hernia.
[2023-01-11] MEDS ORDERED: HEPARIN SODIUM 1,000 UN/ML (10ML VL) IV ONE (08:14)
[2023-01-11] MEDS ORDERED: HEPARIN SOD,PORK IN 0.45% NACL 25,000 UNIT in 0.45% NACL 1 250ML.BAG IV SCH (08:30)
[2023-01-11 08:43] LABS: Basophils % (A) 0 %; Eosinophils % (A) 0 %; HCT 42.1 % (39.0-53.0); HGB 13.6 gm/dL (13.0-17.5); Lymphocytes # (A) 0.7 k/uL (1.0-4.8); Lymphocytes % (A) 6 %; MCH 30.4 pg (25.0-35.0); MCHC 32.4 g/dL (31.0-37.0); MCV 93.8 fL (80.0-100.0); Mean Platelet Volume 7.4; Monocytes # (A) 0.5 k/uL (0-1.0); Monocytes % (A) 4 %; Neutrophils # (A) 10.5 k/uL (1.3-7.7); Neutrophils % (A) 89 %; Platelet Count 220 k/uL (150-450); RBC 4.48 m/uL (4.30-5.90); RDW 13.3 % (11.5-15.5); WBC 11.7 k/uL (3.8-10.6)
[2023-01-11 08:47] LABS: Partial Thromboplastin Time 23.5 sec (22.0-30.0); Prothrombin Time 10.8 sec (9.0-12.0)
[2023-01-11] MEDS: HEPARIN SOD,PORK IN 0.45% NACL 25,000 UNIT in 0.45% NACL 1 250ML.BAG IV SCH (09:10)
[2023-01-11] MEDS: METOPROLOL TARTRATE 25 MG TAB PO SCH (09:12)
--- NOTE | 2023-01-11 11:33 | P.CRDCN ---
History of Present Illness History of present illness: HISTORY OF PRESENT ILLNESS: This is a 87-year-old male with a past medical history significant for hypertension, hyperlipidemia, and paroxysmal atrial fibrillation. Patient follows in the office with Dr. Willis. We have been asked to see the patient in consultation for syncope. Patient examined at the bedside. Patient states yesterday he was out to dinner. He was standing in line at the buffet to get some food when he had a syncopal episode. Apparently there was a nurse that was there as well having dinner and helped the patient. Apparently, the nurse that w itnessed this did not feel a pulse and started CPR. EMS was called. The patient was brought to the ER for further evaluation. The patient was discharged home per the ER physician. The patient states that he return home and was trying to get out of his car and had an additional syncopal episode. He then went inside to use the bathroom and had a third syncopal episode. The patient denies having any chest pain or pressure. He denies any shortness of breath. He denies any dizziness or lightheadedness. He denies any warning signs prior to his syncopal episodes. The patient states he has not been drinking much water the past 2 days as he normally does. Patient's blood pressures are found to be on the lower side with a systolic around 100. Telemetry reveals atrial fibrillation with controlled ventricular rates. It is noted that the patient was seen in the cardiology office in November 2022 and was noted to be in sinus mechanism at that time. * EKG reveals atrial fibrillation with RVR * Chest xray negative for acute process. Persistent cardiomegaly. Moderate sized hiatal hernia. * Laboratory data: W BC 11.7. Hemoglobin 13.6. Platelet count 220. Sodium 133. Potassium 3.4. BUN 39. Creatinine 1.24. Lactic acid 3.6. Repeat 2.5. Troponin 0.151. * Current home cardiac medications include Eliquis 2.5mg BID, losartan 25 mg with dinner, Lasix 40 mg in the morning and 20 mg in the afternoon, metoprolol tartrate 25 mg daily, metolazone 2.5mg daily * Most recent echocardiogram obtained in the office in February 2022 revealed ejection fraction 15-20%, mild aortic regurgitation, [id number] mitral regurgitation, moderate tricuspid regurgitation * Cardiac catheterization history: October 2021 revealing normal coronary arteries REVIEW OF SYSTEMS: At the time of my exam: CONSTITUTIONAL: Denies fever or chills. HEENT: Denies blurred vision, vision changes, or eye pain. Denies hemoptysis CARDIOVASCULAR: Denies chest pain. Denies orthopnea. Denies PND. Denies palpitations RESPIRATORY: Denies shortness of breath. GASTROINTESTINAL: Denies abdominal pain. Denies nausea or vomiting. HEMATOLOGIC: Denies bleeding disorders. GENITOURINARY: Denies any blood in urine. SKIN: Denies pruitis. Denies rash. PHYSICAL EXAM: VITAL SIGNS: Reviewed. GENERAL: Well-developed in no acute distress. HEENT: Head is normocephalic. Pupils are equal, round. Sclerae anicteric. Mucous membranes of the mouth are moist. Neck supple. No JVD or thyromegaly LUNGS: Respirations even and unlabored. Lungs essentially clear to auscultation bilaterally. HEART: Irregular rate and rhythm. S1 and S2 heard. ABDOMEN: Soft. Nondistended. Nontender. EXTREMITIES: Normal range of motion. No clubbing or cyanosis. Peripheral pulses intact. No lower extremity edema NEUROLOGIC: Awake and alert. Oriented x 3. ASSESSMENT: Recurrent syncope, 3 episodes in 24 hours, one requiring CPR by a nurse at the restaurant Suspected orthostatic hypotension Soft blood pressures Elevated lactic acid Abnormal troponin, 0.151 Paroxysmal atrial fibrillation with controlled ventricular rate Nonischemic cardiomyopathy, ejection fraction 15-20% Normal coronary arteries, per cardiac catheterization in 2021 Valvular heart disease Hypertension Hyperlipidemia PLAN: Obtain 2D echo to assess cardiac structure and function Trend troponins Hold Eliquis. Begin IV heparin. Obtain orthostatic blood pressures Continue metoprolol Hold Lasix, losartan, and metolazone secondary to soft blood pressures Further recommendations pending patient course Nurse practitioner note has been reviewed by physician. Signing provider agrees with the documented findings, assessment, and plan of care. Past Medical History Past Medical History: Atrial Flutter, Hyperlipidemia, Hypertension Additional Past Medical History / Comment(s): Pt states, "I have not been diagnosed with heart failure." History of Any Multi-Drug Resistant Organisms: None Reported Past Surgical History: Heart Catheterization Additional Past Surgical History / Comment(s): cyst on tailbone removed at age 20, cardioversion 12/2018, COLONOSCOPY, BILAT CATARACTS REMOVED WITH LENS IMPLANTS Past Anesthesia/Blood Transfusion Reactions: No Reported Reaction Past Psychological History: No Psychological Hx Reported Smoking Status: Former smoker Past Alcohol Use History: None Reported Past Drug Use History: None Reported - Past Family History Mother Family Medical History: No Reported History Father Family Medical History: No Reported History Brother(s) Family Medical History: Cancer, Myocardial Infarction (PR), Prostate Disorder Additional Family Medical History / Comment(s): prostate cancer Sister(s) Family Medical History: Cancer Son(s) Family Medical History: No Reported History Medications and Allergies Home Medications Medication Instructions Recorded Confirmed Type Apixaban [Eliquis] 2.5 mg PO BID-W/MEALS 09/11/19 01/11/23 History Losartan Potassium [Cozaar] 25 mg PO W/SUPPER 10/02/21 01/11/23 History Nitroglycerin Sl Tabs [Nitrostat] 0.4 mg SUBLINGUAL Q5M PRN 02/14/22 01/11/23 History Metoprolol Tartrate [Lopressor] 25 mg PO DAILY #30 tab 02/16/22 01/11/23 Rx Furosemide [Lasix] 20 mg PO W/SUPPER 01/11/23 01/11/23 History Furosemide [Lasix] 20 mg PO W/SUPPER 01/11/23 01/11/23 History Furosemide [Lasix] 40 mg PO W/BRKFST 01/11/23 01/11/23 History Potassium Chloride [Klor-Con M20] 20 meq PO W/SUPPER 01/11/23 01/11/23 History Potassium Chloride [Klor-Con M20] 40 meq PO W/BRKFST 01/11/23 01/11/23 History metOLazone 2.5 mg PO AC-BRKFST 01/11/23 01/11/23 History Allergies Allergy/AdvReac Type Severity Reaction Status Date / Time isosorbide [From Imdur] Allergy Unknown Verified 01/11/23 06:14 latex Allergy Rash/Hives Verified 01/11/23 06:14 Physical Exam Vitals: Vital Signs Pulse Resp BP Pulse Ox 01/11/23 06:13 100 15 101/67 96 01/11/23 04:49 118 H 17 109/81 100 Intake and Output 01/10/23 01/11/23 01/11/23 22:59 06:59 14:59 Other: Weight 90.718 kg Results 01/11/23 08:22 01/11/23 04:44 Cardiac Enzymes 01/11/23 01/11/23 Range/Units 04:44 04:44 AST 53 (17-59) U/L Troponin I 0.151 H* (0.000-0.034) ng/mL Coagulation 01/11/23 01/11/23 Range/Units 04:44 08:22 PT 10.8 10.8 (9.0-12.0) sec APTT 22.1 23.5 (22.0-30.0) sec CBC 01/11/23 01/11/23 Range/Units 04:44 08:22 WBC 12.2 H 11.7 H (3.8-10.6) k/uL RBC 4.60 4.48 (4.30-5.90) m/uL Hgb 13.7 13.6 (13.0-17.5) gm/dL Hct 42.9 42.1 (39.0-53.0) % Plt Count 236 220 (150-450) k/uL Comprehensive Metabolic Panel 01/11/23 Range/Units 04:44 Sodium 133 L (137-145) mmol/L Potassium 3.4 L (3.5-5.1) mmol/L Chloride 92 L (98-107) mmol/L Carbon Dioxide 25 (22-30) mmol/L BUN 39 H (9-20) mg/dL Creatinine 1.24 (0.66-1.25) mg/dL Glucose 155 H (74-99) mg/dL Calcium 8.9 (8.4-10.2) mg/dL AST 53 (17-59) U/L ALT 28 (4-49) U/L Alkaline Phosphatase 113 (38-126) U/L Total Protein 7.3 (6.3-8.2) g/dL Albumin 4.1 (3.5-5.0) g/dL Current Medications Generic Name Dose Route Start Last Admin Trade Name Freq PRN Reason Stop Dose Admin Furosemide 40 mg 01/12/23 07:30 Furosemide 40 Mg Tab PO W/BRKFST FABIANA Furosemide 20 mg 01/11/23 17:30 Furosemide 20 Mg Tab PO W/SUPPER FABIANA Heparin Sodium (Porcine) 0 unit 01/11/23 08:14 Heparin Sodium 1,000 Un/Ml (10ml Vl) IV PER PROTOCOL PRN Low PTT Protocol Sodium Chloride 1,000 mls @ 20 mls/hr 01/11/23 06:00 Saline 0.9% IV .Q24H [facility] Heparin Sodium/Sodium Chloride 250 mls @ 10 mls/hr 01/11/23 08:30 25,000 unit/ Sodium Chloride IV .Q24H [facility] Protocol 11.023 UNITS/KG/HR Metoprolol Tartrate 25 mg 01/11/23 09:00 Metoprolol Tartrate 25 Mg Tab PO DAILY [facility] Naloxone HCl 0.2 mg 01/11/23 05:58 Naloxone 0.4 Mg/Ml 1 Ml Vial IV Q2M PRN Opioid Reversal Intake and Output 01/10/23 01/11/23 01/11/23 22:59 06:59 14:59 Other: Weight 90.718 kg 01/11/23 08:22 01/11/23 04:44
[2023-01-11] MEDS ORDERED: POTASSIUM CHLORIDE ER 20 MEQ TAB.ER PO STA (11:57)
--- NOTE | 2023-01-11 11:57 | P.HPIM ---
History of Present Illness Patient is a pleasant pleasant 87-year-old male with congestive heart failure EF of around 15-20%, nonischemic cardiomyopathy and paroxysmal atrial fibrillation, came in after a syncopal episode. Patient is not in heart failure repeatedly hypovolemic and hyponatremic intermittent is syncopal spell patient usually takes 40 mg of Lasix in the morning 20 mg of Lasix in the evening along with metolazone. Orthostatic vitals are positive. Patient heart rate is controlled at this time. Patient has minimally elevated troponins of around 0.15 and 0.16 respectively. Previous echo also showed moderate tricuspid regurgitation patien t had cardiac catheterization in October 2019 which showed normal coronaries. Chest x-ray did not show any pulmonary edema patient the creatinine is 1.4 baseline appears to be around 1.1. REVIEW OF SYSTEMS: CONSTITUTIONAL: No fever, no malaise, no fatigue. HEENT: No recent visual problems or hearing problems. Denied any sore throat. CARDIOVASCULAR: No chest pain, orthopnea, PND, no palpitations. PULMONARY: No shortness of breath, no cough, no hemoptysis. GASTROINTESTINAL: No diarrhea, no nausea, no vomiting, no abdominal pain. NEUROLOGICAL: No headaches, no weakness, no numbness. HEMATOLOGICAL: Denies any bleeding or petechiae. GENITOURINARY: Denies any burning micturition, frequency, or urgency. MUSCULOSKELETAL/RHEUMATOLOGICAL: Denies any joint pain, swelling, or any muscle pain. ENDOCRINE: Denies any polyuria or polydipsia. The rest of the 14-point review of systems is negative. PHYSICAL EXAMINATION: GENERAL: The patient is alert and oriented x3, not in any acute distress. Well developed, well nourished. HEENT: Pupils are round and equally reacting to light. EOMI. No scleral icterus. No conjunctival pallor. Normocephalic, atraumatic. No pharyngeal erythema. No thyromegaly. CARDIOVASCULAR: S1 and S2 present. No murmurs, rubs, or gallops. PULMONARY: Chest is clear to auscultation, no wheezing or crackles. ABDOMEN: Soft, nontender, nondistended, normoactive bowel sounds. No palpable organomegaly. MUSCULOSKELETAL: No joint swelling or deformity. EXTREMITIES: No cyanosis, clubbing, or pedal edema. NEUROLOGICAL: Gross neurological examination did not reveal any focal deficits. SKIN: No rashes. Assessment and plan -Syncope: Most probably secondary to excessive diuresis, diuretics around temporary hold. -Congestive heart failure chronic systolic dysfunction, nonischemic myopathy of around 15-20% not in acute exacerbation patient is actually hypovolemic holding off on diuretics at this time diuretic doses need to be cut down upon discharge -Hypokalemia potassium will be replaced and magnesium will be replaced per hypomagnesemia -elevated troponin secondary to congestive heart failure and atrial fibrillation -Proximal A. fib presently rate controlled but still in atrial fibrillation, oral anti-correlation is on hold and patient is on IV heparin -Hyperlipidemia next hypertension: Patient is presently hypotensive, FANTA inhibitor and diuretics are being held -Leukocytosis secondary to syncope is, reactive. DVT prophylaxis: Anticoagulation as mentioned above Past Medical History Past Medical History: Atrial Flutter, Hyperlipidemia, Hypertension Additional Past Medical History / Comment(s): Pt states, "I have not been diagnosed with heart failure." History of Any Multi-Drug Resistant Organisms: None Reported Past Surgical History: Heart Catheterization Additional Past Surgical History / Comment(s): cyst on tailbone removed at age 20, cardioversion 12/2018, COLONOSCOPY, BILAT CATARACTS REMOVED WITH LENS IMPLANTS Past Anesthesia/Blood Transfusion Reactions: No Reported Reaction Past Psychological History: No Psychological Hx Reported Smoking Status: Former smoker Past Alcohol Use History: None Reported Past Drug Use History: None Reported - Past Family History Mother Family Medical History: No Reported History Father Family Medical History: No Reported History Brother(s) Family Medical History: Cancer, Myocardial Infarction (PR), Prostate Disorder Additional Family Medical History / Comment(s): prostate cancer Sister(s) Family Medical History: Cancer Son(s) Family Medical History: No Reported History Medications and Allergies Home Medications Medication Instructions Recorded Confirmed Type Apixaban [Eliquis] 2.5 mg PO BID-W/MEALS 09/11/19 01/11/23 History Losartan Potassium [Cozaar] 25 mg PO W/SUPPER 10/02/21 01/11/23 History Nitroglycerin Sl Tabs [Nitrostat] 0.4 mg SUBLINGUAL Q5M PRN 02/14/22 01/11/23 History Metoprolol Tartrate [Lopressor] 25 mg PO DAILY #30 tab 02/16/22 01/11/23 Rx Furosemide [Lasix] 20 mg PO W/SUPPER 01/11/23 01/11/23 History Furosemide [Lasix] 20 mg PO W/SUPPER 01/11/23 01/11/23 History Furosemide [Lasix] 40 mg PO W/BRKFST 01/11/23 01/11/23 History Potassium Chloride [Klor-Con M20] 20 meq PO W/SUPPER 01/11/23 01/11/23 History Potassium Chloride [Klor-Con M20] 40 meq PO W/BRKFST 01/11/23 01/11/23 History metOLazone 2.5 mg PO AC-BRKFST 01/11/23 01/11/23 History Allergies Allergy/AdvReac Type Severity Reaction Status Date / Time isosorbide [From Imdur] Allergy Unknown Verified 01/11/23 06:14 latex Allergy Rash/Hives Verified 01/11/23 06:14 Physical Exam Vitals: Vital Signs Temp Pulse Pulse Resp BP BP BP 01/11/23 11:25 73 17 90/61 01/11/23 09:00 117/71 01/11/23 08:50 98 F 103 H 18 106/70 108/70 01/11/23 06:13 100 15 101/67 01/11/23 04:49 118 H 17 109/81 BP BP Pulse Ox 01/11/23 11:25 94 L 01/11/23 09:00 100/73 01/11/23 08:50 106/66 110/72 97 01/11/23 06:13 96 01/11/23 04:49 100 Intake and Output 01/10/23 01/11/23 01/11/23 22:59 06:59 14:59 Other: Weight 90.718 kg 90.718 kg Results CBC & Chem 7: 01/11/23 08:22 01/11/23 04:44 Labs: Abnormal Lab Results - Last 24 Hours (Table) 01/11/23 01/11/23 01/11/23 Range/Units 04:44 04:44 04:44 WBC 12.2 H (3.8-10.6) k/uL Neutrophils # 9.9 H (1.3-7.7) k/uL Lymphocytes # (1.0-4.8) k/uL Sodium 133 L (137-145) mmol/L Potassium 3.4 L (3.5-5.1) mmol/L Chloride 92 L (98-107) mmol/L BUN 39 H (9-20) mg/dL Glucose 155 H (74-99) mg/dL Plasma Lactic Acid Dorian 3.6 H* (0.7-2.0) mmol/L Troponin I (0.000-0.034) ng/mL 01/11/23 01/11/23 01/11/23 Range/Units 04:44 08:06 08:22 WBC (3.8-10.6) k/uL Neutrophils # (1.3-7.7) k/uL Lymphocytes # (1.0-4.8) k/uL Sodium (137-145) mmol/L Potassium (3.5-5.1) mmol/L Chloride (98-107) mmol/L BUN (9-20) mg/dL Glucose (74-99) mg/dL Plasma Lactic Acid Dorian 2.5 H* (0.7-2.0) mmol/L Troponin I 0.151 H* 0.150 H* (0.000-0.034) ng/mL 01/11/23 01/11/23 Range/Units 08:22 10:50 WBC 11.7 H (3.8-10.6) k/uL Neutrophils # 10.5 H (1.3-7.7) k/uL Lymphocytes # 0.7 L (1.0-4.8) k/uL Sodium (137-145) mmol/L Potassium (3.5-5.1) mmol/L Chloride (98-107) mmol/L BUN (9-20) mg/dL Glucose (74-99) mg/dL Plasma Lactic Acid Dorian (0.7-2.0) mmol/L Troponin I 0.169 H* (0.000-0.034) ng/mL Thrombosis Risk Factor Assmnt - Choose All That Apply Any of the Below Risk Factors Present?: Yes Each Factor Represents 1 point: Obesity (BMI >25) Other Risk Factors: Yes Each Risk Factor Represents 3 Points: Age 75 years or older Other congenital or acquired thrombophilia - If yes, enter type in comment: No Thrombosis Risk Factor Assessment Total Risk Factor Score: 4 Thrombosis Risk Factor Assessment Level: Moderate Risk
[2023-01-11] MEDS ORDERED: MAGNESIUM SULFATE-D5W PMX 1 GM in DEXTROSE/WATER 1 100ML.BAG IVPB ONE (11:58)
[2023-01-11] MEDS: SODIUM CHLORIDE 0.9% 1,000 ML IV SCH (17:25)
[2023-01-11] MEDS ORDERED: FUROSEMIDE 20 MG TAB PO SCH (17:30)
[2023-01-11] MEDS ORDERED: LOSARTAN 25 MG TAB PO SCH (17:30)
--- NOTE | 2023-01-11 18:06 | CA ---
Transthoracic Echo Report Name: Addy Vo Age: 87 Gender: M : 1935 Exam Date: 01/11/2023 13:41 Exam Location: [facility] Ht (in): 68 Wt (lb): 200 Ordering Physician: Lisbet Mccabe Attending/Referring Phys: [id number], Estelle [employer] Manager Angelique Alfonso RDCS Procedure CPT: Indications: elevated troponin, syncope Cardiac Hx: Technical Quality: Fair Contrast 1: Total Dose (mL): Contrast 2: Total Dose (mL): MEASUREMENTS (Male / Female) Normal Values 2D ECHO LV Diastolic Diameter PLAX 4.6 cm 4.2 - 5.9 / 3.9 - 5.3 cm LV Systolic Diameter PLAX 3.9 cm IVS Diastolic Thickness 2.7 cm 0.6 - 1.0 / 0.6 - 0.9 cm LVPW Diastolic Thickness 2.3 cm 0.6 - 1.0 / 0.6 - 0.9 cm LV Relative Wall Thickness 1.1 LVOT Diameter 2.3 cm LA Volume 158.7 cm??? 18 - 58 / 22 - 52 cm??? M-MODE Aortic Root Diameter MM 3.7 cm LA Systolic Diameter MM 5.7 cm LA Ao Ratio MM 1.5 AV Cusp Separation MM 1.5 cm DOPPLER AV Peak Velocity 148.9 cm/s AV Peak Gradient 8.9 mmHg AV Mean Velocity 103.5 cm/s AV Mean Gradient 4.8 mmHg AV Velocity Time Integral 25.2 cm AI Peak Velocity 263.5 cm/s AI Peak Gradient 27.8 mmHg AI Pressure Half Time 545.6 ms LVOT Peak Velocity 70.6 cm/s LVOT Peak Gradient 2.0 mmHg LVOT Velocity Time Integral 11.4 cm LVOT Stroke Volume 46.2 cm??? LVOT Stroke Volume Index 22.6 ml/m??? AV Area Cont Eq vti 1.8 cm??? AV Area Cont Eq pk 1.9 cm??? MV Area PHT 3.5 cm??? Mitral E Point Velocity 71.3 cm/s Mitral A Point Velocity 22.3 cm/s Mitral E to A Ratio 3.2 MV Deceleration Time 217.0 ms MV E' Velocity 3.7 cm/s Mitral E to MV E' Ratio 19.3 TR Peak Velocity 241.3 cm/s TR Peak Gradient 23.3 mmHg Right Ventricular Systolic Press 30.5 mmHg FINDINGS Left Ventricle Severely increased left ventricular wall thickness. Severely reduced global left ventricular systolic function. Left ventricular ejection fraction is estimated at 30-35 %.left ventricular cavity size normal. Right Ventricle Right ventricular dilatation. Right ventricular systolic pressure within normal limits. Right Atrium Severe right atrial dilatation. 2 D measurment 7 cm. Left Atrium Severely increased left atrial volume. Moderately increased left atrial area. Mitral Valve No evidence for mitral valve prolapse. Mitral valve thickened. Mild mitral annular calcification. Moderate mitral regurgitation. Aortic Valve No aortic stenosis. Mild aortic regurgitation. Thickened aortic valve without stenosis. Tricuspid Valve Structurally normal tricuspid valve. Mild tricuspid regurgitation. Pulmonic Valve Structurally normal pulmonic valve. Pericardium No pericardial effusion. Aorta Normal size aortic root and proximal ascending aorta. CONCLUSIONS 1. Severely impaired ventricle systolic function with global hypokinesis 2. Moderate mitral with mild aortic and tricuspid regurgitation Previewed by: Dr. Olimpia Garcia MD (Electronically Signed) Final Date: 11 Jan 2023 18:05
[2023-01-12] MEDS ORDERED: FUROSEMIDE 40 MG TAB PO SCH (07:30)
[2023-01-12] MEDS: METOPROLOL TARTRATE 25 MG TAB PO SCH (07:33)
[2023-01-12] MEDS: SODIUM CHLORIDE 0.9% 1,000 ML IV SCH (07:43)
[2023-01-12] MEDS: HEPARIN SOD,PORK IN 0.45% NACL 25,000 UNIT in 0.45% NACL 1 250ML.BAG IV SCH (07:43)
[2023-01-12 08:51] LABS: Basophils # (A) 0.1 k/uL (0-0.2); Basophils % (A) 1 %; Eosinophils # (A) 0.3 k/uL (0-0.7); Eosinophils % (A) 3 %; HGB 13.2 gm/dL (13.0-17.5); Lymphocytes # (A) 1.2 k/uL (1.0-4.8); Lymphocytes % (A) 17 %; MCH 30.4 pg (25.0-35.0); MCHC 32.2 g/dL (31.0-37.0); MCV 94.3 fL (80.0-100.0); Mean Platelet Volume 7.8; Monocytes # (A) 0.5 k/uL (0-1.0); Monocytes % (A) 6 %; Neutrophils # (A) 5.1 k/uL (1.3-7.7); Neutrophils % (A) 71 %; Platelet Count 199 k/uL (150-450); RBC 4.34 m/uL (4.30-5.90); RDW 13.4 % (11.5-15.5); WBC 7.2 k/uL (3.8-10.6)
[2023-01-12 09:01] LABS: Partial Thromboplastin Time 25.3 sec (22.0-30.0); Prothrombin Time 10.8 sec (9.0-12.0)
[2023-01-12 09:06] LABS: Calcium 8.7 mg/dL (8.4-10.2); Magnesium 1.9 mg/dL (1.6-2.3); Potassium 3.5 mmol/L (3.5-5.1)
[2023-01-12] MEDS: HEPARIN SODIUM 1,000 UN/ML (10ML VL) IV PRN (09:12)
--- NOTE | 2023-01-12 11:28 | P.PN ---
Subjective Progress Note Date: 01/12/23 HISTORY OF PRESENT ILLNESS: This is a 87-year-old male with a past medical history significant for hypertension, hyperlipidemia, and paroxysmal atrial fibrillation. Patient follows in the office with Dr. Willis. We have been asked to see the patient in consultation for syncope. Patient examined at the bedside. Patient states yesterday he was out to dinner. He was standing in line at the buffet to get some food when he had a syncopal episode. Apparently there was a nurse that was there as well having dinner and helped the patient. Apparently, the nurse that witnessed this did not feel a pulse and started CPR. EMS was called. The patient was brought to the ER for further evaluation. The patient was discharged home per the ER physician. The patient states that he return home and was trying to get out of his car and had an additional syncopal episode. He then went inside to use the bathroom and had a third syncopal episode. The patient denies having any chest pain or pressure. He denies any shortness of breath. He denies any dizziness or lightheadedness. He denies any warning signs prior to his syncopal episodes. The patient states he has not been drinking much water the past 2 days as he normally does. Patient's blood pressures are found to be on the lower side with a systolic around 100. Telemetry reveals atrial fibrillation with controlled ventricular rates. It is noted that the patient was seen in the cardiology office in November 2022 and was noted to be in sinus mechanism at that time. * EKG reveals atrial fibrillation with RVR * Chest xray negative for acute process. Persistent cardiomegaly. Moderate sized hiatal hernia. * Laboratory data: W BC 11.7. Hemoglobin 13.6. Platelet count 220. Sodium 133. Potassium 3.4. BUN 39. Creatinine 1.24. Lactic acid 3.6. Repeat 2.5. Troponin 0.151. * Current home cardiac medications include Eliquis 2.5mg BID, losartan 25 mg with dinner, Lasix 40 mg in the morning and 20 mg in the afternoon, metoprolol tartrate 25 mg daily, metolazone 2.5mg daily * Most recent echocardiogram obtained in the office in February 2022 revealed ejection fraction 15-20%, mild aortic regurgitation, [id number] mitral regurgitation, moderate tricuspid regurgitation * Cardiac catheterization history: October 2021 revealing normal coronary arteries 01/12/2023 Patient examined this morning at the bedside. Patient denies chest pain or pressure. He denies shortness of breath. Blood pressures remain on the lower side with a SBP in the 90s. Telemetry reveals atrial fibrillation with a heart rate around 100. Echocardiogram completed revealing ejection fraction 30-35%. PHYSICAL EXAM: VITAL SIGNS: Reviewed. GENERAL: Well-developed in no acute distress. HEENT: Head is normocephalic. Pupils are equal, round. Sclerae anicteric. Mucous membranes of the mouth are moist. Neck supple. No JVD or thyromegaly LUNGS: Respirations even and unlabored. Lungs essentially clear to auscultation bilaterally. HEART: Irregular rate and rhythm. S1 and S2 heard. ABDOMEN: Soft. Nondistended. Nontender. EXTREMITIES: Normal range of motion. No clubbing or cyanosis. Peripheral pu lses intact. No lower extremity edema NEUROLOGIC: Awake and alert. Oriented x 3. ASSESSMENT: Recurrent syncope, 3 episodes in 24 hours, one requiring CPR by a nurse at the restaurant Suspected orthostatic hypotension Soft blood pressures Elevated lactic acid Abnormal troponins, type II PR Paroxysmal atrial fibrillation with controlled ventricular rate Nonischemic cardiomyopathy, ejection fraction 15-20%, now 30-35% Normal coronary arteries, per cardiac catheterization in 2021 Valvular heart disease Hypertension Hyperlipidemia PLAN: Continue to hold Eliquis. Continue IV heparin. Continue metoprolol Continue to hold Lasix, losartan, and metolazone secondary to soft blood pressures Continue telemetry monitoring Dr. Garcia recommending ICD implantation and will discuss further with patient. Timing to be determined. Further recommendations pending patient course Nurse practitioner note has been reviewed by physician. Signing provider agrees with the documented findings, assessment, and plan of care. Objective - Vital Signs Vital signs: Vital Signs Temp 97.3 F L 01/12/23 08:00 Pulse 105 H 01/12/23 08:00 Resp 18 01/12/23 08:00 BP 116/80 01/12/23 08:00 Pulse Ox 97 01/12/23 08:00 FiO2 Intake & Output 01/11/23 01/12/23 01/12/23 18:59 06:59 18:59 Intake Total 118 598.167 Output Total 400 300 Balance 118 -400 298.167 Weight 90.718 kg Intake: Intake, IV Titration 240.167 Amount Heparin Sod,Pork in 0.45% 240.167 NaCl 25,000 unit In 0.45 % NaCl 1 250ml.bag @ 11. 023 UNITS/KG/HR 10 mls/hr IV .Q24H [facility] Rx#: [id number] Oral 118 358 Output: Urine 400 300 Other: Voiding Method Toilet Urinal # Voids 1 1 # Bowel Movements 1 - Labs CBC & Chem 7: 01/12/23 07:58 01/12/23 07:58 Labs: Abnormal Lab Results - Last 24 Hours (Table) 01/11/23 01/11/23 01/12/23 Range/Units 10:50 14:30 07:58 APTT 59.4 H (22.0-30.0) sec Sodium 134 L (137-145) mmol/L BUN 37 H (9-20) mg/dL Glucose 144 H (74-99) mg/dL Troponin I 0.169 H* (0.000-0.034) ng/mL
--- NOTE | 2023-01-12 14:02 | P.PN ---
Subjective Progress Note Date: 01/12/23 Patient is a pleasant pleasant 87-year-old male with congestive heart failure EF of around 15-20%, nonischemic cardiomyopathy and paroxysmal atrial fibrillation, came in after a syncopal episode. . Orthostatic vitals are positive. Patient heart rate is controlled at this time. Patient has minimally elevated troponins of around 0.15 and 0.16 respectively. Previous echo also showed moderate tricuspid regurgitation patient had cardiac catheterization in October 2019 which showed normal coronaries. Chest x-ray did not show any pulmonary edema patient the creatinine is 1.4 baseline appears to be around 1.1. 01/12. Patient seen and examined. Patient sitting upright in the bed, states no further episodes of lightheadedness or dizziness. Denies any feeling of passing out. Vital signs stable REVIEW OF SYSTEMS: CONSTITUTIONAL: No fever, no malaise,. CARDIOVASCULAR: No chest pain, no palpitations, no syncope. PULMONARY: No shortness of breath, no cough, GASTROINTESTINAL: No diarrhea, no nausea, no vomiting, no abdominal pain. NEUROLOGICAL: No headaches, no weakness, PHYSICAL EXAMINATION: GENERAL: The patient is alert and oriented x3, not in any acute distress. Well developed, well nourished. HEENT: Pupils are round and equally reacting to light. EOMI. No scleral icterus. No conjunctival pallor. Normocephalic, atraumatic. No pharyngeal erythema. No thyromegaly. CARDIOVASCULAR: S1 and S2 present. No murmurs, rubs, or gallops. PULMONARY: Chest is clear to auscultation, no wheezing or crackles. ABDOMEN: Soft, nontender, nondistended, normoactive bowel sounds. No palpable organomegaly. MUSCULOSKELETAL: No joint swelling or deformity. EXTREMITIES: No cyanosis, clubbing, or pedal edema. NEUROLOGICAL: Gross neurological examination did not reveal any focal deficits. SKIN: No rashes. Assessment and plan -Syncope: -Congestive heart failure chronic systolic dysfunction, nonischemic myopathy of around 15-20% -Hypokalemia -elevated troponin -Proximal A. fib -Hyperlipidemia hypertension: Patient is presently hypotensive, FANTA inhibitor and diuretics are being held -Leukocytosis secondary to syncope is, reactive. Plan Monitor vital signs Monitor CBC Monitor CMP Continue telemetry monitoring Trend troponins Continue pharmacy dose heparin, hold Eliquis Follow-up on 2-D echo Hold Lasix, losartan, and metolazone secondary to soft blood pressures follow-up on cardiology recommendations Objective - Vital Signs Vital signs: Vital Signs Temp 97.3 F L 01/12/23 08:00 Pulse 105 H 01/12/23 08:00 Resp 18 01/12/23 08:00 BP 116/80 01/12/23 08:00 Pulse Ox 97 01/12/23 08:00 FiO2 Intake & Output 01/11/23 01/12/23 01/12/23 18:59 06:59 18:59 Intake Total 118 480.167 Output Total 400 300 Balance 118 -400 180.167 Weight 90.718 kg Intake: Intake, IV Titration 240.167 Amount Heparin Sod,Pork in 0.45% 240.167 NaCl 25,000 unit In 0.45 % NaCl 1 250ml.bag @ 11. 023 UNITS/KG/HR 10 mls/hr IV .Q24H [facility] Rx#: [id number] Oral 118 240 Output: Urine 400 300 Other: Voiding Method Toilet Urinal # Voids 1 1 # Bowel Movements 1 - Labs CBC & Chem 7: 01/12/23 07:58 01/12/23 07:58 Labs: Abnormal Lab Results - Last 24 Hours (Table) 01/11/23 01/11/23 01/12/23 Range/Units 10:50 14:30 07:58 APTT 59.4 H (22.0-30.0) sec Sodium 134 L (137-145) mmol/L BUN 37 H (9-20) mg/dL Glucose 144 H (74-99) mg/dL Troponin I 0.169 H* (0.000-0.034) ng/mL
[2023-01-13 06:07] LABS: Basophils % (A) 0 %; Eosinophils # (A) 0.5 k/uL (0-0.7); Eosinophils % (A) 7 %; HCT 36.8 % (39.0-53.0); HGB 12.4 gm/dL (13.0-17.5); Lymphocytes # (A) 1.5 k/uL (1.0-4.8); Lymphocytes % (A) 19 %; MCH 30.4 pg (25.0-35.0); MCHC 33.6 g/dL (31.0-37.0); MCV 90.5 fL (80.0-100.0); Monocytes # (A) 0.4 k/uL (0-1.0); Monocytes % (A) 5 %; Neutrophils % (A) 67 %; Platelet Count 161 k/uL (150-450); RBC 4.07 m/uL (4.30-5.90); RDW 13.7 % (11.5-15.5); WBC 7.5 k/uL (3.8-10.6)
[2023-01-13 06:16] LABS: Albumin 3.1 g/dL (3.5-5.0); Calcium 8.2 mg/dL (8.4-10.2); Total Bilirubin 1.4 mg/dL (0.2-1.3)
[2023-01-13 06:23] LABS: Magnesium 1.9 mg/dL (1.6-2.3); Potassium 3.4 mmol/L (3.5-5.1)
[2023-01-13] MEDS: SODIUM CHLORIDE 0.9% 1,000 ML IV SCH (08:17)
[2023-01-13] MEDS: HEPARIN SOD,PORK IN 0.45% NACL 25,000 UNIT in 0.45% NACL 1 250ML.BAG IV SCH (08:22)
[2023-01-13] MEDS: METOPROLOL TARTRATE 25 MG TAB PO SCH (08:22)
[2023-01-13] MEDS: ASPIRIN 81 MG PO SCH (08:22)
[2023-01-13] MEDS ORDERED: Potassium Replacement Protocol 1 EACH MISC MISCELLANE PRN (10:37)
[2023-01-13] MEDS ORDERED: POTASSIUM CHLORIDE ER 20 MEQ TAB.ER PO ONE (11:00)
--- NOTE | 2023-01-13 12:59 | P.PN ---
Subjective Progress Note Date: 01/13/23 Patient is a pleasant pleasant 87-year-old male with congestive heart failure EF of around 15-20%, nonischemic cardiomyopathy and paroxysmal atrial fibrillation, came in after a syncopal episode. . Orthostatic vitals are positive. Patient heart rate is controlled at this time. Patient has minimally elevated troponins of around 0.15 and 0.16 respectively. Previous echo also showed moderate tricuspid regurgitation patient had cardiac catheterization in October 2019 which showed normal coronaries. Chest x-ray did not show any pulmonary edema patient the creatinine is 1.4 baseline appears to be around 1.1. 01/12. Patient seen and examined. Patient sitting upright in the bed, states no further episodes of lightheadedness or dizziness. Denies any feeling of passing out. Vital signs stable 01/13. Patient seen and examined. WBC 7.5, hemoglobin 12.4, sodium 139, potassium 3.4, BUN 36, creatinine 1.19. Sitting upright in the chair. Denies lightheadedness or dizziness. REVIEW OF SYSTEMS: CONSTITUTIONAL: No fever, no malaise,. CARDIOVASCULAR: No chest pain, no palpitations, no syncope. PULMONARY: No shortness of breath, no cough, GASTROINTESTINAL: No diarrhea, no nausea, no vomiting, no abdominal pain. NEUROLOGICAL: No headaches, no weakness, PHYSICAL EXAMINATION: GENERAL: The patient is alert and oriented x3, not in any acute distress. Well developed, well nourished. HEENT: Pupils are round and equally reacting to light. EOMI. No scleral icterus. No conjunctival pallor. Normocephalic, atraumatic. No pharyngeal erythema. No thyromegaly. CARDIOVASCULAR: S1 and S2 present. No murmurs, rubs, or gallops. PULMONARY: Chest is clear to auscultation, no wheezing or crackles. ABDOMEN: Soft, nontender, nondistended, normoactive bowel sounds. No palpable organomegaly. MUSCULOSKELETAL: No joint swelling or deformity. EXTREMITIES: No cyanosis, clubbing, or pedal edema. NEUROLOGICAL: Gross neurological examination did not reveal any focal deficits. SKIN: No rashes. Assessment and plan -Syncope -Congestive heart failure chronic systolic dysfunction, nonischemic myopathy of around 15-20% -Hypokalemia -elevated troponin -Proximal A. fib -Hyperlipidemia hypertension: Patient is presently hypotensive, FANTA inhibitor and diuretics are being held -Leukocytosis secondary to syncope is, reactive. Plan Monitor vital signs Monitor CBC Monitor CMP Continue telemetry monitoring Trend troponins Potassium replacement ordered Continue pharmacy dose heparin, hold Eliquis 2-D echo showed severely impaired systolic function with EF of 30- 35%, moderate mitral and mild aortic and tricuspid regurg Hold Lasix, losartan, and metolazone secondary to soft blood pressures Follow-up on cardiology recommendations Objective - Vital Signs Vital signs: Vital Signs Temp 97.5 F L 01/13/23 08:00 Pulse 71 01/13/23 08:00 Resp 18 01/13/23 08:00 BP 107/67 01/13/23 08:00 Pulse Ox 99 01/13/23 08:00 FiO2 Intake & Output 01/12/23 01/13/23 01/13/23 18:59 06:59 18:59 Intake Total 1161.066 152.434 360 Output Total 300 300 0 Balance 861.066 -147.566 360 Intake: Intake, IV Titration 323.066 152.434 Amount Heparin Sod,Pork in 0.45% 323.066 152.434 NaCl 25,000 unit In 0.45 % NaCl 1 250ml.bag @ 11. 023 UNITS/KG/HR 10 mls/hr IV .Q24H [facility] Rx#: [id number] Oral 838 360 Output: Gastric Drainage 0 Urine 300 300 0 Stool 0 Urine/Stool Mix 0 Emesis 0 Oral Regurgitation 0 Other 0 Other: Voiding Method Toilet Toilet Urinal Urinal # Voids 2 0 # Bowel Movements 0 - Labs CBC & Chem 7: 01/13/23 05:33 01/13/23 05:33 Labs: Abnormal Lab Results - Last 24 Hours (Table) 01/12/23 01/12/23 01/13/23 Range/Units 15:06 21:19 05:33 RBC (4.30-5.90) m/uL Hgb (13.0-17.5) gm/dL Hct (39.0-53.0) % APTT 95.0 H 70.7 H (22.0-30.0) sec Sodium 131 L (137-145) mmol/L Potassium 3.4 L (3.5-5.1) mmol/L Chloride 97 L (98-107) mmol/L BUN 36 H (9-20) mg/dL Calcium 8.2 L (8.4-10.2) mg/dL Total Bilirubin 1.4 H (0.2-1.3) mg/dL Total Protein 6.0 L (6.3-8.2) g/dL Albumin 3.1 L (3.5-5.0) g/dL 01/13/23 Range/Units 05:33 RBC 4.07 L (4.30-5.90) m/uL Hgb 12.4 L (13.0-17.5) gm/dL Hct 36.8 L (39.0-53.0) % APTT (22.0-30.0) sec Sodium (137-145) mmol/L Potassium (3.5-5.1) mmol/L Chloride (98-107) mmol/L BUN (9-20) mg/dL Calcium (8.4-10.2) mg/dL Total Bilirubin (0.2-1.3) mg/dL Total Protein (6.3-8.2) g/dL Albumin (3.5-5.0) g/dL
--- NOTE | 2023-01-13 13:06 | P.PN ---
Subjective Progress Note Date: 01/13/23 This is a 87-year-old male with a past medical history significant for hypertension, hyperlipidemia, and paroxysmal atrial fibrillation. Patient follows in the office with Dr. Willis. We have been asked to see the patient in consultation for syncope. Patient examined at the bedside. Patient states yesterday he was out to dinner. He was standing in line at the buffet to get some food when he had a syncopal episode. Apparently there was a nurse that was there as well having dinner and helped the patient. Apparently, the nurse that witnessed this did not feel a pulse and started CPR. EMS was called. The patient was brought to the ER for further evaluation. The patient was discharged home per the ER physician. The patient states that he return home and was trying to get out of his car and had an additional syncopal episode. He then went inside to use the bathroom and had a third syncopal episode. The patient denies having any chest pain or pressure. He denies any shortness of br eath. He denies any dizziness or lightheadedness. He denies any warning signs prior to his syncopal episodes. The patient states he has not been drinking much water the past 2 days as he normally does. Patient's blood pressures are found to be on the lower side with a systolic around 100. Telemetry reveals atrial fibrillation with controlled ventricular rates. It is noted that the patient was seen in the cardiology office in November 2022 and was noted to be in sinus mechanism at that time. * EKG reveals atrial fibrillation with RVR * Chest xray negative for acute process. Persistent cardiomegaly. Moderate sized hiatal hernia. * Laboratory data: W BC 11.7. Hemoglobin 13.6. Platelet count 220. Sodium 133. Potassium 3.4. BUN 39. Creatinine 1.24. Lactic acid 3.6. Repeat 2.5. Troponin 0.151. * Current home cardiac medications include Eliquis 2.5mg BID, losartan 25 mg with dinner, Lasix 40 mg in the morning and 20 mg in the afternoon, metoprolol tartrate 25 mg daily, metolazone 2.5mg daily * Most recent echocardiogram obtained in the office in February 2022 revealed ejection fraction 15-20%, mild aortic regurgitation, [id number] mitral regurgitation, moderate tricuspid regurgitation * Cardiac catheterization history: October 2021 revealing normal coronary arteries 01/13/2023 Echocardiogram completed 01/12/2023 showed an ejection fraction of 30-35%. Patient has had no further syncopal episodes since admission. Currently in sinus mechanism. There's been no significant sustained ventricular tachycardia noted on telemetry just brief nonsustained ventricular tachycardia. Objective - Vital Signs Vital signs: Vital Signs Temp 97.7 F 01/13/23 12:00 Pulse 70 01/13/23 12:00 Resp 16 01/13/23 12:00 BP 100/65 01/13/23 12:00 Pulse Ox 100 01/13/23 12:00 FiO2 Intake & Output 01/12/23 01/13/23 01/13/23 18:59 06:59 18:59 Intake Total 1161.066 152.434 360 Output Total 300 300 0 Balance 861.066 -147.566 360 Intake: Intake, IV Titration 323.066 152.434 Amount Heparin Sod,Pork in 0.45% 323.066 152.434 NaCl 25,000 unit In 0.45 % NaCl 1 250ml.bag @ 11. 023 UNITS/KG/HR 10 mls/hr IV .Q24H [facility] Rx#: [id number] Oral 838 360 Output: Gastric Drainage 0 Urine 300 300 0 Stool 0 Urine/Stool Mix 0 Emesis 0 Oral Regurgitation 0 Other 0 Other: Voiding Method Toilet Toilet Urinal Urinal # Voids 2 0 # Bowel Movements 0 - Exam GENERAL: Well-developed in no acute distress. HEENT: Head is normocephalic. Pupils are equal, round. Sclerae anicteric. Mucous membranes of the mouth are moist. Neck supple. No JVD or thyromegaly LUNGS: Respirations even and unlabored. Lungs essentially clear to auscultation bilaterally. HEART: Regular rate and rhythm. S1 and S2 heard. ABDOMEN: Soft. Nondistended. Nontender. EXTREMITIES: Normal range of motion. No clubbing or cyanosis. Peripheral pulses intact. No lower extremity edema NEUROLOGIC: Awake and alert. Oriented x 3. - Labs CBC & Chem 7: 01/13/23 05:33 01/13/23 05:33 Labs: Abnormal Lab Results - Last 24 Hours (Table) 01/12/23 01/12/23 01/13/23 Range/Units 15:06 21:19 05:33 RBC (4.30-5.90) m/uL Hgb (13.0-17.5) gm/dL Hct (39.0-53.0) % APTT 95.0 H 70.7 H (22.0-30.0) sec Sodium 131 L (137-145) mmol/L Potassium 3.4 L (3.5-5.1) mmol/L Chloride 97 L (98-107) mmol/L BUN 36 H (9-20) mg/dL Calcium 8.2 L (8.4-10.2) mg/dL Total Bilirubin 1.4 H (0.2-1.3) mg/dL Total Protein 6.0 L (6.3-8.2) g/dL Albumin 3.1 L (3.5-5.0) g/dL 01/13/23 Range/Units 05:33 RBC 4.07 L (4.30-5.90) m/uL Hgb 12.4 L (13.0-17.5) gm/dL Hct 36.8 L (39.0-53.0) % APTT (22.0-30.0) sec Sodium (137-145) mmol/L Potassium (3.5-5.1) mmol/L Chloride (98-107) mmol/L BUN (9-20) mg/dL Calcium (8.4-10.2) mg/dL Total Bilirubin (0.2-1.3) mg/dL Total Protein (6.3-8.2) g/dL Albumin (3.5-5.0) g/dL Assessment and Plan Assessment: Recurrent syncope, 3 episodes in 24 hours, one requiring CPR by a nurse at the restaurant Suspected orthostatic hypotension Soft blood pressures Elevated lactic acid Abnormal troponins, type II ID Paroxysmal atrial fibrillation with controlled ventricular rate Nonischemic cardiomyopathy, ejection fraction 15-20%, now 30-35% Normal coronary arteries, per cardiac catheterization in 2021 Valvular heart disease Hypertension Hyperlipidemia Plan: From cardiology's perspective continue IV heparin. Continue to hold oral anticoagulation. Continue beta julian. Continue to monitor on telemetry. Patient to be evaluated tomorrow by Dr. Jiménez for further recommendations regarding possible ICD/pacemaker implantation. [employer] AIDE note has been reviewed, I agree with a documented findings and plan of care. Patient was seen and examined.
[2023-01-13] MEDS ORDERED: POTASSIUM CHLORIDE ER 20 MEQ TAB.ER PO SCH (17:30)
[2023-01-14] MEDS: HEPARIN SOD,PORK IN 0.45% NACL 25,000 UNIT in 0.45% NACL 1 250ML.BAG IV SCH ×2 (01:53→21:40)
[2023-01-14] MEDS: SODIUM CHLORIDE 0.9% 1,000 ML IV SCH (06:09)
[2023-01-14 07:47] LABS: Basophils % (A) 0 %; Eosinophils # (A) 0.3 k/uL (0-0.7); Eosinophils % (A) 2 %; HCT 40.6 % (39.0-53.0); HGB 13.3 gm/dL (13.0-17.5); Lymphocytes # (A) 1.1 k/uL (1.0-4.8); Lymphocytes % (A) 7 %; MCHC 32.8 g/dL (31.0-37.0); MCV 91.5 fL (80.0-100.0); Monocytes # (A) 0.3 k/uL (0-1.0); Monocytes % (A) 2 %; Neutrophils # (A) 13.4 k/uL (1.3-7.7); Neutrophils % (A) 88 %; Platelet Count 203 k/uL (150-450); RBC 4.44 m/uL (4.30-5.90); RDW 13.6 % (11.5-15.5); WBC 15.3 k/uL (3.8-10.6)
[2023-01-14 08:40] LABS: Albumin 3.7 g/dL (3.5-5.0); Calcium 8.6 mg/dL (8.4-10.2); Potassium 3.6 mmol/L (3.5-5.1); Total Bilirubin 1.7 mg/dL (0.2-1.3); Total Protein 6.8 g/dL (6.3-8.2)
[2023-01-14] MEDS: ASPIRIN 81 MG PO SCH (08:40)
[2023-01-14] MEDS: METOPROLOL TARTRATE 25 MG TAB PO SCH (08:40)
[2023-01-14] MEDS ORDERED: ATROPINE SULFATE 0.1 MG/ML 10ML SYRINGE ONE (10:43)
[2023-01-14] MEDS ORDERED: SODIUM BICARB 8.4% 50 ML SYR (1 MEQ/ML) ONE (10:43)
[2023-01-14] MEDS ORDERED: EPINEPHrine 10 ML SYRINGE (0.1 MG/ML) ONE (10:43)
[2023-01-14 10:58] LABS: Glucose,Whole Blood 126 mg/dL (70-110)
[2023-01-14 11:12] LABS: Glucose,Whole Blood 132 mg/dL (70-110)
[2023-01-14] MEDS ORDERED: IPRATROPIUM-ALBUTEROL 3 ML NEB INHALATION PRN (11:15)
[2023-01-14] MEDS ORDERED: DEXTROSE 50% SYRINGE 50 ML IVP PRN ×2 (11:20)
[2023-01-14] MEDS: IPRATROPIUM-ALBUTEROL 3 ML NEB INHALATION SCH ×3 (11:44→20:05)
[2023-01-14] MEDS ORDERED: ADENOSINE 3 MG/ML 2 ML VIAL IVP ONE (11:44)
--- NOTE | 2023-01-14 11:46 | XR ---
EXAMINATION TYPE: XR chest 1V portable DATE OF EXAM: 01/14/2023 COMPARISON: 01/11/2023 HISTORY: Shortness of breath TECHNIQUE: Single frontal view of the chest is obtained. FINDINGS: ET tube is within the right mainstem bronchus. NG tube is seen only to level of GE junctio n. The heart is enlarged and there is hypertrophic and degenerative change of the spine. No sizable p leural effusion or pneumothorax. Bilateral subsegmental areas of consolidation. IMPRESSION: 1. The ET tube within the proximal right mainstem bronchus. Report was immediately called the patient 's nurse 11:42 AM 01/14/2023. 2. Cardiomegaly with basilar atelectasis or infiltrate. Correlate clinically.
[2023-01-14 11:51] LABS: ABG Base Excess -11.5 mmol/L; ABG HCO3 17 mmol/L (21-25); ABG PCO2 43 mmHg (35-45); ABG PO2 356 mmHg (83-108); ABG TCO2 18 mmol/L (19-24); Allen Test Performed? Yes
[2023-01-14 11:59] LABS: Basophils % (A) 0 %; Eosinophils # (A) 0.2 k/uL (0-0.7); Eosinophils % (A) 1 %; HGB 12.5 gm/dL (13.0-17.5); Lymphocytes # (A) 1.5 k/uL (1.0-4.8); Lymphocytes % (A) 9 %; MCH 30.3 pg (25.0-35.0); MCV 94.9 fL (80.0-100.0); Mean Platelet Volume 8.3; Monocytes # (A) 0.4 k/uL (0-1.0); Monocytes % (A) 2 %; Neutrophils # (A) 14.8 k/uL (1.3-7.7); Neutrophils % (A) 87 %; Platelet Count 208 k/uL (150-450); RBC 4.12 m/uL (4.30-5.90); RDW 13.6 % (11.5-15.5)
[2023-01-14 12:12] LABS: Calcium 7.8 mg/dL (8.4-10.2); Phosphorus 6.9 mg/dL (2.5-4.5); Potassium 4.1 mmol/L (3.5-5.1)
[2023-01-14] MEDS ORDERED: ceFAZolin 1 GM in SODIUM CHLORIDE 0.9% 100 ML IVPB ONE (12:21)
[2023-01-14] MEDS ORDERED: LIDOCAINE 1% INJ 10MG/ML (20 ML MDV) ONE (12:51)
--- NOTE | 2023-01-14 12:55 | P.CNPUL ---
History of Present Illness Consult date: 01/14/23 Chief complaint: Cardiac arrest History of present illness: 87-year-old male patient, who developed an acute cardiac arrest while getting ready to go to the EP lab to undergo a pacemaker insertion. The patient was supposed underwent a pacemaker insertion today. Noted the patient has been having several episodes of syncope. First episode he came into the emergency and he was discharged home. The first episode, he was hospitalized and this morning this was the third episode. As far the second episode, the patient was standing and the buffet and he developed a sudden onset syncopal episode. Bystanders performed CPR on the patient. The patient was brought into the hospital. The patient was discharged home by the emergency physician. The patient then returned for additional episodes of syncope. He denied having any chest pain. He denies having any shortness of breath. He denied having any dizziness did no focal neurological deficit that he was fully recovered from those episodes. The patient had some abnormal EKG showing atrial fibrillation with RVR. He is known to have cardiomyopathy. Based on the recent echocardiogr am that was done in February 2022, his EF was down to 50s 20% and this is a new finding compared to the earlier echo cardiac and the door essentially within normal limits. Patient also had a normal cardiac catheterization October 2021. This morning, the patient had another episode of syncope. He was found in the bathroom unresponsive. He had no pulse. I believe he was in a PEA condition. CPR was applied and the patient was intubated and brought to the intensive care unit. Cardiology is been involved. I believe EKG showing A. fib RVR. I saw the patient in the ICU. The patient was still in atrial fibrillation with a controlled rate. The patient was running a soft blood pressure with a systolic blood pressure in the 90s. He was unresponsive. He was maintained on propofol at 30 microvascular kilogram per minute to maintain secondary mechanical ventilator. He was on assist-control mode of mechanical ventilation at the rate of 14, tidal volume of 450, FiO2 of 100% with a PEEP of 5. The blood gases showed a pH of 7.2 with a pCO2 of 43 and pO2 of 356. FiO2 was dropped onto 50%. I also think is a rate up to 20 and changed tidal volume to 500. Chest x-ray showed cardiomegaly, ET tube was repositioned at the patient's ET tube was quite far down the trachea. No other acute abnormalities noted. The RBC count from this morning is at 17 with a hemoglobin of 12.5. BUN is at 28 with a creatinine of 1.1. Sodium is at 130, potassium is at 4.1, serum bicarb is at 15. The yadira ent is going to be taken for a temporary pacemaker insertion. He is currently on IV heparin. Family is at the bedside. Review of Systems ROS unobtainable: due to endotracheal tube Past Medical History Past Medical History: Atrial Fibrillation, Atrial Flutter, Heart Failure, Hyperlipidemia, Hypertension Additional Past Medical History / Comment(s): Pt states, "I have not been diagnosed with heart failure." History of Any Multi-Drug Resistant Organisms: None Reported Past Surgical History: Heart Catheterization Additional Past Surgical History / Comment(s): cyst on tailbone removed at age 20, cardioversion 12/2018, COLONOSCOPY, BILAT CATARACTS REMOVED WITH LENS IMPLANTS Past Anesthesia/Blood Transfusion Reactions: No Reported Reaction Past Psychological History: No Psychological Hx Reported Smoking Status: Former smoker Past Alcohol Use History: None Reported Past Drug Use History: None Reported - Past Family History Mother Family Medical History: No Reported History Father Family Medical History: No Reported History Brother(s) Family Medical History: Cancer, Myocardial Infarction ([place]), Prostate Disorder Additional Family Medical History / Comment(s): prostate cancer Sister(s) Family Medical History: Cancer Son(s) Family Medical History: No Reported History Medications and Allergies Home Medications Medication Instructions Recorded Confirmed Type Apixaban [Eliquis] 2.5 mg PO BID-W/MEALS 09/11/19 01/11/23 History Losartan Potassium [Cozaar] 25 mg PO W/SUPPER 10/02/21 01/11/23 History Nitroglycerin Sl Tabs [Nitrostat] 0.4 mg SUBLINGUAL Q5M PRN 02/14/22 01/11/23 History Metoprolol Tartrate [Lopressor] 25 mg PO DAILY #30 tab 02/16/22 01/11/23 Rx Furosemide [Lasix] 20 mg PO W/SUPPER 01/11/23 01/11/23 History Furosemide [Lasix] 20 mg PO W/SUPPER 01/11/23 01/11/23 History Furosemide [Lasix] 40 mg PO W/BRKFST 01/11/23 01/11/23 History Potassium Chloride [Klor-Con M20] 20 meq PO W/SUPPER 01/11/23 01/11/23 History Potassium Chloride [Klor-Con M20] 40 meq PO W/BRKFST 01/11/23 01/11/23 History metOLazone 2.5 mg PO AC-BRKFST 01/11/23 01/11/23 History Allergies Allergy/AdvReac Type Severity Reaction Status Date / Time isosorbide [From Imdur] Allergy Unknown Verified 01/11/23 06:14 latex Allergy Rash/Hives Verified 01/11/23 06:14 Physical Exam Vitals: Vital Signs Temp Pulse Resp BP BP Pulse Ox FiO2 01/14/23 12:15 50 01/14/23 11:56 60 01/14/23 11:19 100 01/14/23 11:16 100 01/14/23 08:35 97.7 F 70 20 117/72 95 01/14/23 04:00 97.5 F L 67 18 96/62 99 01/14/23 01:31 68 18 01/13/23 23:17 97.6 F 68 18 119/82 99 01/13/23 20:00 97.4 F L 68 18 111/75 99 01/13/23 16:00 97.9 F 66 16 113/74 98 Intake and Output 01/13/23 01/14/23 01/14/23 22:59 06:59 14:59 Intake Total 280 191.054 468.888 Balance 280 191.054 468.888 Intake: Intake, IV Titration 160 191.054 108.888 Amount Heparin Sod,Pork in 0.45% 191.054 108.888 NaCl 25,000 unit In 0.45 % NaCl 1 250ml.bag @ 11. 023 UNITS/KG/HR 10 mls/hr IV .Q24H [facility] Rx#: [id number] Sodium Chloride 0.9% 1, 160 000 ml @ 20 mls/hr IV . Q24H [facility] Rx#:[id number] Oral 120 360 Other: Voiding Method Toilet Toilet Toilet Urinal Urinal Urinal # Voids 1 1 # Bowel Movements 1 Patient is currently intubated on a mechanical ventilator, sedated with propofol. He is unresponsive. Head exam was generally normal. There was no scleral icterus or corneal arcus. Mucous membranes were moist. Neck was supple and without jugular venous distension, thyromegaly, or carotid bruits. Carotids were easily palpable bilaterally. There was no adenopathy. Lungs were clear to auscultation and percussion, and with normal diaphragmatic excursion. No wheezes or rales were noted. Cardiac exam revealed the PMI to be normally situated and sized. The rhythm was irregular and no extrasystoles were noted during several minutes of auscultation. The first and second heart sounds irregular consistent with atrial fibrillation physiologic splitting of the second heart sound was noted. There were no murmurs, rubs, clicks, or gallops. Abdominal exam revealed normal bowel sounds. The abdomen was soft, non-tender, and without masses, organomegaly, or appreciable enlargement of the abdominal aorta. Extremities are cold, diminished pulses in the right lower extremity, left foot is colder than the right. Pulses are very weak obtained by Doppler. No cyanosis or clubbing. Examination of the skin revealed no evidence of significant rashes, suspicious appearing nevi or other concerning lesions. Neurologic the pupils are equal and reactive to light. Positive cough and a gag. Unresponsive at this point in time. Note that the patient's postoperative status and the patient is currently on propofol. One episode of a myoclonic jerk was noted. Reflexes are diminished at the present and symmetrical. No Babinski. No clonus. Results - Laboratory Findings CBC and BMP: 01/14/23 11:38 01/14/23 11:30 ABG ABG pH 7.20 (7.35-7.45) L 01/14/23 11:49 ABG pCO2 43 mmHg (35-45) 01/14/23 11:49 ABG pO2 356 mmHg (83-108) H 01/14/23 11:49 ABG O2 Saturation 100.0 % (94-97) H 01/14/23 11:49 PT/INR, D-dimer PT 10.8 sec (9.0-12.0) 01/12/23 07:58 INR 1.0 (<1.2) 01/12/23 07:58 Abnormal lab findings: Abnormal Labs 01/11/23 01/11/23 01/11/23 04:44 04:44 04:44 WBC 12.2 H RBC Hgb Hct Neutrophils # 9.9 H Lymphocytes # APTT ABG pH ABG pO2 ABG HCO3 ABG Total CO2 ABG O2 Saturation Sodium 133 L Potassium 3.4 L Chloride 92 L Carbon Dioxide BUN 39 H Glucose 155 H POC Glucose (mg/dL) Plasma Lactic Acid Dorian 3.6 H* Calcium Phosphorus Total Bilirubin Troponin I Total Protein Albumin 01/11/23 01/11/23 01/11/23 04:44 08:06 08:22 WBC RBC Hgb Hct Neutrophils # Lymphocytes # APTT ABG pH ABG pO2 ABG HCO3 ABG Total CO2 ABG O2 Saturation Sodium Potassium Chloride Carbon Dioxide BUN Glucose POC Glucose (mg/dL) Plasma Lactic Acid Dorian 2.5 H* Calcium Phosphorus Total Bilirubin Troponin I 0.151 H* 0.150 H* Total Protein Albumin 01/11/23 01/11/23 01/11/23 08:22 10:50 14:30 WBC 11.7 H RBC Hgb Hct Neutrophils # 10.5 H Lymphocytes # 0.7 L APTT 59.4 H ABG pH ABG pO2 ABG HCO3 ABG Total CO2 ABG O2 Saturation Sodium Potassium Chloride Carbon Dioxide BUN Glucose POC Glucose (mg/dL) Plasma Lactic Acid Dorian Calcium Phosphorus Total Bilirubin Troponin I 0.169 H* Total Protein Albumin 01/12/23 01/12/23 01/12/23 07:58 15:06 21:19 WBC RBC Hgb Hct Neutrophils # Lymphocytes # APTT 95.0 H 70.7 H ABG pH ABG pO2 ABG HCO3 ABG Total CO2 ABG O2 Saturation Sodium 134 L Potassium Chloride Carbon Dioxide BUN 37 H Glucose 144 H POC Glucose (mg/dL) Plasma Lactic Acid Dorian Calcium Phosphorus Total Bilirubin Troponin I Total Protein Albumin 01/13/23 01/13/23 01/13/23 05:33 05:33 21:09 WBC RBC 4.07 L Hgb 12.4 L Hct 36.8 L Neutrophils # Lymphocytes # APTT 54.2 H ABG pH ABG pO2 ABG HCO3 ABG Total CO2 ABG O2 Saturation Sodium 131 L Potassium 3.4 L Chloride 97 L Carbon Dioxide BUN 36 H Glucose POC Glucose (mg/dL) Plasma Lactic Acid Dorian Calcium 8.2 L Phosphorus Total Bilirubin 1.4 H Troponin I Total Protein 6.0 L Albumin 3.1 L 01/14/23 01/14/23 01/14/23 07:26 07:26 07:26 WBC 15.3 H RBC Hgb Hct Neutrophils # 13.4 H Lymphocytes # APTT 53.4 H ABG pH ABG pO2 ABG HCO3 ABG Total CO2 ABG O2 Saturation Sodium 131 L Potassium Chloride 96 L Carbon Dioxide BUN 29 H Glucose 130 H POC Glucose (mg/dL) Plasma Lactic Acid Dorian Calcium Phosphorus Total Bilirubin 1.7 H Troponin I Total Protein Albumin 01/14/23 01/14/23 01/14/23 10:57 11:11 11:30 WBC RBC Hgb Hct Neutrophils # Lymphocytes # APTT ABG pH ABG pO2 ABG HCO3 ABG Total CO2 ABG O2 Saturation Sodium 130 L Potassium Chloride 96 L Carbon Dioxide 15 L BUN 28 H Glucose 252 H POC Glucose (mg/dL) 126 H 132 H Plasma Lactic Acid Dorian Calcium 7.8 L Phosphorus 6.9 H Total Bilirubin Troponin I Total Protein Albumin 01/14/23 01/14/23 11:38 11:49 WBC 17.0 H RBC 4.12 L Hgb 12.5 L Hct Neutrophils # 14.8 H Lymphocytes # APTT ABG pH 7.20 L ABG pO2 356 H ABG HCO3 17 L ABG Total CO2 18 L ABG O2 Saturation 100.0 H Sodium Potassium Chloride Carbon Dioxide BUN Glucose POC Glucose (mg/dL) Plasma Lactic Acid Dorian Calcium Phosphorus Total Bilirubin Troponin I Total Protein Albumin - Diagnostic Findings Chest x-ray: image reviewed Assessment and Plan Plan: PEA cardiac arrest, under investigation. Consider possibility of bradycardia/bradycardia arrhythmia versus A. fib RVR. Ventricular arrhythmias were not noted. Down time is estimated to be around 10 minutes. Consider possibility of hypoxic encephalopathy. Patient is currently sedated on propofol. Acute hypoxic respiratory failure post cardiac arrest, currently intubated on mechanical ventilator Nonischemic cardiomyopathy with an ejection fraction of 15-20%. Repeat echocardiogram during this current admission showed markedly impaired LV fu nction with an EF of around 30-35% and there was moderate MR, mild aortic stenosis. RV was also exhibited dilated within normal pulmonary artery pressure. Paroxysmal A. fib, current rhythm is still A. fib with a controlled rate and the patient is on IV heparin abnormal troponins, type to myocardial ischemia Recurrent syncope, at least 3 episodes over the past 24 hours with subsequent cardiac arrest Normal coronaries based on the cardiac catheterization from 2021 Hypertension Hyperlipidemia Plan Continue ventilator support He is patient sedated for now with propofol Cardiology consultation for possible TVP Norepinephrine infusion if needed depending on the blood pressure control Continue IV heparin Consult neurology We'll need EEG over the next 24 hours CAT scan of the brain once the patient's condition is more stable History ventilator changes were done We'll continue to follow. Condition is critical and the patient will be kept in ICU for now. Time with Patient: Greater than 30
[2023-01-14] MEDS ORDERED: LIDOCAINE 1% INJ 10MG/ML (30 ML VIAL-PF) SQ ONE (13:38)
--- NOTE | 2023-01-14 13:52 | P.PN ---
Subjective Progress Note Date: 01/14/23 This is a 87-year-old male with a past medical history significant for hypertension, hyperlipidemia, and paroxysmal atrial fibrillation. Patient follows in the office with Dr. Willis. We have been asked to see the patient in consultation for syncope. Patient examined at the bedside. Patient states yesterday he was out to dinner. He was standing in line at the buffet to get some food when he had a syncopal episode. Apparently there was a nurse that was there as well having dinner and helped the patient. Apparently, the nurse that witnessed this did not feel a pulse and started CPR. EMS was called. The patient was brought to the ER for further evaluation. The patient was discharged home per the ER physician. The patient states that he return home and was trying to get out of his car and had an additional syncopal episode. He then went inside to use the bathroom and had a third syncopal episode. The patient denies having any chest pain or pressure. He denies any shortness of b reath. He denies any dizziness or lightheadedness. He denies any warning signs prior to his syncopal episodes. The patient states he has not been drinking much water the past 2 days as he normally does. Patient's blood pressures are found to be on the lower side with a systolic around 100. Telemetry reveals atrial fibrillation with controlled ventricular rates. It is noted that the patient was seen in the cardiology office in November 2022 and was noted to be in sinus mechanism at that time. * EKG reveals atrial fibrillation with RVR * Chest xray negative for acute process. Persistent cardiomegaly. Moderate sized hiatal hernia. * Laboratory data: W BC 11.7. Hemoglobin 13.6. Platelet count 220. Sodium 133. Potassium 3.4. BUN 39. Creatinine 1.24. Lactic acid 3.6. Repeat 2.5. Troponin 0.151. * Current home cardiac medications include Eliquis 2.5mg BID, losartan 25 mg with dinner, Lasix 40 mg in the morning and 20 mg in the afternoon, metoprolol tartrate 25 mg daily, metolazone 2.5mg daily * Most recent echocardiogram obtained in the office in February 2022 revealed ejection fraction 15-20%, mild aortic regurgitation, [id number] mitral regurgitation, moderate tricuspid regurgitation * Cardiac catheterization history: October 2021 revealing normal coronary arteries 01/12/2023 Patient examined this morning at the bedside. Patient denies chest pain or p ressure. He denies shortness of breath. Blood pressures remain on the lower side with a SBP in the 90s. Telemetry reveals atrial fibrillation with a heart rate around 100. Echocardiogram completed revealing ejection fraction 30-35%. 01/13/2023 Echocardiogram completed 01/12/2023 showed an ejection fraction of 30-35%. Patient has had no further syncopal episodes since admission. Currently in si nus mechanism. There's been no significant sustained ventricular tachycardia noted on telemetry just brief nonsustained ventricular tachycardia. 01/14 Patient's history and recent syncopal episodes was thoroughly discussed with Dr. Jiménez. Patient, his and son as well as a son from [place] was available on the phone. All information was reviewed and recommendations were to proceed with AICD however underlying cause of syncopal episodes thought to be related to blood pressure dropping. Patient was agreeable to move forward with AICD and was to be scheduled today or tomorrow. However, patient was up in the bathroom had another syncopal episode, was found to be pulseless and CPR was initiated. Pulse was obtained and patient transferred to the intensive care unit, consult with pulmonary medicine added. Please see code documentation. PHYSICAL EXAM: VITAL SIGNS: Reviewed. GENERAL: Well-developed in no acute distress. HEENT: Head is normocephalic. Pupils are equal, round. Sclerae anicteric. Mucous membranes of the mouth are moist. Neck supple. No JVD or thyromegaly LUNGS: Respirations even and unlabored. Lungs essentially clear to auscultation bilaterally. HEART: Irregular rate and rhythm. S1 and S2 heard. ABDOMEN: Soft. Nondistended. Nontender. EXTREMITIES: Normal range of motion. No clubbing or cyanosis. Peripheral pulses intact. No lower extremity edema NEUROLOGIC: Awake and alert. Oriented x 3. ASSESSMENT: Recurrent syncope, 3 episodes in 24 hours, one requiring CPR by a nurse at the restaurant Cardiopulmonary arrest in hospital requiring intubation Suspected orthostatic hypotension Soft blood pressures Elevated lactic acid Abnormal troponins, type II [place] Paroxysmal atrial fibrillation with controlled ventricular rate Nonischemic cardiomyopathy, ejection fraction 15-20%, now 30-35% Normal coronary arteries, per cardiac catheterization in 2021 Valvular heart disease Hypertension Hyperlipidemia PLAN: Transfer to ICUContinue to hold Eliquis. Continue IV heparin. Patient started on IV Abx Continue metoprolol Continue to hold Lasix, losartan, and metolazone secondary to soft blood pressures Continue telemetry monitoring Recommending ICD implantation and timing to be determined. Further recommendations pending patient course Nurse practitioner note has been reviewed by physician. Signing provider agrees with the documented findings, assessment, and plan of care. Objective - Vital Signs Vital signs: Vital Signs Temp 97.7 F 01/14/23 08:35 Pulse 70 01/14/23 08:35 Resp 20 01/14/23 08:35 BP 117/72 01/14/23 08:35 Pulse Ox 95 01/14/23 08:35 FiO2 Intake & Output 01/13/23 01/14/23 01/14/23 18:59 06:59 18:59 Intake Total 570 351.054 360 Output Total 0 Balance 570 351.054 360 Intake: Intake, IV Titration 351.054 Amount Heparin Sod,Pork in 0.45% 191.054 NaCl 25,000 unit In 0.45 % NaCl 1 250ml.bag @ 11. 023 UNITS/KG/HR 10 mls/hr IV .Q24H [facility] Rx#: [id number] Sodium Chloride 0.9% 1, 160 000 ml @ 20 mls/hr IV . Q24H [facility] Rx#:[id number] Oral 570 360 Output: Gastric Drainage 0 Urine 0 Stool 0 Urine/Stool Mix 0 Emesis 0 Oral Regurgitation 0 Other 0 Other: Voiding Method Toilet Urinal # Voids 2 1 # Bowel Movements 0 1 - Labs CBC & Chem 7: 01/14/23 11:38 01/14/23 11:30 Labs: Abnormal Lab Results - Last 24 Hours (Table) 01/13/23 01/14/23 01/14/23 Range/Units 21:09 07:26 07:26 WBC 15.3 H (3.8-10.6) k/uL Neutrophils # 13.4 H (1.3-7.7) k/uL APTT 54.2 H (22.0-30.0) sec Sodium 131 L (137-145) mmol/L Chloride 96 L (98-107) mmol/L BUN 29 H (9-20) mg/dL Glucose 130 H (74-99) mg/dL Total Bilirubin 1.7 H (0.2-1.3) mg/dL 01/14/23 Range/Units 07:26 WBC (3.8-10.6) k/uL Neutrophils # (1.3-7.7) k/uL APTT 53.4 H (22.0-30.0) sec Sodium (137-145) mmol/L Chloride (98-107) mmol/L BUN (9-20) mg/dL Glucose (74-99) mg/dL Total Bilirubin (0.2-1.3) mg/dL
[2023-01-14] MEDS: NOREPINEPHRINE 4 MG in SODIUM CHLORIDE 0.9% 250 ML IV SCH ×2 (13:54→17:40)
[2023-01-14] MEDS: INSULIN ASPART (NovoLOG) 100 UNIT/ML VIAL SQ SCH ×3 (13:56→23:40)
[2023-01-14 14:35] LABS: Glucose,Whole Blood 214 mg/dL (70-110)
--- NOTE | 2023-01-14 14:42 | P.EPPROC ---
- EP Procedure Note Electrophysiology Procedure Note: Transvenous temporary pacing procedure Indication for the procedure: Severe underlying bradycardia/intermittent AV block with bradycardia resulting in collapse and bradycardic arrest/tachybradycardia syndrome Patient was brought to the EP lab in a fasting state. Written informed consent was obtained prior to the procedure. The right groin was prepped and draped as a protocol. A 6-Emirati sheath was placed in the right femoral vein. Via this, a temporary pacing catheter was placed in the right ventricle. Thresholds were interrogated. Temporary pacing was performed through the rest of the procedure. At the end of the entire procedure, the TVP was removed. The sheath was removed and hemostasis was assured. Patient tolerated the procedure well without any acute complications. Procedure performed Transvenous temporary pacing Plan Start IV amiodarone
[2023-01-14] MEDS ORDERED: levETIRAcetam IV 500 MG/5 ML VIAL IVP STA (14:56)
[2023-01-14] MEDS ORDERED: DEXTROSE 5% IN WATER 100 ML with AMIODARONE 150 MG IV ONE (15:00)
[2023-01-14] MEDS ORDERED: LORazepam 2 MG/ML INJ IV ONE (15:30)
--- NOTE | 2023-01-14 15:37 | P.CNNES ---
History of Present Illness Consult date: 01/14/23 (a) Requesting physician: Cody Pepe Reason for Consult: cardio/pulm arrest, hypoxic concern History of Present Illness: This is an 87-year-old gentleman with history of several syncopal episode atrial fibrillation/flutter, heart failure who developed cardiopulmonary arrest. History is obtained from medical record as well as the patient's nurse. It seems that the patient has been having multiple syncopal episodes recently. One of the episodes the patient was standing and he developed sudden onset sequela episode. The bystanders perform CPR the patient was brought to the hospital the patient was discharged home by emergency physician according to the area the ICU team's note. Then he had the an additional episode syncopal episode. With these episodes there is no shortness of breath or chest pain or no focal neurological deficit and he told her recovered with these episodes. He had abnormal EKG of atrial fibrillation with RVR. Seems that this morning he had another syncopal episode where he was found down in the bathroom unresponsive. So pulse was undetectable and that was believed that the patient and patient was in PEA. Unknown exact downtime but possibly 5-10 minutes and so CPR was started for 10 minutes. Seems that the EKG showing A. fib RVR. And the patient was still in A. fib with controlled rate. Patient was intubated on event as a result was taken down to ICU. Prior to today's syncopal episode he was scheduled to undergo pacemaker insertion. Currently as a result of all these episodes he eventually went for pacemaker placement temporary irides on IV heparin. It seems that the patient had witnessed a brief myoclonic jerk of entire body and was felt his pupils were nonreactive per the notes. Per the nurse she felt he had some, I twitching. Some other workup during his hospital visit consisted of: Respiratory rate has been in the range of mostly 16-18 but most recent respiratory rate is 28. Pain is a systolic blood pressure has been in the range of 80s to 90s prior to that the Most recent sodium is 130, glucose is 252, calcium 7.8 earlier today was 8.6. M agnesium is 2.0. Most recent 2-D echo was reported as severe. Ventricular systolic function with global hypokinesis. Moderate mitral with mild aortic and tricuspid regurgitation. Ejection fraction of 30-35%. Review of Systems Review of system is limited with apparent positive and negative as per HPI. Past Medical History Past Medical History: Atrial Fibrillation, Atrial Flutter, Heart Failure, Hyperlipidemia, Hypertension Additional Past Medical History / Comment(s): Pt states, "I have not been di agnosed with heart failure." History of Any Multi-Drug Resistant Organisms: None Reported Past Surgical History: Heart Catheterization Additional Past Surgical History / Comment(s): cyst on tailbone removed at age 20, cardioversion 12/2018, COLONOSCOPY, BILAT CATARACTS REMOVED WITH LENS IMPLANTS Past Anesthesia/Blood Transfusion Reactions: No Reported Reaction Past Psychological History: No Psychological Hx Reported Smoking Status: Former smoker Past Alcohol Use History: None Reported Past Drug Use History: None Reported - Past Family History Mother Family Medical History: No Reported History Father Family Medical History: No Reported History Brother(s) Family Medical History: Cancer, Myocardial Infarction ([place]), Prostate Disorder Additional Family Medical History / Comment(s): prostate cancer Sister(s) Family Medical History: Cancer Son(s) Family Medical History: No Reported History Medications and Allergies Home Medications Medication Instructions Recorded Confirmed Type Apixaban [Eliquis] 2.5 mg PO BID-W/MEALS 09/11/19 01/11/23 History Losartan Potassium [Cozaar] 25 mg PO W/SUPPER 10/02/21 01/11/23 History Nitroglycerin Sl Tabs [Nitrostat] 0.4 mg SUBLINGUAL Q5M PRN 02/14/22 01/11/23 History Metoprolol Tartrate [Lopressor] 25 mg PO DAILY #30 tab 02/16/22 01/11/23 Rx Furosemide [Lasix] 20 mg PO W/SUPPER 01/11/23 01/11/23 History Furosemide [Lasix] 20 mg PO W/SUPPER 01/11/23 01/11/23 History Furosemide [Lasix] 40 mg PO W/BRKFST 01/11/23 01/11/23 History Potassium Chloride [Klor-Con M20] 20 meq PO W/SUPPER 01/11/23 01/11/23 History Potassium Chloride [Klor-Con M20] 40 meq PO W/BRKFST 01/11/23 01/11/23 History metOLazone 2.5 mg PO AC-BRKFST 01/11/23 01/11/23 History Allergies Allergy/AdvReac Type Severity Reaction Status Date / Time isosorbide [From Imdur] Allergy Unknown Verified 01/11/23 06:14 latex Allergy Rash/Hives Verified 01/11/23 06:14 Physical Examination - Vital Signs Vital Signs: Vital Signs Temp Pulse Pulse Resp BP BP Pulse Ox 01/14/23 12:50 94 100 01/14/23 12:45 96 100 01/14/23 12:40 96 100 01/14/23 12:35 96 100 01/14/23 12:30 95 100 01/14/23 12:25 96 100 01/14/23 12:20 106 H 100 01/14/23 12:15 125 H 100 01/14/23 12:10 130 H 100 01/14/23 12:05 131 H 100 01/14/23 12:00 156 H 100 01/14/23 11:56 01/14/23 11:55 147 H 100 01/14/23 11:50 158 H 100 01/14/23 11:45 184 H 97 01/14/23 11:43 176 H 98 01/14/23 11:19 01/14/23 11:16 01/14/23 08:35 97.7 F 70 20 117/72 95 01/14/23 04:00 97.5 F L 67 18 96/62 99 01/14/23 01:31 68 18 01/13/23 23:17 97.6 F 68 18 119/82 99 01/13/23 20:00 97.4 F L 68 18 111/75 99 01/13/23 16:00 97.9 F 66 16 113/74 98 FiO2 01/14/23 12:50 01/14/23 12:45 01/14/23 12:40 01/14/23 12:35 01/14/23 12:30 01/14/23 12:25 01/14/23 12:20 01/14/23 12:15 50 01/14/23 12:10 01/14/23 12:05 01/14/23 12:00 01/14/23 11:56 60 01/14/23 11:55 01/14/23 11:50 01/14/23 11:45 01/14/23 11:43 01/14/23 11:19 100 01/14/23 11:16 100 01/14/23 08:35 01/14/23 04:00 01/14/23 01:31 01/13/23 23:17 01/13/23 20:00 01/13/23 16:00 Intake and Output 01/13/23 01/14/23 01/14/23 22:59 06:59 14:59 Intake Total 280 191.054 468.888 Balance 280 191.054 468.888 Intake: Intake, IV Titration 160 191.054 108.888 Amount Heparin Sod,Pork in 0.45% 191.054 108.888 NaCl 25,000 unit In 0.45 % NaCl 1 250ml.bag @ 11. 023 UNITS/KG/HR 10 mls/hr IV .Q24H [facility] Rx#: [id number] Sodium Chloride 0.9% 1, 160 000 ml @ 20 mls/hr IV . Q24H [facility] Rx#:[id number] Oral 120 360 Other: Voiding Method Toilet Toilet Indwelling Catheter Urinal Urinal # Voids 1 1 # Bowel Movements 1 Weight 90.718 kg ABP, PAP, CO, CI - Last 8 Hours Arterial Blood Pressure 84/49 Arterial Blood Pressure 90/53 Arterial Blood Pressure 96/56 Arterial Blood Pressure 94/55 Arterial Blood Pressure 93/53 Arterial Blood Pressure 86/49 Arterial Blood Pressure 85/49 Arterial Blood Pressure 99/48 Arterial Blood Pressure 83/44 Arterial Blood Pressure 81/46 Arterial Blood Pressure 84/52 Arterial Blood Pressure 102/60 Arterial Blood Pressure 126/67 Arterial Blood Pressure 94/64 Arterial Blood Pressure 97/71 GENERAL: The patient is lying in bed and is not in acute distress. CHEST: The heart rate is regular rate rhythm. No murmurs to auscultation. LUNG: Clear to auscultation bilaterally no wheezing noted throughout. Not labored breathing. Intubated on ventilator. ABDOMEN/GI: Bowel sounds present in all 4 quadrants. No tenderness to palpation throughout. NEUROLOGICAL: Limited. Was on IV Propofol 15mcg/kg/min and prior to that was on 30mcg/kg/min upon arrival to ICU. Higher mental function: Is comatose. GCS 3 (E1, VT1, M1). Cranial nerves: I had to manually open eyes. The pupils are round, about 2-3mm and no reactive was appreciated. No corneal reflex or occulocephalic reflex. No facial weakness. Is breathing over the vent. With suctioning has ?very weak gag. No mouth twitching. T Motor: The strength is no movement noted. No spontaneous movement noted. But to suctioning, or opening his eyes would have episode of brief myoclonic jerks. Normal bulk. Slight decrease tone throughout. Cerebellum: Unable to assess. Sensation: Unable to assess. Reflexes (right/left): 1+ throughout. Plantars are mute bilaterally. Results - Laboratory Findings CBC and BMP: 01/14/23 11:38 01/14/23 11:30 Abnormal Lab Findings: Abnormal Labs 01/11/23 01/11/23 01/11/23 04:44 04:44 04:44 WBC 12.2 H RBC Hgb Hct Neutrophils # 9.9 H Lymphocytes # APTT ABG pH ABG pO2 ABG HCO3 ABG Total CO2 ABG O2 Saturation Sodium 133 L Potassium 3.4 L Chloride 92 L Carbon Dioxide BUN 39 H Glucose 155 H POC Glucose (mg/dL) Plasma Lactic Acid Dorian 3.6 H* Calcium Phosphorus Total Bilirubin Troponin I Total Protein Albumin 01/11/23 01/11/23 01/11/23 04:44 08:06 08:22 WBC RBC Hgb Hct Neutrophils # Lymphocytes # APTT ABG pH ABG pO2 ABG HCO3 ABG Total CO2 ABG O2 Saturation Sodium Potassium Chloride Carbon Dioxide BUN Glucose POC Glucose (mg/dL) Plasma Lactic Acid Dorian 2.5 H* Calcium Phosphorus Total Bilirubin Troponin I 0.151 H* 0.150 H* Total Protein Albumin 01/11/23 01/11/23 01/11/23 08:22 10:50 14:30 WBC 11.7 H RBC Hgb Hct Neutrophils # 10.5 H Lymphocytes # 0.7 L APTT 59.4 H ABG pH ABG pO2 ABG HCO3 ABG Total CO2 ABG O2 Saturation Sodium Potassium Chloride Carbon Dioxide BUN Glucose POC Glucose (mg/dL) Plasma Lactic Acid Dorian Calcium Phosphorus Total Bilirubin Troponin I 0.169 H* Total Protein Albumin 01/12/23 01/12/23 01/12/23 07:58 15:06 21:19 WBC RBC Hgb Hct Neutrophils # Lymphocytes # APTT 95.0 H 70.7 H ABG pH ABG pO2 ABG HCO3 ABG Total CO2 ABG O2 Saturation Sodium 134 L Potassium Chloride Carbon Dioxide BUN 37 H Glucose 144 H POC Glucose (mg/dL) Plasma Lactic Acid Dorian Calcium Phosphorus Total Bilirubin Troponin I Total Protein Albumin 01/13/23 01/13/23 01/13/23 05:33 05:33 21:09 WBC RBC 4.07 L Hgb 12.4 L Hct 36.8 L Neutrophils # Lymphocytes # APTT 54.2 H ABG pH ABG pO2 ABG HCO3 ABG Total CO2 ABG O2 Saturation Sodium 131 L Potassium 3.4 L Chloride 97 L Carbon Dioxide BUN 36 H Glucose POC Glucose (mg/dL) Plasma Lactic Acid Dorian Calcium 8.2 L Phosphorus Total Bilirubin 1.4 H Troponin I Total Protein 6.0 L Albumin 3.1 L 01/14/23 01/14/23 01/14/23 07:26 07:26 07:26 WBC 15.3 H RBC Hgb Hct Neutrophils # 13.4 H Lymphocytes # APTT 53.4 H ABG pH ABG pO2 ABG HCO3 ABG Total CO2 ABG O2 Saturation Sodium 131 L Potassium Chloride 96 L Carbon Dioxide BUN 29 H Glucose 130 H POC Glucose (mg/dL) Plasma Lactic Acid Dorian Calcium Phosphorus Total Bilirubin 1.7 H Troponin I Total Protein Albumin 01/14/23 01/14/23 01/14/23 10:57 11:11 11:30 WBC RBC Hgb Hct Neutrophils # Lymphocytes # APTT ABG pH ABG pO2 ABG HCO3 ABG Total CO2 ABG O2 Saturation Sodium 130 L Potassium Chloride 96 L Carbon Dioxide 15 L BUN 28 H Glucose 252 H POC Glucose (mg/dL) 126 H 132 H Plasma Lactic Acid Dorian Calcium 7.8 L Phosphorus 6.9 H Total Bilirubin Troponin I Total Protein Albumin 01/14/23 01/14/23 11:38 11:49 WBC 17.0 H RBC 4.12 L Hgb 12.5 L Hct Neutrophils # 14.8 H Lymphocytes # APTT ABG pH 7.20 L ABG pO2 356 H ABG HCO3 17 L ABG Total CO2 18 L ABG O2 Saturation 100.0 H Sodium Potassium Chloride Carbon Dioxide BUN Glucose POC Glucose (mg/dL) Plasma Lactic Acid Dorian Calcium Phosphorus Total Bilirubin Troponin I Total Protein Albumin Assessment and Plan Assessment: Cardiac arrest. PEA is rhythm. Seems cardiac in etiology:Cardiac Arrhythmia (Bradycardia vs A-fib). He had CPR for 10 minutes and the patient was found down possibly for 5-10 minutes to maybe a total of 15-20 minutes in total. Anoxic encephalopathy. Rule out anoxic brain injury due to cardiac arrest. Stimulus induced myoclonic jerks: Rule out seizure Multiple episodes of syncopal episode in the last day that led to cardiac arrest: Likely cardiac in etiology Paroxysmal atrial fibrillation currently on IV Reglan Nonischemic cardiomyopathy with ejection fraction 15-20%. Most recent echo is EF 30-35% Plan: I ordered a CT head and an EEG. I started the patient on Keppra 750mg IV every 12 hours with loading of 1500mg for ?seizure-like episode. Also ordered one time 2mg Ativan. After EEG and depending on his clinical condition will modify medication. Patient went down for a temporary pacemaker Cardiology on board Avoid any hypotensive episode We'll defer the rest of medical measure the primary and IC team Plan discussed with the patient's nurse. Thank you consultation Jamey Escalona M.D. Time with Patient: Greater than 30
[2023-01-14] MEDS ORDERED: AMIODARONE 360 MG in DEXTROSE 5% IN WATER 200 ML IV ONE ×2 (17:00)
--- NOTE | 2023-01-14 17:45 | P.PN ---
Subjective Progress Note Date: 01/14/23 Tachybradycardia syndrome with arrest. The patient is a 87-year-old white male with nonischemic cardiomyopathy who was going to the bathroom and was found slumped. The patient was then coded and transferred to the ICU. The patient has now had temporary pacemaker and has started appropriate medications after appropriate ACLS protocol. I had a short discussion with the family. Objective - Vital Signs Vital signs: Vital Signs Temp 97.6 F 01/14/23 16:00 Pulse 61 01/14/23 17:15 Resp 29 H 01/14/23 17:00 BP 82/59 01/14/23 17:15 Pulse Ox 100 01/14/23 17:15 FiO2 50 01/14/23 17:00 Intake & Output 01/13/23 01/14/23 01/14/23 18:59 06:59 18:59 Intake Total 570 351.054 766.285 Output Total 0 177 Balance 570 351.054 589.285 Weight 90.718 kg Intake: IV 250 Sodium Chloride 0.9% 1, 150 000 ml @ 50 mls/hr IV . Q20H [facility] Rx#:[id number] Intake, IV Titration 351.054 136.285 Amount Heparin Sod,Pork in 0.45% 191.054 108.888 NaCl 25,000 unit In 0.45 % NaCl 1 250ml.bag @ 11. 023 UNITS/KG/HR 10 mls/hr IV .Q24H [facility] Rx#: [id number] Sodium Chloride 0.9% 1, 160 000 ml @ 50 mls/hr IV . Q20H [facility] Rx#:[id number] propofoL 1,000 mg In 27.397 Empty Bag 1 bag @ 15 MCG/ KG/MIN 8.165 mls/hr IV . [id number] [facility] Rx#:[id number] Oral 570 360 Tube Feeding 20 Output: Gastric Drainage 0 Urine 0 177 Stool 0 Urine/Stool Mix 0 Emesis 0 Oral Regurgitation 0 Other 0 Other: Voiding Method Toilet Indwelling Catheter Urinal # Voids 2 1 # Bowel Movements 0 1 ABP, PAP, CO, CI - Last Documented Arterial Blood Pressure 88/51 - Constitutional General appearance: Present: average body habitus - Neck Neck: Present: lymphadenopathy - Respiratory Respiratory: bilateral: diminished - Cardiovascular Rhythm: irregularly irregular Heart sounds: normal: S1, S2 Abnormal Heart Sounds: Absent: S3 Gallop - Gastrointestinal General gastrointestinal: Present: soft. Absent: tenderness - Labs CBC & Chem 7: 01/14/23 11:38 01/14/23 11:30 Labs: Abnormal Lab Results - Last 24 Hours (Table) 01/13/23 01/14/23 01/14/23 Range/Units 21:09 07:26 07:26 WBC 15.3 H (3.8-10.6) k/uL RBC (4.30-5.90) m/uL Hgb (13.0-17.5) gm/dL Neutrophils # 13.4 H (1.3-7.7) k/uL APTT 54.2 H (22.0-30.0) sec ABG pH (7.35-7.45) ABG pO2 (83-108) mmHg ABG HCO3 (21-25) mmol/L ABG Total CO2 (19-24) mmol/L ABG O2 Saturation (94-97) % Sodium 131 L (137-145) mmol/L Chloride 96 L (98-107) mmol/L Carbon Dioxide (22-30) mmol/L BUN 29 H (9-20) mg/dL Glucose 130 H (74-99) mg/dL POC Glucose (mg/dL) (70-110) mg/dL Calcium (8.4-10.2) mg/dL Phosphorus (2.5-4.5) mg/dL Total Bilirubin 1.7 H (0.2-1.3) mg/dL 01/14/23 01/14/23 01/14/23 Range/Units 07:26 10:57 11:11 WBC (3.8-10.6) k/uL RBC (4.30-5.90) m/uL Hgb (13.0-17.5) gm/dL Neutrophils # (1.3-7.7) k/uL APTT 53.4 H (22.0-30.0) sec ABG pH (7.35-7.45) ABG pO2 (83-108) mmHg ABG HCO3 (21-25) mmol/L ABG Total CO2 (19-24) mmol/L ABG O2 Saturation (94-97) % Sodium (137-145) mmol/L Chloride (98-107) mmol/L Carbon Dioxide (22-30) mmol/L BUN (9-20) mg/dL Glucose (74-99) mg/dL POC Glucose (mg/dL) 126 H 132 H (70-110) mg/dL Calcium (8.4-10.2) mg/dL Phosphorus (2.5-4.5) mg/dL Total Bilirubin (0.2-1.3) mg/dL 01/14/23 01/14/23 01/14/23 Range/Units 11:30 11:38 11:49 WBC 17.0 H (3.8-10.6) k/uL RBC 4.12 L (4.30-5.90) m/uL Hgb 12.5 L (13.0-17.5) gm/dL Neutrophils # 14.8 H (1.3-7.7) k/uL APTT (22.0-30.0) sec ABG pH 7.20 L (7.35-7.45) ABG pO2 356 H (83-108) mmHg ABG HCO3 17 L (21-25) mmol/L ABG Total CO2 18 L (19-24) mmol/L ABG O2 Saturation 100.0 H (94-97) % Sodium 130 L (137-145) mmol/L Chloride 96 L (98-107) mmol/L Carbon Dioxide 15 L (22-30) mmol/L BUN 28 H (9-20) mg/dL Glucose 252 H (74-99) mg/dL POC Glucose (mg/dL) (70-110) mg/dL Calcium 7.8 L (8.4-10.2) mg/dL Phosphorus 6.9 H (2.5-4.5) mg/dL Total Bilirubin (0.2-1.3) mg/dL 01/14/23 Range/Units 14:33 WBC (3.8-10.6) k/uL RBC (4.30-5.90) m/uL Hgb (13.0-17.5) gm/dL Neutrophils # (1.3-7.7) k/uL APTT (22.0-30.0) sec ABG pH (7.35-7.45) ABG pO2 (83-108) mmHg ABG HCO3 (21-25) mmol/L ABG Total CO2 (19-24) mmol/L ABG O2 Saturation (94-97) % Sodium (137-145) mmol/L Chloride (98-107) mmol/L Carbon Dioxide (22-30) mmol/L BUN (9-20) mg/dL Glucose (74-99) mg/dL POC Glucose (mg/dL) 214 H (70-110) mg/dL Calcium (8.4-10.2) mg/dL Phosphorus (2.5-4.5) mg/dL Total Bilirubin (0.2-1.3) mg/dL Assessment and Plan (1) Cardiac arrest Current Visit: Yes Status: Acute Code(s): I46.9 - CARDIAC ARREST, CAUSE UNSPECIFIED SNOMED Code(s): 054870459 (2) Syncope Current Visit: Yes Status: Acute Code(s): R55 - SYNCOPE AND COLLAPSE SNOMED Code(s): 783087415 (3) Atrial flutter with rapid ventricular response Current Visit: No Status: Acute Code(s): I48.92 - UNSPECIFIED ATRIAL FLUTTER SNOMED Code(s): 9208705 (4) Congestive heart failure Current Visit: No Status: Acute Code(s): I50.9 - HEART FAILURE, UNSPECIFIED SNOMED Code(s): 51650744 Plan: We will continue to follow patient during ICU management. Prognosis is guarded secondary to multiple comorbidities. Check CBC and CMP in a.m. Appreciate multiple consultants input. Prognosis is guarded
[2023-01-14 18:01] LABS: Glucose,Whole Blood 228 mg/dL (70-110)
--- NOTE | 2023-01-14 19:19 | CT ---
EXAMINATION TYPE: CT brain wo con DATE OF EXAM: 01/14/2023 COMPARISON: 01/10/2023 HISTORY: 87-year-old male confusion, AMS TECHNIQUE: Examination was done in axial plane without intravenous contrast. Coronal and sagittal r econstructions performed. CT DLP: 1165.4 mGycm Automated exposure control for dose reduction was used. FINDINGS: There is no evidence of acute intracranial hemorrhage, acute ischemic changes, mass, mass-effect, or extra-axial fluid collection. There is no effacement of cerebral sulci or basal subarachnoid cister ns. There is no hydrocephalus. There is no midline shift. Caldera-white matter distinction is preserv ed. Moderate generalized supratentorial volume loss. 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 Scattered mild mucosal thickening right maxillary sinus and ethmoid air cells. Mastoid air cells are well pneumatized. Leftward nasal septal deviation. Orbits and globes are intact. The patient is intub ated. IMPRESSION: Moderate generalized atrophy. Stable exam without acute intracranial abnormality seen.
[2023-01-14] MEDS: levETIRAcetam IV 500 MG/5 ML VIAL IVP SCH (20:26)
[2023-01-14] MEDS: CHLORHEXIDINE GLUCONATE 15 ML CUP MUCOUS MEM SCH (21:16)
[2023-01-14 23:29] LABS: Glucose,Whole Blood 193 mg/dL (70-110)
[2023-01-14] MEDS: AMIODARONE 450 MG in DEXTROSE 5% IN WATER 250 ML IV SCH ×2 (23:40)
--- NOTE | 2023-01-14 23:41 | EEG ---
ELECTROENCEPHALOGRAM REPORT CLINICAL HISTORY: This is an 87-year-old gentleman, who had a cardiac arrest and has altered mental status and body jerks. The video EEG is obtained to evaluate for seizure epileptiform activity. RELEVANT MEDICATION: IV propofol. EEG TYPE: A routine 21-channel EEG is performed with video using the 10/20 electrode placement system. DESCRIPTION: The patient is intubated on a ventilator. Background, is hard to ascertain but it seems very low voltage of 6-7 hertz activity. There is no physiological sleep architecture. There is no focal slowing. There is moderate to significant diffuse myogenic artifact. Interictal and ictal: Multiple episodes of stimulus-induced myoclonus and these occurred with stimulation of opening his eyes, suctioning or vent. These episodes, he had significant diffuse artifact, but modifying the sensitivity, it appears has spike/polyspike slow waves and it seems 1-3 hertz activity. Otherwise, no seizure is noted during the study. ACTIVATION PROCEDURES: Photic stimulation and hyperventilation are not performed. CLINICAL INTERPRETATION: This is an abnormal routine EEG. The background slowing is suggestive of mild encephalopathy. The patient had multiple myoclonus and is stimulus-induced. Myoclonus appears epileptic in nature. No seizure noted during this study. Clinical correlation is recommended. MMODL / IJN: [id number] / MTDD
[2023-01-15] MEDS: IPRATROPIUM-ALBUTEROL 3 ML NEB INHALATION SCH ×6 (00:18→20:37)
[2023-01-15] MEDS: NOREPINEPHRINE 4 MG in SODIUM CHLORIDE 0.9% 250 ML IV SCH (01:50)
[2023-01-15] MEDS: SODIUM CHLORIDE 0.9% 1,000 ML IV SCH (04:34)
[2023-01-15 04:38] LABS: Basophils % (A) 0 %; Eosinophils % (A) 0 %; HCT 37.5 % (39.0-53.0); HGB 12.2 gm/dL (13.0-17.5); Lymphocytes # (A) 0.5 k/uL (1.0-4.8); Lymphocytes % (A) 3 %; MCH 30.3 pg (25.0-35.0); MCHC 32.4 g/dL (31.0-37.0); MCV 93.5 fL (80.0-100.0); Mean Platelet Volume 9.1; Monocytes # (A) 0.5 k/uL (0-1.0); Monocytes % (A) 3 %; Neutrophils # (A) 14.7 k/uL (1.3-7.7); Neutrophils % (A) 93 %; Platelet Count 229 k/uL (150-450); RBC 4.01 m/uL (4.30-5.90); RDW 13.4 % (11.5-15.5); WBC 15.7 k/uL (3.8-10.6)
[2023-01-15 05:10] LABS: Calcium 7.9 mg/dL (8.4-10.2); Potassium 3.2 mmol/L (3.5-5.1)
[2023-01-15] MEDS: INSULIN ASPART (NovoLOG) 100 UNIT/ML VIAL SQ SCH ×3 (05:23→17:56)
[2023-01-15] MEDS: POTASSIUM BICARBONATE/CIT AC 20 MEQ TABLET.EFF NG-TUBE SCH ×2 (05:23→06:28)
[2023-01-15 06:16] LABS: ABG Base Excess -7.2 mmol/L; ABG HCO3 17 mmol/L (21-25); ABG PCO2 25 mmHg (35-45); ABG PH 7.45 (7.35-7.45); ABG PO2 181 mmHg (83-108); ABG TCO2 18 mmol/L (19-24); Allen Test Performed? Yes
[2023-01-15] MEDS: levETIRAcetam IV 500 MG/5 ML VIAL IVP SCH ×2 (08:43→20:30)
[2023-01-15] MEDS: CHLORHEXIDINE GLUCONATE 15 ML CUP MUCOUS MEM SCH ×2 (08:43→20:30)
[2023-01-15] MEDS: ASPIRIN 81 MG PO SCH (08:43)
--- NOTE | 2023-01-15 08:57 | P.PN ---
Subjective Progress Note Date: 01/15/23 This is an 87-year-old male who was originally admitted for syncope. Yesterday he had another episode of syncope while in the bathroom and was found slumped over, a code was called and patient was transferred to ICU. Patient had a temporary pacemaker inserted yesterday. This morning he is seen laying in bed on assist-control mode mechanical ventilation. Objective - Vital Signs Vital signs: Vital Signs Temp 98.0 F 01/15/23 04:00 Pulse 72 01/15/23 08:12 Resp 41 H 01/15/23 07:00 BP 104/63 01/15/23 07:00 Pulse Ox 100 01/15/23 07:00 FiO2 30 01/15/23 08:11 Intake & Output 01/14/23 01/15/23 01/15/23 18:59 06:59 18:59 Intake Total 476.543 8798.951 115.809 Output Total 192 137 20 Balance 954.254 9905.951 95.809 Weight 90.718 kg 92.8 kg Intake: IV 333.33 766.53 50 Amiodarone 360 mg In 33.33 166.53 Dextrose 5% in Water 200 ml @ 1 MG/MIN 33.333 mls/ hr IV .Q6H ONE Rx#: [id number] Sodium Chloride 0.9% 1, 200 600 50 000 ml @ 50 mls/hr IV . Q20H [facility] Rx#:[id number] Intake, IV Titration 150.658 480.421 35.809 Amount Heparin Sod,Pork in 0.45% 108.888 0 NaCl 25,000 unit In 0.45 % NaCl 1 250ml.bag @ 11. 023 UNITS/KG/HR 10 mls/hr IV .Q24H [facility] Rx#: [id number] Norepinephrine 4 mg In 6.797 415.920 30.819 Sodium Chloride 0.9% 250 ml @ 0.03 MCG/KG/MIN 10. 369 mls/hr IV .Q24H [facility] Rx#:[id number] propofoL 1,000 mg In 34.973 64.501 4.99 Empty Bag 1 bag @ 15 MCG/ KG/MIN 8.165 mls/hr IV . [id number] [facility] Rx#:[id number] Oral 360 Tube Feeding 40 290 30 Other 90 Output: Urine 192 137 20 Stool 0 Other: Voiding Method Indwelling Catheter Indwelling Catheter ABP, PAP, CO, CI - Last Documented Arterial Blood Pressure 78/51 - Constitutional General appearance: Present: no acute distress - Neck Neck: Absent: lymphadenopathy, rigidity - Respiratory Respiratory: bilateral: diminished - Cardiovascular Rhythm: irregularly irregular - Gastrointestinal General gastrointestinal: Present: soft - Integumentary Integumentary: Present: normal - Labs CBC & Chem 7: 01/15/23 04:30 01/15/23 04:30 Labs: Abnormal Lab Results - Last 24 Hours (Table) 01/14/23 01/14/23 01/14/23 Range/Units 10:57 11:11 11:30 WBC (3.8-10.6) k/uL RBC (4.30-5.90) m/uL Hgb (13.0-17.5) gm/dL Hct (39.0-53.0) % Neutrophils # (1.3-7.7) k/uL Lymphocytes # (1.0-4.8) k/uL APTT (22.0-30.0) sec ABG pH (7.35-7.45) ABG pCO2 (35-45) mmHg ABG pO2 (83-108) mmHg ABG HCO3 (21-25) mmol/L ABG Total CO2 (19-24) mmol/L ABG O2 Saturation (94-97) % Sodium 130 L (137-145) mmol/L Potassium (3.5-5.1) mmol/L Chloride 96 L (98-107) mmol/L Carbon Dioxide 15 L (22-30) mmol/L BUN 28 H (9-20) mg/dL Creatinine (0.66-1.25) mg/dL Glucose 252 H (74-99) mg/dL POC Glucose (mg/dL) 126 H 132 H (70-110) mg/dL Calcium 7.8 L (8.4-10.2) mg/dL Phosphorus 6.9 H (2.5-4.5) mg/dL 01/14/23 01/14/23 01/14/23 Range/Units 11:38 11:49 14:33 WBC 17.0 H (3.8-10.6) k/uL RBC 4.12 L (4.30-5.90) m/uL Hgb 12.5 L (13.0-17.5) gm/dL Hct (39.0-53.0) % Neutrophils # 14.8 H (1.3-7.7) k/uL Lymphocytes # (1.0-4.8) k/uL APTT (22.0-30.0) sec ABG pH 7.20 L (7.35-7.45) ABG pCO2 (35-45) mmHg ABG pO2 356 H (83-108) mmHg ABG HCO3 17 L (21-25) mmol/L ABG Total CO2 18 L (19-24) mmol/L ABG O2 Saturation 100.0 H (94-97) % Sodium (137-145) mmol/L Potassium (3.5-5.1) mmol/L Chloride (98-107) mmol/L Carbon Dioxide (22-30) mmol/L BUN (9-20) mg/dL Creatinine (0.66-1.25) mg/dL Glucose (74-99) mg/dL POC Glucose (mg/dL) 214 H (70-110) mg/dL Calcium (8.4-10.2) mg/dL Phosphorus (2.5-4.5) mg/dL 01/14/23 01/14/23 01/15/23 Range/Units 17:59 23:27 04:30 WBC (3.8-10.6) k/uL RBC (4.30-5.90) m/uL Hgb (13.0-17.5) gm/dL Hct (39.0-53.0) % Neutrophils # (1.3-7.7) k/uL Lymphocytes # (1.0-4.8) k/uL APTT 47.8 H (22.0-30.0) sec ABG pH (7.35-7.45) ABG pCO2 (35-45) mmHg ABG pO2 (83-108) mmHg ABG HCO3 (21-25) mmol/L ABG Total CO2 (19-24) mmol/L ABG O2 Saturation (94-97) % Sodium (137-145) mmol/L Potassium (3.5-5.1) mmol/L Chloride (98-107) mmol/L Carbon Dioxide (22-30) mmol/L BUN (9-20) mg/dL Creatinine (0.66-1.25) mg/dL Glucose (74-99) mg/dL POC Glucose (mg/dL) 228 H 193 H (70-110) mg/dL Calcium (8.4-10.2) mg/dL Phosphorus (2.5-4.5) mg/dL 01/15/23 01/15/23 01/15/23 Range/Units 04:30 04:30 06:12 WBC 15.7 H (3.8-10.6) k/uL RBC 4.01 L (4.30-5.90) m/uL Hgb 12.2 L (13.0-17.5) gm/dL Hct 37.5 L (39.0-53.0) % Neutrophils # 14.7 H (1.3-7.7) k/uL Lymphocytes # 0.5 L (1.0-4.8) k/uL APTT (22.0-30.0) sec ABG pH (7.35-7.45) ABG pCO2 25 L (35-45) mmHg ABG pO2 181 H (83-108) mmHg ABG HCO3 17 L (21-25) mmol/L ABG Total CO2 18 L (19-24) mmol/L ABG O2 Saturation 100.0 H (94-97) % Sodium 130 L (137-145) mmol/L Potassium 3.2 L (3.5-5.1) mmol/L Chloride (98-107) mmol/L Carbon Dioxide 14 L (22-30) mmol/L BUN 35 H (9-20) mg/dL Creatinine 1.50 H (0.66-1.25) mg/dL Glucose 184 H (74-99) mg/dL POC Glucose (mg/dL) (70-110) mg/dL Calcium 7.9 L (8.4-10.2) mg/dL Phosphorus (2.5-4.5) mg/dL Microbiology - Last 24 Hours (Table) 01/14/23 23:00 Sputum Culture - Preliminary Sputum Assessment and Plan (1) Cardiac arrest Current Visit: Yes Status: Acute Code(s): I46.9 - CARDIAC ARREST, CAUSE UNSPECIFIED SNOMED Code(s): 256329770 (2) Syncope Current Visit: Yes Status: Acute Code(s): R55 - SYNCOPE AND COLLAPSE SNOMED Code(s): 020322826 (3) Atrial flutter with rapid ventricular response Current Visit: No Status: Acute Code(s): I48.92 - UNSPECIFIED ATRIAL FLUTTER SNOMED Code(s): 8329864 (4) Congestive heart failure Current Visit: No Status: Acute Code(s): I50.9 - HEART FAILURE, UNSPECIFIED SNOMED Code(s): 52825675 Plan: Appreciate multiple consults. Check labs in the a.m. Replace potassium per protocol. Patient seen and evaluated by nurse practitioner, physician in agreement with plan
[2023-01-15] MEDS: METOPROLOL TARTRATE 25 MG TAB PO SCH (09:16)
--- NOTE | 2023-01-15 09:50 | P.PN ---
Subjective Progress Note Date: 01/15/23 87-year-old male patient, who developed an acute cardiac arrest while getting ready to go to the EP lab to undergo a pacemaker insertion. The patient was supposed underwent a pacemaker insertion today. Noted the patient has been having several episodes of syncope. First episode he came into the emergency and he was discharged home. The first episode, he was hospitalized and this morning this was the third episode. As far the second episode, the patient was standing and the buffet and he developed a sudden onset syncopal episode. Bystanders performed CPR on the patient. The patient was brought into the hospital. The patient was discharged home by the emergency physician. The patient then returned for additional episodes of syncope. He denied having any chest pain. He denies having any shortness of breath. He denied having any dizziness did no focal neurological deficit that he was fully recovered from those episodes. The patient had some abnormal EKG showing atrial fibrillation with RVR. He is known to have cardiomyopathy. Based on the recent echocardiogram that was done in February 2022, his EF was down to 50s 20% and this is a new finding compared to the earlier echo cardiac and the door essentially within normal limits. Patient also had a normal cardiac catheterization [facility]2021. This morning, the patient had another episode of syncope. He was found in the bathroom unresponsive. He had no pulse. I believe he was in a PEA condition. CPR was applied and the patient was intubated and brought to the intensive care unit. Cardiology is been involved. I believe EKG showing A. fib RVR. I saw the patient in the ICU. The patient was still in atrial fibrillation with a controlled rate. The patient was running a soft blood pressure with a systolic blood pressure in the 90s. He was unresponsive. He was maintained on propofol at 30 microvascular kilogram per minute to maintain secondary mechanical ventilator. He was on assist-control mode of mechanical ventilation at the rate of 14, tidal volume of 450, FiO2 of 100% with a PEEP of 5. The blood gases s howed a pH of 7.2 with a pCO2 of 43 and pO2 of 356. FiO2 was dropped onto 50%. I also think is a rate up to 20 and changed tidal volume to 500. Chest x-ray showed cardiomegaly, ET tube was repositioned at the patient's ET tube was quite far down the trachea. No other acute abnormalities noted. The RBC count from this morning is at 17 with a hemoglobin of 12.5. BUN is at 28 with a creatinine of 1.1. Sodium is at 130, potassium is at 4.1, serum bicarb is at 15. The patient is going to be taken for a temporary pacemaker insertion. He is currently on IV heparin. Family is at the bedside. On today's evaluation of 01/15/2023, the patient remains intubated on a mechanical ventilator. 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 The patient is currently on propofol which is running at 60 mcg/kg/m. His admitted to While being on a mechanical ventilator. Neurologically, he is not grimacing and is not withdrawing to deep painful stimulation. He is having occasional myoclonic jerks upon stimulation. EEG was done and it showed diffuse slowing and there is no evidence of any active seizures other than some myoclonic jerks or activity with stimulation. The patient was started on Keppra. CAT scan of the brain was negative. At the same time, the patient was given a temporary transvenous pacemaker which is set at the rate of 60. His current cardiac rhythm is atrial fibrillation and is rate is above 60. Note that he was pacing yesterday and he was riding the pacemaker. As such, our thinking processes that the patient went into a high degree AV block which contributed to his cardiac arrest. The patient remains on amiodarone regarding his ongoing atrial fibrillation. Amiodarone is running at 0.5 mg/m and the patient is also on IV heparin. The patient is currently hemodynamically stable on no pressors. He remains on a mechanical ventilator on assist control mode at the rate of 20, tidal volume of 500, FiO2 of 30% and a PEEP of 5. The chest x-ray shows cardiomegaly without any acute abnormalities. Blood gas shows a pH of 7.45 with a pCO2 of 25 and a pO2 of 181. The patient has no significant orotracheal secretions. The patient is still hypotensive. The patient remains on norepinephrine at 0.25 mcg/kg/m. He has sustained an acute kidney injury. BUN is up to 35 the creatinine is up to 1.5. Sodiums of 1 :30, potassium 3.2. The white cell count is at 15.7 with a hemoglobin of 12.2 and a platelet count of 229. The patient is afebrile. No antibiotic coverage was given to this patient this point in time. He was started on enteral feeding and is currently on vital high-protein at the rate of 30 mL an hour. Objective - Vital Signs Vital signs: Vital Signs Temp 97.7 F 01/15/23 08:00 Pulse 85 01/15/23 09:00 Resp 18 01/15/23 09:00 BP 104/63 01/15/23 07:00 Pulse Ox 99 01/15/23 09:00 FiO2 30 01/15/23 08:11 Intake & Output 01/14/23 01/15/23 01/15/23 18:59 06:59 18:59 Intake Total 201.899 4288.951 122.250 Output Total 192 137 20 Balance 608.407 0373.951 102.250 Weight 90.718 kg 92.8 kg Intake: IV 333.33 766.53 50 Amiodarone 360 mg In 33.33 166.53 Dextrose 5% in Water 200 ml @ 1 MG/MIN 33.333 mls/ hr IV .Q6H ONE Rx#: [id number] Sodium Chloride 0.9% 1, 200 600 50 000 ml @ 50 mls/hr IV . Q20H [facility] Rx#:[id number] Intake, IV Titration 150.658 480.421 42.250 Amount Heparin Sod,Pork in 0.45% 108.888 0 NaCl 25,000 unit In 0.45 % NaCl 1 250ml.bag @ 11. 023 UNITS/KG/HR 10 mls/hr IV .Q24H [facility] Rx#: [id number] Norepinephrine 4 mg In 6.797 415.920 30.819 Sodium Chloride 0.9% 250 ml @ 0.03 MCG/KG/MIN 10. 369 mls/hr IV .Q24H [facility] Rx#:[id number] propofoL 1,000 mg In 34.973 64.501 11.431 Empty Bag 1 bag @ 15 MCG/ KG/MIN 8.165 mls/hr IV . [id number] [facility] Rx#:[id number] Oral 360 Tube Feeding 40 290 30 Other 90 Output: Urine 192 137 20 Stool 0 Other: Voiding Method Indwelling Catheter Indwelling Catheter ABP, PAP, CO, CI - Last Documented Arterial Blood Pressure 102/52 - Exam Patient is currently intubated on a mechanical ventilator, sedated with propofol. He is unresponsive. Head exam was generally normal. There was no scleral icterus or corneal arcus. Mucous membranes were moist. Neck was supple and without jugular venous distension, thyromegaly, or carotid bruits. Carotids were easily palpable bilaterally. There was no adenopathy. Lungs were clear to auscultation and percussion, and with normal diaphragmatic excursion. No wheezes or rales were noted. Cardiac exam revealed the PMI to be normally situated and sized. The rhythm was irregular and no extrasystoles were noted during several minutes of auscultation. The first and second heart sounds irregular consistent with atrial fibrillation physiologic splitting of the second heart sound was noted. There were no murmurs, rubs, clicks, or gallops. Abdominal exam revealed normal bowel sounds. The abdomen was soft, non-tender, and without masses, organomegaly, or appreciable enlargement of the abdominal aorta. The patient has a transvenous pacemaker insertion site is the right femoral vein. Extremities are cold, diminished pulses in the right lower extremity, left foot is colder than the right. Pulses are very weak obtained by Doppler. No cyanosis or clubbing. Examination of the skin revealed no evidence of significant rashes, suspicious appearing nevi or other concerning lesions. Neurologic the pupils are equal and reactive to light. Positive cough and a gag. Unresponsive at this point in time. Note that the patient's postoperative status and the patient is currently on propofol. . Reflexes are diminished at the present and symmetrical. No Babinski. No clonus. No significant change in his neurologic exam compared to yesterday. - Labs CBC & Chem 7: 01/15/23 04:30 01/15/23 04:30 Labs: Abnormal Lab Results - Last 24 Hours (Table) 01/14/23 01/14/23 01/14/23 Range/Units 10:57 11:11 11:30 WBC (3.8-10.6) k/uL RBC (4.30-5.90) m/uL Hgb (13.0-17.5) gm/dL Hct (39.0-53.0) % Neutrophils # (1.3-7.7) k/uL Lymphocytes # (1.0-4.8) k/uL APTT (22.0-30.0) sec ABG pH (7.35-7.45) ABG pCO2 (35-45) mmHg ABG pO2 (83-108) mmHg ABG HCO3 (21-25) mmol/L ABG Total CO2 (19-24) mmol/L ABG O2 Saturation (94-97) % Sodium 130 L (137-145) mmol/L Potassium (3.5-5.1) mmol/L Chloride 96 L (98-107) mmol/L Carbon Dioxide 15 L (22-30) mmol/L BUN 28 H (9-20) mg/dL Creatinine (0.66-1.25) mg/dL Glucose 252 H (74-99) mg/dL POC Glucose (mg/dL) 126 H 132 H (70-110) mg/dL Calcium 7.8 L (8.4-10.2) mg/dL Phosphorus 6.9 H (2.5-4.5) mg/dL 01/14/23 01/14/23 01/14/23 Range/Units 11:38 11:49 14:33 WBC 17.0 H (3.8-10.6) k/uL RBC 4.12 L (4.30-5.90) m/uL Hgb 12.5 L (13.0-17.5) gm/dL Hct (39.0-53.0) % Neutrophils # 14.8 H (1.3-7.7) k/uL Lymphocytes # (1.0-4.8) k/uL APTT (22.0-30.0) sec ABG pH 7.20 L (7.35-7.45) ABG pCO2 (35-45) mmHg ABG pO2 356 H (83-108) mmHg ABG HCO3 17 L (21-25) mmol/L ABG Total CO2 18 L (19-24) mmol/L ABG O2 Saturation 100.0 H (94-97) % Sodium (137-145) mmol/L Potassium (3.5-5.1) mmol/L Chloride (98-107) mmol/L Carbon Dioxide (22-30) mmol/L BUN (9-20) mg/dL Creatinine (0.66-1.25) mg/dL Glucose (74-99) mg/dL POC Glucose (mg/dL) 214 H (70-110) mg/dL Calcium (8.4-10.2) mg/dL Phosphorus (2.5-4.5) mg/dL 01/14/23 01/14/23 01/15/23 Range/Units 17:59 23:27 04:30 WBC (3.8-10.6) k/uL RBC (4.30-5.90) m/uL Hgb (13.0-17.5) gm/dL Hct (39.0-53.0) % Neutrophils # (1.3-7.7) k/uL Lymphocytes # (1.0-4.8) k/uL APTT 47.8 H (22.0-30.0) sec ABG pH (7.35-7.45) ABG pCO2 (35-45) mmHg ABG pO2 (83-108) mmHg ABG HCO3 (21-25) mmol/L ABG Total CO2 (19-24) mmol/L ABG O2 Saturation (94-97) % Sodium (137-145) mmol/L Potassium (3.5-5.1) mmol/L Chloride (98-107) mmol/L Carbon Dioxide (22-30) mmol/L BUN (9-20) mg/dL Creatinine (0.66-1.25) mg/dL Glucose (74-99) mg/dL POC Glucose (mg/dL) 228 H 193 H (70-110) mg/dL Calcium (8.4-10.2) mg/dL Phosphorus (2.5-4.5) mg/dL 01/15/23 01/15/23 01/15/23 Range/Units 04:30 04:30 06:12 WBC 15.7 H (3.8-10.6) k/uL RBC 4.01 L (4.30-5.90) m/uL Hgb 12.2 L (13.0-17.5) gm/dL Hct 37.5 L (39.0-53.0) % Neutrophils # 14.7 H (1.3-7.7) k/uL Lymphocytes # 0.5 L (1.0-4.8) k/uL APTT (22.0-30.0) sec ABG pH (7.35-7.45) ABG pCO2 25 L (35-45) mmHg ABG pO2 181 H (83-108) mmHg ABG HCO3 17 L (21-25) mmol/L ABG Total CO2 18 L (19-24) mmol/L ABG O2 Saturation 100.0 H (94-97) % Sodium 130 L (137-145) mmol/L Potassium 3.2 L (3.5-5.1) mmol/L Chloride (98-107) mmol/L Carbon Dioxide 14 L (22-30) mmol/L BUN 35 H (9-20) mg/dL Creatinine 1.50 H (0.66-1.25) mg/dL Glucose 184 H (74-99) mg/dL POC Glucose (mg/dL) (70-110) mg/dL Calcium 7.9 L (8.4-10.2) mg/dL Phosphorus (2.5-4.5) mg/dL Microbiology - Last 24 Hours (Table) 01/14/23 23:00 Sputum Culture - Preliminary Sputum Assessment and Plan Plan: PEA cardiac arrest, under investigation. Consider possibility of bradycardia/bradycardia arrhythmia versus A. fib RVR. Ventricular arrhythmias were not noted. Down time is estimated to be around 10 minutes. Consider possibility of hypoxic encephalopathy. Patient is currently sedated on propofol. The patient is currently in atrial fibrillation. He is on amiodarone drip. Is on IV heparin. A backup transvenous pacemaker was inserted at the rate of 60. No significant ventricular arrhythmias noted overnight. Acute hypoxic respiratory failure post cardiac arrest, currently intubated on mechanical ventilator Anoxic encephalopathy. The patient remains unresponsive. The patient is sedated for now. EEG from yesterday was noted and it showed diffuse slowing. The patient was having episodic myoclonic jerks and the patient was placed on Keppra. CAT scan of the brain was negative. Neurology is on the case. Nonischemic cardiomyopathy with an ejection fraction of 15-20%. Repeat echocardiogram during this current admission showed markedly impaired LV function with an EF of around 30-35% and there was moderate MR, mild aortic stenosis. RV was also exhibited dilated within normal pulmonary artery pressure. Paroxysmal A. fib, current rhythm is still A. fib with a controlled rate and the patient is on IV heparin and the patient is also on amiodarone abnormal troponins, type to myocardial ischemia Recurrent syncope, at least 3 episodes over the past 24 hours with subsequent cardiac arrest Normal coronaries based on the cardiac catheterization from 2022 Hypertension Hyperlipidemia Plan Continue ventilator support He is patient sedated for now with propofol. We'll give the patient has sedation holiday and assess his underlying mentation. This will be coordinated also with neurology to evaluate his mental status. Keep pressors for now Norepinephrine infusion if needed depending on the blood pressure control Transvenous pacemaking at the rate of 60 Continue IV heparin Consult neurology is appreciated CAT scan of the brain and EEG are both appreciated Enteral feeding has been started IV fluids are running in the form of normal saline at rate of 50 mL an hour Condition is critical and the patient will be kept in ICU for now. Critical care evaluation, more than 30 minutes. Had a lengthy discussion with the family and his children at the bedside. Explained to them the condition. Time with Patient: Greater than 30
--- NOTE | 2023-01-15 10:05 | XR ---
EXAMINATION TYPE: XR chest 1V portable DATE OF EXAM: 01/15/2023 COMPARISON: 01/14/2023 INDICATION: Tube placement TECHNIQUE: Single frontal view of the chest is obtained. FINDINGS: The heart size is enlarged. The pulmonary vasculature is normal. No suspicious focal consolidation is evident. Endotracheal tube tip is 2.8 cm polyp. Nasogastric tuber extends to the distal esophagus. This could be advanced 10 cm for better placement. IMPRESSION: 1. Cardiac mainly. 2. No acute pulmonary process. 3. Nasogastric tube could be advanced 10 cm for more typical positioning. 4. Endotracheal tube tip 2.8 cm above the vasu.
[2023-01-15] MEDS: NOREPINEPHRINE 32 MG in SODIUM CHLORIDE 0.9% 218 ML IV SCH (10:16)
[2023-01-15] MEDS: AMIODARONE 450 MG in DEXTROSE 5% IN WATER 250 ML IV SCH ×4 (10:18→22:58)
--- NOTE | 2023-01-15 10:43 | P.PN ---
Subjective Progress Note Date: 01/15/23 The patient is an 87-year-old male who is currently admitted to the hospital with recurrent syncope. The patient had bradycardic arrest while admitted to the third floor. CPR was started and he was recovered after approximately 30 minutes. Post resuscitation the patient developed A. fib with RVR and was subsequently transferred to the ICU. TVP was placed and he converted back to third-degree heart block. 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 The patient has a gag reflex and myoclonic jerks, however no purposeful movement or withdrawal from painful stimulation. Dr. Jiménez discussed plan of care with both the patient's sons. We are awaiting sedation holiday and neurological evaluation. Should the patient recovered, Dr. Jiménez will proceed with biventricular ICD implantation. GENERAL: Ill-appearing, well-nourished and in no acute distress. Sedated and ventilated NECK: Supple without JVD or thyromegaly. LUNGS: Breath sounds clear to auscultation bilaterally. Respiration equal and unlabored. No wheezes, rales or rhonchi. HEART: Irregular rate and rhythm. Soft systolic murmur. No rubs or gallops. S1 and S2 heard. EXTREMITIES: Normal range of motion, no edema. No clubbing or cyanosis. Peripheral pulses intact and strong. TELEMETRY: Complete heart block overnight. Minimal pacing via TVP IMPRESSION: Recurrent syncope, secondary to complete heart block Status post cardiopulmonary arrest in hospital requiring intubation Abnormal troponins, type II myocardial infarction Paroxysmal atrial fibrillation Nonischemic cardiomyopathy, EF 30-35% PLAN: Continue supportive treatment Awaiting neuro consultation Proceed with biventricular AICD if neurological status improves Further recommendations based on clinical course I am dictating on behalf of Dr Aren Jiménez's history/physical and assessment/plan. Objective - Vital Signs Vital signs: Vital Signs Temp 97.7 F 01/15/23 08:00 Pulse 85 01/15/23 09:00 Resp 18 01/15/23 09:00 BP 104/63 01/15/23 07:00 Pulse Ox 99 01/15/23 09:00 FiO2 30 01/15/23 08:11 Intake & Output 01/14/23 01/15/23 01/15/23 18:59 06:59 18:59 Intake Total 879.802 9861.951 299.476 Output Total 192 137 20 Balance 876.099 9252.951 279.476 Weight 90.718 kg 92.8 kg Intake: IV 333.33 766.53 50 Amiodarone 360 mg In 33.33 166.53 Dextrose 5% in Water 200 ml @ 1 MG/MIN 33.333 mls/ hr IV .Q6H [facility] Rx#: [id number] Sodium Chloride 0.9% 1, 200 600 50 000 ml @ 50 mls/hr IV . Q20H [facility] Rx#:[id number] Intake, IV Titration 150.658 480.421 219.476 Amount Amiodarone 450 mg In 177.226 Dextrose 5% in Water 250 ml @ 0.5 MG/MIN 16.667 mls/hr IV .Q15H [facility] Rx#: [id number] Heparin Sod,Pork in 0.45% 108.888 0 NaCl 25,000 unit In 0.45 % NaCl 1 250ml.bag @ 11. 023 UNITS/KG/HR 10 mls/hr IV .Q24H [facility] Rx#: [id number] Norepinephrine 4 mg In 6.797 415.920 30.819 Sodium Chloride 0.9% 250 ml @ 0.03 MCG/KG/MIN 10. 369 mls/hr IV .Q24H [facility] Rx#:[id number] propofoL 1,000 mg In 34.973 64.501 11.431 Empty Bag 1 bag @ 15 MCG/ KG/MIN 8.165 mls/hr IV . [id number] [facility] Rx#:[id number] Oral 360 Tube Feeding 40 290 30 Other 90 Output: Urine 192 137 20 Stool 0 Other: Voiding Method Indwelling Catheter Indwelling Catheter ABP, PAP, CO, CI - Last Documented Arterial Blood Pressure 102/52 - Labs CBC & Chem 7: 01/15/23 04:30 01/15/23 04:30 Labs: Abnormal Lab Results - Last 24 Hours (Table) 01/14/23 01/14/23 01/14/23 Range/Units 10:57 11:11 11:30 WBC (3.8-10.6) k/uL RBC (4.30-5.90) m/uL Hgb (13.0-17.5) gm/dL Hct (39.0-53.0) % Neutrophils # (1.3-7.7) k/uL Lymphocytes # (1.0-4.8) k/uL APTT (22.0-30.0) sec ABG pH (7.35-7.45) ABG pCO2 (35-45) mmHg ABG pO2 (83-108) mmHg ABG HCO3 (21-25) mmol/L ABG Total CO2 (19-24) mmol/L ABG O2 Saturation (94-97) % Sodium 130 L (137-145) mmol/L Potassium (3.5-5.1) mmol/L Chloride 96 L (98-107) mmol/L Carbon Dioxide 15 L (22-30) mmol/L BUN 28 H (9-20) mg/dL Creatinine (0.66-1.25) mg/dL Glucose 252 H (74-99) mg/dL POC Glucose (mg/dL) 126 H 132 H (70-110) mg/dL Calcium 7.8 L (8.4-10.2) mg/dL Phosphorus 6.9 H (2.5-4.5) mg/dL 01/14/23 01/14/23 01/14/23 Range/Units 11:38 11:49 14:33 WBC 17.0 H (3.8-10.6) k/uL RBC 4.12 L (4.30-5.90) m/uL Hgb 12.5 L (13.0-17.5) gm/dL Hct (39.0-53.0) % Neutrophils # 14.8 H (1.3-7.7) k/uL Lymphocytes # (1.0-4.8) k/uL APTT (22.0-30.0) sec ABG pH 7.20 L (7.35-7.45) ABG pCO2 (35-45) mmHg ABG pO2 356 H (83-108) mmHg ABG HCO3 17 L (21-25) mmol/L ABG Total CO2 18 L (19-24) mmol/L ABG O2 Saturation 100.0 H (94-97) % Sodium (137-145) mmol/L Potassium (3.5-5.1) mmol/L Chloride (98-107) mmol/L Carbon Dioxide (22-30) mmol/L BUN (9-20) mg/dL Creatinine (0.66-1.25) mg/dL Glucose (74-99) mg/dL POC Glucose (mg/dL) 214 H (70-110) mg/dL Calcium (8.4-10.2) mg/dL Phosphorus (2.5-4.5) mg/dL 01/14/23 01/14/23 01/15/23 Range/Units 17:59 23:27 04:30 WBC (3.8-10.6) k/uL RBC (4.30-5.90) m/uL Hgb (13.0-17.5) gm/dL Hct (39.0-53.0) % Neutrophils # (1.3-7.7) k/uL Lymphocytes # (1.0-4.8) k/uL APTT 47.8 H (22.0-30.0) sec ABG pH (7.35-7.45) ABG pCO2 (35-45) mmHg ABG pO2 (83-108) mmHg ABG HCO3 (21-25) mmol/L ABG Total CO2 (19-24) mmol/L ABG O2 Saturation (94-97) % Sodium (137-145) mmol/L Potassium (3.5-5.1) mmol/L Chloride (98-107) mmol/L Carbon Dioxide (22-30) mmol/L BUN (9-20) mg/dL Creatinine (0.66-1.25) mg/dL Glucose (74-99) mg/dL POC Glucose (mg/dL) 228 H 193 H (70-110) mg/dL Calcium (8.4-10.2) mg/dL Phosphorus (2.5-4.5) mg/dL 01/15/23 01/15/23 01/15/23 Range/Units 04:30 04:30 06:12 WBC 15.7 H (3.8-10.6) k/uL RBC 4.01 L (4.30-5.90) m/uL Hgb 12.2 L (13.0-17.5) gm/dL Hct 37.5 L (39.0-53.0) % Neutrophils # 14.7 H (1.3-7.7) k/uL Lymphocytes # 0.5 L (1.0-4.8) k/uL APTT (22.0-30.0) sec ABG pH (7.35-7.45) ABG pCO2 25 L (35-45) mmHg ABG pO2 181 H (83-108) mmHg ABG HCO3 17 L (21-25) mmol/L ABG Total CO2 18 L (19-24) mmol/L ABG O2 Saturation 100.0 H (94-97) % Sodium 130 L (137-145) mmol/L Potassium 3.2 L (3.5-5.1) mmol/L Chloride (98-107) mmol/L Carbon Dioxide 14 L (22-30) mmol/L BUN 35 H (9-20) mg/dL Creatinine 1.50 H (0.66-1.25) mg/dL Glucose 184 H (74-99) mg/dL POC Glucose (mg/dL) (70-110) mg/dL Calcium 7.9 L (8.4-10.2) mg/dL Phosphorus (2.5-4.5) mg/dL Microbiology - Last 24 Hours (Table) 01/14/23 23:00 Sputum Culture - Preliminary Sputum
--- NOTE | 2023-01-15 12:21 | P.PN ---
Subjective Progress Note Date: 01/15/23 She seen at bedside and he continues to be intubated on a ventilator and is on IV propofol 50mcg/kg/min. Court the patient nurse no further myoclonus episodes. Patient was having yesterday distress as a result is IV propofol was increased up. Patient is also on the norepinephrine as well as IV heparin drip. I spoke with the patient's family members and is seems the patient was down possibly for about 5 minutes before CPR was started. Objective - Vital Signs Vital signs: Vital Signs Temp 97.7 F 01/15/23 08:00 Pulse 75 01/15/23 11:34 Resp 18 01/15/23 09:00 BP 104/63 01/15/23 07:00 Pulse Ox 99 01/15/23 09:00 FiO2 30 01/15/23 11:30 Intake & Output 01/14/23 01/15/23 01/15/23 18:59 06:59 18:59 Intake Total 784.427 4780.951 299.476 Output Total 192 137 95 Balance 447.081 6057.951 204.476 Weight 90.718 kg 92.8 kg Intake: IV 333.33 766.53 50 Amiodarone 360 mg In 33.33 166.53 Dextrose 5% in Water 200 ml @ 1 MG/MIN 33.333 mls/ hr IV .Q6H [facility] Rx#: [id number] Sodium Chloride 0.9% 1, 200 600 50 000 ml @ 50 mls/hr IV . Q20H [facility] Rx#:[id number] Intake, IV Titration 150.658 480.421 219.476 Amount Amiodarone 450 mg In 177.226 Dextrose 5% in Water 250 ml @ 0.5 MG/MIN 16.667 mls/hr IV .Q15H [facility] Rx#: [id number] Heparin Sod,Pork in 0.45% 108.888 0 NaCl 25,000 unit In 0.45 % NaCl 1 250ml.bag @ 11. 023 UNITS/KG/HR 10 mls/hr IV .Q24H [facility] Rx#: [id number] Norepinephrine 4 mg In 6.797 415.920 30.819 Sodium Chloride 0.9% 250 ml @ 0.03 MCG/KG/MIN 10. 369 mls/hr IV .Q24H [facility] Rx#:[id number] propofoL 1,000 mg In 34.973 64.501 11.431 Empty Bag 1 bag @ 15 MCG/ KG/MIN 8.165 mls/hr IV . [id number] [facility] Rx#:[id number] Oral 360 Tube Feeding 40 290 30 Other 90 Output: Urine 192 137 95 Stool 0 0 Other: Voiding Method Indwelling Catheter Indwelling Catheter Indwelling Catheter ABP, PAP, CO, CI - Last Documented Arterial Blood Pressure 102/52 - Exam GENERAL: The patient is lying in bed and does not appear in acute distress. LUNG: Intubated on ventilator. ABDOMEN/GI: Bowel sounds present in all 4 quadrants. No tenderness to palpation throughout. NEUROLOGICAL: Limited. Was on IV Propofol 50mcg/kg/min. Higher mental function: Is comatose. GCS 3 (E1, VT1, M1). Cranial nerves: I had to manually open eyes. The pupils are round, about 2-3mm and no reactive to light. No corneal reflex or occulocephalic reflex. No facial weakness. Is breathing over the vent. No gag or cough reflex. Motor: The strength is no movement noted. No spontaneous movement noted. Normal bulk. Slight decrease tone throughout. Cerebellum: Unable to assess. Sensation: Unable to assess light touch. Plantars are mute bilaterally. SOME OF THE WORK-UP DURING THIS HOSPITAL VISIT CONSISTED OF: CT of the brain is reported as moderate generalized atrophy. Stable exam without acute intracranial abnormality seen. I personally reviewed the CT and there is no acute subacute ischemia. There is no bleed. The patient's atrophy is appropriate for the patient's age. Routine EEG is abnormal. The background slowing suggestive of mild encephalopathy. The patient had multiple mild clonus and is stimulus induced. Mild clonus appear epileptic in nature. No seizures noted during the study. Most recent 2-D echo was reported as severe. Ventricular systolic function with global hypokinesis. Moderate mitral with mild aortic and tricuspid regurgitation. Ejection fraction of 30-35%. - Labs CBC & Chem 7: 01/15/23 04:30 01/15/23 04:30 Labs: Abnormal Lab Results - Last 24 Hours (Table) 01/14/23 01/14/23 01/14/23 Range/Units 11:30 14:33 17:59 WBC (3.8-10.6) k/uL RBC (4.30-5.90) m/uL Hgb (13.0-17.5) gm/dL Hct (39.0-53.0) % Neutrophils # (1.3-7.7) k/uL Lymphocytes # (1.0-4.8) k/uL APTT (22.0-30.0) sec ABG pCO2 (35-45) mmHg ABG pO2 (83-108) mmHg ABG HCO3 (21-25) mmol/L ABG Total CO2 (19-24) mmol/L ABG O2 Saturation (94-97) % Sodium 130 L (137-145) mmol/L Potassium (3.5-5.1) mmol/L Chloride 96 L (98-107) mmol/L Carbon Dioxide 15 L (22-30) mmol/L BUN 28 H (9-20) mg/dL Creatinine (0.66-1.25) mg/dL Glucose 252 H (74-99) mg/dL POC Glucose (mg/dL) 214 H 228 H (70-110) mg/dL Calcium 7.8 L (8.4-10.2) mg/dL Phosphorus 6.9 H (2.5-4.5) mg/dL 01/14/23 01/15/23 01/15/23 Range/Units 23:27 04:30 04:30 WBC 15.7 H (3.8-10.6) k/uL RBC 4.01 L (4.30-5.90) m/uL Hgb 12.2 L (13.0-17.5) gm/dL Hct 37.5 L (39.0-53.0) % Neutrophils # 14.7 H (1.3-7.7) k/uL Lymphocytes # 0.5 L (1.0-4.8) k/uL APTT 47.8 H (22.0-30.0) sec ABG pCO2 (35-45) mmHg ABG pO2 (83-108) mmHg ABG HCO3 (21-25) mmol/L ABG Total CO2 (19-24) mmol/L ABG O2 Saturation (94-97) % Sodium (137-145) mmol/L Potassium (3.5-5.1) mmol/L Chloride (98-107) mmol/L Carbon Dioxide (22-30) mmol/L BUN (9-20) mg/dL Creatinine (0.66-1.25) mg/dL Glucose (74-99) mg/dL POC Glucose (mg/dL) 193 H (70-110) mg/dL Calcium (8.4-10.2) mg/dL Phosphorus (2.5-4.5) mg/dL 01/15/23 01/15/23 Range/Units 04:30 06:12 WBC (3.8-10.6) k/uL RBC (4.30-5.90) m/uL Hgb (13.0-17.5) gm/dL Hct (39.0-53.0) % Neutrophils # (1.3-7.7) k/uL Lymphocytes # (1.0-4.8) k/uL APTT (22.0-30.0) sec ABG pCO2 25 L (35-45) mmHg ABG pO2 181 H (83-108) mmHg ABG HCO3 17 L (21-25) mmol/L ABG Total CO2 18 L (19-24) mmol/L ABG O2 Saturation 100.0 H (94-97) % Sodium 130 L (137-145) mmol/L Potassium 3.2 L (3.5-5.1) mmol/L Chloride (98-107) mmol/L Carbon Dioxide 14 L (22-30) mmol/L BUN 35 H (9-20) mg/dL Creatinine 1.50 H (0.66-1.25) mg/dL Glucose 184 H (74-99) mg/dL POC Glucose (mg/dL) (70-110) mg/dL Calcium 7.9 L (8.4-10.2) mg/dL Phosphorus (2.5-4.5) mg/dL Microbiology - Last 24 Hours (Table) 01/14/23 23:00 Sputum Culture - Preliminary Sputum Assessment and Plan Assessment: Cardiac arrest. PEA is rhythm. Seems cardiac in etiology:Cardiac Arrhythmia (Bradycardia vs A-fib). He had CPR for 10 minutes and the patient was found down possibly for 5 minutes to maybe a total of 15 minutes in total. Anoxic encephalopathy. Rule out anoxic brain injury due to cardiac arrest. Encephalopathy due to cardiac arrest and component due to sedation (IV Propofol) Myoclonus and appears epileptic in nature but no seizure on EEG. And it myoclonus were stimulus induced---resolved. Multiple episodes of syncopal episode in the last day that led to cardiac arrest: Likely cardiac in etiology Paroxysmal atrial fibrillation currently on IV Reglan Nonischemic cardiomyopathy with ejection fraction 15-20%. Most recent echo is EF 30-35% Plan: Continue Keppra 750mg IV every 12 hours. Ordered repeat EEG. Cardiology on board Avoid any hypotensive episode. Is on Norepinephrine. We'll defer the rest of medical measure the primary and IC team Condition is critical. He only has one brainstem reflex (breathing over the vent). Will reassess the patient again tomorrow and hopefully sedation will be turned off for better neurological examination. Plan discussed with the patient's family members and nurse. Jamey Escalona M.D. Time with Patient: Less than 30
[2023-01-15 12:27] LABS: Glucose,Whole Blood 179 mg/dL (70-110)
--- NOTE | 2023-01-15 12:43 | CDI ---
Documentation Clarification Form Date: 01/15/2023 12:39:51 PM From: Diandra Crawford RN, CCDS Email: [email or web address] Admit Date: 01/11/2023 5:58:00 AM Patient Name: Addy Vo Visit Number: [id number] Discharge Date: ATTENTION: The Clinical Documentation Specialists (CDI) and [facility] Coding Staff appreciate your assistance in clarifying documentation. Please respond to the clarification below the line at the bottom and electronically sign. The CDI & [facility] Coding staff will review the response and follow-up if needed. Please note: Queries are made part of the Legal Health Record. If you have any questions, please contact the author of this message via ITS. Dr. Joseph Cuevas The patient went into cardiac arrest from AV block, was intubated and ventilated and transferred to ICU. Additional clarification is requested. Patient history/risk factors: Patient came in after having syncopal episodes. Went into cardiac arrest this admission. Recurrent syncope 2/2 complete heart block per Cardiology. S/P trans venous temporary pacing. 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 The patient has a gag reflex and myoclonic jerks, however no purposeful movement or withdrawal from painful stimulation." 01/15 Pulmonary: "Keep pressors for now." Treatment: Mechanical ventilator Norepinephrine infusion Transvenous pacing IV Heparin IVF's 0.9 NS Please clarify if there is an additional diagnosis: [ x] Cardiogenic Shock [ ] Other, please specify [ ] Unable to determine MTDD
[2023-01-15 13:09] VITALS: BP 113/67
[2023-01-15 13:16] LABS: Calcium 7.9 mg/dL (8.4-10.2); Potassium 3.9 mmol/L (3.5-5.1)
[2023-01-15] MEDS ORDERED: POTASSIUM BICARBONATE/CIT AC 20 MEQ TABLET.EFF PO ONE (13:31)
[2023-01-15] MEDS ORDERED: DEXTROSE 5% IN WATER 250 ML with AMIODARONE 300 MG IV ONE (17:05)
[2023-01-15 17:29] LABS: Glucose,Whole Blood 164 mg/dL (70-110)
[2023-01-15] MEDS: HEPARIN SOD,PORK IN 0.45% NACL 25,000 UNIT in 0.45% NACL 1 250ML.BAG IV SCH (20:31)
--- NOTE | 2023-01-15 22:05 | EEG ---
ELECTROENCEPHALOGRAM REPORT CLINICAL HISTORY: This is an 87-year-old gentleman who had a cardiac arrest and has myoconic jerks and continues to have altered mental status. The video EEG is obtained to evaluate for seizure epileptiform activity. RELEVANT MEDICATIONS: Keppra and IV propofol. EEG TYPE: Routine 21 channel EEG is performed with video using the 10/20 electrode placement system. DESCRIPTION: The patient is intubated on a ventilator. The background is diffusely suppressed. It appears very low voltage of 0.5 to 1 hertz nonrhythmic delta activity. There is no physiological stage 2 sleep architecture. There is no focal slowing. Interictal and ictal is none. ACTIVATION PROCEDURE: Photic stimulation did not evoke a posterior driving response. There is no abnormality during the photic stimulation. Hyperventilation is not performed. CLINICAL INTERPRETATION: This is an abnormal routine EEG. The background slowing is suggestive of severe encephalopathy and seems worse than prior EEG (01/14/23) likely due to multifactorial: Sedation use (IV propofol) as well as diffuse cerebral dysfunction. Otherwise, there is no focal slowing, epileptiform discharge or seizure on the EEG. Clinical correlation is recommended. MMODL / IJN: [id number] / JOHNNY
[2023-01-16 00:18] LABS: Glucose,Whole Blood 123 mg/dL (70-110)
[2023-01-16] MEDS: INSULIN ASPART (NovoLOG) 100 UNIT/ML VIAL SQ SCH ×4 (00:25→18:46)
[2023-01-16] MEDS: IPRATROPIUM-ALBUTEROL 3 ML NEB INHALATION SCH ×7 (00:45→23:51)
[2023-01-16] MEDS: SODIUM CHLORIDE 0.9% 1,000 ML IV SCH (03:17)
[2023-01-16 05:07] LABS: Basophils % (A) 0 %; Eosinophils % (A) 0 %; HCT 34.9 % (39.0-53.0); HGB 11.9 gm/dL (13.0-17.5); Lymphocytes # (A) 0.7 k/uL (1.0-4.8); Lymphocytes % (A) 5 %; MCH 30.4 pg (25.0-35.0); MCHC 34.1 g/dL (31.0-37.0); MCV 88.9 fL (80.0-100.0); Mean Platelet Volume 8.1; Monocytes # (A) 0.5 k/uL (0-1.0); Monocytes % (A) 4 %; Neutrophils # (A) 12.9 k/uL (1.3-7.7); Neutrophils % (A) 90 %; Platelet Count 210 k/uL (150-450); RBC 3.92 m/uL (4.30-5.90); RDW 14.1 % (11.5-15.5); WBC 14.4 k/uL (3.8-10.6)
[2023-01-16 05:22] LABS: Calcium 7.8 mg/dL (8.4-10.2); Potassium 3.8 mmol/L (3.5-5.1)
[2023-01-16 05:37] LABS: ABG Base Excess -0.5 mmol/L; ABG HCO3 23 mmol/L (21-25); ABG Oxygen Saturation 99.9 % (94-97); ABG PCO2 30 mmHg (35-45); ABG PH 7.49 (7.35-7.45); ABG PO2 149 mmHg (83-108); ABG TCO2 24 mmol/L (19-24); Allen Test Performed? Yes
[2023-01-16] MEDS ORDERED: POTASSIUM BICARBONATE/CIT AC 20 MEQ TABLET.EFF NG-TUBE SCH (06:00)
--- NOTE | 2023-01-16 06:53 | XR ---
EXAMINATION TYPE: XR chest 1V portable DATE OF EXAM: 01/16/2023 5:18 AM COMPARISON: Chest radiographs from 01/15/2023, CTA chest 01/02/2019 TECHNIQUE: XR chest 1V portable Portable AP radiograph of the chest. CLINICAL INDICATION:Male, 87 years old with history of Tube placement; FINDINGS: Lungs/Pleura: There is no evidence of pleural effusion, focal consolidation, or pneumothorax. Pulmonary vascularity: Unremarkable. Heart/mediastinum: Cardiomediastinal silhouette is enlarged and stable. Musculoskeletal: No acute osseous pathology. Other findings: None Lines/Tubes: Endotracheal tube with distal tip 4.0 cm above the vasu Nasogastric tube with its distal tip and side-port projecting over a moderate-sized hiatal hernia. IMPRESSION: 1. NG tube and sidehole are demonstrated likely within a moderate sized hiatal hernia. 2. Appropriate position of endotracheal tube. 3. Persistent cardiomegaly.
[2023-01-16] MEDS: ASPIRIN 81 MG PO SCH (08:02)
[2023-01-16] MEDS: CHLORHEXIDINE GLUCONATE 15 ML CUP MUCOUS MEM SCH ×2 (08:02→21:40)
[2023-01-16] MEDS: AMIODARONE 450 MG in DEXTROSE 5% IN WATER 250 ML IV SCH ×4 (08:02→21:41)
[2023-01-16] MEDS: METOPROLOL TARTRATE 25 MG TAB PO SCH (08:03)
[2023-01-16] MEDS: levETIRAcetam IV 500 MG/5 ML VIAL IVP SCH ×2 (08:03→21:40)
--- NOTE | 2023-01-16 08:31 | P.PN ---
Subjective Progress Note Date: 01/16/23 87-year-old male patient, who developed an acute cardiac arrest while getting ready to go to the EP lab to undergo a pacemaker insertion. The patient was supposed underwent a pacemaker insertion today. Noted the patient has been having several episodes of syncope. First episode he came into the emergency and he was discharged home. The first episode, he was hospitalized and this morning this was the third episode. As far the second episode, the patient was standing and the buffet and he developed a sudden onset syncopal episode. Bystanders performed CPR on the patient. The patient was brought into the hospital. The patient was discharged home by the emergency physician. The patient then returned for additional episodes of syncope. He denied having any chest pain. He denies having any shortness of breath. He denied having any dizziness did no focal neurological deficit that he was fully recovered from those episodes. The patient had some abnormal EKG showing atrial fibrillation with RVR. He is known to have cardiomyopathy. Based on the recent echocardiogram that was done in February 2022, his EF was down to 50s 20% and this is a new finding compared to the earlier echo cardiac and the door essentially within normal limits. Patient also had a normal cardiac catheterization [email or web address]. This morning, the patient had another episode of syncope. He was found in the bathroom unresponsive. He had no pulse. I believe he was in a PEA condition. CPR was applied and the patient was intubated and brought to the intensive care unit. Cardiology is been involved. I believe EKG showing A. fib RVR. I saw the patient in the ICU. The patient was still in atrial fibrillation with a controlled rate. The patient was running a soft blood pressure with a systolic blood pressure in the 90s. He was unresponsive. He was maintained on propofol at 30 microvascular kilogram per minute to maintain secondary mechanical ventilator. He was on assist-control mode of mechanical ventilation at the rate of 14, tidal volume of 450, FiO2 of 100% with a PEEP of 5. The blood gases s howed a pH of 7.2 with a pCO2 of 43 and pO2 of 356. FiO2 was dropped onto 50%. I also think is a rate up to 20 and changed tidal volume to 500. Chest x-ray showed cardiomegaly, ET tube was repositioned at the patient's ET tube was quite far down the trachea. No other acute abnormalities noted. The RBC count from this morning is at 17 with a hemoglobin of 12.5. BUN is at 28 with a creatinine of 1.1. Sodium is at 130, potassium is at 4.1, serum bicarb is at 15. The patient is going to be taken for a temporary pacemaker insertion. He is currently on IV heparin. Family is at the bedside. On today's evaluation of 01/15/2023, the patient remains intubated on a mechanical ventilator. 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 The patient is currently on propofol which is running at 60 mcg/kg/m. His admitted to While being on a mechanical ventilator. Neurologically, he is not grimacing and is not withdrawing to deep painful stimulation. He is having occasional myoclonic jerks upon stimulation. EEG was done and it showed diffuse slowing and there is no evidence of any active seizures other than some myoclonic jerks or activity with stimulation. The patient was started on Keppra. CAT scan of the brain was negative. At the same time, the patient was given a temporary transvenous pacemaker which is set at the rate of 60. His current cardiac rhythm is atrial fibrillation and is rate is above 60. Note that he was pacing yesterday and he was riding the pacemaker. As such, our thinking processes that the patient went into a high degree AV block which contributed to his cardiac arrest. The patient remains on amiodarone regarding his ongoing atrial fibrillation. Amiodarone is running at 0.5 mg/m and the patient is also on IV heparin. The patient is currently hemodynamically stable on no pressors. He remains on a mechanical ventilator on assist control mode at the rate of 20, tidal volume of 500, FiO2 of 30% and a PEEP of 5. The chest x-ray shows cardiomegaly without any acute abnormalities. Blood gas shows a pH of 7.45 with a pCO2 of 25 and a pO2 of 181. The patient has no significant orotracheal secretions. The patient is still hypotensive. The patient remains on norepinephrine at 0.25 mcg/kg/m. He has sustained an acute kidney injury. BUN is up to 35 the creatinine is up to 1.5. Sodiums of 1 :30, potassium 3.2. The white cell count is at 15.7 with a hemoglobin of 12.2 and a platelet count of 229. The patient is afebrile. No antibiotic coverage was given to this patient this point in time. He was started on enteral feeding and is currently on vital high-protein at the rate of 30 mL an hour. On 01/16/2023, seeing the patient for a follow-up. The patient remains unresponsive. He has been taken off sedation, off propofol for around 30 minutes this morning and wear the process of getting another sedation holiday for a complete neurologic evaluation. Nevertheless, he has not shown any neurological recovery. He does not withdraw to any painful stimulation. He is breathing above the respirator. He has a disconjugate gaze and occasional myoclonic jerks. He remains on Keppra. Full neurologic evaluation is to follow once the patient is off sedation for couple of hours. The patient is on assist- control mode at the rate of 20, tidal volume of 500, FiO2 of 30% with a PEEP of 5. His chest x-ray shows cardiomegaly. ET tube is in a good location. No acute cardiopulmonary abnormalities of the chest x-ray. His blood gases from today shows a pH of 7.49 with a pCO2 of 30 and pO2 of 149. The patient's is hemodynamically stable. His cardiac rhythm is irregular with occasional pacing through the transvenous pacemaker. Nevertheless, his current heart rate is somewhat tachycardic in the 100 range. His still on amiodarone at 0.5 mg/m. No ventricular arrhythmias have been noted. He remains on IV heparin. Patient is also metoprolol 25 mg by mouth twice a day. Patient otherwise has blood work that showing a white cell count of 14.4, hemoglobin 11.9 and platelet count of 210. Sodium is at 128, bicarb is at 20, BUN is at 36 with a creatinine of 1.2. The patient is also receiving enteral feeding for nutritional support. Is currently on vital high-protein at the rate of 20 mL an hour. No other significant events otherwise for now. Objective - Vital Signs Vital signs: Vital Signs Temp 98.4 F 01/16/23 04:00 Pulse 91 01/16/23 08:13 Resp 29 H 01/16/23 07:00 BP 113/67 01/15/23 10:00 Pulse Ox 97 01/16/23 07:00 FiO2 30 01/16/23 08:00 Intake & Output 01/15/23 01/16/23 01/16/23 18:59 06:59 18:59 Intake Total 789.947 4138.242 271.114 Output Total 350 600 65 Balance 728.689 1196.242 206.114 Weight 92.8 kg 93.3 kg Intake: IV 450 600 100 Sodium Chloride 0.9% 1, 450 600 100 000 ml @ 50 mls/hr IV . Q20H [facility] Rx#:[id number] Intake, IV Titration 420.988 919.242 151.114 Amount Amiodarone 450 mg In 177.226 211.115 151.114 Dextrose 5% in Water 250 ml @ 0.5 MG/MIN 16.667 mls/hr IV .Q15H [facility] Rx#: [id number] Heparin Sod,Pork in 0.45% 349.751 NaCl 25,000 unit In 0.45 % NaCl 1 250ml.bag @ 11. 023 UNITS/KG/HR 10 mls/hr IV .Q24H [facility] Rx#: [id number] Norepinephrine 32 mg In 52.889 93.272 Sodium Chloride 0.9% 218 ml @ 0.03 MCG/KG/MIN 1. 305 mls/hr IV .Q24H [facility] Rx#:[id number] Norepinephrine 4 mg In 30.819 Sodium Chloride 0.9% 250 ml @ 0.03 MCG/KG/MIN 10. 369 mls/hr IV .Q24H [facility] Rx#:[id number] propofoL 1,000 mg In 160.054 265.104 Empty Bag 1 bag @ 15 MCG/ KG/MIN 8.165 mls/hr IV . [id number] [facility] Rx#:[id number] Tube Feeding 30 180 20 Other 60 Output: Urine 350 600 65 Stool 0 Other: Voiding Method Indwelling Catheter Indwelling Catheter Indwelling Catheter ABP, PAP, CO, CI - Last Documented Arterial Blood Pressure 96/51 - Exam Patient is currently intubated on a mechanical ventilator, sedated with propofol. He is unresponsive. Head exam was generally normal. There was no scleral icterus or corneal arcus. Mucous membranes were moist. Neck was supple and without jugular venous distension, thyromegaly, or carotid bruits. Carotids were easily palpable bilaterally. There was no adenopathy. Lungs were clear to auscultation and percussion, and with normal diaphragmatic excursion. No wheezes or rales were noted. Cardiac exam revealed the PMI to be normally situated and sized. The rhythm was irregular and no extrasystoles were noted during several minutes of auscul tation. The first and second heart sounds irregular consistent with atrial fibrillation physiologic splitting of the second heart sound was noted. There were no murmurs, rubs, clicks, or gallops. Abdominal exam revealed normal bowel sounds. The abdomen was soft, non-tender, and without masses, organomegaly, or appreciable enlargement of the abdominal aorta. The patient has a transvenous pacemaker insertion site is the right femoral vein. Extremities are cold, diminished pulses in the right lower extremity, left foot is colder than the right. Pulses are very weak obtained by Doppler. No cyan osis or clubbing. Examination of the skin revealed no evidence of significant rashes, suspicious appearing nevi or other concerning lesions. Neurologic the pupils are equal and reactive to light. Positive cough and a gag. Unresponsive at this point in time. Note that the patient's postoperative status and the patient is currently on propofol. . Reflexes are diminished at the present and symmetrical. No Babinski. No clonus. No significant change in his neurologic exam compared to yesterday. - Labs CBC & Chem 7: 01/16/23 04:40 01/16/23 04:40 Labs: Abnormal Lab Results - Last 24 Hours (Table) 01/15/23 01/15/23 01/15/23 Range/Units 11:25 12:24 17:28 WBC (3.8-10.6) k/uL RBC (4.30-5.90) m/uL Hgb (13.0-17.5) gm/dL Hct (39.0-53.0) % Neutrophils # (1.3-7.7) k/uL Lymphocytes # (1.0-4.8) k/uL APTT (22.0-30.0) sec ABG pH (7.35-7.45) ABG pCO2 (35-45) mmHg ABG pO2 (83-108) mmHg ABG O2 Saturation (94-97) % Sodium 130 L (137-145) mmol/L Chloride 97 L (98-107) mmol/L Carbon Dioxide 17 L (22-30) mmol/L BUN 38 H (9-20) mg/dL Creatinine 1.49 H (0.66-1.25) mg/dL Glucose 169 H (74-99) mg/dL POC Glucose (mg/dL) 179 H 164 H (70-110) mg/dL Calcium 7.9 L (8.4-10.2) mg/dL 01/16/23 01/16/23 01/16/23 Range/Units 00:16 04:40 04:40 WBC 14.4 H (3.8-10.6) k/uL RBC 3.92 L (4.30-5.90) m/uL Hgb 11.9 L (13.0-17.5) gm/dL Hct 34.9 L (39.0-53.0) % Neutrophils # 12.9 H (1.3-7.7) k/uL Lymphocytes # 0.7 L (1.0-4.8) k/uL APTT (22.0-30.0) sec ABG pH (7.35-7.45) ABG pCO2 (35-45) mmHg ABG pO2 (83-108) mmHg ABG O2 Saturation (94-97) % Sodium 128 L (137-145) mmol/L Chloride 96 L (98-107) mmol/L Carbon Dioxide 20 L (22-30) mmol/L BUN 36 H (9-20) mg/dL Creatinine 1.26 H (0.66-1.25) mg/dL Glucose 138 H (74-99) mg/dL POC Glucose (mg/dL) 123 H (70-110) mg/dL Calcium 7.8 L (8.4-10.2) mg/dL 01/16/23 01/16/23 Range/Units 04:40 05:33 WBC (3.8-10.6) k/uL RBC (4.30-5.90) m/uL Hgb (13.0-17.5) gm/dL Hct (39.0-53.0) % Neutrophils # (1.3-7.7) k/uL Lymphocytes # (1.0-4.8) k/uL APTT 41.3 H (22.0-30.0) sec ABG pH 7.49 H (7.35-7.45) ABG pCO2 30 L (35-45) mmHg ABG pO2 149 H (83-108) mmHg ABG O2 Saturation 99.9 H (94-97) % Sodium (137-145) mmol/L Chloride (98-107) mmol/L Carbon Dioxide (22-30) mmol/L BUN (9-20) mg/dL Creatinine (0.66-1.25) mg/dL Glucose (74-99) mg/dL POC Glucose (mg/dL) (70-110) mg/dL Calcium (8.4-10.2) mg/dL Microbiology - Last 24 Hours (Table) 01/14/23 23:00 Gram Stain - Preliminary Sputum Sputum Culture - Preliminary Assessment and Plan Plan: PEA cardiac arrest, under investigation. Consider possibility of bradycardia/bradycardia arrhythmia versus A. fib RVR. Ventricular arrhythmias were not noted. Down time is estimated to be around 10 minutes. Consider possibility of hypoxic encephalopathy. Patient is currently sedated on propofol. The patient is currently in atrial fibrillation. He is on amiodarone drip. Is on IV heparin. A backup transvenous pacemaker was inserted at the rate of 60. No significant ventricular arrhythmias noted overnight. Condition is unchanged and the patient remains on IV heparin and amiodarone drip for now. Acute hypoxic respiratory failure post cardiac arrest, currently intubated on m echanical ventilator, chest x-ray was noted and the blood gases showing a component of respiratory alkalosis Anoxic encephalopathy. The patient remains unresponsive. The patient is sedated for now. EEG from yesterday was noted and it showed diffuse slowing. The patient was having episodic myoclonic jerks and the patient was placed on Keppra. CAT scan of the brain was negative. Neurology is on the case. No major improvement in his neurologic function. The patient remains unresponsive. We cut down the sedation this morning and performing another sedation holiday and the evaluate his mental status Nonischemic cardiomyopathy with an ejection fraction of 15-20%. Repeat echocardiogram during this current admission showed markedly impaired LV function with an EF of around 30-35% and there was moderate MR, mild aortic stenosis. RV was also exhibited dilated within normal pulmonary artery pressure. Paroxysmal A. fib, current rhythm is still A. fib with a controlled rate and the patient is on IV heparin and the patient is also on amiodarone abnormal troponins, type to myocardial ischemia Recurrent syncope, at least 3 episodes over the past 24 hours with subsequent cardiac arrest Normal coronaries based on the cardiac catheterization from 2021 Hypertension Hyperlipidemia Plan Continue ventilator support Drop the tidal volume down to 450 Keep the rest of the vent settings unchanged Altered propofol and do a complete neuro evaluation with neurology . Keep pressors for now, currently on 0.05 mcg/kg/m Norepinephrine infusion if needed depending on the blood pressure control Transvenous pacemaking at the rate of 60 Continue IV heparin Consult neurology is appreciated CAT scan of the brain and EEG are both appreciated Enteral feeding has been started IV fluids are running in the form of normal saline at rate of 50 mL an hour Condition is critical and the patient will be kept in ICU for now. Critical care evaluation, more than 30 minutes. Had a lengthy discussion with the family and his children at the bedside. Explained to them the condition. Family is being updated on a daily basis. Time with Patient: Greater than 30
--- NOTE | 2023-01-16 08:37 | P.PN ---
Subjective Principal diagnosis: Cardiac arrest respiratory failure Tachybradycardia syndrome with arrest. The patient is a 87-year-old white male with nonischemic cardiomyopathy who was going to the bathroom and was found slumped. The patient was then coded and transferred to the ICU. The patient has now had temporary pacemaker and has st arted appropriate medications after appropriate ACLS protocol. The patient is now intubated. Clonic movements are noted. Objective - Vital Signs Vital signs: Vital Signs Temp 98.4 F 01/16/23 04:00 Pulse 91 01/16/23 08:13 Resp 29 H 01/16/23 07:00 BP 113/67 01/15/23 10:00 Pulse Ox 97 01/16/23 07:00 FiO2 30 01/16/23 08:00 Intake & Output 01/15/23 01/16/23 01/16/23 18:59 06:59 18:59 Intake Total 560.423 4131.242 271.114 Output Total 350 600 65 Balance 954.656 7887.242 206.114 Weight 92.8 kg 93.3 kg Intake: IV 450 600 100 Sodium Chloride 0.9% 1, 450 600 100 000 ml @ 50 mls/hr IV . Q20H [facility] Rx#:[id number] Intake, IV Titration 420.988 919.242 151.114 Amount Amiodarone 450 mg In 177.226 211.115 151.114 Dextrose 5% in Water 250 ml @ 0.5 MG/MIN 16.667 mls/hr IV .Q15H [facility] Rx#: [id number] Heparin Sod,Pork in 0.45% 349.751 NaCl 25,000 unit In 0.45 % NaCl 1 250ml.bag @ 11. 023 UNITS/KG/HR 10 mls/hr IV .Q24H [facility] Rx#: [id number] Norepinephrine 32 mg In 52.889 93.272 Sodium Chloride 0.9% 218 ml @ 0.03 MCG/KG/MIN 1. 305 mls/hr IV .Q24H [facility] Rx#:[id number] Norepinephrine 4 mg In 30.819 Sodium Chloride 0.9% 250 ml @ 0.03 MCG/KG/MIN 10. 369 mls/hr IV .Q24H [facility] Rx#:[id number] propofoL 1,000 mg In 160.054 265.104 Empty Bag 1 bag @ 15 MCG/ KG/MIN 8.165 mls/hr IV . [id number] [facility] Rx#:[id number] Tube Feeding 30 180 20 Other 60 Output: Urine 350 600 65 Stool 0 Other: Voiding Method Indwelling Catheter Indwelling Catheter Indwelling Catheter ABP, PAP, CO, CI - Last Documented Arterial Blood Pressure 96/51 - Constitutional General appearance: Present: no acute distress - EENT Eyes: Absent: abnormal pupil - Neck Neck: Absent: lymphadenopathy - Respiratory Respiratory: bilateral: diminished - Gastrointestinal General gastrointestinal: Present: soft - Integumentary Integumentary: Absent: cyanotic - Neurologic Neurologic Comment(s): Clonic movements are noted. - Psychiatric Psychiatric: Absent: A&O x's 3 - Labs CBC & Chem 7: 01/16/23 04:40 01/16/23 04:40 Labs: Abnormal Lab Results - Last 24 Hours (Table) 01/15/23 01/15/23 01/15/23 Range/Units 11:25 12:24 17:28 WBC (3.8-10.6) k/uL RBC (4.30-5.90) m/uL Hgb (13.0-17.5) gm/dL Hct (39.0-53.0) % Neutrophils # (1.3-7.7) k/uL Lymphocytes # (1.0-4.8) k/uL APTT (22.0-30.0) sec ABG pH (7.35-7.45) ABG pCO2 (35-45) mmHg ABG pO2 (83-108) mmHg ABG O2 Saturation (94-97) % Sodium 130 L (137-145) mmol/L Chloride 97 L (98-107) mmol/L Carbon Dioxide 17 L (22-30) mmol/L BUN 38 H (9-20) mg/dL Creatinine 1.49 H (0.66-1.25) mg/dL Glucose 169 H (74-99) mg/dL POC Glucose (mg/dL) 179 H 164 H (70-110) mg/dL Calcium 7.9 L (8.4-10.2) mg/dL 01/16/23 01/16/23 01/16/23 Range/Units 00:16 04:40 04:40 WBC 14.4 H (3.8-10.6) k/uL RBC 3.92 L (4.30-5.90) m/uL Hgb 11.9 L (13.0-17.5) gm/dL Hct 34.9 L (39.0-53.0) % Neutrophils # 12.9 H (1.3-7.7) k/uL Lymphocytes # 0.7 L (1.0-4.8) k/uL APTT (22.0-30.0) sec ABG pH (7.35-7.45) ABG pCO2 (35-45) mmHg ABG pO2 (83-108) mmHg ABG O2 Saturation (94-97) % Sodium 128 L (137-145) mmol/L Chloride 96 L (98-107) mmol/L Carbon Dioxide 20 L (22-30) mmol/L BUN 36 H (9-20) mg/dL Creatinine 1.26 H (0.66-1.25) mg/dL Glucose 138 H (74-99) mg/dL POC Glucose (mg/dL) 123 H (70-110) mg/dL Calcium 7.8 L (8.4-10.2) mg/dL 01/16/23 01/16/23 Range/Units 04:40 05:33 WBC (3.8-10.6) k/uL RBC (4.30-5.90) m/uL Hgb (13.0-17.5) gm/dL Hct (39.0-53.0) % Neutrophils # (1.3-7.7) k/uL Lymphocytes # (1.0-4.8) k/uL APTT 41.3 H (22.0-30.0) sec ABG pH 7.49 H (7.35-7.45) ABG pCO2 30 L (35-45) mmHg ABG pO2 149 H (83-108) mmHg ABG O2 Saturation 99.9 H (94-97) % Sodium (137-145) mmol/L Chloride (98-107) mmol/L Carbon Dioxide (22-30) mmol/L BUN (9-20) mg/dL Creatinine (0.66-1.25) mg/dL Glucose (74-99) mg/dL POC Glucose (mg/dL) (70-110) mg/dL Calcium (8.4-10.2) mg/dL Microbiology - Last 24 Hours (Table) 01/14/23 23:00 Gram Stain - Preliminary Sputum Sputum Culture - Preliminary Assessment and Plan (1) Cardiac arrest Current Visit: Yes Status: Acute Code(s): I46.9 - CARDIAC ARREST, CAUSE UNSPECIFIED SNOMED Code(s): 848760215 (2) Syncope Current Visit: Yes Status: Acute Code(s): R55 - SYNCOPE AND COLLAPSE SNO MED Code(s): 585118697 (3) Atrial flutter with rapid ventricular response Current Visit: No Status: Acute Code(s): I48.92 - UNSPECIFIED ATRIAL FLUTTER SNOMED Code(s): 8537997 (4) Congestive heart failure Current Visit: No Status: Acute Code(s): I50.9 - HEART FAILURE, UNSPECIFIED SNOMED Code(s): 54701914 Plan: We will continue to follow patient during ICU management.. Check CBC and CMP in a.m. Appreciate multiple consultants input. Prognosis is guarded I did have a short discussion with the children about overall prognostic indicators being poor.
--- NOTE | 2023-01-16 09:31 | P.PN ---
Subjective Progress Note Date: 01/16/23 The patient is an 87-year-old male who is currently admitted to the hospital with recurrent syncope. The patient had bradycardic arrest while admitted to the third floor. CPR was started and he was recovered after approximately 30 minutes. Post resuscitation the patient developed A. fib with RVR and was subsequently transferred to the ICU. TVP was placed and he converted back to third-degree heart block. 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 The patient has a gag reflex and myoclonic jerks, however no purposeful movement or withdrawal from painful stimulation. There has been no improvement in his neurological status in the last 24 hours. Sedation is currently on hold for neurological evaluation GENERAL: Ill-appearing, well-nourished and in no acute distress. Sedated and ventilated NECK: Supple without JVD or thyromegaly. LUNGS: Breath sounds clear to auscultation bilaterally. Respiration equal and unlabored. No wheezes, rales or rhonchi. HEART: Irregular rate and rhythm. Elevated heart rate. Soft systolic murmur. No rubs or gallops. S1 and S2 heard. EXTREMITIES: Normal range of motion, no edema. No clubbing or cyanosis. Peripheral pulses intact and strong. TELEMETRY: Atrial fibrillation with heart rates in the low 100s IMPRESSION: Recurrent syncope, secondary to complete heart block Status post cardiopulmonary arrest in hospital requiring intubation Abnormal troponins, type II myocardial infarction Paroxysmal atrial fibrillation Nonischemic cardiomyopathy, EF 30-35% PLAN: Continue supportive treatment Awaiting neuro consultation and recommendations Proceed with biventricular AICD if neurological status improves Further recommendations based on clinical course I am dictating on behalf of Dr Aren Jiménez's history/physical and assessment/plan. Objective - Vital Signs Vital signs: Vital Signs Temp 98.4 F 01/16/23 04:00 Pulse 91 01/16/23 08:13 Resp 29 H 01/16/23 07:00 BP 113/67 01/15/23 10:00 Pulse Ox 97 01/16/23 07:00 FiO2 30 01/16/23 08:00 Intake & Output 01/15/23 01/16/23 01/16/23 18:59 06:59 18:59 Intake Total 901.507 7068.242 271.114 Output Total 350 600 65 Balance 378.248 7137.242 206.114 Weight 92.8 kg 93.3 kg Intake: IV 450 600 100 Sodium Chloride 0.9% 1, 450 600 100 000 ml @ 50 mls/hr IV . Q20H [facility] Rx#:[id number] Intake, IV Titration 420.988 919.242 151.114 Amount Amiodarone 450 mg In 177.226 211.115 151.114 Dextrose 5% in Water 250 ml @ 0.5 MG/MIN 16.667 mls/hr IV .Q15H [facility] Rx#: [id number] Heparin Sod,Pork in 0.45% 349.751 NaCl 25,000 unit In 0.45 % NaCl 1 250ml.bag @ 11. 023 UNITS/KG/HR 10 mls/hr IV .Q24H [facility] Rx#: [id number] Norepinephrine 32 mg In 52.889 93.272 Sodium Chloride 0.9% 218 ml @ 0.03 MCG/KG/MIN 1. 305 mls/hr IV .Q24H [facility] Rx#:[id number] Norepinephrine 4 mg In 30.819 Sodium Chloride 0.9% 250 ml @ 0.03 MCG/KG/MIN 10. 369 mls/hr IV .Q24H [facility] Rx#:[id number] propofoL 1,000 mg In 160.054 265.104 Empty Bag 1 bag @ 15 MCG/ KG/MIN 8.165 mls/hr IV . [id number] [facility] Rx#:[id number] Tube Feeding 30 180 20 Other 60 Output: Urine 350 600 65 Stool 0 Other: Voiding Method Indwelling Catheter Indwelling Catheter Indwelling Catheter ABP, PAP, CO, CI - Last Documented Arterial Blood Pressure 96/51 - Labs CBC & Chem 7: 01/16/23 04:40 01/16/23 04:40 Labs: Abnormal Lab Results - Last 24 Hours (Table) 01/15/23 01/15/23 01/15/23 Range/Units 11:25 12:24 17:28 WBC (3.8-10.6) k/uL RBC (4.30-5.90) m/uL Hgb (13.0-17.5) gm/dL Hct (39.0-53.0) % Neutrophils # (1.3-7.7) k/uL Lymphocytes # (1.0-4.8) k/uL APTT (22.0-30.0) sec ABG pH (7.35-7.45) ABG pCO2 (35-45) mmHg ABG pO2 (83-108) mmHg ABG O2 Saturation (94-97) % Sodium 130 L (137-145) mmol/L Chloride 97 L (98-107) mmol/L Carbon Dioxide 17 L (22-30) mmol/L BUN 38 H (9-20) mg/dL Creatinine 1.49 H (0.66-1.25) mg/dL Glucose 169 H (74-99) mg/dL POC Glucose (mg/dL) 179 H 164 H (70-110) mg/dL Calcium 7.9 L (8.4-10.2) mg/dL 01/16/23 01/16/23 01/16/23 Range/Units 00:16 04:40 04:40 WBC 14.4 H (3.8-10.6) k/uL RBC 3.92 L (4.30-5.90) m/uL Hgb 11.9 L (13.0-17.5) gm/dL Hct 34.9 L (39.0-53.0) % Neutrophils # 12.9 H (1.3-7.7) k/uL Lymphocytes # 0.7 L (1.0-4.8) k/uL APTT (22.0-30.0) sec ABG pH (7.35-7.45) ABG pCO2 (35-45) mmHg ABG pO2 (83-108) mmHg ABG O2 Saturation (94-97) % Sodium 128 L (137-145) mmol/L Chloride 96 L (98-107) mmol/L Carbon Dioxide 20 L (22-30) mmol/L BUN 36 H (9-20) mg/dL Creatinine 1.26 H (0.66-1.25) mg/dL Glucose 138 H (74-99) mg/dL POC Glucose (mg/dL) 123 H (70-110) mg/dL Calcium 7.8 L (8.4-10.2) mg/dL 01/16/23 01/16/23 Range/Units 04:40 05:33 WBC (3.8-10.6) k/uL RBC (4.30-5.90) m/uL Hgb (13.0-17.5) gm/dL Hct (39.0-53.0) % Neutrophils # (1.3-7.7) k/uL Lymphocytes # (1.0-4.8) k/uL APTT 41.3 H (22.0-30.0) sec ABG pH 7.49 H (7.35-7.45) ABG pCO2 30 L (35-45) mmHg ABG pO2 149 H (83-108) mmHg ABG O2 Saturation 99.9 H (94-97) % Sodium (137-145) mmol/L Chloride (98-107) mmol/L Carbon Dioxide (22-30) mmol/L BUN (9-20) mg/dL Creatinine (0.66-1.25) mg/dL Glucose (74-99) mg/dL POC Glucose (mg/dL) (70-110) mg/dL Calcium (8.4-10.2) mg/dL Microbiology - Last 24 Hours (Table) 01/14/23 23:00 Gram Stain - Preliminary Sputum Sputum Culture - Preliminary
--- NOTE | 2023-01-16 11:16 | P.PN ---
Subjective Progress Note Date: 01/16/23 Patient seen at bedside and he is accompanied with an his two son's. LOULOU Charlesine to be on a ventilator and the IV propofol has been the held for 2 hours (was on 40mcg/kg/hr). No further myoclonic episode or seizure episode. Objective - Vital Signs Vital signs: Vital Signs Temp 98.0 F 01/16/23 08:00 Pulse 95 01/16/23 10:00 Resp 35 H 01/16/23 10:00 BP 113/67 01/15/23 10:00 Pulse Ox 97 01/16/23 10:00 FiO2 40 01/16/23 08:00 Intake & Output 01/15/23 01/16/23 01/16/23 18:59 06:59 18:59 Intake Total 478.903 9937.242 371.114 Output Total 350 600 140 Balance 203.551 2079.242 231.114 Weight 92.8 kg 93.3 kg Intake: IV 450 600 200 Sodium Chloride 0.9% 1, 450 600 200 000 ml @ 50 mls/hr IV . Q20H [facility] Rx#:[id number] Intake, IV Titration 420.988 919.242 151.114 Amount Amiodarone 450 mg In 177.226 211.115 151.114 Dextrose 5% in Water 250 ml @ 0.5 MG/MIN 16.667 mls/hr IV .Q15H [facility] Rx#: [id number] Heparin Sod,Pork in 0.45% 349.751 NaCl 25,000 unit In 0.45 % NaCl 1 250ml.bag @ 11. 023 UNITS/KG/HR 10 mls/hr IV .Q24H [facility] Rx#: [id number] Norepinephrine 32 mg In 52.889 93.272 Sodium Chloride 0.9% 218 ml @ 0.03 MCG/KG/MIN 1. 305 mls/hr IV .Q24H [facility] Rx#:[id number] Norepinephrine 4 mg In 30.819 Sodium Chloride 0.9% 250 ml @ 0.03 MCG/KG/MIN 10. 369 mls/hr IV .Q24H [facility] Rx#:[id number] propofoL 1,000 mg In 160.054 265.104 Empty Bag 1 bag @ 15 MCG/ KG/MIN 8.165 mls/hr IV . [id number] [facility] Rx#:[id number] Tube Feeding 30 180 20 Other 60 Output: Urine 350 600 140 Stool 0 Other: Voiding Method Indwelling Catheter Indwelling Catheter Indwelling Catheter ABP, PAP, CO, CI - Last Documented Arterial Blood Pressure 100/55 - Exam GENERAL: The patient is lying in bed and does not appear in acute distress. LUNG: Intubated on ventilator. Is tachypneic. NEUROLOGICAL: Limited. Was on IV Propofol 40mcg/kg/min--held for 2 hours prior to examination. Higher mental function: Is comatose. GCS 3 (E1, VT1, M1). Cranial nerves: I had to manually open eyes. The pupils are round, about 2-3mm and slugghishly reactive to light. No corneal reflex or occulocephalic reflex. No facial weakness. Is breathing over the vent. No gag or cough reflex. Motor: The strength is no movement noted. No spontaneous movement noted. Normal bulk. Slight decrease tone throughout. Cerebellum: Unable to assess. Sensation: Unable to assess light touch. Plantars are mute bilaterally. SOME OF THE WORK-UP DURING THIS HOSPITAL VISIT CONSISTED OF: CT of the brain is reported as moderate generalized atrophy. Stable exam without acute intracranial abnormality seen. I personally reviewed the CT and there is no acute subacute ischemia. There is no bleed. The patient's atrophy is appropriate for the patient's age. Routine EEG is abnormal. The background slowing suggestive of mild encephalopathy. The patient had multiple mild clonus and is stimulus induced. Mild clonus appear epileptic in nature. No seizures noted during the study. Most recent 2-D echo was reported as severe. Ventricular systolic function with global hypokinesis. Moderate mitral with mild aortic and tricuspid regurgitation. Ejection fraction of 30-35%. Repeat EEG is abnormal. The back of slowing suggestive of severe encephalopathy due to multifactorial of sedation use (IV propofol) as well as diffuse cerebral dysfunction. Otherwise there is no focal slowing, epileptiform discharges or seizure on the EEG. - Labs CBC & Chem 7: 01/16/23 04:40 01/16/23 04:40 Labs: Abnormal Lab Results - Last 24 Hours (Table) 01/15/23 01/15/23 01/15/23 Range/Units 11:25 12:24 17:28 WBC (3.8-10.6) k/uL RBC (4.30-5.90) m/uL Hgb (13.0-17.5) gm/dL Hct (39.0-53.0) % Neutrophils # (1.3-7.7) k/uL Lymphocytes # (1.0-4.8) k/uL APTT (22.0-30.0) sec ABG pH (7.35-7.45) ABG pCO2 (35-45) mmHg ABG pO2 (83-108) mmHg ABG O2 Saturation (94-97) % Sodium 130 L (137-145) mmol/L Chloride 97 L (98-107) mmol/L Carbon Dioxide 17 L (22-30) mmol/L BUN 38 H (9-20) mg/dL Creatinine 1.49 H (0.66-1.25) mg/dL Glucose 169 H (74-99) mg/dL POC Glucose (mg/dL) 179 H 164 H (70-110) mg/dL Calcium 7.9 L (8.4-10.2) mg/dL 01/16/23 01/16/23 01/16/23 Range/Units 00:16 04:40 04:40 WBC 14.4 H (3.8-10.6) k/uL RBC 3.92 L (4.30-5.90) m/uL Hgb 11.9 L (13.0-17.5) gm/dL Hct 34.9 L (39.0-53.0) % Neutrophils # 12.9 H (1.3-7.7) k/uL Lymphocytes # 0.7 L (1.0-4.8) k/uL APTT (22.0-30.0) sec ABG pH (7.35-7.45) ABG pCO2 (35-45) mmHg ABG pO2 (83-108) mmHg ABG O2 Saturation (94-97) % Sodium 128 L (137-145) mmol/L Chloride 96 L (98-107) mmol/L Carbon Dioxide 20 L (22-30) mmol/L BUN 36 H (9-20) mg/dL Creatinine 1.26 H (0.66-1.25) mg/dL Glucose 138 H (74-99) mg/dL POC Glucose (mg/dL) 123 H (70-110) mg/dL Calcium 7.8 L (8.4-10.2) mg/dL 01/16/23 01/16/23 Range/Units 04:40 05:33 WBC (3.8-10.6) k/uL RBC (4.30-5.90) m/uL Hgb (13.0-17.5) gm/dL Hct (39.0-53.0) % Neutrophils # (1.3-7.7) k/uL Lymphocytes # (1.0-4.8) k/uL APTT 41.3 H (22.0-30.0) sec ABG pH 7.49 H (7.35-7.45) ABG pCO2 30 L (35-45) mmHg ABG pO2 149 H (83-108) mmHg ABG O2 Saturation 99.9 H (94-97) % Sodium (137-145) mmol/L Chloride (98-107) mmol/L Carbon Dioxide (22-30) mmol/L BUN (9-20) mg/dL Creatinine (0.66-1.25) mg/dL Glucose (74-99) mg/dL POC Glucose (mg/dL) (70-110) mg/dL Calcium (8.4-10.2) mg/dL Microbiology - Last 24 Hours (Table) 01/14/23 23:00 Gram Stain - Preliminary Sputum Sputum Culture - Preliminary Assessment and Plan Assessment: Cardiac arrest. PEA is rhythm. Seems cardiac in etiology:Cardiac Arrhythmia (Bradycardia vs A-fib). He had CPR for 10 minutes and the patient was found down possibly for 5 minutes to maybe a total of 15 minutes in total. Likely anoxic brain injury due to above. Encephalopathy due to cardiac arrest and component due to sedation (IV Propofol) Myoclonus and appears epileptic in nature but no seizure on EEG. And it myoclonus were stimulus induced---resolved. Multiple episodes of syncopal episode in the last day that led to cardiac arrest: Likely cardiac in etiology Paroxysmal atrial fibrillation currently on IV Reglan Nonischemic cardiomyopathy with ejection fraction 15-20%. Most recent echo is EF 30-35% Plan: Continue Keppra 750mg IV every 12 hours. Cardiology on board We'll defer the rest of medical measure the primary and ICU team Condition is critical. He only has two brainstem reflex (breathing over the vent and sluggishly reactive to light) upon having him off sedation for 2 hours. I spoke with the patient's condition appears critical and the overall up prognosis appears poor and likely he'll be dependent on the basic needs. We'll continue to hold the sedation off and in the afternoon or reassess him. UPDATE: I re-examined the patient at 3:05PM today. His sedation has been held for 7 hours. His examination continues about the same (breathing over the vent and pupils are sluggish reactive to light). Otherwise no improvement in his condition. I have discussed it in length with the family and they are consider comfort care measure. They will discuss with rest of family and will notify us of the final decision. Time with Patient: Greater than 30
[2023-01-16 11:40] LABS: Glucose,Whole Blood 158 mg/dL (70-110)
[2023-01-16] MEDS: HEPARIN SODIUM 1,000 UN/ML (10ML VL) IV PRN (11:47)
[2023-01-16] MEDS: NOREPINEPHRINE 32 MG in SODIUM CHLORIDE 0.9% 218 ML IV SCH (11:51)
[2023-01-16 18:02] LABS: Glucose,Whole Blood 148 mg/dL (70-110)
[2023-01-16] MEDS: HEPARIN SOD,PORK IN 0.45% NACL 25,000 UNIT in 0.45% NACL 1 250ML.BAG IV SCH (20:27)
[2023-01-16 21:18] VITALS: TEMP 98.9
[2023-01-17] MEDS: SODIUM CHLORIDE 0.9% 1,000 ML IV SCH (00:08)
[2023-01-17 00:28] LABS: Glucose,Whole Blood 142 mg/dL (70-110)
[2023-01-17] MEDS: INSULIN ASPART (NovoLOG) 100 UNIT/ML VIAL SQ SCH ×2 (00:34→06:58)
[2023-01-17] MEDS: IPRATROPIUM-ALBUTEROL 3 ML NEB INHALATION SCH ×2 (03:03→08:00)
[2023-01-17 05:59] LABS: ABG Base Excess 0.5 mmol/L; ABG HCO3 24 mmol/L (21-25); ABG Oxygen Saturation 99.4 % (94-97); ABG PCO2 30 mmHg (35-45); ABG PO2 137 mmHg (83-108); ABG TCO2 25 mmol/L (19-24)
[2023-01-17] MEDS: NOREPINEPHRINE 32 MG in SODIUM CHLORIDE 0.9% 218 ML IV SCH (06:15)
[2023-01-17 06:53] LABS: Glucose,Whole Blood 147 mg/dL (70-110)
[2023-01-17] MEDS: AMIODARONE 450 MG in DEXTROSE 5% IN WATER 250 ML IV SCH ×2 (07:04)
[2023-01-17] MEDS ORDERED: ATROPINE OPHTH SOLN 1% 5ML BTL SUBLINGUAL PRN (08:01)
[2023-01-17] MEDS ORDERED: MORPHINE SULFATE 2 MG/ML SYRINGE IV PRN (08:01)
[2023-01-17] MEDS ORDERED: LORazepam 2 MG/ML INJ IV PRN (08:01)
[2023-01-17] MEDS ORDERED: SCOPOLAMINE 1 MG/72 HR PATCH TRANSDERM SCH (08:15)
--- NOTE | 2023-01-17 08:16 | P.PN ---
Subjective Principal diagnosis: Cardiac arrest respiratory failure Tachybradycardia syndrome with arrest. The patient is now on Comfort Care Objective - Vital Signs Vital signs: Vital Signs Temp 98.9 F 01/17/23 04:00 Pulse 85 01/17/23 07:00 Resp 18 01/17/23 07:00 BP 113/67 01/15/23 10:00 Pulse Ox 98 01/17/23 07:00 FiO2 30 01/17/23 07:34 Intake & Output 01/16/23 01/17/23 01/17/23 18:59 06:59 18:59 Intake Total 6848.116 6150.275 75.582 Output Total 350 245 20 Balance 719.771 963.275 55.582 Intake: IV 650 550 50 Sodium Chloride 0.9% 1, 650 550 50 000 ml @ 50 mls/hr IV . Q20H [facility] Rx#:[id number] Intake, IV Titration 399.771 658.275 25.582 Amount Amiodarone 450 mg In 151.114 353.619 Dextrose 5% in Water 250 ml @ 0.5 MG/MIN 16.667 mls/hr IV .Q15H [facility] Rx#: [id number] Heparin Sod,Pork in 0.45% 149.474 NaCl 25,000 unit In 0.45 % NaCl 1 250ml.bag @ 11. 023 UNITS/KG/HR 10 mls/hr IV .Q24H [facility] Rx#: [id number] Norepinephrine 32 mg In 24.796 79.043 Sodium Chloride 0.9% 218 ml @ 0.03 MCG/KG/MIN 1. 305 mls/hr IV .Q24H [facility] Rx#:[id number] propofoL 1,000 mg In 74.387 225.613 25.582 Empty Bag 1 bag @ 15 MCG/ KG/MIN 8.165 mls/hr IV . [id number] [facility] Rx#:[id number] Tube Feeding 20 Output: Urine 350 245 20 Other: Voiding Method Indwelling Catheter Indwelling Catheter ABP, PAP, CO, CI - Last Documented Arterial Blood Pressure 101/56 - Constitutional General appearance: Absent: cooperative, no acute distress - Neck Neck: Absent: lymphadenopathy - Respiratory Respiratory: bilateral: diminished - Cardiovascular Rhythm: regular Heart sounds: normal: S1, S2 Abnormal Heart Sounds: Absent: S3 Gallop - Gastrointestinal General gastrointestinal: Present: soft. Absent: tenderness - Psychiatric Psychiatric: Absent: A&O x's 3 - Labs CBC & Chem 7: 01/16/23 04:40 01/16/23 04:40 Labs: Abnormal Lab Results - Last 24 Hours (Table) 01/16/23 01/16/23 01/16/23 Range/Units 11:00 11:39 18:01 APTT 39.6 H (22.0-30.0) sec ABG pH (7.35-7.45) ABG pCO2 (35-45) mmHg ABG pO2 (83-108) mmHg ABG Total CO2 (19-24) mmol/L ABG O2 Saturation (94-97) % POC Glucose (mg/dL) 158 H 148 H (70-110) mg/dL 01/16/23 01/17/23 01/17/23 Range/Units 18:58 00:26 05:55 APTT 77.6 H (22.0-30.0) sec ABG pH 7.50 H (7.35-7.45) ABG pCO2 30 L (35-45) mmHg ABG pO2 137 H (83-108) mmHg ABG Total CO2 25 H (19-24) mmol/L ABG O2 Saturation 99.4 H (94-97) % POC Glucose (mg/dL) 142 H (70-110) mg/dL 01/17/23 Range/Units 06:51 APTT (22.0-30.0) sec ABG pH (7.35-7.45) ABG pCO2 (35-45) mmHg ABG pO2 (83-108) mmHg ABG Total CO2 (19-24) mmol/L ABG O2 Saturation (94-97) % POC Glucose (mg/dL) 147 H (70-110) mg/dL Assessment and Plan (1) Cardiac arrest Current Visit: Yes Status: Acute Code(s): I46.9 - CARDIAC ARREST, CAUSE UNSPECIFIED SNOMED Code(s): 514481411 (2) Syncope Current Visit: Yes Status: Acute Code(s): R55 - SYNCOPE AND COLLAPSE SNOMED Code(s): 774303531 (3) Atrial flutter with rapid ventricular response Current Visit: No Status: Acute Code(s): I48.92 - UNSPECIFIED ATRIAL FLUTTER SNOMED Code(s): 9037257 (4) Congestive heart failure Current Visit: No Status: Acute Code(s): I50.9 - HEART FAILURE, UNSPECIFIED SNOMED Code(s): 81768034 Plan: Continue comfort care management. We'll continue to follow until ultimate demise
[2023-01-17] MEDS: MORPHINE SULFATE (100 MG/2 ML) 100 MG in SODIUM CHLORIDE 0.9% 100 ML IV SCH ×2 (08:30→10:55)
[2023-01-17] MEDS: MORPHINE SULFATE 4 MG/ML SYRINGE IV PRN ×7 (08:51→10:36)
[2023-01-17] MEDS: levETIRAcetam IV 500 MG/5 ML VIAL IVP SCH (09:03)
[2023-01-17] MEDS: METOPROLOL TARTRATE 25 MG TAB PO SCH (09:03)
[2023-01-17] MEDS: ASPIRIN 81 MG PO SCH (09:03)
[2023-01-17] MEDS: CHLORHEXIDINE GLUCONATE 15 ML CUP MUCOUS MEM SCH (09:03)
--- NOTE | 2023-01-17 09:27 | P.PN ---
Subjective Progress Note Date: 01/17/23 87-year-old male patient, who developed an acute cardiac arrest while getting ready to go to the EP lab to undergo a pacemaker insertion. The patient was supposed underwent a pacemaker insertion today. Noted the patient has been having several episodes of syncope. First episode he came into the emergency and he was discharged home. The first episode, he was hospitalized and this morning this was the third episode. As far the second episode, the patient was standing and the buffet and he developed a sudden onset syncopal episode. Bystanders performed CPR on the patient. The patient was brought into the hospital. The patient was discharged home by the emergency physician. The patient then returned for additional episodes of syncope. He denied having any chest pain. He denies having any shortness of breath. He denied having any dizziness did no focal neurological deficit that he was fully recovered from those episodes. The patient had some abnormal EKG showing atrial fibrillation with RVR. He is known to have cardiomyopathy. Based on the recent echocardiogram that was done in February 2022, his EF was down to 50s 20% and this is a new finding compared to the earlier echo cardiac and the door essentially within normal limits. Patient also had a normal cardiac catheterization [email or web address]. This morning, the patient had another episode of syncope. He was found in the bathroom unresponsive. He had no pulse. I believe he was in a PEA condition. CPR was applied and the patient was intubated and brought to the intensive care unit. Cardiology is been involved. I believe EKG showing A. fib RVR. I saw the patient in the ICU. The patient was still in atrial fibrillation with a controlled rate. The patient was running a soft blood pressure with a systolic blood pressure in the 90s. He was unresponsive. He was maintained on propofol at 30 microvascular kilogram per minute to maintain secondary mechanical ventilator. He was on assist-control mode of mechanical ventilation at the rate of 14, tidal volume of 450, FiO2 of 100% with a PEEP of 5. The blood gases s howed a pH of 7.2 with a pCO2 of 43 and pO2 of 356. FiO2 was dropped onto 50%. I also think is a rate up to 20 and changed tidal volume to 500. Chest x-ray showed cardiomegaly, ET tube was repositioned at the patient's ET tube was quite far down the trachea. No other acute abnormalities noted. The RBC count from this morning is at 17 with a hemoglobin of 12.5. BUN is at 28 with a creatinine of 1.1. Sodium is at 130, potassium is at 4.1, serum bicarb is at 15. The patient is going to be taken for a temporary pacemaker insertion. He is currently on IV heparin. Family is at the bedside. On today's evaluation of 01/15/2023, the patient remains intubated on a mechanical ventilator. 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 The patient is currently on propofol which is running at 60 mcg/kg/m. His admitted to While being on a mechanical ventilator. Neurologically, he is not grimacing and is not withdrawing to deep painful stimulation. He is having occasional myoclonic jerks upon stimulation. EEG was done and it showed diffuse slowing and there is no evidence of any active seizures other than some myoclonic jerks or activity with stimulation. The patient was started on Keppra. CAT scan of the brain was negative. At the same time, the patient was given a temporary transvenous pacemaker which is set at the rate of 60. His current cardiac rhythm is atrial fibrillation and is rate is above 60. Note that he was pacing yesterday and he was riding the pacemaker. As such, our thinking processes that the patient went into a high degree AV block which contributed to his cardiac arrest. The patient remains on amiodarone regarding his ongoing atrial fibrillation. Amiodarone is running at 0.5 mg/m and the patient is also on IV heparin. The patient is currently hemodynamically stable on no pressors. He remains on a mechanical ventilator on assist control mode at the rate of 20, tidal volume of 500, FiO2 of 30% and a PEEP of 5. The chest x-ray shows cardiomegaly without any acute abnormalities. Blood gas shows a pH of 7.45 with a pCO2 of 25 and a pO2 of 181. The patient has no significant orotracheal secretions. The patient is still hypotensive. The patient remains on norepinephrine at 0.25 mcg/kg/m. He has sustained an acute kidney injury. BUN is up to 35 the creatinine is up to 1.5. Sodiums of 1 :30, potassium 3.2. The white cell count is at 15.7 with a hemoglobin of 12.2 and a platelet count of 229. The patient is afebrile. No antibiotic coverage was given to this patient this point in time. He was started on enteral feeding and is currently on vital high-protein at the rate of 30 mL an hour. On 01/16/2023, seeing the patient for a follow-up. The patient remains unresponsive. He has been taken off sedation, off propofol for around 30 minutes this morning and wear the process of getting another sedation holiday for a complete neurologic evaluation. Nevertheless, he has not shown any neurological recovery. He does not withdraw to any painful stimulation. He is breathing above the respirator. He has a disconjugate gaze and occasional myoclonic jerks. He remains on Keppra. Full neurologic evaluation is to follow once the patient is off sedation for couple of hours. The patient is on assist- control mode at the rate of 20, tidal volume of 500, FiO2 of 30% with a PEEP of 5. His chest x-ray shows cardiomegaly. ET tube is in a good location. No acute cardiopulmonary abnormalities of the chest x-ray. His blood gases from today shows a pH of 7.49 with a pCO2 of 30 and pO2 of 149. The patient's is hemodynamically stable. His cardiac rhythm is irregular with occasional pacing through the transvenous pacemaker. Nevertheless, his current heart rate is somewhat tachycardic in the 100 range. His still on amiodarone at 0.5 mg/m. No ventricular arrhythmias have been noted. He remains on IV heparin. Patient is also metoprolol 25 mg by mouth twice a day. Patient otherwise has blood work that showing a white cell count of 14.4, hemoglobin 11.9 and platelet count of 210. Sodium is at 128, bicarb is at 20, BUN is at 36 with a creatinine of 1.2. The patient is also receiving enteral feeding for nutritional support. Is currently on vital high-protein at the rate of 20 mL an hour. No other significant events otherwise for now. On today's evaluation of 01/17/2023, the patient's was initiated end-of-life care, comfort care measures and he is currently on morphine drip at 32 mg/h. He is obviously unresponsive. He is comfortable. Breathing is nonlabored. He is extubated and is currently on room air oxygen. His pulse ox is has dropped and is currently at oxygen saturations 75%. Family is at the bedside. Family is at the bedside. The decision was made by the family to proceed with comfort care measures pressure the patient showed no signs of any neurologic recovery over the past 48 hours. Objective - Vital Signs Vital signs: Vital Signs Temp 98.9 F 01/17/23 04:00 Pulse 85 01/17/23 07:00 Resp 18 01/17/23 07:00 BP 113/67 01/15/23 10:00 Pulse Ox 98 01/17/23 07:00 FiO2 30 01/17/23 07:34 Intake & Output 01/16/23 01/17/23 01/17/23 18:59 06:59 18:59 Intake Total 7180.189 9111.275 116.139 Output Total 350 245 20 Balance 719.771 963.275 96.139 Intake: IV 650 550 50 Sodium Chloride 0.9% 1, 650 550 50 000 ml @ 50 mls/hr IV . Q20H [facility] Rx#:[id number] Intake, IV Titration 399.771 658.275 66.139 Amount Amiodarone 450 mg In 151.114 353.619 Dextrose 5% in Water 250 ml @ 0.5 MG/MIN 16.667 mls/hr IV .Q15H [facility] Rx#: [id number] Heparin Sod,Pork in 0.45% 149.474 NaCl 25,000 unit In 0.45 % NaCl 1 250ml.bag @ 11. 023 UNITS/KG/HR 10 mls/hr IV .Q24H [facility] Rx#: [id number] Morphine Sulfate (100 mg/ 4.539 2 ml) 100 mg In Sodium Chloride 0.9% 100 ml @ 1 MG/HR 1.02 mls/hr IV . Q24H [facility] Rx#:[id number] Norepinephrine 32 mg In 24.796 79.043 14.79 Sodium Chloride 0.9% 218 ml @ 0.03 MCG/KG/MIN 1. 305 mls/hr IV .Q24H [facility] Rx#:[id number] propofoL 1,000 mg In 74.387 225.613 46.810 Empty Bag 1 bag @ 15 MCG/ KG/MIN 8.165 mls/hr IV . [id number] [facility] Rx#:[id number] Tube Feeding 20 Output: Urine 350 245 20 Other: Voiding Method Indwelling Catheter Indwelling Catheter ABP, PAP, CO, CI - Last Documented Arterial Blood Pressure 101/56 - Exam Patient is currently extubated on room air oxygen He is unresponsive. The patient is going through agonal breathing at this point in time Head exam was generally normal. There was no scleral icterus or corneal arcus. Mucous membranes were moist. Neck was supple and without jugular venous distension, thyromegaly, or carotid bruits. Carotids were easily palpable bilaterally. There was no adenopathy. Lungs were clear to auscultation and percussion, and with normal diaphragmatic excursion. No wheezes or rales were noted. Cardiac exam revealed the PMI to be normally situated and sized. The rhythm was irregular and no extrasystoles were noted during several minutes of auscultation. The first and second heart sounds irregular consistent with atrial fibrillation physiologic splitting of the second heart sound was noted. There were no murmurs, rubs, clicks, or gallops. Abdominal exam revealed normal bowel sounds. The abdomen was soft, non-tender, and without masses, organomegaly, or appreciable enlargement of the abdominal aorta. The patient has a transvenous pacemaker insertion site is the right femoral vein. Extremities are cold, diminished pulses in the right lower extremity, left foot is colder than the right. Pulses are very weak obtained by Doppler. No cyanosis or clubbing. Examination of the skin revealed no evidence of significant rashes, suspicious appearing nevi or other concerning lesions. Neurologic , responsive - Labs CBC & Chem 7: 01/16/23 04:40 01/16/23 04:40 Labs: Abnormal Lab Results - Last 24 Hours (Table) 01/16/23 01/16/23 01/16/23 Range/Units 11:00 11:39 18:01 APTT 39.6 H (22.0-30.0) sec ABG pH (7.35-7.45) ABG pCO2 (35-45) mmHg ABG pO2 (83-108) mmHg ABG Total CO2 (19-24) mmol/L ABG O2 Saturation (94-97) % POC Glucose (mg/dL) 158 H 148 H (70-110) mg/dL 01/16/23 01/17/23 01/17/23 Range/Units 18:58 00:26 05:55 APTT 77.6 H (22.0-30.0) sec ABG pH 7.50 H (7.35-7.45) ABG pCO2 30 L (35-45) mmHg ABG pO2 137 H (83-108) mmHg ABG Total CO2 25 H (19-24) mmol/L ABG O2 Saturation 99.4 H (94-97) % POC Glucose (mg/dL) 142 H (70-110) mg/dL 01/17/23 Range/Units 06:51 APTT (22.0-30.0) sec ABG pH (7.35-7.45) ABG pCO2 (35-45) mmHg ABG pO2 (83-108) mmHg ABG Total CO2 (19-24) mmol/L ABG O2 Saturation (94-97) % POC Glucose (mg/dL) 147 H (70-110) mg/dL Assessment and Plan Plan: PEA cardiac arrest, under investigation. Consider possibility of bradycardia/bradycardia arrhythmia versus A. fib RVR. Ventricular arrhythmias were not noted. Down time is estimated to be around 10 minutes. Patient sustained severe anoxic encephalopathy. The patient remained unresponsive over the past 48 hours. Neurologic evaluation was done. Family opted with comfort care measures based on his age and comorbidities.. Acute hypoxic respiratory failure post cardiac arrest, currently extubated on room air oxygen Anoxic encephalopathy. Nonischemic cardiomyopathy with an ejection fraction of 15-20%. Repeat echocardiogram during this current admission showed markedly impaired LV function with an EF of around 30-35% and there was moderate MR, mild aortic stenosis. RV was also exhibited dilated within normal pulmonary artery pre ssure. Paroxysmal A. fib, current rhythm is still A. fib with a controlled rate abnormal troponins, type to myocardial ischemia Recurrent syncope, at least 3 episodes over the past 24 hours with subsequent cardiac arrest Normal coronaries based on the cardiac catheterization from 2021 Hypertension Hyperlipidemia Plan Family is at the bedside Proceed with comfort care measures and end-of-life care Morphine drip at 32 mg/h Pulmonary critical care services will sign off.
[2023-01-17 12:13] VITALS: PULSE 117; RESP 15
[2023-01-17 13:48] VITALS: BMI 31.2
--- NOTE | 2023-01-23 08:17 | P.DS ---
Providers Date of admission: 01/11/23 05:58 Attending physician: Joseph Cuevas Consults: 01/11/23 05:58 Consult Physician Routine Consulting Provider: Bossman Salinas Consult Reason/Comments: syncope, elevated troponin Do you want consulting provider notified?: Yes 01/14/23 10:59 Consult Physician Routine Consulting Provider: Cody Pepe Consult Reason/Comments: cardiopulm arrest Do you want consulting provider notified?: Yes 01/14/23 13:45 Consult Physician Routine Consulting Provider: Jamey Escalona Consult Reason/Comments: cardio/pulm. arrest, hypoxic concern Do you want consulting provider notified?: Already Contacted Primary care physician: Joseph Cuevas - Discharge Diagnosis(es) (1) Cardiac arrest Status: Acute (2) Syncope Status: Acute (3) Atrial flutter with rapid ventricular response Status: Acute (4) Congestive heart failure Status: Acute Hospital Course: This is a summary an 87-year-old white male who was admitted to the hospital but had cardiac arrest. The patient was stabilized after ACLS protocols and transferred to the ICU. He did not do well at that time even though he had complete support seizure activity and prognostic indicators indicating poor prognosis were felt after discussion with the family, he was changed to comfort care and DO NOT RESUSCITATE and and succumbed to his cardiac arrest. Patient Condition at Discharge: Critical Plan - Discharge Summary Discharge Rx Participant: No New Discharge Prescriptions: No Action Apixaban [Eliquis] 2.5 mg PO BID-W/MEALS Losartan Potassium [Cozaar] 25 mg PO W/SUPPER Nitroglycerin Sl Tabs [Nitrostat] 0.4 mg SUBLINGUAL Q5M PRN PRN Reason: Chest Pain Furosemide [Lasix] 40 mg PO W/BRKFST Furosemide [Lasix] 20 mg PO W/SUPPER Metoprolol Tartrate [Lopressor] 25 mg PO DAILY #30 tab metOLazone 2.5 mg PO AC-BRKFST Furosemide [Lasix] 20 mg PO W/SUPPER Potassium Chloride [Klor-Con M20] 40 meq PO W/BRKFST Potassium Chloride [Klor-Con M20] 20 meq PO W/SUPPER Discharge Medication List Apixaban [Eliquis] 2.5 mg PO BID-W/MEALS 09/11/19 [History] Losartan Potassium [Cozaar] 25 mg PO W/SUPPER 10/02/21 [History] Nitroglycerin Sl Tabs [Nitrostat] 0.4 mg SUBLINGUAL Q5M PRN 02/14/22 [History] Metoprolol Tartrate [Lopressor] 25 mg PO DAILY #30 tab 02/16/22 [Rx] Furosemide [Lasix] 20 mg PO W/SUPPER 01/11/23 [History] Furosemide [Lasix] 20 mg PO W/SUPPER 01/11/23 [History] Furosemide [Lasix] 40 mg PO W/BRKFST 01/11/23 [History] Potassium Chloride [Klor-Con M20] 20 meq PO W/SUPPER 01/11/23 [History] Potassium Chloride [Klor-Con M20] 40 meq PO W/BRKFST 01/11/23 [History] metOLazone 2.5 mg PO AC-BRKFST 01/11/23 [History] Follow up Appointment(s)/Referral(s): Joseph Cuevas MD [Primary Care Provider] - 1-2 days Discharge Disposition: - Preliminary Cause of Preliminary Cause of : Cardiac arrest
== END 2023-01-17 13:50 | disposition expired | DRG 273 ==
LOC: EC 04:33 → 3SCARD 05:58 → 2SICU 01-14 11:01
PROVIDERS: ADMIT Family Medicine; ATTEND Family Medicine
PROC: 5A12012 Performance of Cardiac Output, Single, Manual (ICD-10-PCS; 2023-01-14)
PROC: 3E033XZ Introduction of Vasopressor into Peripheral Vein, Percutaneous Approach (ICD-10-PCS; 2023-01-14)
PROC: 0BH18EZ Insertion of Endotracheal Airway into Trachea, Via Natural or Artificial Opening Endoscopic (ICD-10-PCS; 2023-01-14)
PROC: 5A1945Z Respiratory Ventilation, 24-96 Consecutive Hours (ICD-10-PCS; 2023-01-14)
PROC: 4A0234Z Measurement of Cardiac Electrical Activity, Percutaneous Approach (ICD-10-PCS; 2023-01-14)
PROC: 4A023FZ Measurement of Cardiac Rhythm, Percutaneous Approach (ICD-10-PCS; principal; 2023-01-14 12:05)
DX: I44.2 Atrioventricular block, complete (principal); I21.A1 Myocardial infarction type 2; J96.01 Acute respiratory failure with hypoxia; E87.20 Acidosis, unspecified; I50.22 Chronic systolic (congestive) heart failure; G93.1 Anoxic brain damage, not elsewhere classified; I42.8 Other cardiomyopathies; N17.9 Acute kidney failure, unspecified; I47.29 Other ventricular tachycardia; G25.3 Myoclonus; I11.0 Hypertensive heart disease with heart failure; I08.3 Combined rheumatic disorders of mitral, aortic and tricuspid valves; Z66 Do not resuscitate; Z51.5 Encounter for palliative care; I48.92 Unspecified atrial flutter; E83.42 Hypomagnesemia; E78.5 Hyperlipidemia, unspecified; I49.5 Sick sinus syndrome; I46.2 Cardiac arrest due to underlying cardiac condition; D72.828 Other elevated white blood cell count; K44.9 Diaphragmatic hernia without obstruction or gangrene; I95.1 Orthostatic hypotension; I48.0 Paroxysmal atrial fibrillation; T50.2X5A Adverse effect of carbonic-anhydrase inhibitors, benzothiadiazides and other diuretics, initial encounter; E87.6 Hypokalemia; I47.1 Supraventricular tachycardia; Z87.891 Personal history of nicotine dependence; Z91.040 Latex allergy status; Z88.8 Allergy status to other drugs, medicaments and biological substances; Z79.899 Other long term (current) drug therapy; Z79.01 Long term (current) use of anticoagulants
CPT/HCPCS: 33210; 36415; 70450; 71045; 80048; 80053; 82805; 83605; 83735; 84100; 84484; 85025; 85610; 85730; 87070; 87205; 93005; 93306; 94002; 94003; 94640; 95816; 95822; 99285